=== PATIENT | female | born 1935 | race Caucasian/White ===

== ENCOUNTER 2016-11-16 12:43 | Emergency (ER) | payer OTHER ==
[~2016-11-16] VITALS: Ht 167.6 cm; Wt 72.4 kg
[~2016-11-16 12:43] MED LIST: ASPEC81 PO; ATOR-26 PO; CLOP1TAB15 PO; LOSA1TAB PO; METO100T14 PO; PANT1TAB48 PO
[2016-11-16 12:55] VITALS: TEMP 36.8; Ht 167.6 cm; Wt 72.4 kg
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
[2016-11-16 13:49] VITALS: O2SAT 99
--- NOTE | 2016-11-16 13:57 | DIAGNOSTIC IMAGING REPORT ---
CT SCAN OF THE BRAIN WITHOUT IV CONTRAST CLINICAL HISTORY: Right facial paralysis. COMPARISON STUDY: CT of the brain dated 05/13/2014. TECHNIQUE: Unenhanced axial CT scan of the brain is performed from the vertex to the skull base. CT DOSE: 638.56 mGycm FINDINGS: Brain parenchyma: There are age-related involutional changes noting mild to moderate subcortical and periventricular microangiopathic change. There is no hemorrhage, mass effect, or evidence of acute territorial ischemia by CT criteria. Mancia-white matter is preserved. No extra-axial fluid collection is seen. Ventricles, sulci, cisterns: Prominent secondary to involutional change. Intracranial vasculature: There is atherosclerotic calcification of the cavernous carotid and vertebral arteries. Calvarium: Unremarkable. Sinuses and mastoids: The visualized paranasal sinuses are clear. The mastoid air cells are well pneumatized. Orbits: The bony orbits are grossly intact. There are bilateral ocular lens implants. IMPRESSION: There is no hemorrhage, mass effect, or evidence of acute territorial ischemia by CT criteria. Electronically signed by: Prateek Stoll M.D. 11/16/2016 1:55 PM Dictated Date/Time: 11/16/2016 1:50 PM
[2016-11-16 14:03] LABS: BASO % 0.5 %; BASO ABS # 0.02 K/uL (0-0.2); COMPLETE YES; EOS % 2.1 %; HEMATOCRIT 36.9 % (37-47); IG% 0.2 %; LYMPH % 28.9 %; LYMPH ABS # 1.24 K/uL (1.2-3.4); MEAN CELL VOLUME 98.1 fL (80-100); MEAN CORPUSCULAR HEMOGLOBIN 33.2 pg (25-34); MEAN CORPUSCULAR HGB CONC 33.9 g/dl (32-36); MEAN PLATELET VOLUME 9.7 fL (7.4-10.4); MONO % 5.6 %; NEUT % 62.7 %; PLATELET COUNT 230 K/uL (130-400); RED BLOOD COUNT 3.76 M/uL (4.2-5.4); WHITE BLOOD COUNT 4.29 K/uL (4.8-10.8)
--- NOTE | 2016-11-16 14:14 | DIAGNOSTIC IMAGING REPORT ---
CHEST 2 VIEWS ROUTINE CLINICAL HISTORY: right facial paralysis mental status change COMPARISON STUDY: 08/17/2014 FINDINGS: Findings of prior median sternotomy. Lungs are clear. Diaphragms smooth. IMPRESSION: No acute process. The above report was generated using voice recognition software. It may contain grammatical, syntax or spelling errors. Electronically signed by: Matthew Ochoa M.D. 11/16/2016 2:12 PM Dictated Date/Time: 11/16/2016 2:12 PM
[2016-11-16] MEDS ORDERED: ACETAMINOPHEN 500 MG TAB PO STA (14:17)
[2016-11-16 14:22] LABS: BLOOD UREA NITROGEN 13 mg/dl (7-18); BUN/CREATININE RATIO 15.4 (10-20); CALCIUM 9.1 mg/dl (8.5-10.1); CARBON DIOXIDE 28 mmol/L (21-32); CHLORIDE 105 mmol/L (98-107); CREATININE 0.82 mg/dl (0.60-1.20); GLUCOSE 133 mg/dl (70-99); POTASSIUM 3.7 mmol/L (3.5-5.1); SODIUM 139 mmol/L (136-145)
[2016-11-16] MEDS ORDERED: ACETAMINOPHEN 325 MG TAB ONE (14:26)
[2016-11-16] MEDS ORDERED: CZR25 PO (14:51)
[2016-11-16] MEDS ORDERED: ACET-1256 PO (14:51)
[2016-11-16] MEDS ORDERED: ATOR80TA PO (14:51)
[2016-11-16] MEDS ORDERED: ASPI81TA28 PO (14:51)
[2016-11-16] MEDS ORDERED: ALBU18002 INH (14:51)
[2016-11-16] MEDS ORDERED: FLUT0.15 NAE (14:51)
[2016-11-16] MEDS ORDERED: MULTCHW PO (14:51)
[2016-11-16] MEDS ORDERED: PRT/20 PO (14:51)
[2016-11-16] MEDS ORDERED: CLOP1TAB15 PO (14:51)
[2016-11-16] MEDS ORDERED: METO1TAB69 PO (14:51)
[2016-11-16] MEDS ORDERED: PRED50TA PO (15:26)
[2016-11-16] MEDS ORDERED: DOXY1TAB6 PO (15:26)
[2016-11-16] MEDS ORDERED: ARTIOIN OP (15:29)
[2016-11-16 16:14] LABS: LYME DISEASE AB IGG POS (NEG); LYME DISEASE AB IGM POS (NEG)
[2016-11-16 17:27] VITALS: BP 141/89; PULSE 70; O2SAT 97
[2016-11-21 23:57] LABS: 18KDIGG BAND REACTIVE (NONREACTIVE); 23KDIGG BAND REACTIVE (NONREACTIVE); 23KDIGM BAND REACTIVE (NONREACTIVE); 28KDIGG BAND NONREACTIVE (NONREACTIVE); 30KDIGG BAND NONREACTIVE (NONREACTIVE); 39KDIGG BAND REACTIVE (NONREACTIVE); 39KDIGM BAND NONREACTIVE (NONREACTIVE); 41KDIGG BAND REACTIVE (NONREACTIVE); 41KDIGM BAND REACTIVE (NONREACTIVE); 45KDIGG BAND REACTIVE (NONREACTIVE); 58KDIGG BAND REACTIVE (NONREACTIVE); 66KDIGG BAND REACTIVE (NONREACTIVE); 93KDIGG BAND NONREACTIVE (NONREACTIVE)
== END 2016-11-16 17:29 | disposition home or self-care (01) ==
LOC: C.EDB 12:43 → EDBD 12:43 → C.EDB 17:29
DX: G51.0 Bell's palsy (principal); I10 Essential (primary) hypertension; Z95.1 Presence of aortocoronary bypass graft; K21.9 Gastro-esophageal reflux disease without esophagitis; M10.9 Gout, unspecified; E78.5 Hyperlipidemia, unspecified; I25.2 Old myocardial infarction; Z83.3 Family history of diabetes mellitus; Z83.79 Family history of other diseases of the digestive system; Z82.49 Family history of ischemic heart disease and other diseases of the circulatory system; Z79.82 Long term (current) use of aspirin; Z79.02 Long term (current) use of antithrombotics/antiplatelets; Z79.899 Other long term (current) drug therapy

== ENCOUNTER → 2017-01-05 | Outpatient (CLI) | payer OTHER ==
[~2017-01-05] MED LIST changes: +ACET-1256 PO; +ALBU18002 INH; +ARTIOIN OP; -ASPEC81 PO; +ASPI81TA28 PO; -ATOR-26 PO; +ATOR80TA PO; +CZR25 PO; +FLUT0.15 NAE; -LOSA1TAB PO; -METO100T14 PO; +METO1TAB69 PO; +MULTCHW PO; -PANT1TAB48 PO; +PRT/20 PO
--- NOTE | 2017-01-05 12:36 | DIAGNOSTIC IMAGING REPORT ---
MRI OF THE BRAIN WITHOUT IV CONTRAST CLINICAL HISTORY: Left arm weakness. COMPARISON STUDY: CT of the brain dated 11/16/2016. TECHNIQUE: MRI of the brain was performed utilizing various T1 and T2-weighted sequences in the axial, sagittal, and coronal planes. IV contrast was not administered for this examination. FINDINGS: Brain parenchyma: There are age-related involutional changes noting mild to moderate patchy subcortical and periventricular microangiopathic disease. Tiny chronic lacunar infarcts are noted in the right cerebellar hemisphere in the left caudate head. There is no hemorrhage or mass effect. There is no restricted diffusion to suggest acute ischemia. Mancia-white matter differentiation is preserved. No extra-axial fluid collection is seen. The cerebellar tonsils are normal in configuration. Ventricles, sulci, and cisterns: Prominent secondary to involutional change. Pituitary and sella: Unremarkable. Intracranial vasculature: Normal flow voids are maintained at the skull base. Orbits: The bony orbits are grossly intact. Orbital contents are normal in appearance noting bilateral ocular lens implants. Sinuses and mastoids: There are small mastoid effusions. The paranasal sinuses are clear. Calvarium: Unremarkable. Cervical cord: Partially visualized cervical spinal cord is normal in morphology and signal intensity. IMPRESSION: No acute intracranial abnormality. Electronically signed by: Prateek Stoll M.D. 01/05/2017 12:35 PM Dictated Date/Time: 01/05/2017 12:32 PM
== END | disposition home or self-care (01) ==
LOC: C.MRI 10:06
PROVIDERS: ATTEND Family Medicine
DX: R29.898 Other symptoms and signs involving the musculoskeletal system (principal)

== ENCOUNTER → 2017-01-10 | Outpatient (CLI) | payer OTHER ==
[2017-01-12 14:57] LABS: QUANTIF TB AG-NIL <0.00 IU/ML; QUANTIFERON NIL 0.11 IU/ML
== END | disposition home or self-care (01) ==
LOC: C.LAB1850 15:24
PROVIDERS: ATTEND Internal Medicine Infectious Disease
DX: R61 Generalized hyperhidrosis (principal)

== ENCOUNTER 2017-06-23 19:08 | Emergency (ER) | payer OTHER ==
[~2017-06-23] VITALS: Ht 160 cm; Wt 73.5 kg
[~2017-06-23 19:08] MED LIST changes: -ARTIOIN OP; +METO100T44 PO; -METO1TAB69 PO
[2017-06-23 19:11] VITALS: TEMP 36.8; Ht 160 cm; Wt 73.5 kg
[2017-06-23] MEDS ORDERED: OXYCODONE HCL IR 5 MG TAB (IMMEDIATE RELEASE) PO STA ×2 (19:21→21:26)
[2017-06-23] MEDS ORDERED: ONDANSETRON 4MG OD TAB PO ONE (19:30)
[2017-06-23] MEDS ORDERED: OXYMETAZOLINE HCL 0.05% NA SPR 15 ML BTL ONE (19:45)
--- NOTE | 2017-06-23 20:16 | DIAGNOSTIC IMAGING REPORT ---
R HUMERUS MIN 2 VIEWS ROUTINE CLINICAL HISTORY: fall trauma. Pain. COMPARISON: None. DISCUSSION: Anterior dislocation right humerus in relation to the shoulder. Potential cortical irregularity of the inferior scapula although this may be positional. There is no evidence for soft tissue swelling. IMPRESSION: Anterior dislocation The above report was generated using voice recognition software. It may contain grammatical, syntax or spelling errors. Electronically signed by: Matthew Ochoa M.D. 06/23/2017 8:14 PM Dictated Date/Time: 06/23/2017 8:13 PM
--- NOTE | 2017-06-23 20:17 | DIAGNOSTIC IMAGING REPORT ---
R FOREARM 2 VIEWS ROUTINE CLINICAL HISTORY: fall trauma. Pain. COMPARISON: None. DISCUSSION: The bones and joint spaces appear intact. There is no evidence of fracture, dislocation or bony disease. There is no evidence for soft tissue swelling. IMPRESSION: Negative study. The above report was generated using voice recognition software. It may contain grammatical, syntax or spelling errors. Electronically signed by: Matthew Ochoa M.D. 06/23/2017 8:16 PM Dictated Date/Time: 06/23/2017 8:15 PM
--- NOTE | 2017-06-23 20:20 | DIAGNOSTIC IMAGING REPORT ---
HEAD WITHOUT CONTRAST (CT) CT DOSE: HISTORY: Trauma. Mental status change. fall TECHNIQUE: Multiaxial CT images of the head were performed without the use of intravenous contrast. A dose lowering technique was utilized adhering to the principles of ALARA. Comparison: 11/16/2016 Findings: The paranasal sinuses and mastoid air cells are clear. The calvarium and skull base are intact. The ventricles and sulci are within normal limits. There is no mass, hematoma, midline shift, or acute infarct. Fracture nasal bones. Impression: Fracture nasal bones. No acute intracranial abnormality. The above report was generated using voice recognition software. It may contain grammatical, syntax or spelling errors. Electronically signed by: Matthew Ochoa M.D. 06/23/2017 8:19 PM Dictated Date/Time: 06/23/2017 8:18 PM
--- NOTE | 2017-06-23 20:23 | DIAGNOSTIC IMAGING REPORT ---
FACIAL BONES-MXILLOFAC WITHOUT CT DOSE: HISTORY: Trauma. Pain. fall TECHNIQUE: Multiaxial CT images of the maxillofacial region were performed and reformatted in the coronal plane without the use of contrast. A dose lowering technique was utilized adhering to the principles of ALARA. COMPARISON: 06/03/2009 FINDINGS: Fracture nasal bones. Major sinuses are clear. The orbital margins appear intact. Temporomandibular joints show no acute abnormality. Major sinuses are clear. IMPRESSION: Fracture nasal bones. Otherwise negative study. The above report was generated using voice recognition software. It may contain grammatical, syntax or spelling errors. Electronically signed by: Matthew Ochoa M.D. 06/23/2017 8:22 PM Dictated Date/Time: 06/23/2017 8:19 PM
--- NOTE | 2017-06-23 20:25 | DIAGNOSTIC IMAGING REPORT ---
CERVICAL SPINE W/O CT DOSE: 948.02 mGy.cm HISTORY: Trauma. Pain. fall TECHNIQUE: Multiaxial CT images of the cervical spine were performed and reformatted in the sagittal and coronal plane without the use of contrast. A dose lowering technique was utilized adhering to the principles of ALARA. COMPARISON: 05/13/2014 FINDINGS: nasal bone fractures are again noted. Vertebral body stature is unremarkable. There are findings of a fusion with a mesh cage placement at C5-C6. Posterior elements are intact. There is moderate degenerative disc change throughout. The prevertebral soft tissues are unremarkable. IMPRESSION: No fractures within the cervical spine. Degenerative and postoperative change as noted. The above report was generated using voice recognition software. It may contain grammatical, syntax or spelling errors. Electronically signed by: Matthew Ochoa M.D. 06/23/2017 8:24 PM Dictated Date/Time: 06/23/2017 8:22 PM
[2017-06-23] MEDS ORDERED: HYDROmorphone INJ 0.5 MG/0.5 ML SYR IM STA (20:52)
[2017-06-23] MEDS ORDERED: CEPHALEXIN MONOHYDRATE 250 MG CAP PO ONE (21:30)
[2017-06-23] MEDS ORDERED: CEPHALEXIN 500MG HOME PACK 1 EA BTL PO ONE (21:30)
[2017-06-23] MEDS ORDERED: OXYCODONE IR HOME PACK PO ONE (21:30)
[2017-06-23] MEDS ORDERED: OXYC1TAB3 PO (21:39)
[2017-06-23] MEDS ORDERED: CEPH500C2 PO (21:39)
[2017-06-23 21:50] VITALS: BP 154/73; PULSE 60; O2SAT 92
--- NOTE | 2017-06-23 21:53 | DIAGNOSTIC IMAGING REPORT ---
R SHOULDER MIN 2 VIEWS ROUTINE CLINICAL HISTORY: post reduction dislocation COMPARISON: None. DISCUSSION: Anatomic alignment post closed reduction. There is no evidence for soft tissue swelling. IMPRESSION: Anatomic alignment status post closed reduction. The above report was generated using voice recognition software. It may contain grammatical, syntax or spelling errors. Electronically signed by: Matthew Ochoa M.D. 06/23/2017 9:52 PM Dictated Date/Time: 06/23/2017 9:51 PM
--- NOTE | 2017-06-23 22:54 | EMERGENCY ROOM VISIT NOTE ---
History Report prepared by Maria C: Rosa Maria Reid Under the Supervision of: Dr. Donis Arevalo D.O. 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 She presents to the ED by EMS. She tripped over a sweeper and fell today. She reports right arm pain and nose pain. She had a nose bleed after the fall. She denies any LOC, leg pain, abdominal pain, back pain, neck pain, or hip pain. 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 Review of Systems See HPI for pertinent positives & negatives. A total of 10 systems reviewed and were otherwise negative. Past Medical & Surgical Medical Problems: (1) Benign hypertension (2) Coronary artery bypass grafting (3) Echocardiogram (4) Gangrene (5) Gastroesophageal reflux disease (6) Gout (7) HTN (hypertension) (8) Hyperlipidemia (9) Hysterectomy (10) Myocardial infarct Surgical Problems: (1) Hx of heart artery stent (2) S/P triple vessel bypass Family History Diabetes mellitus FH: gallbladder disease FH: heart disease Hypertension Stroke Social History Smoking Status: Never Smoker Alcohol Use: none Marital Status: Housing Status: lives alone Occupation Status: retired Current/Historical Medications Scheduled Aspirin (Aspirin Ec), 162 MG PO DAILY Atorvastatin (Lipitor), 80 MG PO QAM Cephalexin Monohydrate (Keflex), 500 MG PO QID Clopidogrel (Plavix), 75 MG PO DAILY Fluticasone Propionate (Nasal) (Flonase Allergy Relief), 2 SPRAYS IRENE DAILY Losartan Potassium (Losartan Potassium), 25 MG PO DAILY Metoprolol Succ (Toprol Xl) (Toprol-Xl ), 100 MG PO DAILY Multiple Vitamins W/ Minerals (Centrum Silver), 1 TAB PO DAILY Pantoprazole (Protonix), 20 MG PO DAILY Scheduled PRN Acetaminophen (Tylenol), 1,000 MG PO Q6 PRN for Pain Albuterol Sulfate (Proair Respiclick), 1 PUFF INH QID PRN for Wheezing Oxycodone Immediate Rel Tab (Roxicodone Ir), 1-2 TAB PO Q4H PRN for Severe Pain Allergies Coded Allergies: Perflutren (Unverified Allergy, Severe, MUSCLE TIGHTNESS, 06/23/17) Propylene Glycol (Unverified Allergy, Severe, MUSCLE TIGHTNESS, 06/23/17) Sulfamethoxazole w/Trimethoprim (Unverified Allergy, Severe, RASH, 06/23/17 ) Sulfa Drugs (Verified Allergy, Unknown, RASH, 06/23/17) Physical Exam Vital Signs Date Time Temp Pulse Resp B/P (MAP) Pulse Ox O2 Delivery O2 Flow Rate FiO2 06/23/17 21:50 60 18 154/73 92 Room Air 06/23/17 20:26 72 18 152/78 95 Room Air 06/23/17 19:11 36.8 67 18 103/76 94 Room Air Physical Exam GENERAL: Patient is awake, alert, somewhat anxious appearing. EYES: The conjunctivae are clear. The pupils are round and reactive. EARS, NOSE, MOUTH AND THROAT: Clotted blood in both nares right greater than left, swelling over bridge of nose with puncture wound on both sides of the bridge of the nose. NECK: The neck is nontender and supple. RESPIRATORY: Normal respiratory effort is noted there is no evidence of wheezing rhonchi or rales CARDIOVASCULAR: Regular rate and rhythm noted there no murmurs rubs or gallops normal S1 normal S2 GASTROINTESTINAL: The abdomen is soft. Bowel sounds are present in all quadrants. Abdomen is nontender BACK: No midline tenderness or or step-off noted range of motion in flexion extension as well as rotation no signs of muscle spasm noted MUSCULOSKELETAL/EXTREMITIES: There is tenderness over the proximal forearm as well as mid portion of the humerus on the right, no decreased ROM or tenderness on either lower extremity. SKIN: There is no obvious evidence of any rash. There are no petechiae, pallor or cyanosis noted. NEUROLOGIC: Patient is awake alert and oriented x3 Medical Decision & Procedures ER Provider Diagnostic Interpretation: X-ray results as stated below per interpretation by me and the radiologist. Radiology results as stated below per my review and radiologist interpretation: R HUMERUS MIN 2 VIEWS ROUTINE CLINICAL HISTORY: fall trauma. Pain. COMPARISON: None. DISCUSSION: Anterior dislocation right humerus in relation to the shoulder. Potential cortical irregularity of the inferior scapula although this may be positional. There is no evidence for soft tissue swelling. IMPRESSION: Anterior dislocation The above report was generated using voice recognition software. It may contain grammatical, syntax or spelling errors. Electronically signed by: Matthew Ochoa M.D. 06/23/2017 8:14 PM Dictated Date/Time: 06/23/2017 8:13 PM R FOREARM 2 VIEWS ROUTINE CLINICAL HISTORY: fall trauma. Pain. COMPARISON: None. DISCUSSION: The bones and joint spaces appear intact. There is no evidence of fracture, dislocation or bony disease. There is no evidence for soft tissue swelling. IMPRESSION: Negative study. The above report was generated using voice recognition software. It may contain grammatical, syntax or spelling errors. Electronically signed by: Matthew Ochoa M.D. 06/23/2017 8:16 PM Dictated Date/Time: 06/23/2017 8:15 PM HEAD WITHOUT CONTRAST (CT) CT DOSE: HISTORY: Trauma. Mental status change. fall TECHNIQUE: Multiaxial CT images of the head were performed without the use of intravenous contrast. A dose lowering technique was utilized adhering to the principles of ALARA. Comparison: 11/16/2016 Findings: The paranasal sinuses and mastoid air cells are clear. The calvarium and skull base are intact. The ventricles and sulci are within normal limits. There is no mass, hematoma, midline shift, or acute infarct. Fracture nasal bones. Impression: Fracture nasal bones. No acute intracranial abnormality. The above report was generated using voice recognition software. It may contain grammatical, syntax or spelling errors. Electronically signed by: Matthew Ochoa M.D. 06/23/2017 8:19 PM Dictated Date/Time: 06/23/2017 8:18 PM FACIAL BONES-MXILLOFAC WITHOUT CT DOSE: HISTORY: Trauma. Pain. fall TECHNIQUE: Multiaxial CT images of the maxillofacial region were performed and reformatted in the coronal plane without the use of contrast. A dose lowering technique was utilized adhering to the principles of ALARA. COMPARISON: 06/03/2009 FINDINGS: Fracture nasal bones. Major sinuses are clear. The orbital margins appear intact. Temporomandibular joints show no acute abnormality. Major sinuses are clear. IMPRESSION: Fracture nasal bones. Otherwise negative study. The above report was generated using voice recognition software. It may contain grammatical, syntax or spelling errors. Electronically signed by: Matthew Ochoa M.D. 06/23/2017 8:22 PM Dictated Date/Time: 06/23/2017 8:19 PM CERVICAL SPINE W/O CT DOSE: 948.02 mGy.cm HISTORY: Trauma. Pain. fall TECHNIQUE: Multiaxial CT images of the cervical spine were performed and reformatted in the sagittal and coronal plane without the use of contrast. A dose lowering technique was utilized adhering to the principles of ALARA. COMPARISON: 05/13/2014 FINDINGS: nasal bone fractures are again noted. Vertebral body stature is unremarkable. There are findings of a fusion with a mesh cage placement at C5-C6. Posterior elements are intact. There is moderate degenerative disc change throughout. The prevertebral soft tissues are unremarkable. IMPRESSION: No fractures within the cervical spine. Degenerative and postoperative change as noted. The above report was generated using voice recognition software. It may contain grammatical, syntax or spelling errors. Electronically signed by: Matthew Ochoa M.D. 06/23/2017 8:24 PM Dictated Date/Time: 06/23/2017 8:22 PM R SHOULDER MIN 2 VIEWS ROUTINE CLINICAL HISTORY: post reduction dislocation COMPARISON: None. DISCUSSION: Anatomic alignment post closed reduction. There is no evidence for soft tissue swelling. IMPRESSION: Anatomic alignment status post closed reduction. The above report was generated using voice recognition software. It may contain grammatical, syntax or spelling errors. Electronically signed by: Matthew Ochoa M.D. 06/23/2017 9:52 PM Dictated Date/Time: 06/23/2017 9:51 PM Medications Administered Medications (Trade) Dose Ordered Sig/[place] Route Start Time Stop Time Status Last Admin Dose Admin Oxycodone HCl (Roxicodone Immediate Rel Tab) 5 mg NOW STAT PO 06/23/17 19:21 06/23/17 19:23 DC 06/23/17 19:42 5 MG Ondansetron HCl (Zofran Odt) 4 mg ONE ONCE PO 06/23/17 19:30 06/23/17 19:31 DC 06/23/17 19:42 4 MG Oxymetazoline HCl (Afrin 0.05% Nasal [place]) 2 sprays NOW ONCE NA 06/23/17 19:45 06/23/17 19:46 DC 06/23/17 19:43 2 SPRAYS Hydromorphone HCl (Dilaudid Inj) 1 mg NOW STAT IM 06/23/17 20:52 06/23/17 20:53 DC 06/23/17 20:59 1 MG Oxycodone HCl (Roxicodone Immediate Rel Tab) 5 mg NOW STAT PO 06/23/17 21:26 06/23/17 21:27 DC 06/23/17 21:50 5 MG Oxycodone HCl (Roxicodone Immediate Rel 5MG Home Pack) 1 homepack UD ONCE PO 06/23/17 21:30 06/23/17 21:31 DC 06/23/17 21:59 1 HOMEPACK Cephalexin Monohydrate (Keflex 500MG Home Pack) 1 homepack NOW ONCE PO 06/23/17 21:30 06/23/17 21:31 DC 06/23/17 21:59 1 HOMEPACK Cephalexin Monohydrate (Keflex Cap) 500 mg NOW ONCE PO 06/23/17 21:30 06/23/17 21:31 DC 06/23/17 21:50 500 MG Procedure Anterior Shoulder Dislocation Reduction Indication: Right anterior shoulder dislocation Verbal consent obtained. Risks and benefits were explained with the usual customary discussion. A time out was taken. Neurovascular examination before the procedure revealed intact. The right shoulder glenohumeral dislocation was reduced by placing the patient in the supine position. Traction countertraction was used with slow and steady pressure in both directions. Slight external rotation to the right shoulder joint. Good reduction was noted. Neurovascular examination after the procedure revealed intact. The patient had significant pain relief and tolerated the procedure well. ED Course 1915: The patient was evaluated in room C9. A complete history and physical examination were performed. 1920: Oxycodone HCl 5 mg PO. 1929: Zofran Odt 4 mg PO. 1937: The patient is starting to have a nosebleed again. 1944: Oxymetazoline HCl 2 sprays NA. 2051: Dilaudid Inj 1 mg IM. 2119: Shoulder reduction was performed by me according to the procedure note above. 2125: Oxycodone HCl 5 mg PO. 2129: Keflex Cap 500 mg PO, Cephalexin Monohydrate 1 homepack PO, Oxycodone HCl 1 homepack PO. 2153: Upon reevaluation, the patient is resting comfortably. I discussed the results and treatment plan with her. She verbalized agreement of the treatment plan. She was discharged home. Medical Decision Prior records/ancillary studies reviewed. Triage Nursing notes reviewed. Differential diagnosis: Etiologies such as fracture, dislocation, intra-abdominal, pneumothorax, intrathoracic , intracranial, neurologic, as well as other traumatic pathologies were entertained. The patient is an 81-year-old female who presented to the emergency department for an evaluation after a fall. The patient had a trip and fall on a cord while she was vacuuming. She suffered a facial injury with a nasal fracture as well as a facial laceration. The laceration did not require repair at this time. The patient did have epistaxis which resolved. The patient was found to have an anterior dislocation on x-rays. This was reduced in the emergency department. She was treated with pain medication. She was also started on antibiotics for the nasal bone fracture. She was given follow-up information with orthopedics as well as ear nose and throat. I discussed this case with the emergency department case manager specialist. They will set the patient up for a ear nose and throat physician follow-up this week. The patient was encouraged to rest and avoid any strenuous activity. She was also encouraged to continue all medications as prescribed and return to the emergency department immediately if symptoms change worsen or the need arises. Head Trauma GCS Score: 15 Medication Reconcilliation Current Medication List: was personally reviewed by me Blood Pressure Screening Patient's blood pressure: Elevated blood pressure Blood pressure disposition: Elevated BP felt to be situational Impression Primary Impression: Fall Additional Impressions: Facial contusion Nasal fracture Nasal laceration Anterior dislocation of right shoulder Scribe Attestation The scribe's documentation has been prepared under my direction and personally reviewed by me in its entirety. I confirm that the note above accurately reflects all work, treatment, procedures, and medical decision making performed by me. Departure Information Dispostion Home / Self-Care Prescriptions Oxycodone Immediate Rel Tab (ROXICODONE IR) 5 Mg Tab 1-2 TAB PO Q4H Y for Severe Pain, #24 TAB Prov: Donis Arevalo, DO 06/23/17 Cephalexin Monohydrate (KEFLEX) 500 Mg Cap 500 MG PO QID, #28 CAP Prov: Donis Arevalo, DO 06/23/17 Referrals Susu Bower D.O. (PCP) Viet Grijalva MD Sebastianelli, Wayne J., M.D. Forms HOME CARE DOCUMENTATION FORM, IMPORTANT VISIT INFORMATION Patient Instructions ED Dislocation Shoulder Redu, ED Fx Nasal Conf W X Ray, My [facility] Additional Instructions Call your family doctor to schedule a follow-up appointment. Call the ear nose and throat physician as well as the orthopedic physician to schedule follow-up appointments this week. Continue using Motrin and Tylenol as directed for pain. Continue all other medications as prescribed. If you decide to use a stronger pain medication I would recommend an [id number] stool softener such as Colace. Problem Qualifiers Primary Impression: Fall Encounter type: initial encounter Qualified Codes: W19.XXXA - Unspecified fall, initial encounter Additional Impressions: Facial contusion Encounter type: initial encounter Qualified Codes: S00.83XA - Contusion of other part of head, initial encounter Nasal fracture Encounter type: initial encounter Fracture type: closed Qualified Codes: S02.2XXA - Fracture of nasal bones, initial encounter for closed fracture Nasal laceration Encounter type: initial encounter Qualified Codes: S01.21XA - Laceration without foreign body of nose, initial encounter Anterior dislocation of right shoulder Encounter type: initial encounter Qualified Codes: S43.014A - Anterior dislocation of right humerus, initial encounter
== END 2017-06-23 22:12 | disposition home or self-care (01) ==
LOC: EDBD 19:08 → C.EDC 19:10
DX: S00.83XA Contusion of other part of head, initial encounter (principal); S02.2XXA Fracture of nasal bones, initial encounter for closed fracture; S01.21XA Laceration without foreign body of nose, initial encounter; S43.014A Anterior dislocation of right humerus, initial encounter; W19.XXXA Unspecified fall, initial encounter; I10 Essential (primary) hypertension; M10.9 Gout, unspecified; E78.5 Hyperlipidemia, unspecified; I25.2 Old myocardial infarction; Z83.3 Family history of diabetes mellitus; Z82.49 Family history of ischemic heart disease and other diseases of the circulatory system; Z82.3 Family history of stroke; Z79.82 Long term (current) use of aspirin

== ENCOUNTER 2019-02-11 15:40 | Inpatient (IN) ==
[2019-02-11] MEDS ORDERED: SODIUM CHLORIDE 0.9% 500 ML IV SCH (16:30)
[2019-02-11 16:56] LABS: Basophils # (auto) 0.01 K/uL (0-0.2); Basophils % (auto) 0.2 %; Hematocrit (blood only) 33.4 % (37-47); Immature Granulocytes # (auto) 0.02 K/uL (0.00-0.02); Immature Granulocytes % (auto) 0.3 %; Lymphocytes # (auto) 1.05 K/uL (1.2-3.4); Lymphocytes % (auto) 16.8 %; Mean Corpuscular Hemoglobin 32.4 pg (25-34); Mean Corpuscular Hgb Conc 32.9 g/dL (32-36); Mean Corpuscular Volume 98.2 fL (80-100); Mean Platelet Volume 9.7 fL (7.4-10.4); Monocytes # (auto) 0.41 K/uL (0.11-0.59); Monocytes % (auto) 6.5 %; Neutrophils # (auto) 4.77 K/uL (1.4-6.5); Neutrophils % (auto) 76.2 %; Platelet Count 182 K/uL (130-400); RDW Standard Deviation 50.2 fL (36.4-46.3); White Blood Count 6.26 K/uL (4.8-10.8)
[2019-02-11 17:01] LABS: Appearance Urine Clear (Clear); Bacteria Urine Automated Negative (Negative); Bilirubin Urine Negative (Negative); Blood Urine 1+ (Negative); Cast Urine Automated 0 /lpf (0-5); Color Urine Yellow; Glucose Urine UA Negative (Negative); Ketones Urine Negative (Negative); Leukocyte Esterase Urine Negative (Negative); Nitrite Urine Negative (Negative); Protein Urine Negative (Negative); RBC Urine Automated 0-4 /hpf (0-4); Specific Gravity Urine 1.012 (1.000-1.030); Urobilinogen Urine Negative (Negative); pH Urine 5.5 (4.5-7.5)
[2019-02-11 17:14] LABS: Alanine Aminotransferase 26 U/L (12-78); Albumin Level 3.4 gm/dl (3.4-5.0); Aspartate Aminotransferase 39 U/L (15-37); BUN Creatinine Ratio 24.5 (10-20); Blood Urea Nitrogen 19 mg/dl (7-18); Calcium 8.9 mg/dl (8.5-10.1); Carbon Dioxide 27 mmol/L (21-32); Chloride 104 mmol/L (98-107); Est GFR (African American) 81.5; Est GFR (Non-African American) 70.3; Glucose 71 mg/dl (70-99); Potassium 4.1 mmol/L (3.5-5.1); Sodium 138 mmol/L (136-145)
--- NOTE | 2019-02-11 17:17 | CT Scan Report ---
CT OF THE HEAD WITHOUT CONTRAST CLINICAL HISTORY: Fall. Confusion. COMPARISON STUDY: Head CT June 23, 2017. CT DOSE: 824.44 mGy.cm TECHNIQUE: Helical axial images of the head were obtained without IV contrast. Automated exposure con trol was utilized for the study. A dose lowering technique was utilized adhering to the principles o f ALARA. FINDINGS: No acute intracranial hemorrhage, midline shift or mass effect is present. The ventricular system is unremarkable. The basilar cisterns are patent. No extra-axial collections are present. Ther e are no findings to suggest acute dural sinus thrombosis or acute territorial infarct. No significan t calvarial abnormalities are present. White matter hypodensities suggest mild small vessel disease. Bilateral mastoid air cells are partially opacified. IMPRESSION: 1. No acute intracranial findings. 2. No calvarial fracture. 3. Partially opacified bilateral mastoid air cells. Electronically signed by: Tyrell Bernard M.D. 02/11/2019 5:16 PM
--- NOTE | 2019-02-11 17:21 | CT Scan Report ---
CT cervical spine wo con CLINICAL HISTORY: 83 years-old Female presenting with fall, head and neck pain, confusion. TECHNIQUE: Multidetector CT of the cervical spine was performed without the use of intravenous contra st. IV contrast: None. One or more dose lowering techniques were used consistent with the principles of ALARA (as low as reasonably achievable), including automatic exposure control, mA or kV adjustment to individual patient size, and/or use of iterative reconstruction. COMPARISON: 06/23/2017. CT DOSE (mGy.cm): The estimated cumulative dose is 824.44. FINDINGS: Public Relations Analyst topogram: Median sternotomy wires. Cervical hardware. Mild straightening of cervical lordosis likely due to postsurgical changes. Trace anterolisthesis of C4 on C5. Postsurgical changes of anterior cervical discectomy and fusion of C5-C7 with an interbody cage present at C5-6. Osseous fusion is noted across these 3 levels. There is also osseous fusion acr oss the facet joints of C3-C6 on the right and C4-5 on the left. Vertebral bodies at the nonoperative levels otherwise maintain normal height and alignment. Intervertebral disc height loss to a mild to moderate degree. Disc bulges/disc osteophyte complexes noted at C2-3 and C3-4. No significant adjacen t level degenerative change at C4-5 or C7-T1. Osseous neural foraminal narrowing noted on the right a t C2-3 and on the right at C5-6. This is to a mild degree. No acute fracture or subluxation of the ce rvical spine. Mild to moderate degenerative changes of the atlantodental articulation. The skull base is intact. Mastoid air cell fluid bilaterally. Soft tissue Auditory canals likely cerumen. Minimal aerated secretions in the sphenoid sinuses. Lung apices clear . 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 Atherosclerosis. IMPRESSION: 1. No acute osseous injury of the cervical spine. 2. Postsurgical changes of ACDF of C5-C7 with osseous fusion. No complication. 3. Mild degenerative changes at C2-3 and C3-4. Additional degenerative change as above. Electronically signed by: Brian Lockhart M.D. 02/11/2019 5:19 PM
[2019-02-11 17:31] LABS: Albumin Globulin Ratio 0.9 (0.9-2); Alkaline Phosphatase 72 U/L (45-117); Bilirubin,Total 0.6 mg/dl (0.2-1); Globulin 3.6 gm/dl (2.5-4.0); Troponin I 0.178 ng/ml (0-0.045)
[2019-02-11] MEDS ORDERED: ASPIRIN CHEW 324 MG PO STA (17:40)
[2019-02-11] MEDS ORDERED: ALBUTEROL HFA 8 GM INHALER INH PRN (21:36)
[2019-02-11] MEDS ORDERED: CALCIUM CARBONATE 500 MG CHEWABLE TAB PO PRN (21:36)
[2019-02-11] MEDS ORDERED: NITROGLYCERIN 0.3 MG/1 TAB 100 TAB BTL SL PRN (21:36)
[2019-02-11] MEDS ORDERED: POLYETHYLENE (MIRALAX) 17 GM PACK PO PRN (21:38)
[2019-02-11] MEDS ORDERED: ONDANSETRON INJ 2 MG/ML 2 ML VIAL IV PRN (21:38)
[2019-02-11] MEDS ORDERED: NITROGLYCERIN SL 0.4 MG/TAB TAB SL PRN (21:38)
[2019-02-11] MEDS ORDERED: ZOLPIDEM TARTRATE 5 MG TAB PO PRN (21:38)
--- NOTE | 2019-02-11 22:00 | History & Physical Report ---
Date of Service February 11, 2019 Assessment & Plan (1) UTI (urinary tract infection): Present on admission Admit patient to telemetry Although patient has no fever or leukocytosis, she complained of hematuria yesterday, UA showed some white blood cells and red blood cells, giving her new onset generalized weakness we will empirically start her on ceftriaxone, obtain urine culture, We will obtain blood cultures, Obtain procalcitonin (2) Traumatic hematoma of buttock: Secondary to fall No hip fracture (3) Closed compression fracture of body of L1 vertebra: Also secondary to before Likely osteoporosis due to fracture sustained, from ground-level fall Needs osteoporosis DEXA scan screen as an outpatient (4) Fall: Obtain physical therapy/Occupational Therapy Place her on fall precaution (5) Elevated troponin: In the setting of her previous history of CAD/CABG/stents We will trend troponin Possible demand ischemia versus a true event, like arrhythmia Keep patient on telemetry Obtain 2D echo (6) HTN (hypertension): Restart home blood pressure meds History of Present Illness 83-year-old female with past medical history of coronary artery disease status post CABG/stents, essential hypertension, GERD, dyslipidemia, patient is fairly independent and lives alone, yesterday she called her son at 7 AM and told him she fell and she was not able to stand up. In the way to her her son called ambulance and made the paramedics at her house she was brought to the ED, initial work-up was negative, she had some blood in the urine and some white blood cells large hematoma in her left buttock, but no fractures, except that CT scan showed acute 20% anterior compression deformity of L1 vertebral body that was new since December 2018, patient had no back pain and was discharged home from the ED yesterday. Today her son took her to her primary care physician appointment, she was noticed to be slightly confused she does not remember her fall yesterday, does not remember calling her son she was sent from her primary care physician to the ED for further evaluation. She denies any burning sensation in the urine but her UA yesterday was very suspicious for UTI, denies any pain at this moment and her hemoglobin has been stable despite of the large hematoma in her buttock. She does not remember falling does not remember calling her son, she was found today to have some nonspecific ST-T wave changes and troponin was slightly elevated at 0.17, denies any chest pain or shortness of breath. Primary Care Provider: Susu Bower DO Allergies Allergy/AdvReac Type Severity Reaction Status Date / Time Bactrim Allergy Severe RASH Unverified 06/23/17 20:25 perflutren Allergy Severe MUSCLE Verified 02/11/19 16:31 TIGHTNESS propylene glycol Allergy Severe MUSCLE Verified 02/11/19 16:31 TIGHTNESS sulfamethoxazole Allergy Severe RASH Verified 02/11/19 16:31 trimethoprim Allergy Severe RASH Verified 02/11/19 16:31 Sulfa (Sulfonamide Allergy Unknown RASH Verified 02/11/19 16:31 Antibiotics) Home Medications Home Medications Medication Instructions Recorded Confirmed Type aspirin 162 mg PO DAILY 02/27/18 02/11/19 History atorvastatin 80 mg PO QAM 02/27/18 02/11/19 History clopidogrel 75 mg PO QAM 02/27/18 02/11/19 History losartan 25 mg PO QAM 02/27/18 02/11/19 History metoprolol succinate 100 mg PO QAM 02/27/18 02/11/19 History multivitamin 1 tab PO QAM 02/27/18 02/11/19 History pantoprazole 20 mg PO QAM 02/27/18 02/11/19 History albuterol sulfate 2 puffs INH Q6H PRN #8.5 gm 11/28/18 02/11/19 Rx nitroglycerin 0.3 mg SUBLINGUAL UD PRN 11/28/18 02/11/19 History calcium carbonate [Tums] 200 mg PO DIRECTED PRN 02/10/19 02/11/19 History Past Med/Surg History Medical History Anterior dislocation of right shoulder (Acute) Cellulitis of right leg (Acute) HTN (hypertension) (Chronic) Myocardial infarct (Chronic) Surgical History Hx of heart artery stent (Resolved) S/P triple vessel bypass (Resolved) Family History Other Family history non-contributory Social History Preferred Language: Icelandic Communication Ability: Effective 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 Beliefs That Will Affect Care: None Current Living Situation: Alone Other Information That Helps Us Care for You: No Feels Safe at Home: Yes Safety Concerns: Feels Safe At This Time Smoking Status: Never smoker Hx Alcohol Use: No Hx Substance Use: No Review of Systems Review of Systems: Review of system Constitutional: No fever / no chills / no sweats positive for generalized weakness and fatigue Eyes: no blurring of vision / no eye pain / no discharge / no redness ENT: no hearing loss / no epistaxis /no swallowing problems Respiratory: no cough / no wheezing / no SOB / no hemoptysis Cardiovascular: no Chest pain / no lower extremity edema / no palpitation Abdomen: no pain / no nausea / no vomiting / no constipation Musculoskeletal: no joint pain / no muscle pain / no joint swelling positive of lot for large hematoma on the buttock, positive for falls Genitourinary: no dysuria / no incontinence / no urinary retention positive for blood in stool Neurologic: Positive for headache no focal weakness / no numbness/tingling / no ataxia Psychiatric: no depression symptoms / no anxiety / no insomnia Endocrine: no excessive thirst / no excessive urination Hematologic: no abnormal bleeding / no bruising / no LN swelling Skin: No rash / no pallor Physical Exam Physical Exam: Physical examination General frail elderly female appears to be in mild distress HEENT: Atraumatic , normocephalic /no jaundice /no pallor /anicteric /no dry mucous membrane /normal external ear inspection Neck: Supple /no swelling /central trach Heart: S1/S2 normal/regular rate and rhythm/no gallop /no rub /no murmur Lungs: Clear to auscultation bilaterally/normal chest with expansion/no rhonchi/no rales/no wheezing/no use of accessory muscles of respiration Abdomen: Soft/nontender/no guarding/no rebound/no organomegaly/no pulsatile mass Musculoskeletal: Large bruise on left buttock area Neuro exam: Awake alert oriented 3/cranial nerves II through XII appear to be intact/sensation intact/moves all extremities/no abnormal movements Psychiatric evaluation: No depressed mood/normal affect Skin: No rash on exposed skin area/no erythema Extremity: Normal pulse/no pitting edema/no clubbing or cyanosis Endocrine/lymphatic: No obvious lymphadenopathy /no lymphedema Results & Data Vital Signs (Past 12 Hours) Vital Signs Temp Pulse Pulse Resp BP BP Pulse Ox 02/11/19 20:25 75 26 H 155/71 H 96 02/11/19 17:51 83 84 18 158/90 H 158/90 H 96 02/11/19 16:29 74 18 100 02/11/19 15:44 36.5 C 74 18 161/84 H 100 Code Status & VTE Plan Code Status Full code PG Care Time/CCT Total # of Minutes Spent Total Time Spent with Patient: 35 minutes total time spent is greater than 50% in coordination of care (as documented) at patient's floor/unit and/or counseling patient/family discussion of care with nursing staff (1) Traumatic hematoma of buttock Encounter type: initial encounter Qualified Code(s): S30.0XXA - Contusion of lower back and pelvis, initial encounter (2) Fall Encounter type: subsequent encounter Qualified Code(s): W19.XXXD - Unspecified fall, subsequent encounter
[2019-02-11] MEDS ORDERED: PATIENT'S HEIGHT AND/OR WEIGHT NEEDED SCH (23:30)
--- NOTE | 2019-02-11 23:43 | Emergency Department Note ---
Entered by Mell Adan acting as a scribe for History of Present Illness General Chief complaint: Headache Stated complaint: HEADACHE, POSSIBLE FALL Time Seen by Provider: 02/11/19 16:06 Source: patient and family History of Present Illness Onset (ago): day(s) 1 Location: head (headache) Severity: similar to prior episodes Pain Consistency: + other (persistent) Maximum Pain Intensity: 8 Quality: + other (pinching) Associated symptoms: + confusion, + headaches, + nausea/vomiting (Positive nausea. Negative vomiting. ) and + other (lower back pain, neck pain, hemat uria.); no fever/chills Patient was referred to the ER by her family doctor. The patient is an 83 year old male who presents to the Emergency Department complaining of a persistent headache stating 1 day ago. The patient reports that she has a headache. She states that this headache is more so concentrated to the right side of her head and that she feels a pinching sensation on the right side of her neck. She explains that her lower back hurts and that this pain radiates into her buttock. She states that she is nauseated. She notes that she has been experiencing hematuria yesterday and that she is still experiencing it today. She adds that she frequently gets bladder related infections. The patients son reports that the patient has been confused. He states that the patient fell 1 day ago and came to the hospital via EMS for this fall. He states that the patient doesnt remember riding in the ambulance or being in the hospital yesterday. He explains that the patients memory is still not back to baseline but that it has slightly improved. He notes that the patient doesnt regularly fall. The patient denies fever, chills and vomiting. Home Medications Home Medications Medication Instructions Recorded Confirmed Type aspirin 162 mg PO DAILY 02/27/18 02/11/19 History atorvastatin 80 mg PO QAM 02/27/18 02/11/19 History clopidogrel 75 mg PO QAM 02/27/18 02/11/19 History losartan 25 mg PO QAM 02/27/18 02/11/19 History metoprolol succinate 100 mg PO QAM 02/27/18 02/11/19 History multivitamin 1 tab PO QAM 02/27/18 02/11/19 History pantoprazole 20 mg PO QAM 02/27/18 02/11/19 History albuterol sulfate 2 puffs INH Q6H PRN #8.5 gm 11/28/18 02/11/19 Rx nitroglycerin 0.3 mg SUBLINGUAL UD PRN 11/28/18 02/11/19 History calcium carbonate [Tums] 200 mg PO DIRECTED PRN 02/10/19 02/11/19 History Allergies Allergy/AdvReac Type Severity Reaction Status Date / Time Bactrim Allergy Severe RASH Unverified 06/23/17 20:25 perflutren Allergy Severe MUSCLE Verified 02/11/19 16:31 TIGHTNESS propylene glycol Allergy Severe MUSCLE Verified 02/11/19 16:31 TIGHTNESS sulfamethoxazole Allergy Severe RASH Verified 02/11/19 16:31 trimethoprim Allergy Severe RASH Verified 02/11/19 16:31 Sulfa (Sulfonamide Allergy Unknown RASH Verified 02/11/19 16:31 Antibiotics) Past Med/Surg History Medical History Anterior dislocation of right shoulder (Acute) Cellulitis of right leg (Acute) HTN (hypertension) (Chronic) Myocardial infarct (Chronic) Surgical History Hx of heart artery stent (Resolved) S/P triple vessel bypass (Resolved) Family History Other Family history non-contributory Social History Preferred Language: Macedonian Communication Ability: Effective Past Due Accounts Clerk Required: No Beliefs That Will Affect Care: None Current Living Situation: Alone Other Information That Helps Us Care for You: No Feels Safe at Home: Yes Safety Concerns: Feels Safe At This Time Smoking Status: Never smoker Hx Alcohol Use: No Hx Substance Use: No Review of Systems See HPI for pertinent positives & negatives. and A total of 10 systems reviewed and were otherwise negative Physical Exam Vital Signs Vital Signs - 24 hr 02/11/19 15:44 02/11/19 16:29 02/11/19 17:51 Temperature 36.5 C Temperature Source Oral Pulse Rate 74 74 83 Pulse Rate [Left] 84 Pulse Rate from SpO2 Sensor 82 Pulse Rhythm Regular Respiratory Rate 18 18 18 Respiratory Effort / Characteristics Non-Labored Non-Labored Spontaneous Respiratory Depth Normal Normal Blood Pressure 161/84 H 158/90 H Blood Pressure [Right Arm] 158/90 H Blood Pressure Mean 109 117 Blood Pressure Mean [Right Arm] 112 Blood Pressure Position [Right Arm] Lying Pulse Oximetry 100 100 96 Oxygen Delivery Method Room Air Room Air Sepsis Recent Fever Within 48 Hours No Sepsis New/Unexplained Change in Mental Status No Sepsis Action Taken by Nursing No Action Required 02/11/19 20:25 02/11/19 20:30 02/11/19 21:00 Temperature Temperature Source Pulse Rate 75 76 78 Pulse Rate [Left] Pulse Rate from SpO2 Sensor 73 75 78 Pulse Rhythm Respiratory Rate 26 H 22 18 Respiratory Effort / Characteristics Respiratory Depth Blood Pressure 155/71 H 177/65 H 172/85 H Blood Pressure [Right Arm] Blood Pressure Mean 105 87 108 Blood Pressure Mean [Right Arm] Blood Pressure Position [Right Arm] Pulse Oximetry 96 97 97 Oxygen Delivery Method Room Air Room Air Room Air Sepsis Recent Fever Within 48 Hours Sepsis New/Unexplained Change in Mental Status Sepsis Action Taken by Nursing 02/11/19 21:30 Temperature Temperature Source Pulse Rate 69 Pulse Rate [Left] Pulse Rate from SpO2 Sensor 63 Pulse Rhythm Respiratory Rate 18 Respiratory Effort / Characteristics Respiratory Depth Blood Pressure 151/86 H Blood Pressure [Right Arm] Blood Pressure Mean 107 Blood Pressure Mean [Right Arm] Blood Pressure Position [Right Arm] Pulse Oximetry 92 Oxygen Delivery Method Room Air Sepsis Recent Fever Within 48 Hours Sepsis New/Unexplained Change in Mental Status Sepsis Action Taken by Nursing GENERAL: Patient is in no acute distress. HEENT: No scalp hematoma. Normocephalic. mucous membranes moist, no nasal co ngestion, no scleral icterus. NECK: Diffusely tender posterior cervical spine. No stridor, no adenopathy, no meningismus, trachea is midline. LUNGS: Clear to auscultation bilaterally, no wheeze, no rhonchi, breath sounds equal. HEART: 2/6 systolic murmur. Regular rate and rhythm. ABDOMEN: Soft, nontender, bowel sounds positive, no hernias, no peritonitis. BACK: Lower back pain with movement. BUTTOCK: large hematoma to inferior aspect of left buttock. EXTREMITIES: No cyanosis or edema, full range of motion of all the joints without pain or difficulty, no signs for acute trauma. NEUROLOGIC: Oriented x 3, no acute motor or sensory deficits, no focal weakness. No cerebellar deficit or pronator drift. SKIN: No rash, no jaundice, no diaphoresis. Course Course 1607: EMR reviewed. The patient was in the ED 1 day ago for back pain and a fall. She had a CT A/P at that time. She had a gluteal hematoma on CT. There was a 20% compression fracture of L1. Hemoglobin 1 day ago was 11.8. Her chemistry profile was essentially unremarkable. Her INR was 1.0. Urine analysis was consistent with possible infection. Urine culture was done. So far there is no growth. 1608: The patient was evaluated in room B4B, and a complete history and physical examination were performed. 174: I reevaluated and updated the patient at this time. 1745: I discussed the patients case with Dr. Monica Naqvi [facility] [place]. He will evaluate the patient for further management. Administered Medications Acetaminophen (Tylenol) 650 mg PO Q4H PRN PRN Reason: Pain or Fever Stop: 03/13/19 21:37 Last Admin: 02/12/19 00:07 Dose: 650 mg Documented by: [id number] Sodium Chloride (Nss 1000ml) 1,000 mls @ 50 mls/hr IV .Q20H SHASTA Stop: 03/13/19 23:24 Last Admin: 02/11/19 23:56 Dose: 50 mls/hr Documented by: [id number] Ceftriaxone Sodium 1,000 mg/ (Dextrose) 50 mls @ 100 mls/hr IV Q24H [facility]; Protocol Stop: 02/17/19 00:00 Last Admin: 02/12/19 00:09 Dose: 100 mls/hr Documented by: [id number] Discontinued Medications Aspirin (Aspirin) 324 mg PO NOW STA Stop: 02/11/19 17:41 Last Admin: 02/11/19 17:51 Dose: 324 mg Documented by: [id number] Sodium Chloride (Nss) 500 mls @ 999 mls/hr IV .Q31M SHASTA Stop: 02/11/19 17:00 Last Infusion: 02/11/19 17:21 Dose: 0 mls/hr Documented by: [id number] Admin: 02/11/19 16:49 Dose: 999 mls/hr Documented by: [id number] Impression & Plan Confusion, Fall, Abnormal EKG, Elevated troponin Medical Decision Making Differential Diagnosis Differentials include UTI, concussion, intracranial bleeding, cervical spine injury, skull fracture, anemia, electrolyte imbalance, dysrhythmia, dehydration amongst others. Medical Records Attestation: I reviewed the patient's medical records. Home Medications Current Medication List: was personally reviewed by me Laboratory Data Attestation: I reviewed the patient's lab results. Result diagrams: 02/11/19 16:48 02/11/19 16:48 Lab Results 02/11/19 02/11/19 02/11/19 Range/Units 16:48 16:48 16:48 WBC 6.26 (4.8-10.8) K/uL RBC 3.40 L (4.2-5.4) M/uL Hgb 11.0 L (12.0-16.0) g/dL Hct 33.4 L (37-47) % MCV 98.2 (80-100) fL MCH 32.4 (25-34) pg MCHC 32.9 (32-36) g/dL RDW Std Deviation 50.2 H (36.4-46.3) fL RDW Coeff of Fred 14.0 (11.5-14.5) % Plt Count 182 (130-400) K/uL MPV 9.7 (7.4-10.4) fL Immature Gran % (Auto) 0.3 % Neut % (Auto) 76.2 % Lymph % (Auto) 16.8 % Lamar % (Auto) 6.5 % Eos % (Auto) 0.0 % Baso % (Auto) 0.2 % Immature Gran # (Auto) 0.02 (0.00-0.02) K/uL Neut # (Auto) 4.77 (1.4-6.5) K/uL Lymph # (Auto) 1.05 L (1.2-3.4) K/uL Lamar # (Auto) 0.41 (0.11-0.59) K/uL Eos # (Auto) 0.00 (0-0.5) K/uL Baso # (Auto) 0.01 (0-0.2) K/uL ESR (0-21) mm/hr Sodium 138 (136-145) mmol/L Potassium 4.1 (3.5-5.1) mmol/L Chloride 104 (98-107) mmol/L Carbon Dioxide 27 (21-32) mmol/L Anion Gap 7.0 (3-11) BUN 19 H (7-18) mg/dl Creatinine 0.78 (0.6-1.2) mg/dl Est Cr Clr Drug Dosing Not Reportable Est GFR ( Amer) 81.5 Est GFR (Non-Af Amer) 70.3 BUN/Creatinine Ratio 24.5 H (10-20) Glucose 71 (70-99) mg/dl Calcium 8.9 (8.5-10.1) mg/dl Magnesium 2.0 (1.8-2.4) mg/dl Total Bilirubin 0.6 (0.2-1) mg/dl AST 39 H (15-37) U/L ALT 26 (12-78) U/L Alkaline Phosphatase 72 (45-117) U/L Troponin I 0.178 H* (0-0.045) ng/ml Total Protein 7.0 (6.4-8.2) gm/dl Albumin 3.4 (3.4-5.0) gm/dl Globulin 3.6 (2.5-4.0) gm/dl Albumin/Globulin Ratio 0.9 (0.9-2) TSH 1.790 (0.300-4.500) uIu/ml Urine Color Yellow Urine Appearance Clear (Clear) Urine pH 5.5 (4.5-7.5) Ur Specific [place] 1.012 (1.000-1.030) Urine Protein Negative (Negative) Urine Glucose (UA) Negative (Negative) Urine Ketones Negative (Negative) Urine Blood 1+ H (Negative) Urine Nitrite Negative (Negative) Urine Bilirubin Negative (Negative) Urine Urobilinogen Negative (Negative) Ur Leukocyte Esterase Negative (Negative) Urine WBC (Auto) 1-5 (0-5) /hpf Urine RBC (Auto) 0-4 (0-4) /hpf U Hyaline Cast (Auto) 0 (0-5) /lpf U Epithel Cells (Auto) 5-10 H (0-5) /lpf Urine Bacteria (Auto) Negative (Negative) 02/11/19 Range/Units 16:48 WBC (4.8-10.8) K/uL RBC (4.2-5.4) M/uL Hgb (12.0-16.0) g/dL Hct (37-47) % MCV (80-100) fL MCH (25-34) pg MCHC (32-36) g/dL RDW Std Deviation (36.4-46.3) fL RDW Coeff of Fred (11.5-14.5) % Plt Count (130-400) K/uL MPV (7.4-10.4) fL Immature Gran % (Auto) % Neut % (Auto) % Lymph % (Auto) % Lamar % (Auto) % Eos % (Auto) % Baso % (Auto) % Immature Gran # (Auto) (0.00-0.02) K/uL Neut # (Auto) (1.4-6.5) K/uL Lymph # (Auto) (1.2-3.4) K/uL Lamar # (Auto) (0.11-0.59) K/uL Eos # (Auto) (0-0.5) K/uL Baso # (Auto) (0-0.2) K/uL ESR 41 H (0-21) mm/hr Sodium (136-145) mmol/L Potassium (3.5-5.1) mmol/L Chloride (98-107) mmol/L Carbon Dioxide (21-32) mmol/L Anion Gap (3-11) BUN (7-18) mg/dl Creatinine (0.6-1.2) mg/dl Est Cr Clr Drug Dosing Est GFR ( Amer) Est GFR (Non-Af Amer) BUN/Creatinine Ratio (10-20) Glucose (70-99) mg/dl Calcium (8.5-10.1) mg/dl Magnesium (1.8-2.4) mg/dl Total Bilirubin (0.2-1) mg/dl AST (15-37) U/L ALT (12-78) U/L Alkaline Phosphatase (45-117) U/L Troponin I (0-0.045) ng/ml Total Protein (6.4-8.2) gm/dl Albumin (3.4-5.0) gm/dl Globulin (2.5-4.0) gm/dl Albumin/Globulin Ratio (0.9-2) TSH (0.300-4.500) uIu/ml Urine Color Urine Appearance (Clear) Urine pH (4.5-7.5) Ur Specific [place] (1.000-1.030) Urine Protein (Negative) Urine Glucose (UA) (Negative) Urine Ketones (Negative) Urine Blood (Negative) Urine Nitrite (Negative) Urine Bilirubin (Negative) Urine Urobilinogen (Negative) Ur Leukocyte Esterase (Negative) Urine WBC (Auto) (0-5) /hpf Urine RBC (Auto) (0-4) /hpf U Hyaline Cast (Auto) (0-5) /lpf U Epithel Cells (Auto) (0-5) /lpf Urine Bacteria (Auto) (Negative) Imaging Data Radiologist's Impression: Radiology results as stated below per my review and the radiologist's interpretation: CT OF THE HEAD WITHOUT CONTRAST CLINICAL HISTORY: Fall. Confusion. COMPARISON STUDY: Head CT June 23, 2017. CT DOSE: 824.44 mGy.cm TECHNIQUE: Helical axial images of the head were obtained without IV contrast. Automated exposure control was utilized for the study. A dose lowering technique was utilized adhering to the principles of ALARA. FINDINGS: No acute intracranial hemorrhage, midline shift or mass effect is present. The ventricular system is unremarkable. The basilar cisterns are patent. No extra-axial collections are present. There are no findings to suggest acute dural sinus thrombosis or acute territorial infarct. No significant calvarial abnormalities are present. White matter hypodensities suggest mild small vessel disease. Bilateral mastoid air cells are partially opacified. IMPRESSION: 1. No acute intracranial findings. 2. No calvarial fracture. 3. Partially opacified bilateral mastoid air cells. Electronically signed by: Tyrell Bernard M.D. 02/11/2019 5:[address] cervical spine wo con CLINICAL HISTORY: 83 years-old Female presenting with fall, head and neck pain, confusion. TECHNIQUE: Multidetector CT of the cervical spine was performed without the use of intravenous contrast. IV contrast: None. One or more dose lowering techniques were used consistent with the principles of ALARA (as low as reasonably achievable), including automatic exposure control, mA or kV adjustment to individual patient size, and/or use of iterative reconstruction. COMPARISON: 06/23/2017. CT DOSE (mGy.cm): The estimated cumulative dose is 824.44. 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 Cervical hardware. Mild straightening of cervical lordosis likely due to postsurgical changes. Trace anterolisthesis of C4 on C5. Postsurgical changes of anterior cervical discectomy and fusion of C5-C7 with an interbody cage present at C5-6. Osseous fusion is noted across these 3 levels. There is also osseous fusion across the facet joints of C3-C6 on the right and C4-5 on the left. Vertebral bodies at the nonoperative levels otherwise maintain normal height and alignment. Intervertebral disc height loss to a mild to moderate degree. Disc bulges/disc osteophyte complexes noted at C2-3 and C3-4. No significant adjacent level degenerative change at C4-5 or C7-T1. Osseous neural foraminal narrowing noted on the right at C2-3 and on the right at C5-6. This is to a mild degree. No acute fracture or subluxation of the cervical spine. Mild to moderate degenerative changes of the atlantodental articulation. The skull base is intact. Mastoid air cell fluid bilaterally. Soft tissue Auditory canals likely cerumen. Minimal aerated secretions in the sphenoid sinuses. Lung apices clear. 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 Atherosclerosis. IMPRESSION: 1. No acute osseous injury of the cervical spine. 2. Postsurgical changes of ACDF of C5-C7 with osseous fusion. No complication. 3. Mild degenerative changes at C2-3 and C3-4. Additional degenerative change as above. Electronically signed by: Brian Lockhart M.D. 02/11/2019 5:19 PM ECG Data Attestation: I personally reviewed and interpreted this ECG as follows: Indication: + other (Headache, confusion) Rate (beats per minute): 79 Rhythm: + normal sinus ECG ST segments: no ST elevation ECG Findings: + Other (Biphasic T waves in anterior leads. Inverted T waves in lateral leads. QTC 467.) Comparison ECG Date: from (02/10/19) Change: the following changes noted (Biphasic anterior T waves appear new. ) Blood Pressure Blood Pressure Findings: Elevated blood pressure Blood Pressure Disposition: further management by hospitalist TONYA Narrative There is no leukocytosis. There is a very mild anemia present. No significant electrolyte abnormality or kidney failure. No worrisome liver enzyme elevation. The patient appeared to be in a euthyroid state. Urinalysis did not show evidence for infection. Brain CT showed no acute bleed or mass-effect. C-spine CT showed no acute fracture. EKG showed a sinus rhythm with some subtle ST and T wave changes which were new in appearance. Cardiac troponin testing was elevated consistent with recent cardiac injury or strain. The patient presents with some confusion. She had fallen yesterday and was amnestic of what had actually happen. She is having a hard time remembering things today. She certainly may have struck her head and may have a mild concussion. The EKG changes and the troponin elevation are worrisome for some sort of cardiac event. The cardiac issue may have led to her fall yesterday. I do think a hospital stay is warranted for further work-up. The patient was given IV saline, she was given oral aspirin during her stay. Discharge Plan Visit Data *Final* Discharge Date/Time: 02/11/19 23:01 Chief Complaint: Headache Stated Complaint: HEADACHE, POSSIBLE FALL ED Provider: Prateek Stewart Discharge Problem: Confusion, Fall, Abnormal EKG, Elevated troponin Patient Disposition: Admitted As Inpatient Discharge Instructions Interventions: ED Discharge Assessment Last Done: 02/11/19 23:01 Discharge Problem: Fall Qualifiers: Encounter type: subsequent encounter Qualified Code(s): W19.XXXD - Unspecified fall, subsequent encounter The scribe's documentation has been prepared under my direction and personally reviewed by me in its entirety. I confirm that the note above accurately reflects all work, treatment, procedures, and medical decision making performed by me.
[2019-02-11] MEDS: SODIUM CHLORIDE 0.9% 1000ML 1,000 ML IV SCH (23:56)
[2019-02-12] MEDS ORDERED: cefTRIAXone SODIUM 1,000 MG in DEXTROSE 5% 50 ML IV SCH
[2019-02-12] MEDS: ACETAMINOPHEN 325 MG TAB PO PRN ×2 (00:07→16:30)
[2019-02-12 04:43] LABS: Basophils # (auto) 0.01 K/uL (0-0.2); Basophils % (auto) 0.2 %; Eosinophils # (auto) 0.06 K/uL (0-0.5); Eosinophils % (auto) 1.2 %; Hematocrit (blood only) 31.2 % (37-47); Hemoglobin 10.2 g/dL (12.0-16.0); Immature Granulocytes # (auto) 0.01 K/uL (0.00-0.02); Immature Granulocytes % (auto) 0.2 %; Lymphocytes # (auto) 1.51 K/uL (1.2-3.4); Lymphocytes % (auto) 30.4 %; Mean Corpuscular Hemoglobin 32.2 pg (25-34); Mean Corpuscular Hgb Conc 32.7 g/dL (32-36); Mean Corpuscular Volume 98.4 fL (80-100); Monocytes # (auto) 0.28 K/uL (0.11-0.59); Monocytes % (auto) 5.6 %; Neutrophils # (auto) 3.09 K/uL (1.4-6.5); Neutrophils % (auto) 62.4 %; Platelet Count 160 K/uL (130-400); RDW Coefficient of Variation 13.9 % (11.5-14.5); RDW Standard Deviation 50.3 fL (36.4-46.3); Red Blood Count 3.17 M/uL (4.2-5.4); White Blood Count 4.96 K/uL (4.8-10.8)
[2019-02-12 05:07] LABS: Albumin Level 2.9 gm/dl (3.4-5.0); BUN Creatinine Ratio 21.3 (10-20); Calcium 8.5 mg/dl (8.5-10.1); Creatinine Clr Calc Pharmacy 53.1 ml/min; Est GFR (African American) 93.3; Est GFR (Non-African American) 80.5; Potassium 3.8 mmol/L (3.5-5.1)
[2019-02-12 05:28] LABS: Albumin Globulin Ratio 0.9 (0.9-2); Bilirubin,Total 0.5 mg/dl (0.2-1); Globulin 3.3 gm/dl (2.5-4.0); Total Protein 6.2 gm/dl (6.4-8.2); Troponin I 0.214 ng/ml (0-0.045)
[2019-02-12] MEDS: CLOPIDOGREL BISULFATE 75 MG TAB PO SCH (07:55)
[2019-02-12] MEDS: MULTIVITAMIN TAB PO SCH (07:55)
[2019-02-12] MEDS: ATORVASTATIN 40 MG TAB PO SCH (07:55)
[2019-02-12] MEDS: LACTOBACILLUS ACIDOPHILUS 1 GM PACK PO SCH ×3 (07:55→16:48)
[2019-02-12] MEDS: ASPIRIN 81 MG ECTAB PO SCH (07:55)
[2019-02-12] MEDS: PANTOprazole 40 MG TAB PO SCH (07:55)
[2019-02-12] MEDS: METOPROLOL SUCC 50MG EXT REL TAB PO SCH (08:00)
[2019-02-12] MEDS: LOSARTAN POTASSIUM 25 MG TAB PO SCH (08:00)
--- NOTE | 2019-02-12 17:39 | Hospitalist Progress Note ---
Date of Service February 12, 2019 Assessment & Plan (1) UTI (urinary tract infection): 83-year-old female with past medical history of coronary artery disease status post CABG/stents, essential hypertension, GERD, dyslipidemia presents from PCP office with concerns of AMS and significant wt loss over a few months duration. AMS -initial concern on admission for UTI. Pt has had no fever or leukocytosis, urinary sxs, UA showed some white blood cells and red blood cells otherwise unremarkable. dc'd ceftriaxone 02/12 -Urine culture, blood cultures pending -procalcitonin neg. Other infectious etiology unlikely -metabolic etiology unlikely -B12, TSH pending -Peripheral smear pending -Head CT- No acute intracranial findings -MRI Brain pending Concern for weight loss -significant (~30 lbs) over few months duration -was being worked up for ca as outpt by PCP Dr. Bower -CT chest w/o contrast and CT abd w/contract ordered- looking for any malignancies/mets Traumatic hematoma of buttock -Secondary to fall -No hip fracture -looking out for sequestration, daily CBC Fall/Closed compression fracture of body of L1 vertebra -Also secondary to before -Likely osteoporosis due to fracture sustained, from ground-level fall -Needs osteoporosis DEXA scan screen as an outpatient -Obtain physical therapy/Occupational Therapy- son notes pt lives at home alone and there are cameras throughout the house that he can monitor -fall precautions Elevated troponin -In the setting of her previous history of CAD/CABG/stents -trops .178, .214 -likely demand ischemia versus a true cardiac etiology -ECHO reviewed HTN/CAD -Cont ASA, Atorvastatin, Clopidogrel, Losartan, Metoprolol FEN/GI: HH Diet DVT Prophylaxis: Lovenox SQ Full Code Dispo: Cont on tele. Downgrade Med Surg tomorrow. PT/OT Supervising Physician Co-Signing Physician Notes I personally examined the patient and verified all quintana points of history and exam, discussed case, and agree with decision making with Dr Villeda. Feeling better. Mentally more aware. No new complaints. She does note that she has been working with her PCP for a while trying to work up what is probably the better part of a 40 pound involuntary weight loss with night sweats. Discussed with her PCP, her next step was going to be to obtain a colonoscopy, we discussed that given the acuity of the situation CT scan looking for any inappropriate lumps/masses/nodes would be a faster way of getting to the bottom of things. After further review she actually had CT abdomen pelvis with contrast done in the ER, as well as CT chest done only about a month ago, and given that the weight loss has been going on preceding both of these both would certainly suffice. PCP also noted that she was having a progressive decline which seems to be dementia related and would appreciate a work-up for organic causes. Vitals noted, in general she is awake and alert pleasant no distress. HEENT normal cephalic atraumatic mucous membranes moist. Breathing unlabored no accessory muscle use good effort. Skin shows no rashes no pallor or icterus. Possible metabolic encephalopathypresent on admission, now resolved. Is not sure if this is truly a metabolic encephalopathy or waxing and waning confusion with progressive dementia as the PCP has concern of. Doing better now. Serial exams. Involuntary weight lossCT chest abdomen pelvis recently did not show any concerning lumps or masses. Peripheral smear. It is possible with her waxing and waning mentation that she is not eating as much as she is realizing. Possible progressive dementiain discussion with PCP, B12, TSH, MRI brain Dispositionstable for medical, PT/OT eval and treat. Probably will be safe to go home. Subjective 83 yo F found in bed this AM in NAD. No rerported overnight events. Pt still has no recollection of falls 2 days [employer] or ER visit. Some ongoing buttock pain. Notes doesn't feel confused at present. A&Ox3. Noted to have 30 lb wt loss over few months duration, unintentionally. Tolerating PO intake. No other acute concerns or complaints. Review of Systems Review of Systems: All systems reviewed & are unremarkable except as noted in HPI & below Physical Exam Constitutional: frail appearing Eyes: PERRL, conjunctivae normal, anicteric sclerae ENMT: external ear and nose normal, oropharynx normal Respiratory: normal respiratory effort, lungs clear to auscultation Cardiovascular: RRR, no murmur, no edema Gastrointestinal (Abdomen): normal bowel sounds, soft, nontender, no hepatosplenomegaly Skin: L buttock hematoma Psychiatric: A+Ox3, euthymic affect Results & Data Vital Signs (Past 12 Hours) Vital Signs Temp Pulse Pulse Resp BP Pulse Ox 02/12/19 16:02 36.9 C 64 18 125/77 98 02/12/19 15:15 71 11/13/19 12:04 36.8 C 84 18 162/74 H 96 02/12/19 07:59 36.4 C L 70 18 168/76 H 96 02/12/19 07:35 62 Laboratory Results Laboratory Results - last 24 hr 02/11/19 02/12/19 02/12/19 16:48 04:08 04:08 WBC 4.96 RBC 3.17 L Hgb 10.2 L Hct 31.2 L MCV 98.4 MCH 32.2 MCHC 32.7 RDW Std Deviation 50.3 H RDW Coeff of Fred 13.9 Plt Count 160 MPV 10.0 Immature Gran % (Auto) 0.2 Neut % (Auto) 62.4 Lymph % (Auto) 30.4 [place] % (Auto) 5.6 Eos % (Auto) 1.2 Baso % (Auto) 0.2 Immature Gran # (Auto) 0.01 Neut # (Auto) 3.09 Lymph # (Auto) 1.51 [place] # (Auto) 0.28 Eos # (Auto) 0.06 Baso # (Auto) 0.01 ESR 41 H Sodium 140 Potassium 3.8 Chloride 106 Carbon Dioxide 28 Anion Gap 6.0 BUN 15 Creatinine 0.69 Est Cr Clr Drug Dosing 53.1 Est GFR ( Amer) 93.3 Est GFR (Non-Af Amer) 80.5 BUN/Creatinine Ratio 21.3 H Glucose 95 Calcium 8.5 Total Bilirubin 0.5 AST 36 ALT 26 Alkaline Phosphatase 64 Troponin I 0.214 H* Total Protein 6.2 L Albumin 2.9 L Globulin 3.3 Albumin/Globulin Ratio 0.9 Triglycerides 88 Cholesterol 120 LDL Cholesterol, Calc 54 VLDL Cholesterol, Calc 18 HDL Cholesterol 48 Cholesterol/HDL Ratio 3 Procalcitonin 02/12/19 02/12/19 02/12/19 04:08 09:26 15:40 WBC RBC Hgb Hct MCV MCH MCHC RDW Std Deviation RDW Coeff of Fred Plt Count MPV Immature Gran % (Auto) Neut % (Auto) Lymph % (Auto) [place] % (Auto) Eos % (Auto) Baso % (Auto) Immature Gran # (Auto) Neut # (Auto) Lymph # (Auto) [place] # (Auto) Eos # (Auto) Baso # (Auto) ESR Sodium Potassium Chloride Carbon Dioxide Anion Gap BUN Creatinine Est Cr Clr Drug Dosing Est GFR ( Amer) Est GFR (Non-Af Amer) BUN/Creatinine Ratio Glucose Calcium Total Bilirubin AST ALT Alkaline Phosphatase Troponin I 0.148 H* 0.078 H* Total Protein Albumin Globulin Albumin/Globulin Ratio Triglycerides Cholesterol LDL Cholesterol, Calc VLDL Cholesterol, Calc HDL Cholesterol Cholesterol/HDL Ratio Procalcitonin < 0.05 Medications Administered Current Inpatient Medications Acetaminophen (Tylenol) 650 mg PO Q4H PRN PRN Reason: Pain or Fever Stop: 03/13/19 21:37 Last Admin: 02/12/19 16:30 Dose: 650 mg Documented by: Albuterol (Ventolin Hfa) 2 puffs INH Q6H PRN PRN Reason: shortness of breath or wheezing Stop: 03/13/19 21:35 Aspirin (Ecotrin Ectab) 162 mg PO DAILY [facility] Stop: 03/14/19 08:59 Last Admin: 02/12/19 07:55 Dose: 162 mg Documented by: Atorvastatin Calcium (Lipitor) [address] [facility] Stop: 03/14/19 08:59 Last Admin: 02/12/19 07:55 Dose: 80 mg Documented by: Calcium Carbonate (Tums) 500 mg PO DAILY PRN PRN Reason: Indigestion Stop: 03/13/19 21:35 Clopidogrel Bisulfate (Plavix) [address] [facility] Stop: 03/14/19 08:59 Last Admin: 02/12/19 07:55 Dose: 75 mg Documented by: Sodium Chloride (Nss 1000ml) 1,000 mls @ 50 mls/hr IV .Q20H [facility] Stop: 03/13/19 23:24 Last Admin: 02/11/19 23:56 Dose: 50 mls/hr Documented by: Lactobacillus Acidophilus (Floranex Granules/Powder Packet) 1 gm PO TIDM [facility] Stop: 03/14/19 07:59 Last Admin: 02/12/19 16:48 Dose: 1 gm Documented by: Losartan Potassium (Cozaar) [facility] Stop: 03/14/19 08:59 Last Admin: 02/12/19 08:00 Dose: 25 mg Documented by: Metoprolol Succinate (Toprol Xl) [facility] Stop: 03/14/19 08:59 Last Admin: 02/12/19 08:00 Dose: 100 mg Documented by: Multivitamins (Multivitamin Tab) 1 tab PO QAM [facility] Stop: 03/14/19 08:59 Last Admin: 02/12/19 07:55 Dose: 1 tab Documented by: Nitroglycerin (Nitrostat) 0.4 mg SL UD PRN PRN Reason: Chest Pain Stop: 03/13/19 21:37 Ondansetron HCl (Zofran) 4 mg IV Q6H PRN PRN Reason: Nausea Stop: 03/13/19 21:37 Pantoprazole Sodium (Protonix) 40 mg PO QAM [facility] Stop: 03/14/19 08:59 Last Admin: 02/12/19 07:55 Dose: 40 mg Documented by: Polyethylene Glycol (Miralax Powder Packet) 17 gm PO DAILY PRN PRN Reason: Constipation Stop: 03/13/19 21:37 Zolpidem Tartrate (Ambien) 5 mg PO HS PRN PRN Reason: Sleep Stop: 03/13/19 21:37 Resident Activity Tracking Resident Involvement: Resident Care Provided Care Provided: Adult Hospital Medicine
[2019-02-12] MEDS: SODIUM CHLORIDE 0.9% 1000ML 1,000 ML IV SCH (19:05)
--- NOTE | 2019-02-12 20:00 | Billing Data ---
Coding Level of Care Code 72338 Subseq Hosp Care Lvl 3
[2019-02-13] MEDS: ACETAMINOPHEN 325 MG TAB PO PRN ×3 (02:00→21:28)
[2019-02-13 06:48] LABS: Basophils # (auto) 0.02 K/uL (0-0.2); Basophils % (auto) 0.4 %; Eosinophils # (auto) 0.14 K/uL (0-0.5); Eosinophils % (auto) 3.1 %; Hematocrit (blood only) 30.7 % (37-47); Mean Corpuscular Hemoglobin 32.4 pg (25-34); Mean Corpuscular Hgb Conc 32.6 g/dL (32-36); Mean Corpuscular Volume 99.4 fL (80-100); Mean Platelet Volume 10.3 fL (7.4-10.4); Monocytes # (auto) 0.36 K/uL (0.11-0.59); Monocytes % (auto) 7.9 %; Neutrophils # (auto) 2.53 K/uL (1.4-6.5); Neutrophils % (auto) 55.6 %; Platelet Count 149 K/uL (130-400); RDW Standard Deviation 50.1 fL (36.4-46.3); Red Blood Count 3.09 M/uL (4.2-5.4); White Blood Count 4.55 K/uL (4.8-10.8)
--- NOTE | 2019-02-13 07:12 | Magnetic Resonance Report ---
MRI OF THE BRAIN WITHOUT CONTRAST CLINICAL HISTORY: Altered mental status. Recent fall. COMPARISON STUDY: MRI of the brain January 05, 2017. Head CT February 11, 2019. TECHNIQUE: Utilizing a 1.5 Victoria magnet and dedicated coil, multiplanar, multiecho imaging of the bra in was performed without IV contrast. FINDINGS: There are no foci of restricted diffusion to suggest acute infarct. No acute intracranial h emorrhage, midline shift or mass effect is present. Ventricular system is unremarkable. There is mode rate atrophy. White matter T2 hyperintense foci are similar to prior MRI. These suggest small vessel disease. No intracranial masses identified on this unenhanced examination. Flow-voids for the major i ntracranial vessels are present. Calvarial signal is normal. Orbits are unremarkable. Bilateral masto id effusions, right larger than left, are noted. IMPRESSION: 1. No acute intracranial findings. 2. Moderate atrophy and small vessel disease. 3. Bilateral mastoid effusions, right larger than left. Electronically signed by: Tyrell Bernard M.D. 02/13/2019 7:11 AM
[2019-02-13 07:15] LABS: BUN Creatinine Ratio 23.3 (10-20); Calcium 8.5 mg/dl (8.5-10.1); Creatinine Clr Calc Pharmacy 47.9 ml/min; Est GFR (African American) 82.8; Est GFR (Non-African American) 71.4
[2019-02-13 07:26] LABS: Thyroid Stimulating Hormone 2.78 uIu/ml (0.300-4.500)
[2019-02-13] MEDS: MULTIVITAMIN TAB PO SCH (08:04)
[2019-02-13] MEDS: ASPIRIN 81 MG ECTAB PO SCH (08:04)
[2019-02-13] MEDS: ENOXAPARIN INJ 40 MG/0.4 ML SYR SQ SCH (08:04)
[2019-02-13] MEDS: CLOPIDOGREL BISULFATE 75 MG TAB PO SCH (08:04)
[2019-02-13] MEDS: PANTOprazole 40 MG TAB PO SCH (08:04)
[2019-02-13] MEDS: METOPROLOL SUCC 50MG EXT REL TAB PO SCH (08:04)
[2019-02-13] MEDS: ATORVASTATIN 40 MG TAB PO SCH (08:04)
[2019-02-13] MEDS: LACTOBACILLUS ACIDOPHILUS 1 GM PACK PO SCH ×3 (08:04→17:58)
[2019-02-13] MEDS: LOSARTAN POTASSIUM 25 MG TAB PO SCH (08:04)
--- NOTE | 2019-02-13 16:26 | Hospitalist Progress Note ---
Date of Service February 13, 2019 Assessment & Plan (1) UTI (urinary tract infection): 83-year-old female with past medical history of coronary artery disease status post CABG/stents, essential hypertension, GERD, dyslipidemia presents from PCP office with concerns of AMS and significant wt loss over a few months duration. AMS -initial concern on admission for UTI. Pt has had no fever or leukocytosis, urinary sxs, UA showed some white blood cells and red blood cells otherwise unremarkable. dc'd ceftriaxone 02/12 -Urine culture, blood cultures NGTD -procalcitonin neg. Other infectious etiology unlikely -metabolic etiology unlikely -B12, TSH WNL -Head CT- No acute intracranial findings -MRI Brain- No acute intracranial findings. Moderate atrophy and small vessel disease -likely to be the case of waxing and waning confusion with progressive dementia as evidenced by MRI findings Concern for weight loss -significant (~40 lbs) over few months duration -was being worked up for ca as outpt by PCP Dr. Bower -CT chest w/o contrast and CT abd w/contract ordered- looking for any malignancies/mets negative -Peripheral smear unremarkable other than normocytic anemia -it is likely the case that pt is just not eating as much as stated given waxing/waning mentation and progressive dementia as outlined above Traumatic hematoma of buttock -Secondary to fall -No hip fracture -looking out for sequestration, daily CBC Fall/Closed compression fracture of body of L1 vertebra -Also secondary to before -Likely osteoporosis due to fracture sustained, from ground-level fall -Needs osteoporosis DEXA scan screen as an outpatient -Obtain physical therapy/Occupational Therapy- son notes pt lives at home alone and there are cameras throughout the house that he can monitor -fall precautions Elevated troponin -In the setting of her previous history of CAD/CABG/stents -trops .178, .214 -likely demand ischemia versus a true cardiac etiology -ECHO reviewed HTN/CAD -Cont ASA, Atorvastatin, Clopidogrel, Losartan, Metoprolol FEN/GI: HH Diet DVT Prophylaxis: Lovenox SQ Full Code Dispo: Med Surg tomorrow. PT/OT- return home using RW with family assisting and services. Anticipate d/c tomorrow Supervising Physician Co-Signing Physician Notes I personally examined the patient and verified all quintana points of history and exam, discussed case, and agree with decision making with Dr Villeda. Feeling better overall. Still knows where she is and was going on. Is not gotten more confused again. Son believes he will be able to care for again starting tomorrow. Tests and findings reviewed with patient. Vitals noted, in general she is awake and alert pleasant no distress. HEENT normal cephalic atraumatic mucous membranes moist. Breathing unlabored no accessory muscle use good effort. Skin shows no rashes no pallor or icterus. Possible metabolic encephalopathypresent on admission, now resolved. Not sure if this is truly a metabolic encephalopathy or waxing and waning confusion with progressive dementia as the PCP has concern of. Given her overall presentation, I now favor the latter. Is stable, anticipate PCP starting medications to slow dementia in the near future. Involuntary weight lossnothing concerning for malignancy on CT peripheral smear etc. Suspect with waxing and waning mental status of dementia she is eating less than she realizes, and her weight loss is probably simply from poor oral intake. Possible progressive dementiaMRI brain shows atrophy, overall clinical picture concerning for progressive dementia. See above otherwise. Dispositionstable for medical, PT/OT eval and treat. Safe to go home once her son can supervise her. Subjective 83 yo F found in bed this AM in NAD. No rerported overnight events. Some ongoing buttock pain. Notes doesn't feel confused at present. A&Ox3. Tolerating PO intake. No other acute concerns or complaints. Review of Systems Review of Systems: All systems reviewed & are unremarkable except as noted in HPI & below Physical Exam Eyes: PERRL, conjunctivae normal, anicteric sclerae ENMT: external ear and nose normal, oropharynx normal Respiratory: normal respiratory effort, lungs clear to auscultation Cardiovascular: RRR, no murmur, no edema Gastrointestinal (Abdomen): normal bowel sounds, soft, nontender, no hepatosplenomegaly Skin: L buttock hematoma Psychiatric: A+Ox3, euthymic affect Results & Data Vital Signs (Past 12 Hours) Vital Signs Temp Pulse Resp BP BP Pulse Ox 02/13/19 15:35 36.9 C 71 22 120/68 97 02/13/19 07:31 36.6 C 71 20 123/69 97 Laboratory Results Laboratory Results - last 24 hr 02/12/19 02/12/19 02/12/19 15:40 18:53 20:16 WBC RBC Hgb Hct MCV MCH MCHC RDW Std Deviation RDW Coeff of Fred Plt Count MPV Immature Gran % (Auto) Neut % (Auto) Lymph % (Auto) [place] % (Auto) Eos % (Auto) Baso % (Auto) Immature Gran # (Auto) Neut # (Auto) Lymph # (Auto) [place] # (Auto) Eos # (Auto) Baso # (Auto) Peripher Smr Path Cons Sodium Potassium Chloride Carbon Dioxide Anion Gap BUN Creatinine Est Cr Clr Drug Dosing Est GFR ( Amer) Est GFR (Non-Af Amer) BUN/Creatinine Ratio Glucose Calcium Troponin I 0.078 H* Vitamin B12 TSH Nasal Screen MRSA (PCR) Negative 02/13/19 02/13/19 02/13/19 06:18 06:18 06:18 WBC 4.55 L RBC 3.09 L Hgb 10.0 L Hct 30.7 L MCV 99.4 MCH 32.4 MCHC 32.6 RDW Std Deviation 50.1 H RDW Coeff of Fred 14.0 Plt Count 149 MPV 10.3 Immature Gran % (Auto) 0.0 Neut % (Auto) 55.6 Lymph % (Auto) 33.0 [place] % (Auto) 7.9 Eos % (Auto) 3.1 Baso % (Auto) 0.4 Immature Gran # (Auto) 0.00 Neut # (Auto) 2.53 Lymph # (Auto) 1.50 [place] # (Auto) 0.36 Eos # (Auto) 0.14 Baso # (Auto) 0.02 Peripher Smr Path Cons Sodium 140 Potassium 4.0 Chloride 108 H Carbon Dioxide 26 Anion Gap 7.0 BUN 18 Creatinine 0.77 Est Cr Clr Drug Dosing 47.9 Est GFR ( Amer) 82.8 Est GFR (Non-Af Amer) 71.4 BUN/Creatinine Ratio 23.3 H Glucose 90 Calcium 8.5 Troponin I Vitamin B12 486 TSH 2.780 Nasal Screen MRSA (PCR) Medications Administered Current Inpatient Medications Acetaminophen (Tylenol) 650 mg PO Q4H PRN PRN Reason: Pain or Fever Stop: 03/13/19 21:37 Last Admin: 02/13/19 10:33 Dose: 650 mg Documented by: Albuterol (Ventolin Hfa) 2 puffs INH Q6H PRN PRN Reason: shortness of breath or wheezing Stop: 03/13/19 21:35 Aspirin (Ecotrin Ectab) 162 mg PO DAILY [facility] Stop: 03/14/19 08:59 Last Admin: 02/13/19 08:04 Dose: 162 mg Documented by: Atorvastatin Calcium (Lipitor) 80 mg PO [facility] Stop: 03/14/19 08:59 Last Admin: 02/13/19 08:04 Dose: 80 mg Documented by: Calcium Carbonate (Tums) 500 mg PO DAILY PRN PRN Reason: Indigestion Stop: 03/13/19 21:35 Clopidogrel Bisulfate (Plavix) 75 mg PO [facility] Stop: 03/14/19 08:59 Last Admin: 02/13/19 08:04 Dose: 75 mg Documented by: Enoxaparin Sodium (Lovenox) 40 mg SQ [facility] Stop: 03/15/19 08:59 Last Admin: 02/13/19 08:04 Dose: 40 mg Documented by: Sodium Chloride (Nss 1000ml) 1,000 mls @ 50 mls/hr IV .Q20H [facility] Stop: 03/13/19 23:24 Last Infusion: 02/13/19 04:22 Dose: 50 mls/hr Documented by: Lactobacillus Acidophilus (Floranex Granules/Powder Packet) 1 gm PO [facility] Stop: 03/14/19 07:59 Last Admin: 02/13/19 12:20 Dose: 1 gm Documented by: Losartan Potassium (Cozaar) 25 mg PO [facility] Stop: 03/14/19 08:59 Last Admin: 02/13/19 08:04 Dose: 25 mg Documented by: Metoprolol Succinate (Toprol Xl) 100 mg PO [facility] Stop: 03/14/19 08:59 Last Admin: 02/13/19 08:04 Dose: 100 mg Documented by: Multivitamins (Multivitamin Tab) 1 tab PO [facility] Stop: 03/14/19 08:59 Last Admin: 02/13/19 08:04 Dose: 1 tab Documented by: Nitroglycerin (Nitrostat) 0.4 mg SL UD PRN PRN Reason: Chest Pain Stop: 03/13/19 21:37 Ondansetron HCl (Zofran) 4 mg IV Q6H PRN PRN Reason: Nausea Stop: 03/13/19 21:37 Pantoprazole Sodium (Protonix) 40 mg PO [facility] Stop: 03/14/19 08:59 Last Admin: 02/13/19 08:04 Dose: 40 mg Documented by: Polyethylene Glycol (Miralax Powder Packet) 17 gm PO DAILY PRN PRN Reason: Constipation Stop: 03/13/19 21:37 Zolpidem Tartrate (Ambien) 5 mg PO HS PRN PRN Reason: Sleep Stop: 03/13/19 21:37 Resident Activity Tracking Resident Involvement: Resident Care Provided Care Provided: Adult Hospital Medicine
--- NOTE | 2019-02-13 18:54 | Billing Data ---
Coding Level of Care Code 22246 Subseq Hosp Care Lvl 2
[2019-02-13] MEDS: SODIUM CHLORIDE 0.9% 1000ML 1,000 ML IV SCH (21:28)
[2019-02-14 05:38] LABS: Basophils # (auto) 0.01 K/uL (0-0.2); Basophils % (auto) 0.2 %; Eosinophils # (auto) 0.25 K/uL (0-0.5); Eosinophils % (auto) 5.7 %; Hematocrit (blood only) 28.9 % (37-47); Hemoglobin 9.5 g/dL (12.0-16.0); Lymphocytes # (auto) 1.47 K/uL (1.2-3.4); Lymphocytes % (auto) 33.6 %; Mean Corpuscular Hemoglobin 32.5 pg (25-34); Mean Corpuscular Hgb Conc 32.9 g/dL (32-36); Monocytes # (auto) 0.34 K/uL (0.11-0.59); Monocytes % (auto) 7.8 %; Neutrophils # (auto) 2.31 K/uL (1.4-6.5); Neutrophils % (auto) 52.7 %; Platelet Count 151 K/uL (130-400); RDW Coefficient of Variation 13.9 % (11.5-14.5); Red Blood Count 2.92 M/uL (4.2-5.4); White Blood Count 4.38 K/uL (4.8-10.8)
[2019-02-14 06:12] LABS: BUN Creatinine Ratio 23.5 (10-20); Calcium 8.7 mg/dl (8.5-10.1); Creatinine Clr Calc Pharmacy 51.3 ml/min; Est GFR (African American) 89.8; Est GFR (Non-African American) 77.4; Potassium 4.3 mmol/L (3.5-5.1)
[2019-02-14] MEDS: ATORVASTATIN 40 MG TAB PO SCH (07:51)
[2019-02-14] MEDS: ENOXAPARIN INJ 40 MG/0.4 ML SYR SQ SCH (07:51)
[2019-02-14] MEDS: PANTOprazole 40 MG TAB PO SCH (07:51)
[2019-02-14] MEDS: MULTIVITAMIN TAB PO SCH (07:51)
[2019-02-14] MEDS: LACTOBACILLUS ACIDOPHILUS 1 GM PACK PO SCH ×2 (07:51→11:32)
[2019-02-14] MEDS: CLOPIDOGREL BISULFATE 75 MG TAB PO SCH (07:51)
[2019-02-14] MEDS: METOPROLOL SUCC 50MG EXT REL TAB PO SCH (07:51)
[2019-02-14] MEDS: LOSARTAN POTASSIUM 25 MG TAB PO SCH (07:55)
[2019-02-14] MEDS: ASPIRIN 81 MG ECTAB PO SCH (07:55)
--- NOTE | 2019-02-14 11:04 | Discharge Summary ---
Date of Service February 14, 2019 Admission HPI Per Admitting Provider 83-year-old female with past medical history of coronary artery disease status post CABG/stents, essential hypertension, GERD, dyslipidemia, patient is fairly independent and lives alone, yesterday she called her son at 7 AM and told him she fell and she was not able to stand up. In the way to her her son called ambulance and made the paramedics at her house she was brought to the ED, initial work-up was negative, she had some blood in the urine and some white blood cells large hematoma in her left buttock, but no fractures, except that CT scan showed acute 20% anterior compression deformity of L1 vertebral body that was new since December 2018, patient had no back pain and was discharged home from the ED yesterday. Today her son took her to her primary care physician appointment, she was noticed to be slightly confused she does not remember her fall yesterday, does not remember calling her son she was sent from her primary care physician to the ED for further evaluation. She denies any burning sens ation in the urine but her UA yesterday was very suspicious for UTI, denies any pain at this moment and her hemoglobin has been stable despite of the large hematoma in her buttock. She does not remember falling does not remember calling her son, she was found today to have some nonspecific ST-T wave changes and troponin was slightly elevated at 0.17, denies any chest pain or shortness of breath. Principal Diagnosis ams Discharge Exam Eyes PERRL, conjunctivae normal, anicteric sclerae ENMT external ear and nose normal, oropharynx normal Respiratory normal respiratory effort, lungs clear to auscultation Cardiovascular RRR, no murmur, no edema Gastrointestinal (Abdomen) normal bowel sounds, soft, nontender, no hepatosplenomegaly Skin L buttock hematoma Psychiatric A+Ox3, euthymic affect Discharge Data Allergies Allergy/AdvReac Type Severity Reaction Status Date / Time Bactrim Allergy Severe RASH Unverified 06/23/17 20:25 perflutren Allergy Severe MUSCLE Verified 02/11/19 16:31 TIGHTNESS propylene glycol Allergy Severe MUSCLE Verified 02/11/19 16:31 TIGHTNESS sulfamethoxazole Allergy Severe RASH Verified 02/11/19 16:31 trimethoprim Allergy Severe RASH Verified 02/11/19 16:31 Sulfa (Sulfonamide Allergy Unknown RASH Verified 02/11/19 16:31 Antibiotics) Consultations 02/11/19 18:06 ED Decision to Admit Stat Ordered Studies 02/11/19 16:17 CT cervical spine wo con Stat CT head/brain wo con Stat 02/13/19 00:45 MR brain wo con Routine Hospital Course (1) UTI (urinary tract infection): 83-year-old female with past medical history of coronary artery disease status post CABG/stents, essential hypertension, GERD, dyslipidemia presents from PCP office with concerns of AMS and significant wt loss over a few months duration. The following was the medical management during stay here: AMS -initial concern on admission for UTI. Pt has had no fever or leukocytosis, urinary sxs, UA showed some white blood cells and red blood cells otherwise unremarkable. dc'd ceftriaxone 02/12 -Urine culture, blood cultures NGTD -procalcitonin neg. Other infectious etiology unlikely -metabolic etiology unlikely -B12, TSH WNL -Head CT- No acute intracranial findings -MRI Brain- No acute intracranial findings. Moderate atrophy and small vessel disease -likely to be the case of waxing and waning confusion with progressive dementia as evidenced by MRI findings -can consider starting medications to slow dementia in the near future Concern for weight loss -significant (~40 lbs) over few months duration -was being worked up for ca as outpt by PCP Dr. Bower -CT chest w/o contrast and CT abd w/contract ordered- looking for any malignancies/mets negative -Peripheral smear unremarkable other than normocytic anemia -it is likely the case that pt is just not eating as much as stated given waxing/waning mentation and progressive dementia as outlined above Traumatic hematoma of buttock -Secondary to fall -No hip fracture -looking out for sequestration, daily CBC Fall/Closed compression fracture of body of L1 vertebra -Also secondary to before -Likely osteoporosis due to fracture sustained, from ground-level fall -Needs osteoporosis DEXA scan screen as an outpatient -Obtain physical therapy/Occupational Therapy- son notes pt lives at home alone and there are cameras throughout the house that he can monitor -fall precautions Elevated troponin -In the setting of her previous history of CAD/CABG/stents -trops .178, .214 -likely demand ischemia versus a true cardiac etiology -ECHO reviewed HTN/CAD -Cont ASA, Atorvastatin, Clopidogrel, Losartan, Metoprolol DVT Prophylaxis: Lovenox SQ. At time of d/c, pt had no other acute concerns or complaints. Total Time Total Time Spent Total Time Spent (In Minutes): <30 Discharge Plan Discharge Items Patient Disposition: Home - Home Health Services Reason For Visit: UTI Discharge Diagnosis: Altered mental status Activity: Per Instructions section Non-emergency contact: Primary Care Provider Call non-emergency contact if: you have any medication questions, your symptoms worsen and your pain is not controlled Follow-up/Referrals: Susu Bower, [Primary Care Provider] - 02/17/19 2:10 pm (Please, follow up at Dr. Susu Bower's office with her associate, Dr. Grant Villeda, on SundayFebruary 17 at 2:10 pm. *If you need to change this appointment, call their office at [phone].) Diet: Regular Addtl Attending Provider Instructions: You were admitted from your PCP office with concerns of altered mental status (AMS) and significant wt loss over a few months duration. Your AMS was likely to be the case of waxing and waning confusion with progressive dementia as evidenced by MRI findings. The concern for weight loss is also likely to be the case that you may not eating as much as you think or realize given waxing/waning mentation and progressive dementia. Please follow the below instructions on discharge: -Follow up with your PCP Dr. Bower on 02/17 -to meet the needs of your daily caloric intake, consider consuming a daily nutritional supplement such as Ensure Pending Studies at Discharge: No Stand-Alone Forms: My [facility], Smoking Cessation Medications and DC Order Prescriptions: Continued multivitamin Tablet 1 tab PO QAM RF: 0 atorvastatin 80 mg tablet 80 mg PO QAM RF: 0 metoprolol succinate 100 mg tablet extended release 24 hr 100 mg PO QAM RF: 0 clopidogrel 75 mg tablet 75 mg PO QAM RF: 0 aspirin 81 mg Tablet,Delayed Release (Dr/Ec) 162 mg PO DAILY RF: 0 pantoprazole 20 mg tablet,delayed release (DR/EC) 20 mg PO QAM RF: 0 losartan 25 mg tablet 25 mg PO QAM RF: 0 nitroglycerin 0.3 mg tablet, sublingual 0.3 mg sublingual UD PRN (Reason: Chest Pain) RF: 0 albuterol sulfate 90 mcg/actuation HFA aerosol inhaler 2 puffs INH Q6H PRN (Reason: shortness of breath or wheezing) Qty: 8.5 RF: 0 calcium carbonate [Tums] 200 mg calcium (500 mg) Tablet,Chewable 200 mg PO DIRECTED PRN (Reason: Indigestion) RF: 0 Discharge Orders: Discharge Order (Routine); Ordered 02/14/19 Ordered By: Jack Villeda Admission Data Admit Date/Time: 02/11/19 21:38 Attending Provider: Yao Llanes Admit Provider: Antoinette Blanchard Primary Care Provider: Susu Bower Other Providers: [facility] ; Antoinette Blanchard Other Interventions: Discharge Summary Assessment (RN) Last Done: 02/14/19 11:14 DC Date/Time DO NOT enter until pt leaves facility: 02/14/19 13:24 Supervising Physician Co-Signing Physician Notes I personally examined the patient and verified all quintana points of history and exam, discussed case, and agree with decision making with Dr Villeda. Feeling ok ready to go home Vitals noted, in general she is awake and alert pleasant no distress. HEENT normal cephalic atraumatic mucous membranes moist. Breathing unlabored no accessory muscle use good effort. Skin shows no rashes no pallor or icterus. Possible metabolic encephalopathypresent on admission, now resolved. Not sure if this is truly a metabolic encephalopathy or waxing and waning confusion with progressive dementia as the PCP has concern of. Given her overall presentation, I now favor the latter. Is stable, anticipate PCP starting medications to slow dementia in the near future. Involuntary weight lossnothing concerning for malignancy on CT peripheral smear etc. Suspect with waxing and waning mental status of dementia she is eating less than she realizes, and her weight loss is probably simply from poor oral intake. Possible progressive dementiaMRI brain shows atrophy, overall clinical picture concerning for progressive dementia. See above otherwise. Dispositionstable for home otherwise as above Resident Activity Tracking Resident Involvement: Resident Care Provided Care Provided: Adult Hospital Medicine
[2019-02-14] MEDS: SODIUM CHLORIDE 0.9% 1000ML 1,000 ML IV SCH (11:32)
--- NOTE | 2019-02-14 17:55 | Billing Data ---
Coding Level of Care Code D/C Day Management <30 mins
== END 2019-02-14 13:24 | disposition home health service (06) | DRG 689 ==
LOC: ED 15:40 → 2S 21:38 → SUATTDRO 21:38 → 2S 23:01 → 2N 02-12 19:59

== ENCOUNTER 2019-06-11 20:58 | Inpatient (IN) ==
[2019-06-11] MEDS ORDERED: SODIUM CHLORIDE 0.9% 1000ML 500 ML IV ONE ×2 (21:23→22:22)
[2019-06-11 21:52] LABS: Basophils # (auto) 0.03 K/uL (0-0.2); Basophils % (auto) 0.4 %; Eosinophils # (auto) 0.07 K/uL (0-0.5); Hematocrit (blood only) 33.3 % (37-47); Hemoglobin 11.6 g/dL (12.0-16.0); Immature Granulocytes # (auto) 0.02 K/uL (0.00-0.02); Immature Granulocytes % (auto) 0.3 %; Lymphocytes # (auto) 1.83 K/uL (1.2-3.4); Mean Corpuscular Hemoglobin 35.4 pg (25-34); Mean Corpuscular Hgb Conc 34.8 g/dL (32-36); Mean Corpuscular Volume 101.5 fL (80-100); Mean Platelet Volume 9.9 fL (7.4-10.4); Monocytes # (auto) 0.52 K/uL (0.11-0.59); Monocytes % (auto) 7.7 %; Neutrophils # (auto) 4.31 K/uL (1.4-6.5); Neutrophils % (auto) 63.6 %; Platelet Count 226 K/uL (130-400); RDW Coefficient of Variation 13.9 % (11.5-14.5); RDW Standard Deviation 51.9 fL (36.4-46.3); Red Blood Count 3.28 M/uL (4.2-5.4); White Blood Count 6.78 K/uL (4.8-10.8)
--- NOTE | 2019-06-11 21:55 | XRay Report ---
XR chest 1V portable CLINICAL HISTORY: Pt c/o stroke mental status change COMPARISON STUDY: 02/21/2019 FINDINGS: Prior median sternotomy. Lungs are considered clear. Minimal platelike basilar atelectasis. IMPRESSION: Minimal platelike basilar atelectasis. Otherwise no acute process. ACT 112: Negative or not required by law. The above report was generated using voice recognition software. It may contain grammatical, syntax or spelling errors. Electronically signed by: Matthew Ochoa M.D. 06/11/2019 9:54 PM
[2019-06-11 22:04] LABS: Partial Thromboplastin Ratio 0.9; Partial Thromboplastin Time 24.2 Seconds (21.0-31.0); Prothrombin Time 10.1 Seconds (9.0-12.0)
[2019-06-11 22:07] LABS: Alanine Aminotransferase 19 U/L (12-78); Albumin Level 3.5 gm/dl (3.4-5.0); Aspartate Aminotransferase 20 U/L (15-37); BUN Creatinine Ratio 34.3 (10-20); Blood Urea Nitrogen 31 mg/dl (7-18); Calcium 8.9 mg/dl (8.5-10.1); Carbon Dioxide 26 mmol/L (21-32); Chloride 104 mmol/L (98-107); Est GFR (African American) 68.5; Est GFR (Non-African American) 59.1; Glucose 98 mg/dl (70-99); Potassium 4.6 mmol/L (3.5-5.1); Sodium 136 mmol/L (136-145)
[2019-06-11 22:12] LABS: Albumin Globulin Ratio 0.9 (0.9-2); Alkaline Phosphatase 97 U/L (45-117); Bilirubin,Total 0.3 mg/dl (0.2-1); Creatine Kinase MB 1.8 ng/ml (0.5-3.6); Globulin 3.8 gm/dl (2.5-4.0); Total Protein 7.3 gm/dl (6.4-8.2); Troponin I < 0.015 ng/ml (0-0.045)
[2019-06-11] MEDS ORDERED: OPTIRAY 320 125ml IV PRN (22:25)
[2019-06-11 22:33] LABS: Appearance Urine Cloudy (Clear); Bacteria Urine Automated Negative (Negative); Bilirubin Urine Negative (Negative); Blood Urine Trace (Negative); Color Urine Yellow; Glucose Urine UA Negative (Negative); Ketones Urine Negative (Negative); Leukocyte Esterase Urine Trace (Negative); Nitrite Urine Negative (Negative); Protein Urine Negative (Negative); RBC Urine Automated 0-4 /hpf (0-4); Specific Gravity Urine 1.012 (1.000-1.030); Urobilinogen Urine Negative (Negative); pH Urine 5.5 (4.5-7.5)
--- NOTE | 2019-06-11 22:41 | CT Scan Report ---
CT head/brain wo con CT DOSE: HISTORY: Mental status change Stroke evaluation TECHNIQUE: Multiaxial CT images of the head were performed without the use of intravenous contrast. A dose lowering technique was utilized adhering to the principles of ALARA. Comparison: None. Findings: The paranasal sinuses and mastoid air cells are clear. The calvarium and skull base are int act. The ventricles and sulci are within normal limits. There is no mass, hematoma, midline shift, or acute infarct. Age-related atrophy and chronic small vessel change Impression: No acute intracranial abnormality. Age-related atrophy and chronic small vessel change ACT 112: Negative or not required by law. The above report was generated using voice recognition software. It may contain grammatical, syntax or spelling errors. Electronically signed by: Matthew Ochoa M.D. 06/11/2019 10:40 PM
--- NOTE | 2019-06-11 22:44 | CT Scan Report ---
CT angio head w con HISTORY: Mental status change Pt c/o left eye symptoms TECHNIQUE: Multiaxial CT angiography of the head was performed IV contrast: 100 cc nonionic Maximu m intensity projection images were also obtained. A dose lowering technique was utilized adhering to the principles of ALARA. COMPARISON: None. FINDINGS: There is no mass, hematoma, midline shift, or acute infarct. Visualized intracranial gallery intern al carotid arteries, distal vertebral arteries, and basilar artery are widely patent. There is no sig nificant stenosis, occlusion, or aneurysm seen within the bilateral ACAs, MCAs, or loan funder. Moderate sca ttered atherosclerotic narrowing of all major systems of the anterior middle and posterior cerebral c irculation. No evidence for high-grade stenotic process. IMPRESSION: 1. Mild to moderate scattered atherosclerotic narrowing of all major systems of the anterior middle a nd posterior cerebral circulation. 2. No evidence for high-grade or significant stenotic focal process. ACT 112: Negative or not required by law. The above report was generated using voice recognition software. It may contain grammatical, syntax or spelling errors. Electronically signed by: Matthew Ochoa M.D. 06/11/2019 10:42 PM
--- NOTE | 2019-06-11 22:47 | CT Scan Report ---
CT angio neck with con HISTORY: Mental status change Pt c/o left eye numbness TECHNIQUE: Multiaxial CT angiography of the neck was performed IV contrast: 100 cc nonionic All zachary urements were calculated based on NASCET criteria. Maximum intensity projection images were also obt ained. A dose lowering technique was utilized adhering to the principles of ALARA. COMPARISON STUDY: None. FINDINGS: Extensive calcified plaque of the right and to a lesser extent left carotid bifurcation. Mi ld plaque formation at the origin of the great vessels. Estimated stenosis at the right carotid bifur cation is 80%. On the left this is considered to be 30%. The vertebral basilar system shows no significant stenotic process. Basilar artery appears unremarkab le. IMPRESSION: 1. Densely calcified plaque at the right carotid bifurcation with an estimated stenosis at the bifurc ation of 80%. 2. Mild plaque formation left carotid bifurcation with an estimated narrowing of 30%. 3. Minimal scattered plaque formation of the vertebral basilar system with no significant stenotic pr ocess. ACT 112: Negative or not required by law. The above report was generated using voice recognition software. It may contain grammatical, syntax or spelling errors. Electronically signed by: Matthew Ochoa M.D. 06/11/2019 10:46 PM
[2019-06-12] MEDS ORDERED: MAGNESIUM SULFATE / D5W 1 GM/100 ML BAG IV ONE (00:16)
[2019-06-12] MEDS ORDERED: ASPIRIN CHEW 324 MG PO STA (00:16)
--- NOTE | 2019-06-12 00:40 | History & Physical Report ---
Date of Service June 12, 2019 Assessment & Plan (1) Acute CVA (cerebrovascular accident): Ms. Navarro is a rajesh 83-year-old woman who presents today for an acute episode of visual changes who was found to have possible acute infarction of cerebellum and basal ganglia with 80% stenosis of right carotid bifurcation CTA Acute CVA Patient with MRI showing acute infarcts in cerebellum and basal ganglia Not sure if these lesions would correspond to the symptoms that she is describing patient has no dysdiadochokinesia, patient has no motor disturbance, however in this patient with noted stenosis of carotid artery could be showering multiple small infarcts. Patient already on aspirin and clopidogrel, patient already on atorvastatin 80, we will hold antihypertensive medicines for now and allow permissive hypertension Neurology consulted will see patient in a.m. Speech evaluation ordered, PT/OT ordered, Case management consult placed to help ensure safe discharge to home as she lives alone Will get A1C and lipid panel Carotid artery stenosis, significant Patient CTA showing right carotid artery stenosis at bifurcation Patient possibly symptomatic, will consult vascular surgery to discuss if there would be any benefit to endarterectomy Possible GI bleed, melena Patient with what she describes as dark tarry stools, may very well be melena Will get stool guiac to assess for bleeding Patient is anemiac with hemoglobin of 11.6 though this is actually up two points since last discharge and she says symptoms have been there for months. May need outpatient GI referral Type and screen ordered Coronary artery disease Stable, no evidence of any cardiac ischemia at present HIp pain Likely OA related, will treat with tylenol as needed for now Son says it is chronic and with no acute changes F/E/N: Given 1 L of fluid on NSS at 80 mls hour Dispo: Admit for neurology evaluation and supportive care, already on antiplatelet and statin medication DVT PPx: Lovenox 40 mg DNR/DNI (2) Visual disturbance: (3) Carotid artery stenosis: (4) Compression fracture of L1 vertebra: History of Present Illness Primary Care Provider: Susu Bower DO Ms. Paige Navarro is an 83-year-old woman with a past medical history of coronary artery disease (status post stenting and bypass surgery) skin cancer, hypertension, GERD dyslipidemia who was recently hospitalized in January and spent time at a rehab hospital until April for a fall and weakness. She was in her usual state of health this evening she started to notice a visual disturbance in her left lateral vision of her right eye. She describes them as little brown squares and green triangles. Now seeing pinkish red blobs. She has had no loss of visual acuity or visual field that she is aware of, she has notices these extra shapes that will appear in her vision especially when she looks into the light like the lights overhead her hospital bed. She has not noticed any change in her motor function she is ambulating normally has not noticed any confusion, any difficulty swallowing liquids or solids, or any facial asymmetry. Her son was with her at the time he continues to be with her and has also not noticed any changes from her usual baseline. On review of systems she tells me that she has also been noticing blackish stool. No pain in eye, no loss of visual acuity, no foreign body sensation,, no headache. Allergies Allergy/AdvReac Type Severity Reaction Status Date / Time Bactrim Allergy Severe RASH Unverified 06/23/17 20:25 sulfamethoxazole Allergy Severe RASH Verified 06/12/19 00:22 trimethoprim Allergy Severe RASH Verified 06/12/19 00:22 Sulfa (Sulfonamide Allergy Unknown RASH Verified 06/12/19 00:22 Antibiotics) perflutren AdvReac Severe MUSCLE Verified 06/12/19 02:07 TIGHTNESS propylene glycol AdvReac Severe MUSCLE Verified 06/12/19 02:07 TIGHTNESS Home Medications Home Medications Medication Instructions Recorded Confirmed Type aspirin 81 mg PO DAILY 02/27/18 06/12/19 History atorvastatin 80 mg PO QAM 02/27/18 06/12/19 History clopidogrel 75 mg PO QAM 02/27/18 06/12/19 History losartan 25 mg PO QAM 02/27/18 06/12/19 History metoprolol succinate 100 mg PO QAM 02/27/18 06/12/19 History pantoprazole 20 mg PO QAM 02/27/18 06/12/19 History albuterol sulfate 2 puffs INH Q6H PRN #8.5 gm 11/28/18 06/12/19 Rx nitroglycerin 0.3 mg SUBLINGUAL UD PRN 11/28/18 06/12/19 History [id number]-lutein 1 tab PO DAILY 06/12/19 06/12/19 History [Centrum Silver Women] Past Med/Surg History Medical History Anterior dislocation of right shoulder (Acute) Cellulitis of right leg (Acute) HTN (hypertension) (Chronic) Myocardial infarct (Chronic) Surgical History Hx of heart artery stent (Resolved) S/P triple vessel bypass (Resolved) Family History Other Family history non-contributory Social History Preferred Language: Scottish Communication Ability: Effective Flag Car Driver Required: No Beliefs That Will Affect Care: None marital status: Single Current Living Situation: Alone Other Information That Helps Us Care for You: No Feels Safe at Home: Yes Safety Concerns: Feels Safe At This Time Smoking Status: Never smoker Hx Alcohol Use: No Hx Substance Use: No Review of Systems Constitutional: No fevers chills fatigue weakness Eyes: As above Ear, Nose, Mouth, Throat: No problem reported Respiratory: No cough no dyspnea no wheezing Cardiovascular: Additional Comments: No chest pain no dyspnea no orthopnea no syncope presyncope Gastrointestinal: No abdominal pain nausea vomiting diarrhea constipation Musculoskeletal: Patient complains of pain particular to the right hip this been chronic for the last 6 months Physical Exam Physical Exam: Constitutional: Patient is a well-appearing 83-year-old woman lying in bed in no apparent distress, son is at bedside Eyes: Extraocular muscle movements intact bilaterally, no change in visual acuity, pupils equal round reactive to light and accommodation, appearance normal Respiratory: Chest expansion equal no apparent increased work of breathing, regular rate, good air entry globally, vesicular breath sounds globally Cardiovascular: Regular rate regular rhythm, S1-S2 normal, no murmurs rubs skips or gallops, no lower limb edema, peripheral pulses intact and equal bilaterally Gastrointestinal: Abdomen soft nontender, no organomegaly MSK: Patient with some pain on range of motion of right hip, no tenderness palpation in joint Neurologic: Cranial nerves II through XII examined and normal apart from possible optic nerve dysfunction patient when covering the left eye sees continues to see spots when covering right eye spots go away completely vision affected is all on the left lateral side though she can still see me and count how many fingers I have on that side peripheral sensation and strength upper and lower extremities intact and equal although patient has some musculoskeletal weakness on right side upper extremity secondary to surgery Results & Data Vital Signs (Past 12 Hours) Vital Signs Temp Pulse Resp BP Pulse Ox 06/11/19 22:36 88 20 167/95 H 96 06/11/19 22:02 76 24 169/86 H 98 06/11/19 22:00 76 23 169/86 H 98 06/11/19 21:49 72 15 177/87 H 98 06/11/19 21:03 36.5 C 67 19 181/91 H 98 Supervising Physician Co-Signing Physician Notes Patient seen and examined, chart reviewed, case discussed with Dr. Ponce and I agree with his assessment and plan as documented above. Briefly, patient is an 83-year-old female with history of CAD status post stenting and bypass, hypertension/hyperlipidemia presenting with visual disturbance. Found to have acute CVA in the cerebellum and basal ganglia as well as 80% stenosis of the right carotid bifurcation On physical exam she is afebrile, hypertensive otherwise stable Resting comfortably, no acute distress Skinintact, no rashes or lesions HEENTnormocephalic/atraumatic, pupils equal and reactive to light, moist mucous membranes, neck supple Heart+ S1, S2, regular, no murmur/rub/gallops Lungsclear to auscultation Abdomenpositive bowel sounds, soft, nontender, nondistended Extremitieswarm, well-perfused Neurononfocal Labs and images reviewed. Significant for stable macrocytic anemia with Hgb = 11.6, HCT = 33.3, MCV = 101.5. B12/folate levels have been normal in the past CTA neck significant for densely calcified plaque at the right carotid bifurcation with an estimated stenosis at the bifurcation of 80%, mild plaque formation of the left bifurcation with estimated narrowing of 30% as well as minimal scattered plaque formation of the vertebrobasilar system MRI brain Per stat readsmall infarcts in the right cerebellar hemisphere as well as left basal ganglia, involutional changes with small vessel disease. Cataract surgery. Assessment/[id number] female presenting with acute visual disturbance.? Secondary to newly discovered stroke versus retina Admission for continued stroke work-up Neurology consultation appreciated Consult vascular surgery regarding carotid stenosis Remainder of plan as above Resident Activity Tracking Resident Involvement: Resident Care Provided Care Provided: Adult [facility] Medicine (1) Carotid artery stenosis Laterality: right Qualified Code(s): I65.21 - Occlusion and stenosis of right carotid artery
--- NOTE | 2019-06-12 01:19 | Emergency Department Note ---
Entered by Radha Crabtree acting as a scribe for Jean Lewis MD History of Present Illness General Chief complaint: Visual Disturbance Stated complaint: VISION PROBLEMS WEAKNESS Time Seen by Provider: 06/11/19 21:13 Source: patient Mode of arrival: ambulatory Limitations: no limitations History of Present Illness Onset (ago): hour(s) 3 Location: eyes (bilateral eyes) Radiation: non-radiation Pain Consistency: + now resolved Relieved By: + none Exacerbated By: + none Associated symptoms: + weakness and + other (+hematochezia); no headaches Treatments prior to arrival: none The patient is an 83 year old female who presents to the ED with complaints of a visual disturbance. She states earlier this evening, around 1800, she saw "box shapes and triangles", then before that she saw "wavy lines". She is no longer seeing anything unusual. The visual disturbances lasted for about 15 to 20 minutes. She only wears eye glasses to read and has previously had cataract surgery. She denies any headache. She did go to a walk-in clinic where she was referred here to the ED. The patient does note she has recently experienced black stools and increased weakness. She notes she does take Aspirin for a history of cardiac stents. Home Medications Home Medications Medication Instructions Recorded Confirmed Type aspirin 81 mg PO DAILY 02/27/18 06/12/19 History atorvastatin 80 mg PO QAM 02/27/18 06/12/19 History clopidogrel 75 mg PO QAM 02/27/18 06/12/19 History losartan 25 mg PO QAM 02/27/18 06/12/19 History metoprolol succinate 100 mg PO QAM 02/27/18 06/12/19 History pantoprazole 20 mg PO QAM 02/27/18 06/12/19 History albuterol sulfate 2 puffs INH Q6H PRN #8.5 gm 11/28/18 06/12/19 Rx nitroglycerin 0.3 mg SUBLINGUAL UD PRN 11/28/18 06/12/19 History [id number]-[id number] 1 tab PO DAILY 06/12/19 06/12/19 History [Centrum Silver Women] Allergies Allergy/AdvReac Type Severity Reaction Status Date / Time Bactrim Allergy Severe RASH Unverified 06/23/17 20:25 perflutren Allergy Severe MUSCLE Verified 06/12/19 00:22 TIGHTNESS propylene glycol Allergy Severe MUSCLE Verified 06/12/19 00:22 TIGHTNESS sulfamethoxazole Allergy Severe RASH Verified 06/12/19 00:22 trimethoprim Allergy Severe RASH Verified 06/12/19 00:22 Sulfa (Sulfonamide Allergy Unknown RASH Verified 06/12/19 00:22 Antibiotics) Past Med/Surg History Medical History Anterior dislocation of right shoulder (Acute) Cellulitis of right leg (Acute) HTN (hypertension) (Chronic) Myocardial infarct (Chronic) Surgical History Hx of heart artery stent (Resolved) S/P triple vessel bypass (Resolved) Family History Other Family history non-contributory Social History Preferred Language: Sinhala Communication Ability: Effective Agency Sales Director Required: No Beliefs That Will Affect Care: None marital status: Single Current Living Situation: Alone Feels Safe at Home: Yes Smoking Status: Never smoker Hx Alcohol Use: No Hx Substance Use: No Review of Systems See HPI for pertinent positives & negatives. and A total of 10 systems reviewed and were otherwise negative Physical Exam Vital Signs Vital Signs - 24 hr 06/11/19 21:03 06/11/19 21:49 06/11/19 22:00 Temperature 36.5 C Temperature Source Oral Pulse Rate 67 72 76 Pulse Rate from SpO2 Sensor 72 76 Respiratory Rate 19 15 23 Blood Pressure 181/91 H 177/87 H 169/86 H Blood Pressure Mean 121 107 99 Blood Pressure Position Sitting Pulse Oximetry 98 98 98 Oxygen Delivery Method Sepsis Recent Fever Within 48 Hours No Sepsis Action Taken by Nursing No Action Required 06/11/19 22:02 06/11/19 22:36 06/12/19 00:36 Temperature Temperature Source Pulse Rate 76 88 89 Pulse Rate from SpO2 Sensor 76 89 81 Respiratory Rate 24 20 22 Blood Pressure 169/86 H 167/95 H 174/97 H Blood Pressure Mean 99 127 128 Blood Pressure Position Pulse Oximetry 98 96 98 Oxygen Delivery Method Room Air Sepsis Recent Fever Within 48 Hours Sepsis Action Taken by Nursing 06/12/19 01:00 Temperature Temperature Source Pulse Rate 73 Pulse Rate from SpO2 Sensor 74 Respiratory Rate 15 Blood Pressure 183/91 H Blood Pressure Mean 109 Blood Pressure Position Pulse Oximetry 96 Oxygen Delivery Method Room Air Sepsis Recent Fever Within 48 Hours Sepsis Action Taken by Nursing GENERAL: Awake, alert, well-appearing, in no acute distress HENT: Normocephalic, atraumatic. Oropharynx unremarkable. EYES: Normal conjunctiva. Sclera non-icteric. NECK: Supple. No nuchal rigidity. FROM. No JVD. RESPIRATORY: Clear to auscultation. CARDIAC: Regular rate, normal rhythm. Extremities warm and well perfused. Pulses equal. ABDOMEN: Soft, non-distended. No tenderness to palpation. No rebound or guar ding. No masses. RECTAL: Heme negative stool. MUSCULOSKELETAL: Chest examination reveals no tenderness. The back is symmetrical on inspection without obvious abnormality. There is no CVA tenderness to palpation. No joint edema. LOWER EXTREMITIES: Calves are equal size bilaterally and non-tender. No edema. No discoloration. NEURO: Normal sensorium. No sensory or motor deficits noted. SKIN: No rash or jaundice noted. Course Course 2115: The patient was evaluated in room B2 and a complete history and physical were performed. 0010: I reevaluated the patient. She is resting comfortably. I discussed my recommendation she remain in the hospital for further evaluation and management and she and her son are agreeable with the plan. 0015: I [facility] the patients [facility] The patient will be further evaluated. Administered Medications Ioversol (Optiray 320 125ml) 117 ml IV ONCE PRN PRN Reason: Interaction Checking Stop: 06/15/19 22:24 Last Admin: 06/11/19 22:25 Dose: 117 ml Documented by: [id number] Discontinued Medications Aspirin (Aspirin) 324 mg PO NOW STA Stop: 06/12/19 00:17 Last Admin: 06/12/19 00:33 Dose: 324 mg Documented by: [id number] Sodium Chloride (Nss 1000ml) 500 mls @ 999 mls/hr IV .Q31M ONE Stop: 06/11/19 21:53 Last Infusion: 06/11/19 22:21 Dose: 0 mls/hr Documented by: [id number] Admin: 06/11/19 21:40 Dose: 999 mls/hr Documented by: [id number] Sodium Chloride (Nss 1000ml) 500 mls @ 999 mls/hr IV .Q31M ONE Stop: 06/11/19 22:52 Last Infusion: 06/11/19 23:17 Dose: 0 mls/hr Documented by: [id number] Admin: 06/11/19 22:38 Dose: 999 mls/hr Documented by: [id number] Magnesium Sulfate/Dextrose (Magnesium Sulfate / D5w) 1 gm in 100 mls @ 100 mls/hr IV ONE ONE Stop: 06/12/19 01:15 Last Admin: 06/12/19 00:33 Dose: 100 mls/hr Documented by: [id number] Medical Decision Making Differential Diagnosis Differential Diagnosis includes but is not limited to dehydration, stroke, anemia, hypoglycemia, hyponatremia, hypernatremia, urinary tract infection, pneumonia, bronchitis, sepsis, gastroenteritis, additional abdominal pathology, metabolic abnormalities and infections. Medical Records Attestation: I reviewed the patient's medical records. Home Medications Current Medication List: was personally reviewed by me Laboratory Data Attestation: I reviewed the patient's lab results. Result diagrams: 06/11/19 21:33 06/11/19 21:33 Lab Results 06/11/19 06/11/19 06/11/19 Range/Units 21:33 21:33 21:33 WBC 6.78 (4.8-10.8) K/uL RBC 3.28 L (4.2-5.4) M/uL Hgb 11.6 L (12.0-16.0) g/dL Hct 33.3 L (37-47) % MCV 101.5 H (80-100) fL MCH 35.4 H (25-34) pg MCHC 34.8 (32-36) g/dL RDW Std Deviation 51.9 H (36.4-46.3) fL RDW Coeff of Fred 13.9 (11.5-14.5) % Plt Count 226 (130-400) K/uL MPV 9.9 (7.4-10.4) fL Immature Gran % (Auto) 0.3 % Neut % (Auto) 63.6 % Lymph % (Auto) 27.0 % Gem % (Auto) 7.7 % Eos % (Auto) 1.0 % Baso % (Auto) 0.4 % Immature Gran # (Auto) 0.02 (0.00-0.02) K/uL Neut # (Auto) 4.31 (1.4-6.5) K/uL Lymph # (Auto) 1.83 (1.2-3.4) K/uL Gem # (Auto) 0.52 (0.11-0.59) K/uL Eos # (Auto) 0.07 (0-0.5) K/uL Baso # (Auto) 0.03 (0-0.2) K/uL PT 10.1 (9.0-12.0) Seconds INR 1.0 (0.9-1.1) APTT 24.2 (21.0-31.0) Seconds PTT Ratio 0.9 Sodium 136 (136-145) mmol/L Potassium 4.6 (3.5-5.1) mmol/L Chloride 104 (98-107) mmol/L Carbon Dioxide 26 (21-32) mmol/L Anion Gap 6.0 (3-11) BUN 31 H (7-18) mg/dl Creatinine 0.90 (0.6-1.2) mg/dl Est Cr Clr Drug Dosing Not Reportable Est GFR ( Amer) 68.5 Est GFR (Non-Af Amer) 59.1 BUN/Creatinine Ratio 34.3 H (10-20) Glucose 98 (70-99) mg/dl Calcium 8.9 (8.5-10.1) mg/dl Magnesium 2.0 (1.8-2.4) mg/dl Total Bilirubin 0.3 (0.2-1) mg/dl AST 20 (15-37) U/L ALT 19 (12-78) U/L Alkaline Phosphatase 97 (45-117) U/L CK-MB (CK-2) 1.8 (0.5-3.6) ng/ml Troponin I < 0.015 (0-0.045) ng/ml Total Protein 7.3 (6.4-8.2) gm/dl Albumin 3.5 (3.4-5.0) gm/dl Globulin 3.8 (2.5-4.0) gm/dl Albumin/Globulin Ratio 0.9 (0.9-2) Urine Color Urine Appearance (Clear) Urine pH (4.5-7.5) Ur Specific [place] (1.000-1.030) Urine Protein (Negative) Urine Glucose (UA) (Negative) Urine Ketones (Negative) Urine Blood (Negative) Urine Nitrite (Negative) Urine Bilirubin (Negative) Urine Urobilinogen (Negative) Ur Leukocyte Esterase (Negative) Urine WBC (Auto) (0-5) /hpf Urine RBC (Auto) (0-4) /hpf U Hyaline Cast (Auto) (0-5) /lpf U Epithel Cells (Auto) (0-5) /lpf Urine Bacteria (Auto) (Negative) Blood Type Antibody Screen 06/11/19 06/11/19 Range/Units 21:33 22:20 WBC (4.8-10.8) K/uL RBC (4.2-5.4) M/uL Hgb (12.0-16.0) g/dL Hct (37-47) % MCV (80-100) fL MCH (25-34) pg MCHC (32-36) g/dL RDW Std Deviation (36.4-46.3) fL RDW Coeff of Fred (11.5-14.5) % Plt Count (130-400) K/uL MPV (7.4-10.4) fL Immature Gran % (Auto) % Neut % (Auto) % Lymph % (Auto) % Gem % (Auto) % Eos % (Auto) % Baso % (Auto) % Immature Gran # (Auto) (0.00-0.02) K/uL Neut # (Auto) (1.4-6.5) K/uL Lymph # (Auto) (1.2-3.4) K/uL Gem # (Auto) (0.11-0.59) K/uL Eos # (Auto) (0-0.5) K/uL Baso # (Auto) (0-0.2) K/uL PT (9.0-12.0) Seconds INR (0.9-1.1) APTT (21.0-31.0) Seconds PTT Ratio Sodium (136-145) mmol/L Potassium (3.5-5.1) mmol/L Chloride (98-107) mmol/L Carbon Dioxide (21-32) mmol/L Anion Gap (3-11) BUN (7-18) mg/dl Creatinine (0.6-1.2) mg/dl Est Cr Clr Drug Dosing Est GFR ( Amer) Est GFR (Non-Af Amer) BUN/Creatinine Ratio (10-20) Glucose (70-99) mg/dl Calcium (8.5-10.1) mg/dl Magnesium (1.8-2.4) mg/dl Total Bilirubin (0.2-1) mg/dl AST (15-37) U/L ALT (12-78) U/L Alkaline Phosphatase (45-117) U/L CK-MB (CK-2) (0.5-3.6) ng/ml Troponin I (0-0.045) ng/ml Total Protein (6.4-8.2) gm/dl Albumin (3.4-5.0) gm/dl Globulin (2.5-4.0) gm/dl Albumin/Globulin Ratio (0.9-2) Urine Color Yellow Urine Appearance Cloudy A (Clear) Urine pH 5.5 (4.5-7.5) Ur Specific [place] 1.012 (1.000-1.030) Urine Protein Negative (Negative) Urine Glucose (UA) Negative (Negative) Urine Ketones Negative (Negative) Urine Blood Trace H (Negative) Urine Nitrite Negative (Negative) Urine Bilirubin Negative (Negative) Urine Urobilinogen Negative (Negative) Ur Leukocyte Esterase Trace H (Negative) Urine WBC (Auto) 1-5 (0-5) /hpf Urine RBC (Auto) 0-4 (0-4) /hpf U Hyaline Cast (Auto) 1-5 (0-5) /lpf U Epithel Cells (Auto) 10-20 H (0-5) /lpf Urine Bacteria (Auto) Negative (Negative) Blood Type O Positive Antibody Screen POSITIVE A Imaging Data Radiologist's Impression: Radiology results as stated below per my review and the radiologist's interpretation: XR chest 1V portable CLINICAL HISTORY: Pt c/o stroke mental status change COMPARISON STUDY: 02/21/2019 FINDINGS: Prior median sternotomy. Lungs are considered clear. Minimal platelike basilar atelectasis. IMPRESSION: Minimal platelike basilar atelectasis. Otherwise no acute process. ACT 112: Negative or not required by law. The above report was generated using voice recognition software. It may contain grammatical, syntax or spelling errors. Electronically signed by: Matthew Ochoa M.D. 06/11/2019 9:[address] head/brain wo con CT DOSE: HISTORY: Mental status change Stroke evaluation TECHNIQUE: Multiaxial CT images of the head were performed without the use of intravenous contrast. A dose lowering technique was utilized adhering to the principles of ALARA. Comparison: None. Findings: The paranasal sinuses and mastoid air cells are clear. The calvarium and skull base are intact. The ventricles and sulci are within normal limits. There is no mass, hematoma, midline shift, or acute infarct. Age-related atrophy and chronic small vessel change Impression: No acute intracranial abnormality. Age-related atrophy and chronic small vessel change ACT 112: Negative or not required by law. The above report was generated using voice recognition software. It may contain grammatical, syntax or spelling errors. Electronically signed by: Matthew Ochoa M.D. 06/11/2019 10:[address] angio head w con HISTORY: Mental status change Pt c/o left eye symptoms TECHNIQUE: Multiaxial CT angiography of the head was performed IV contrast: 100 cc nonionic Maximum intensity projection images were also obtained. A dose lowering technique was utilized adhering to the principles of ALARA. COMPARISON: None. FINDINGS: There is no mass, hematoma, midline shift, or acute infarct. Vi sualized intracranial internal carotid arteries, distal vertebral arteries, and basilar artery are widely patent. There is no significant stenosis, occlusion, or aneurysm seen within the bilateral ACAs, MCAs, or flight test shop mechanic. Moderate scattered atherosclerotic narrowing of all major systems of the anterior middle and posterior cerebral circulation. No evidence for high-grade stenotic process. IMPRESSION: 1. Mild to moderate scattered atherosclerotic narrowing of all major systems of the anterior middle and posterior cerebral circulation. 2. No evidence for high-grade or significant stenotic focal process. ACT 112: Negative or not required by law. The above report was generated using voice recognition software. It may contain grammatical, syntax or spelling errors. Electronically signed by: Matthew Ochoa M.D. 06/11/2019 10:[address] angio neck with con HISTORY: Mental status change Pt c/o left eye numbness TECHNIQUE: Multiaxial CT angiography of the neck was performed IV contrast: 100 cc nonionic All measurements were calculated based on NASCET criteria. Maximum intensity projection images were also obtained. A dose lowering technique was utilized adhering to the principles of ALARA. COMPARISON STUDY: None. FINDINGS: Extensive calcified plaque of the right and to a lesser extent left carotid bifurcation. Mild plaque formation at the origin of the great vessels. Estimated stenosis at the right carotid bifurcation is 80%. On the left this is considered to be 30%. The vertebral basilar system shows no significant stenotic process. Basilar artery appears unremarkable. IMPRESSION: 1. Densely calcified plaque at the right carotid bifurcation with an estimated stenosis at the bifurcation of 80%. 2. Mild plaque formation left carotid bifurcation with an estimated narrowing of 30%. 3. Minimal scattered plaque formation of the vertebral basilar system with no significant stenotic process. ACT 112: Negative or not required by law. The above report was generated using voice recognition software. It may contain grammatical, syntax or spelling errors. Electronically signed by: Matthew Ochoa M.D. 06/11/2019 10:46 PM MRI HEAD : Small infarcts in the right cerebellar hemisphere as well as the left basal ganglia. Involutional changes with small vessel disease. Cataract surgery. Radiologist: Odell Das M.D. ECG Data Attestation: I personally reviewed and interpreted this ECG as follows: Indication: + weakness Rate (beats per minute): 76 Rhythm: + normal sinus ECG Intervals/blocks: + Normal QT-c (441) ECG ST segments: no ST depression and no ST elevation Blood Pressure Blood Pressure Findings: Elevated blood pressure Blood Pressure Disposition: further management by hospitalist TONYA Buckley Continuous Cardiac Monitoring: An order was placed for continuous cardiac monitoring. The monitor shows a rate of 76 with a normal rhythm. This is an 83-year-old female who presents emergency department complaining of visual disturbance that lasted approximately 20 minutes. Using shared medical decision making with the patient and family decision was made to send the patient for CAT scan of the head as well as CTA head and neck. CTA is concerning for 80% stenosis of the right carotid. Based on this the patient was then sent for an MRI of the brain which is concerning for multiple strokes. She was started on magnesium here in the emergency department and given aspirin. She does not have an elevation in her white blood cell count has a normal troponin. I did discuss the case with the hospitalist service who did agree to admit the patient. Patient is in agreement with the treatment plan Impression & Plan Acute CVA (cerebrovascular accident), Visual disturbance, Carotid artery stenosis Discharge Plan Visit Data Chief Complaint: Visual Disturbance Stated Complaint: VISION PROBLEMS WEAKNESS ED Provider: Jean Lewis Discharge Problem: Acute CVA (cerebrovascular accident), Visual disturbance, Carotid artery stenosis Patient Disposition: Being Evaluated by Hospitalist Forms Stand Alone Forms: My [facility] Prescriptions Prescriptions: No Action atorvastatin 80 mg tablet 80 mg PO QAM RF: 0 metoprolol succinate 100 mg tablet extended release 24 hr 100 mg PO QAM RF: 0 clopidogrel 75 mg tablet 75 mg PO QAM RF: 0 aspirin 81 mg Tablet,Delayed Release (Dr/Ec) 81 mg PO DAILY RF: 0 pantoprazole 20 mg tablet,delayed release (DR/EC) 20 mg PO QAM RF: 0 losartan 25 mg tablet 25 mg PO QAM RF: 0 nitroglycerin 0.3 mg tablet, sublingual 0.3 mg sublingual UD PRN (Reason: Chest Pain) RF: 0 albuterol sulfate 90 mcg/actuation HFA aerosol inhaler 2 puffs INH Q6H PRN (Reason: shortness of breath or wheezing) Qty: 8.5 RF: 0 Centrum Silver Women 8 mg iron-400 mcg-300 mcg Tablet 1 tab PO DAILY RF: 0 Referrals Referrals: Susu Bower DO [Primary Care Provider] - Discharge Problem: Carotid artery stenosis Qualifiers: Laterality: right Qualified Code(s): I65.21 - Occlusion and stenosis of right carotid artery The scribe's documentation has been prepared under my direction and personally reviewed by me in its entirety. I confirm that the note above accurately re flects all work, treatment, procedures, and medical decision making performed by me.
[2019-06-12] MEDS ORDERED: PHARMACIST DISCHARGE MED REC CONSULT PRN (02:03)
[2019-06-12] MEDS ORDERED: POLYETHYLENE (MIRALAX) 17 GM PACK PO PRN (02:03)
[2019-06-12] MEDS ORDERED: SODIUM CHLORIDE 0.9% 1000ML 1,000 ML IV SCH (02:03)
[2019-06-12] MEDS ORDERED: ALBUTEROL HFA 8 GM INHALER INH PRN (02:03)
[2019-06-12] MEDS ORDERED: ONDANSETRON INJ 2 MG/ML 2 ML VIAL IV PRN (02:03)
[2019-06-12] MEDS ORDERED: NITROGLYCERIN 0.3 MG/1 TAB 100 TAB BTL SL PRN (02:03)
--- NOTE | 2019-06-12 05:25 | Billing Data ---
Date of Service June 12, 2019 Coding Level of Care Code 79132 Initial Inpt Care Lvl 3
[2019-06-12 06:23] LABS: Basophils # (auto) 0.02 K/uL (0-0.2); Basophils % (auto) 0.4 %; Eosinophils # (auto) 0.13 K/uL (0-0.5); Eosinophils % (auto) 2.4 %; Hematocrit (blood only) 35.1 % (37-47); Hemoglobin 11.5 g/dL (12.0-16.0); Immature Granulocytes # (auto) 0.01 K/uL (0.00-0.02); Immature Granulocytes % (auto) 0.2 %; Lymphocytes # (auto) 1.89 K/uL (1.2-3.4); Lymphocytes % (auto) 34.7 %; Mean Corpuscular Hemoglobin 32.9 pg (25-34); Mean Corpuscular Hgb Conc 32.8 g/dL (32-36); Mean Corpuscular Volume 100.3 fL (80-100); Mean Platelet Volume 9.9 fL (7.4-10.4); Monocytes # (auto) 0.55 K/uL (0.11-0.59); Monocytes % (auto) 10.1 %; Neutrophils # (auto) 2.84 K/uL (1.4-6.5); Neutrophils % (auto) 52.2 %; Platelet Count 216 K/uL (130-400); RDW Standard Deviation 50.9 fL (36.4-46.3); White Blood Count 5.44 K/uL (4.8-10.8)
--- NOTE | 2019-06-12 06:51 | Magnetic Resonance Report ---
MR brain wo con HISTORY: 83 years-old Female Pt c/o floaters in eye patient presents with acutely altered vision COMPARISON: Head CT of same day, brain MRI 02/13/2019 TECHNIQUE: Multiplanar multisequence MRI of the brain was obtained without the use of IV contrast. FINDINGS: Motion degraded exam. Shaker Plate Operator localizer images demonstrate no gross extracranial abnormality. No pathol ogic blooming artifact identified on the T2 star series. Subcentimeter punctate focus of mildly restr icted diffusion involves the left thalamus. 4 mm focus of restricted diffusion involves the left lent iform nucleus. Both of these foci are seen on image 11 of series 7. 5 mm focus of apparent restricted diffusion involves the right temporal lobe, image 8 series 7. 5 mm focus of restricted diffusion inv olves the medial aspect of the mid right cerebellar hemisphere, image 6 of series 7. No acute or suba cute territorial infarct. Midline structures including the corpus callosum, brainstem, optic chiasm, pituitary and pineal gland s appear unremarkable on the sagittal T1 series. No cerebellar tonsillar herniation. Degenerative blanca nges of the imaged cervical spine. No acute intracranial hemorrhage, midline shift, abnormal extra-ax ial collection, hydrocephalus or intracranial mass. Age-related involutional changes. Moderate patchy T2/FLAIR hyperintensities about the white matter suggest chronic microvascular ischemic disease. Jamin or vascular flow voids are patent. Moderate to large mastoid effusions. Mild mucosal thickening of th e paranasal sinuses. Prior bilateral cataract repair. Soft tissues and calvarium appear unremarkable. IMPRESSION: 1. Small scattered subcentimeter acute lacunar infarctions of the left basal ganglia, right temporal lobe and right cerebellar hemisphere as above. These foci are seen within multiple vascular territori es. Correlation with cardiac echocardiogram is recommended to exclude a central embolic source. 2. Age-related involutional changes with moderate chronic microvascular ischemic disease. 3. Bilateral mastoid effusions incidentally noted. ACT 112: Negative or not required by law. The above report was generated using voice recognition software. It may contain grammatical, syntax o r spelling errors. Electronically signed by: Lauro Daniel M.D. 06/12/2019 6:50 AM
[2019-06-12 07:04] LABS: BUN Creatinine Ratio 28.9 (10-20); Calcium 8.8 mg/dl (8.5-10.1); Creatinine Clr Calc Pharmacy 49.7 ml/min; Est GFR (African American) 86.8; Est GFR (Non-African American) 74.9; Potassium 4.5 mmol/L (3.5-5.1)
[2019-06-12 07:36] LABS: Estimated Average Glucose 103 mg/dl; Hemoglobin A1C 5.2 % (4.5-5.6)
[2019-06-12] MEDS: CEROVITE ADV FORMULA TAB PO SCH (09:23)
[2019-06-12] MEDS: CLOPIDOGREL BISULFATE 75 MG TAB PO SCH (09:23)
[2019-06-12] MEDS: PANTOprazole 40 MG TAB PO SCH (09:23)
[2019-06-12] MEDS: ATORVASTATIN 40 MG TAB PO SCH (09:23)
[2019-06-12] MEDS: ASPIRIN 81 MG ECTAB PO SCH (09:24)
[2019-06-12] MEDS: ENOXAPARIN INJ 40 MG/0.4 ML SYR SQ SCH (09:24)
--- NOTE | 2019-06-12 13:51 | Consultation ---
Date of Consultation June 12, 2019 Assessment & Plan (1) Carotid artery stenosis: Patient with severe stenosis of her right ICA, however this did not cause her symptoms. Agree with the antiplatelet meds that she is on. Laterality: right Qualified Code(s): I65.21 - Occlusion and stenosis of right carotid artery History of Present Illness Reason for Consultation: Severe right internal carotid artery stenosis Attending Physician: Marcia Kennedy MD History of Present Illness This is an 83-year-old white female who presented to the hospital yesterday with visual disturbances in her left eye. She was seen by brown boxes green triangles and red blobs in her left eye along with waves going along the bottom.This was not associated with any weakness.She denies any slurred speech at that time or facial droop.She denies any symptoms consistent with transient blindness.This is the first time she had this occurrence.She denies any previous strokes.She does have a history of open heart surgery followed by stenting of her coronaries in the recent past.She denies any history of atrial fibrillation.She is only on aspirin and Plavix as a blood thinner.She denies any symptoms of claudication. Allergies Allergy/AdvReac Type Severity Reaction Status Date / Time Bactrim Allergy Severe RASH Unverified 06/23/17 20:25 sulfamethoxazole Allergy Severe RASH Verified 06/12/19 00:22 trimethoprim Allergy Severe RASH Verified 06/12/19 00:22 Sulfa (Sulfonamide Allergy Unknown RASH Verified 06/12/19 00:22 Antibiotics) perflutren AdvReac Severe MUSCLE Verified 06/12/19 02:07 TIGHTNESS propylene glycol AdvReac Severe MUSCLE Verified 06/12/19 02:07 TIGHTNESS Home Medications Home Medications Medication Instructions Recorded Confirmed Type aspirin 81 mg PO DAILY 02/27/18 06/12/19 History atorvastatin 80 mg PO QAM 02/27/18 06/12/19 History clopidogrel 75 mg PO QAM 02/27/18 06/12/19 History losartan 25 mg PO QAM 02/27/18 06/12/19 History metoprolol succinate 100 mg PO QAM 02/27/18 06/12/19 History pantoprazole 20 mg PO QAM 02/27/18 06/12/19 History albuterol sulfate 2 puffs INH Q6H PRN #8.5 gm 11/28/18 06/12/19 Rx nitroglycerin 0.3 mg SUBLINGUAL UD PRN 11/28/18 06/12/19 History ujcdizdu-vxk-sfoo-FA-lutein 1 tab PO DAILY 06/12/19 06/12/19 History [Centrum Silver Women] Patient History Medical History Anterior dislocation of right shoulder (Acute) Cellulitis of right leg (Acute) HTN (hypertension) (Chronic) Myocardial infarct (Chronic) Surgical History Hx of heart artery stent (Resolved) S/P triple vessel bypass (Resolved) Family History Other Family history non-contributory Social History Preferred Language: Japanese Communication Ability: Effective 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 Beliefs That Will Affect Care: None marital status: Single Current Living Situation: Alone Other Information That Helps Us Care for You: No Feels Safe at Home: Yes Safety Concerns: Feels Safe At This Time Smoking Status: Never smoker Hx Alcohol Use: No Hx Substance Use: No Review of Systems Review of Systems: All systems reviewed & are unremarkable except as noted in HPI & below Physical Exam Constitutional: well developed and well nourished; no acute distress Eyes: PERRL, conjunctivae normal, anicteric sclerae Neck: normal visual inspection and trachea midline slight right caroitd bruit Respiratory: normal respiratory effort and + respiratory distress Auscultation: lungs clear to auscultation bilaterally Cardiovascular: Rate/Rhythm: regular rate and regular rhythm Vessels: + carotid bruit (right), femoral pulses present and radial pulses present Extremities: normal capillary refill; no edema Gastrointestinal (Abdomen): normal bowel sounds, soft, nontender, no hepatosplenomegaly Musculoskeletal: Extremities: strength 5/5 throughout Neurologic: normal touch/pain/proprioception, CN's II-XI intact bilaterally, moves all extremities and awake; no focal motor deficits Speech / Cognition: normal speech Motor/Sensory: normal movement Cranial Nerves: normal facial strength and tongue midline Psychiatric: Orientation: alert and oriented x 3 Results & Data Vital Signs (Past 12 Hours) Vital Signs Temp Pulse Pulse Resp BP BP Pulse Ox 06/12/19 08:17 72 06/12/19 07:00 36.7 C 76 16 113/69 97 06/12/19 05:08 36.3 C L 75 14 136/77 97 06/12/19 01:50 36.4 C L 69 20 202/88 H 99
--- NOTE | 2019-06-12 14:02 | Consultation ---
Date of Consultation June 12, 2019 Assessment & Plan (1) Carotid artery stenosis: Patient with severe stenosis of her right ICA, however this did not cause her symptoms. Agree with the antiplatelet meds that she is on. Neurology consultation is still pending as well as the echocardiogram. MRI shows multiple brain areas affected. At this point no intervention is needed. We will treat her conservatively at this point and see her in the office in 4 to 6 weeks after discharge.She may require a carotid endarterectomy her right carotid which is slightly over 80% and is asymptomatic. Thank you very much for letting us participate in the care of this patient. Laterality: right Qualified Code(s): I65.21 - Occlusion and stenosis of right carotid artery History of Present Illness Reason for Consultation: Severe stenosis right internal carotid artery Attending Physician: Marcia Kennedy MD History of Present Illness Is an 83-year-old female who presented with visual disturbance of the left eye. This consisted of Brown boxes green triangles and red blobs which occurred in the lower visual field. She also saw wavy lines going across the bottom of her visual field.She denies any focal findings at that time. She denies any weakness of her upper or lower extremities. She denies any aphasia or difficulty with speech at that time. She denies any facial droop. She also denied any blindness in her eyes at that point.She has not had any previous occurrences like this.She does have a significant heart history with open heart bypass in 2007.She also had 2 coronary stents placed in the recent past.She denies any atrial fibrillation or irregular heartbeats. She is not have any claudication when she walks. Allergies Allergy/AdvReac Type Severity Reaction Status Date / Time Bactrim Allergy Severe RASH Unverified 06/23/17 20:25 sulfamethoxazole Allergy Severe RASH Verified 06/12/19 00:22 trimethoprim Allergy Severe RASH Verified 06/12/19 00:22 Sulfa (Sulfonamide Allergy Unknown RASH Verified 06/12/19 00:22 Antibiotics) perflutren AdvReac Severe MUSCLE Verified 06/12/19 02:07 TIGHTNESS propylene glycol AdvReac Severe MUSCLE Verified 06/12/19 02:07 TIGHTNESS Home Medications Home Medications Medication Instructions Recorded Confirmed Type aspirin 81 mg PO DAILY 02/27/18 06/12/19 History atorvastatin 80 mg PO QAM 02/27/18 06/12/19 History clopidogrel 75 mg PO QAM 02/27/18 06/12/19 History losartan 25 mg PO QAM 02/27/18 06/12/19 History metoprolol succinate 100 mg PO QAM 02/27/18 06/12/19 History pantoprazole 20 mg PO QAM 02/27/18 06/12/19 History albuterol sulfate 2 puffs INH Q6H PRN #8.5 gm 11/28/18 06/12/19 Rx nitroglycerin 0.3 mg SUBLINGUAL UD PRN 11/28/18 06/12/19 History ubqzxyyk-xak-rush-FA-lutein 1 tab PO DAILY 06/12/19 06/12/19 History [Centrum Silver Women] Patient History Medical History Anterior dislocation of right shoulder (Acute) Cellulitis of right leg (Acute) HTN (hypertension) (Chronic) Myocardial infarct (Chronic) Surgical History Hx of heart artery stent (Resolved) S/P triple vessel bypass (Resolved) Family History Other Family history non-contributory Social History Preferred Language: Sinhala Communication Ability: Effective Surgical Services Coordinator Required: No Beliefs That Will Affect Care: None marital status: Single Current Living Situation: Alone Other Information That Helps Us Care for You: No Feels Safe at Home: Yes Safety Concerns: Feels Safe At This Time Smoking Status: Never smoker Hx Alcohol Use: No Hx Substance Use: No Review of Systems Review of Systems: All systems reviewed & are unremarkable except as noted in HPI & below Physical Exam Constitutional: WD/WN, vitals as above no acute distress Eyes: PERRL, conjunctivae normal, anicteric sclerae Neck: trachea midline Respiratory: normal respiratory effort and + respiratory distress Auscultation: lungs clear to auscultation bilaterally Cardiovascular: Rate/Rhythm: regular rate and regular rhythm Vessels: + carotid bruit (right), femoral pulses present and radial pulses present Extremities: normal capillary refill; no edema Gastrointestinal (Abdomen): Inspection/Auscultation: abdomen normal to inspection; abdomen not distended Percussion/Palpation: abdomen soft; abdomen nontender Musculoskeletal: Extremities: extremities normal to inspection and strength 5 /5 throughout Neurologic: normal touch/pain/proprioception, CN's II-XI intact bilaterally, moves all extremities and awake; no focal motor deficits Speech / Cognition: no expressive aphasia Motor/Sensory: no sensory deficit Psychiatric: Orientation: alert and oriented x 3 Speech: normal rate/rhythm/volume of speech Results & Data Vital Signs (Past 12 Hours) Vital Signs Temp Pulse Pulse Resp BP Pulse Ox 06/12/19 08:17 72 06/12/19 07:00 36.7 C 76 16 113/69 97 06/12/19 05:08 36.3 C L 75 14 136/77 97
--- NOTE | 2019-06-12 16:10 | Electrocardiogram Report ---
Test Reason : Blood Pressure : / mmHG Vent. Rate : 076 BPM Atrial Rate : 076 BPM P-R Int : 154 ms QRS Dur : 078 ms QT Int : 392 ms P-R-T Axes : 057 021 066 degrees QTc Int : 441 ms Poor data quality, interpretation may be adversely affected Normal sinus rhythm Minor Nonspecific ST abnormality Lateral leads Abnormal ECG When compared with ECG of 21-FEB-2019 18:27, T-wave inversion in Anterior leads no longer present T-wave inversion in Lateral leads no longer present Confirmed by Quique Marquis ([id number]) on 06/12/2019 4:09:32 PM Referred By: REFERRED SELF Confirmed By:Quique Marquis
--- NOTE | 2019-06-12 16:16 | Hospitalist Progress Note ---
Date of Service June 12, 2019 Assessment & Plan (1) Acute CVA (cerebrovascular accident): Ms. Navarro is a rajesh 83-year-old woman who presents today for an acute episode of visual changes who was found to have possible acute infarction of cerebellum and basal ganglia with 80% stenosis of right carotid bifurcation CTA. Visual changes have since resolved. Acute CVA - multiple embolic Patient with MRI showing acute infarcts in cerebellum and basal ganglia CTA with small vessel disease and stenosis of carotid artery Not sure if these lesions would correspond to the symptoms that she is describing patient has no dysdiadochokinesia, patient has no motor disturbance, No h/o a fib/none noted on Tele so far Cont on aspirin and clopidogrel, atorvastatin 80, we will hold antihypertensive medicines for now and allow permissive hypertension ECHO pending Pending Neurology consult Speech evaluation - passed, normal diet PT/OT-anticipate return home when d/c Case management consult placed to help ensure safe discharge to home as she lives alone A1C 5.2. Lipid panel WNL Carotid artery stenosis, significant Patient CTA showing right carotid artery stenosis at bifurcation Vascular surgery- At this point no intervention is needed. Will treat her conservatively with out f/u 4-6 weeks after discharge. May require CEA her right carotid Visual disturbance Await neuro input. Coronary artery disease Stable, no evidence of any cardiac ischemia at present Hip pain Likely OA related, will treat with tylenol as needed for now Son says it is chronic and with no acute changes FEN/GI: Regular diet DVT PPx: Lovenox 40 mg DNR/DNI Dispo: Tele. Pending neurology evaluation. Admission and Anticipated Discharge Date Admission Date: June 12, 2019 Supervising Physician Co-Signing Physician Notes Resident Physician Supervision Note: I independently interviewed and examined the patient and verified the quintana history and physical, reviewed labs and image studies, discussed the case with the resident Dr. Villeda and agree with the findings and care plan. Subjective 83 yo F found in bed this AM in NAD. Overnight around 3AM pt notes that eye sxs resolved. Very well overall. Ongoing chronic R hip pain. Tolerating PO intake. No issues voiding. Pt with no other acute concerns or complaints. Review of Systems 2 Review of Systems: All systems reviewed & are unremarkable except as noted in HPI & below Physical Exam Constitutional: WD/WN, vitals as above Eyes: PERRL, conjunctivae normal, anicteric sclerae normal visual crews by confrontation and normal accommodation ENMT: external ear and nose normal, oropharynx normal Respiratory: normal respiratory effort, lungs clear to auscultation Cardiovascular: RRR, no murmur, no edema Gastrointestinal (Abdomen): normal bowel sounds, soft, nontender, no hepatosplenomegaly Musculoskeletal: chronic R hip pain Skin: no rashes, warm and dry Psychiatric: A+Ox3, euthymic affect Results & Data ([facility]) Vital Signs (Past 12 Hours) Vital Signs Temp Pulse Pulse Resp BP Pulse Ox 06/12/19 15:11 36.7 C 78 16 116/61 97 06/12/19 08:17 72 06/12/19 07:00 36.7 C 76 16 113/69 97 06/12/19 05:08 36.3 C L 75 14 136/77 97 Laboratory Results Laboratory Results - last 24 hr 06/11/19 06/11/19 06/11/19 21:33 21:33 21:33 WBC 6.78 RBC 3.28 L Hgb 11.6 L Hct 33.3 L MCV 101.5 H MCH 35.4 H MCHC 34.8 RDW Std Deviation 51.9 H RDW Coeff of Fred 13.9 Plt Count 226 MPV 9.9 Immature Gran % (Auto) 0.3 Neut % (Auto) 63.6 Lymph % (Auto) 27.0 [place] % (Auto) 7.7 Eos % (Auto) 1.0 Baso % (Auto) 0.4 Immature Gran # (Auto) 0.02 Neut # (Auto) 4.31 Lymph # (Auto) 1.83 [place] # (Auto) 0.52 Eos # (Auto) 0.07 Baso # (Auto) 0.03 PT 10.1 INR 1.0 APTT 24.2 PTT Ratio 0.9 Sodium 136 Potassium 4.6 Chloride 104 Carbon Dioxide 26 Anion Gap 6.0 BUN 31 H Creatinine 0.90 Est Cr Clr Drug Dosing Not Reportable Est GFR ( Amer) 68.5 Est GFR (Non-Af Amer) 59.1 BUN/Creatinine Ratio 34.3 H Glucose 98 Estimat Average Glucose Hemoglobin A1c Calcium 8.9 Magnesium 2.0 Total Bilirubin 0.3 AST 20 ALT 19 Alkaline Phosphatase 97 CK-MB (CK-2) 1.8 Troponin I < 0.015 Total Protein 7.3 Albumin 3.5 Globulin 3.8 Albumin/Globulin Ratio 0.9 Triglycerides Cholesterol LDL Cholesterol, Calc VLDL Cholesterol, Calc HDL Cholesterol Cholesterol/HDL Ratio Urine Color Urine Appearance Urine pH Ur Specific [place] Urine Protein Urine Glucose (UA) Urine Ketones Urine Blood Urine Nitrite Urine Bilirubin Urine Urobilinogen Ur Leukocyte Esterase Urine WBC (Auto) Urine RBC (Auto) U Hyaline Cast (Auto) U Epithel Cells (Auto) Urine Bacteria (Auto) Blood Type Antibody Screen Antibody Identification Antibody ID Comment Antigen Identification 06/11/19 06/11/19 06/12/19 21:33 22:20 05:48 WBC RBC Hgb Hct MCV MCH MCHC RDW Std Deviation RDW Coeff of Fred Plt Count MPV Immature Gran % (Auto) Neut % (Auto) Lymph % (Auto) [place] % (Auto) Eos % (Auto) Baso % (Auto) Immature Gran # (Auto) Neut # (Auto) Lymph # (Auto) [place] # (Auto) Eos # (Auto) Baso # (Auto) PT INR APTT PTT Ratio Sodium Potassium Chloride Carbon Dioxide Anion Gap BUN Creatinine Est Cr Clr Drug Dosing Est GFR ( Amer) Est GFR (Non-Af Amer) BUN/Creatinine Ratio Glucose Estimat Average Glucose 103 Hemoglobin A1c 5.2 Calcium Magnesium Total Bilirubin AST ALT Alkaline Phosphatase CK-MB (CK-2) Troponin I Total Protein Albumin Globulin Albumin/Globulin Ratio Triglycerides Cholesterol LDL Cholesterol, Calc VLDL Cholesterol, Calc HDL Cholesterol Cholesterol/HDL Ratio Urine Color Yellow Urine Appearance Cloudy A Urine pH 5.5 Ur Specific [place] 1.012 Urine Protein Negative Urine Glucose (UA) Negative Urine Ketones Negative Urine Blood Trace H Urine Nitrite Negative Urine Bilirubin Negative Urine Urobilinogen Negative Ur Leukocyte Esterase Trace H Urine WBC (Auto) 1-5 Urine RBC (Auto) 0-4 U Hyaline Cast (Auto) 1-5 U Epithel Cells (Auto) 10-20 H Urine Bacteria (Auto) Negative Blood Type O Positive Antibody Screen POSITIVE A Antibody Identification Anti-Jka Antibody ID Comment Antigen Identification Jka Antigen - NEGATIVE 06/12/19 06/12/19 05:48 05:48 WBC 5.44 RBC 3.50 L Hgb 11.5 L Hct 35.1 L MCV 100.3 H MCH 32.9 MCHC 32.8 RDW Std Deviation 50.9 H RDW Coeff of Fred 14.0 Plt Count 216 MPV 9.9 Immature Gran % (Auto) 0.2 Neut % (Auto) 52.2 Lymph % (Auto) 34.7 [place] % (Auto) 10.1 Eos % (Auto) 2.4 Baso % (Auto) 0.4 Immature Gran # (Auto) 0.01 Neut # (Auto) 2.84 Lymph # (Auto) 1.89 [place] # (Auto) 0.55 Eos # (Auto) 0.13 Baso # (Auto) 0.02 PT INR APTT PTT Ratio Sodium 138 Potassium 4.5 Chloride 107 Carbon Dioxide 29 Anion Gap 2.0 L BUN 21 H Creatinine 0.74 Est Cr Clr Drug Dosing 49.7 Est GFR ( Amer) 86.8 Est GFR (Non-Af Amer) 74.9 BUN/Creatinine Ratio 28.9 H Glucose 96 Estimat Average Glucose Hemoglobin A1c Calcium 8.8 Magnesium Total Bilirubin AST ALT Alkaline Phosphatase CK-MB (CK-2) Troponin I Total Protein Albumin Globulin Albumin/Globulin Ratio Triglycerides 84 Cholesterol 125 LDL Cholesterol, Calc 50 VLDL Cholesterol, Calc 17 HDL Cholesterol 58 Cholesterol/HDL Ratio 2 Urine Color Urine Appearance Urine pH Ur Specific [place] Urine Protein Urine Glucose (UA) Urine Ketones Urine Blood Urine Nitrite Urine Bilirubin Urine Urobilinogen Ur Leukocyte Esterase Urine WBC (Auto) Urine RBC (Auto) U Hyaline Cast (Auto) U Epithel Cells (Auto) Urine Bacteria (Auto) Blood Type Antibody Screen Antibody Identification Antibody ID Comment Antigen Identification Medications Administered Current Inpatient Medications Acetaminophen (Tylenol) 650 mg PO Q4H PRN PRN Reason: Pain or Fever Stop: 07/12/19 02:02 Albuterol (Ventolin Hfa) 2 puffs INH Q6H PRN PRN Reason: shortness of breath or wheezing Stop: 07/12/19 02:02 Aspirin (Ecotrin Ectab) 81 mg PO DAILY [facility] Stop: 07/12/19 08:59 Last Admin: 06/12/19 09:24 Dose: 81 mg Documented by: Atorvastatin Calcium (Lipitor) 80 mg PO QAM [facility] Stop: 07/12/19 08:59 Last Admin: 06/12/19 09:23 Dose: 80 mg Documented by: Clopidogrel Bisulfate (Plavix) 75 mg PO QAM [facility] Stop: 07/12/19 08:59 Last Admin: 06/12/19 09:23 Dose: 75 mg Documented by: Enoxaparin Sodium (Lovenox) 40 mg SQ QAM [facility] Stop: 07/12/19 08:59 Last Admin: 06/12/19 09:24 Dose: 40 mg Documented by: Miscellaneous Information (Pharmacist Discharge Med Rec Consult) 1 ea N/A UD PRN PRN Reason: Consult Stop: 07/12/19 02:02 Multivitamins/Minerals (Multivitamin W/ Minerals Tab) 1 tab PO DAILY SHASTA Stop: 07/12/19 08:59 Last Admin: 06/12/19 09:23 Dose: 1 tab Documented by: Nitroglycerin (Nitrostat) 0.3 mg SL UD PRN PRN Reason: Chest Pain Stop: 07/12/19 02:02 Ondansetron HCl (Zofran) 4 mg IV Q6H PRN PRN Reason: Nausea Stop: 07/12/19 02:02 Pantoprazole Sodium (Protonix) 40 mg PO QAM [facility] Stop: 07/12/19 08:59 Last Admin: 06/12/19 09:23 Dose: 40 mg Documented by: Polyethylene Glycol (Miralax Powder Packet) 17 gm PO DAILY PRN PRN Reason: Constipation Stop: 07/12/19 02:02 Resident Activity Tracking Resident Involvement: Resident Care Provided Care Provided: Adult Hospital Medicine
--- NOTE | 2019-06-12 17:54 | XCELERA ---
[id number] [id number]
--- NOTE | 2019-06-12 18:10 | Neurology Consultation ---
Date of Consultation June 12, 2019 Assessment & Plan (1) Visual disturbance: Paige Navarro is an 83 yo woman w/ PMH of CAD S/P stenting and CABG, history of basal cell carcinoma, hypertension, hyperlipidemia, GERD and history of left eye cataract surgery who presented to [facility] after acute onset of vision changes. # Positive visual phenomena: Ddx limited to eye pathology such as early retinal detachment or macular degeneration, less likely seizure and unlikely migraine aura as no prior history of migraine. - would complete workup with routine EEG - recommend urgent outpatient ophtho evaluation to r/o retinal pathology # Punctuate infarcts on MRI brain: appears asymptomatic from these. Could represent cardioembolic strokes vs +DWI changes a/w SVID (rare but possible per recent study) vs atypical cause of multifocal strokes in various distribution. - recommend obtaining SARKIS, anticardiolipin screen, ESR/CRP - complete stroke workup as already doing - Continuous cardiac monitoring, will consider Holter monitor as outpatient if telemetry here unrevealing - Vitals, Neurochecks, NIHSS per unit routine - BP parameters: SBP CAP 180, goal normotension over next 3-4 days, ok to restart home BP meds - Consult speech, PT, OT for supportive management - Will counselor supervisor concerning stroke education, smoking cessation, healthy diet, physical activity, weight loss - Follow up with PCP for assistance with outpatient goals (BP <135/85, LDL <70, A1c <7) (current A1c 5.2, LDL 50) - Follow up in neurology clinic in 6-8 weeks - continue aspirin/plavix and atorvastatin # L ICA stenosis: asymptomatic - no benefit to early re-canalization with CEA or stent per current research data - recommend follow up with Dr Pham's office as an outpatient - if patient is interested, could also be referred to Dr Lew at [facility] to participate in the CREST2 trial Thank you for this interesting consult. Plan of care was discussed with primary team. Please call with any questions. (2) Acute CVA (cerebrovascular accident): (3) Carotid artery stenosis: (4) HTN (hypertension): History of Present Illness Attending Physician: Marcia Kennedy MD History of Present Illness Paige Navarro is an 83 yo woman w/ PMH of CAD S/P stenting and CABG, history of basal cell carcinoma, hypertension, hyperlipidemia, GERD and history of left eye cataract surgery who presented to [facility] after acute onset of vision changes. She reports that she is pinkish triangles and squares that would move about in her vision that were more noticeable when looking at lights. This lasted about 10 to 15 minutes before resolving. Denies any headache starting around the time of symptoms. Reports that similar formed visual shapes appeared in her right eye today and lasted about 10 minutes before resolving. She notes that when she closes the eye with symptoms, shapes would disappear. Denies any current headache, pain around the eye or in the latter day, numbness, tingling, weakness, vision change or hearing change at this time. In the ED, patient was afebrile, blood pressure 181/91, heart rate is 67, respiratory rate 18, satting 98% on room air. Labs notable for WBC 6.78, hemoglobin 11.6, platelets 226, creatinine 0.9, glucose 98, INR 1.0, LFTs within normal, troponin negative, UA no infection. Independent review of CT head shows no hemorrhage or hypodensity, +SVID, mild generalized atrophy. CTA head and neck shows 80% stenosis of the right ICA with complex plaque, mild left ICA stenosis, intra-and extracranial atherosclerosis diffusely; no LVO or aneurysm noted. Independent review of MRI brain shows punctate acute infarct in the left thalamus and right cerebellum, subacute infarct in the left basal ganglia, chronic right frontal infarct, SVID, and small mass within the left lateral ventricle occipital horn (could represent enlarged choroid plexus). On review of prior records, she was noted to have positive anticardiolipin antibody back in 2017 does not appear to have been worked up further. Allergies Allergy/AdvReac Type Severity Reaction Status Date / Time Bactrim Allergy Severe RASH Unverified 06/23/17 20:25 sulfamethoxazole Allergy Severe RASH Verified 06/12/19 00:22 trimethoprim Allergy Severe RASH Verified 06/12/19 00:22 Sulfa (Sulfonamide Allergy Unknown RASH Verified 06/12/19 00:22 Antibiotics) perflutren AdvReac Severe MUSCLE Verified 06/12/19 02:07 TIGHTNESS propylene glycol AdvReac Severe MUSCLE Verified 06/12/19 02:07 TIGHTNESS Home Medications Home Medications Medication Instructions Recorded Confirmed Type aspirin 81 mg PO DAILY 02/27/18 06/12/19 History atorvastatin 80 mg PO QAM 02/27/18 06/12/19 History clopidogrel 75 mg PO QAM 02/27/18 06/12/19 History losartan 25 mg PO QAM 02/27/18 06/12/19 History metoprolol succinate 100 mg PO QAM 02/27/18 06/12/19 History pantoprazole 20 mg PO QAM 02/27/18 06/12/19 History albuterol sulfate 2 puffs INH Q6H PRN #8.5 gm 11/28/18 06/12/19 Rx nitroglycerin 0.3 mg SUBLINGUAL UD PRN 11/28/18 06/12/19 History iyshcgrz-ohc-zuos-FA-lutein 1 tab PO DAILY 06/12/19 06/12/19 History [Centrum Silver Women] Patient History Medical History Anterior dislocation of right shoulder (Acute) Cellulitis of right leg (Acute) HTN (hypertension) (Chronic) Myocardial infarct (Chronic) Surgical History Hx of heart artery stent (Resolved) S/P triple vessel bypass (Resolved) Family History Other Family history non-contributory Social History Preferred Language: Bulgarian Communication Ability: Effective Pricing Strategist Required: No Beliefs That Will Affect Care: None marital status: Single Current Living Situation: Alone Other Information That Helps Us Care for You: No Feels Safe at Home: Yes Safety Concerns: Feels Safe At This Time Smoking Status: Never smoker Hx Alcohol Use: No Hx Substance Use: No Review of Systems Review of Systems: 14 point review of systems completed and negative except as in HPI. Physical Exam Physical Exam: General Exam: GEN: NAD, sitting in bed. HEENT: No conjunctival injection, no rhinorrhea. CV: RRR, no peripheral edema PULM: Nonlabored respirations on room air. Neuro Exam: MS: Awake and Alert. Oriented to person, place, and date. Speech fluent and appropriate without dysarthria or paraphasic errors. Language intact including naming, comprehension, repetition. Cognition and memory grossly intact. Attention intact. No neglect. CN: Visual crews full. No extinction to double simultaneous stimuli. No optic disc edema on fundoscopic exam. PERRLA OU. EOMI without nystagmus, +saccadic intrusions. Facial sensation intact to LT. Facial muscles full and symmetric. Hearing intact to conversation. Uvula midline with symmetric palatal elevation. Shoulder shrug normal. Tongue midline. MOTOR: Normal bulk and tone. No pronator drift. BUE strength 5/5 at deltoids, biceps, triceps, wrist flexors and extensors, and hand grasp bilaterally. BLE strength 5-/5 at iliopsoas, hamstrings, quadriceps, tibialis anterior, and gastrocnemius bilaterally. REFLEXES: 1+ at biceps, triceps, brachioradialis, trace patella and absent Achilles bilaterally. Flexor plantar responses bilaterally. SENSORY: Intact to LT without extinction to double simultaneous stimuli. Vibration and temperature intact throughout. COORDINATION: No dysmetria or ataxia on ytkavb-oh-fors and duli-kb-atjh bilaterally. Normal Martina bilaterally. GAIT: Slow, cautious gait with normal arm swing. Romberg deferred given fall risk. Results & Data Vital Signs (Past 12 Hours) Vital Signs Temp Pulse Pulse Resp BP Pulse Ox 06/12/19 16:41 77 06/12/19 15:11 36.7 C 78 16 116/61 97 06/12/19 08:17 72 06/12/19 07:00 36.7 C 76 16 113/69 97 PG Care Time/CCT Total # of Minutes Spent Total Time Spent with Patient: Total time spent is greater than 50% in coordination of care (as documented) at patient's floor/unit and/or counseling patient: Coding Level of Care Code 58021 Initial Inpt Care Lvl 3 Diagnoses Visual disturbance H53.9 Acute CVA (cerebrovascular accident) I63.9 Carotid artery stenosis I65.21 Laterality: right HTN (hypertension) I10 (1) Carotid artery stenosis Laterality: right Qualified Code(s): I65.21 - Occlusion and stenosis of right carotid artery
[2019-06-12] MEDS: ACETAMINOPHEN 325 MG TAB PO PRN (23:39)
[2019-06-13 07:43] LABS: Basophils # (auto) 0.03 K/uL (0-0.2); Basophils % (auto) 0.6 %; Eosinophils # (auto) 0.24 K/uL (0-0.5); Eosinophils % (auto) 4.7 %; Hematocrit (blood only) 36.3 % (37-47); Hemoglobin 11.5 g/dL (12.0-16.0); Immature Granulocytes # (auto) 0.01 K/uL (0.00-0.02); Immature Granulocytes % (auto) 0.2 %; Lymphocytes # (auto) 1.59 K/uL (1.2-3.4); Lymphocytes % (auto) 31.3 %; Mean Corpuscular Hemoglobin 32.5 pg (25-34); Mean Corpuscular Hgb Conc 31.7 g/dL (32-36); Mean Corpuscular Volume 102.5 fL (80-100); Mean Platelet Volume 9.9 fL (7.4-10.4); Monocytes # (auto) 0.45 K/uL (0.11-0.59); Monocytes % (auto) 8.9 %; Neutrophils # (auto) 2.76 K/uL (1.4-6.5); Neutrophils % (auto) 54.3 %; Platelet Count 206 K/uL (130-400); RDW Coefficient of Variation 14.1 % (11.5-14.5); RDW Standard Deviation 53.2 fL (36.4-46.3); Red Blood Count 3.54 M/uL (4.2-5.4); White Blood Count 5.08 K/uL (4.8-10.8)
[2019-06-13] MEDS: ASPIRIN 81 MG ECTAB PO SCH (08:02)
[2019-06-13] MEDS: CEROVITE ADV FORMULA TAB PO SCH (08:02)
[2019-06-13] MEDS: ATORVASTATIN 40 MG TAB PO SCH (08:02)
[2019-06-13] MEDS: PANTOprazole 40 MG TAB PO SCH (08:03)
[2019-06-13] MEDS: ENOXAPARIN INJ 40 MG/0.4 ML SYR SQ SCH (08:03)
[2019-06-13] MEDS: CLOPIDOGREL BISULFATE 75 MG TAB PO SCH (08:03)
[2019-06-13 08:11] LABS: BUN Creatinine Ratio 23.2 (10-20); Calcium 8.8 mg/dl (8.5-10.1); Creatinine Clr Calc Pharmacy 41.8 ml/min; Est GFR (African American) 70.4; Est GFR (Non-African American) 60.8; Potassium 4.3 mmol/L (3.5-5.1)
--- NOTE | 2019-06-13 13:19 | Internal Medicine Consult Note ---
Date of Consultation June 13, 2019 Assessment & Plan (1) Encounter for rehabilitation evaluation: Once the neurological evaluation is complete, I believe she would benefit from a more intensive rehab stay...particularly given the fact that she lives lone. History of Present Illness Reason for Consultation: Rehab Hospital Medical Evaluation Attending Physician: Marcia Kennedy MD History of Present Illness She suffered a fall and visual changes. A concern for NET APPLICATION SUPPORT SPECIALIST event entertained and evaluation in progress. Underlying ASCAD and gait dysfunction noted. She lives lone. She has been at the rehab hospital before. We talked about ability to perform ADL especially when you live alone. Allergies Allergy/AdvReac Type Severity Reaction Status Date / Time Bactrim Allergy Severe RASH Unverified 06/23/17 20:25 sulfamethoxazole Allergy Severe RASH Verified 06/12/19 00:22 trimethoprim Allergy Severe RASH Verified 06/12/19 00:22 Sulfa (Sulfonamide Allergy Unknown RASH Verified 06/12/19 00:22 Antibiotics) perflutren AdvReac Severe MUSCLE Verified 06/12/19 02:07 TIGHTNESS propylene glycol AdvReac Severe MUSCLE Verified 06/12/19 02:07 TIGHTNESS Home Medications Home Medications Medication Instructions Recorded Confirmed Type aspirin 81 mg PO DAILY 02/27/18 06/12/19 History atorvastatin 80 mg PO QAM 02/27/18 06/12/19 History clopidogrel 75 mg PO QAM 02/27/18 06/12/19 History losartan 25 mg PO QAM 02/27/18 06/12/19 History metoprolol succinate 100 mg PO QAM 02/27/18 06/12/19 History pantoprazole 20 mg PO QAM 02/27/18 06/12/19 History albuterol sulfate 2 puffs INH Q6H PRN #8.5 gm 11/28/18 06/12/19 Rx nitroglycerin 0.3 mg SUBLINGUAL UD PRN 11/28/18 06/12/19 History mmhjvvbo-xoo-fkcd-FA-lutein 1 tab PO DAILY 06/12/19 06/12/19 History [Centrum Silver Women] Patient History Medical History Anterior dislocation of right shoulder (Acute) Cellulitis of right leg (Acute) HTN (hypertension) (Chronic) Myocardial infarct (Chronic) Surgical History Hx of heart artery stent (Resolved) S/P triple vessel bypass (Resolved) Family History Other Family history non-contributory Social History Preferred Language: [place] Timorese Communication Ability: Effective Research And Development Specialist Required: No Beliefs That Will Affect Care: None marital status: Single Current Living Situation: Alone Other Information That Helps Us Care for You: No Feels Safe at Home: Yes Safety Concerns: Feels Safe At This Time Smoking Status: Never smoker Hx Alcohol Use: No Hx Substance Use: No Review of Systems Review of Systems: No acute target noted Physical Exam Physical Exam: vitals stable HEENT--reported visual issues No cranial nerve new changes Respiratory--comfortable Cardio--rate and volume ok GI--functional Neuro--no motor changes Results & Data Vital Signs (Past 12 Hours) Vital Signs Temp Pulse Pulse Resp BP BP Pulse Ox 06/13/19 11:51 36.8 C 72 22 128/74 99 06/13/19 08:00 68 06/13/19 07:00 36.4 C L 72 18 128/79 96 06/13/19 04:42 36.4 C L 74 18 127/64 99 Pulse Ox 06/13/19 11:51 06/13/19 08:00 96 06/13/19 07:00 06/13/19 04:42
--- NOTE | 2019-06-13 14:53 | Hospitalist Progress Note ---
Date of Service June 13, 2019 Assessment & Plan (1) Acute CVA (cerebrovascular accident): Ms. Navarro is a rajesh 83-year-old woman who was admitted to [facility] for an acute episode of visual changes. She was found to have acute infarction of cerebellum and basal ganglia with 80% stenosis of right carotid bifurcation on CTA. Acute CVA - multiple embolic -Patient with MRI showing multiple acute lacunar infarcts left basal ganglia, right temporal lobe and right cerebellar hemisphere. -CTA with small vessel disease and 80% stenosis of R carotid artery -No h/o a fib and no arrhythmias noted on telemetry so far -continue home aspirin, clopidogrel, and atorvastatin -BP currently WNL w/holding home metoprolol and losartan -> continue to monitor. May require dose reduction prior to d/c depending on how she does over the next 24h -ECHO resulted - findings similar to study performed in 01/2019 -> no concern for interatrial shunt -neurology consulted, thank you for recommendations -> patient asymptomatic from her multiple CVA -> obtain SARKIS, anticardiolipin screen, ESR and CRP to further work up -speech evaluation - passed, normal diet -PT/OT evals recommended inpatient rehab -> seen by Dr. Chris from [facility] -> anticipate discharge tomorrow -A1C 5.2. Lipid panel WNL Carotid artery stenosis, significant -Patient CTA showing right carotid artery stenosis at bifurcation -Vascular surgery consulted, thank you for recommendations -> no intervention needed at this time -> f/u 4-6 weeks after discharge. May require CEA her right carotid Visual disturbance -patient reports seeing intermittent pink blobs in both eyes - no visual deficit, tunnel vision or double vision, however -differential includes: ocular migraine, retinal pathology, seizure -EEG performed today - awaiting read -patient follows w/ophthalmology in outpatient setting for prior L sided cataract surgery -will arrange outpatient ophtho follow up Coronary artery disease -Stable, no evidence of any cardiac ischemia at present Hip pain -secondary to OA, pain well controlled with Tylenol -Son says it is chronic and with no acute changes FEN/GI: Regular diet DVT PPx: Lovenox 40 mg Code status: DNR/DNI Disposition: Anticipate discharge to [facility] tomorrow (2) Visual disturbance: (3) Carotid artery stenosis: (4) Compression fracture of L1 vertebra: (5) HTN (hypertension): (6) S/P triple vessel bypass: Admission and Anticipated Discharge Date Admission Date: June 12, 2019 Supervising Physician Co-Signing Physician Notes Resident Physician Supervision Note: I independently interviewed and examined the patient and verified the quintana history and physical, reviewed labs and image studies, discussed the case with the resident Dr. Lake and agree with the findings and care plan. Subjective Ms. Navarro reports intermittent b/l visual symptoms. She states she sees pink blobs in both of her eyes. She denies double vision, tunnel vision, pain w/moving her eyes, or blurry vision. She reports that she has not had these symptoms before. She has, however, had a left eye cataract surgery done several years ago. She has no other complaints. Review of Systems Constitutional: no fever and no chills Ear, Nose, Mouth, Throat: no tinnitus and no dizziness Respiratory: no cough Cardiovascular: no chest pain Gastrointestinal: no abdominal pain Neurologic: no headache(s) Physical Exam Constitutional: WD/WN, vitals as above no acute distress Eyes: PERRL, conjunctivae normal, anicteric sclerae normal accommodation Respiratory: normal respiratory effort, lungs clear to auscultation Cardiovascular: RRR, no murmur, no edema Gastrointestinal (Abdomen): Percussion/Palpation: abdomen soft; abdomen nontender Musculoskeletal: Extremities: extremities normal to inspection and strength 5/5 throughout Skin: no rashes, warm and dry Neurologic: moves all extremities and awake; no focal motor deficits Psychiatric: A+Ox3, euthymic affect Results & Data ([facility]) Vital Signs (Past 12 Hours) Vital Signs Temp Pulse Pulse Resp BP BP Pulse Ox 06/13/19 11:51 36.8 C 72 22 128/74 99 06/13/19 08:00 68 06/13/19 07:00 36.4 C L 72 18 128/79 96 06/13/19 04:42 36.4 C L 74 18 127/64 99 Pulse Ox 06/13/19 11:51 06/13/19 08:00 96 06/13/19 07:00 06/13/19 04:42 Resident Activity Tracking Resident Involvement: Resident Care Provided Care Provided: Adult Hospital Medicine (1) Carotid artery stenosis Laterality: right Qualified Code(s): I65.21 - Occlusion and stenosis of right carotid artery
--- NOTE | 2019-06-13 16:11 | Electroencephalogram ---
EEG Procedure Note Date of Service June 13, 2019 Start / End Times Start Time: 9:51am End Time: 10:11am Referring Physician Kevin Cheema History positive visual phenomena Home Medication List Home Medications Medication Instructions Recorded Confirmed Type aspirin 81 mg PO DAILY 02/27/18 06/12/19 History atorvastatin 80 mg PO QAM 02/27/18 06/12/19 History clopidogrel 75 mg PO QAM 02/27/18 06/12/19 History losartan 25 mg PO QAM 02/27/18 06/12/19 History metoprolol succinate 100 mg PO QAM 02/27/18 06/12/19 History pantoprazole 20 mg PO QAM 02/27/18 06/12/19 History albuterol sulfate 2 puffs INH Q6H PRN #8.5 gm 11/28/18 06/12/19 Rx nitroglycerin 0.3 mg SUBLINGUAL UD PRN 11/28/18 06/12/19 History Centrum Silver Women 1 tab PO DAILY 06/12/19 06/12/19 History Inpatient Medication List Acetaminophen (Tylenol) 650 mg PO Q4H PRN PRN Reason: Pain or Fever Stop: 07/12/19 02:02 Last Admin: 06/12/19 23:39 Dose: 650 mg Documented by: [id number] Aspirin (Ecotrin Ectab) 81 mg PO DAILY [facility] Stop: 07/12/19 08:59 Last Admin: 06/13/19 08:02 Dose: 81 mg Documented by: [id number] Admin: 06/12/19 09:24 Dose: 81 mg Documented by: [id number] Atorvastatin Calcium (Lipitor) 80 mg PO [facility] Stop: 07/12/19 08:59 Last Admin: 06/13/19 08:02 Dose: 80 mg Documented by: [id number] Admin: 06/12/19 09:23 Dose: 80 mg Documented by: [id number] Clopidogrel Bisulfate (Plavix) 75 mg PO [facility] Stop: 07/12/19 08:59 Last Admin: 06/13/19 08:03 Dose: 75 mg Documented by: [id number] Admin: 06/12/19 09:23 Dose: 75 mg Documented by: [id number] Enoxaparin Sodium (Lovenox) 40 mg SQ [facility] Stop: 07/12/19 08:59 Last Admin: 06/13/19 08:03 Dose: 40 mg Documented by: [id number] Admin: 06/12/19 09:24 Dose: 40 mg Documented by: [id number] Multivitamins/Minerals (Multivitamin W/ Minerals Tab) 1 tab PO DAILY [facility] Stop: 07/12/19 08:59 Last Admin: 06/13/19 08:02 Dose: 1 tab Documented by: [id number] Admin: 06/12/19 09:23 Dose: 1 tab Documented by: [id number] Pantoprazole Sodium (Protonix) 40 mg PO QAM [facility] Stop: 07/12/19 08:59 Last Admin: 06/13/19 08:03 Dose: 40 mg Documented by: [id number] Admin: 06/12/19 09:23 Dose: 40 mg Documented by: [id number] Discontinued Medications Aspirin (Aspirin) 324 mg PO NOW STA Stop: 06/12/19 00:17 Last Admin: 06/12/19 00:33 Dose: 324 mg Documented by: [id number] Sodium Chloride (Nss 1000ml) 500 mls @ 999 mls/hr IV .Q31M ONE Stop: 06/11/19 21:53 Last Infusion: 06/11/19 22:21 Dose: 0 mls/hr Documented by: [id number] Admin: 06/11/19 21:40 Dose: 999 mls/hr Documented by: [id number] Sodium Chloride (Nss 1000ml) 500 mls @ 999 mls/hr IV .Q31M ONE Stop: 06/11/19 22:52 Last Infusion: 06/11/19 23:17 Dose: 0 mls/hr Documented by: [id number] Admin: 06/11/19 22:38 Dose: 999 mls/hr Documented by: [id number] Magnesium Sulfate/Dextrose (Magnesium Sulfate / D5w) 1 gm in 100 mls @ 100 mls/hr IV ONE ONE Stop: 06/12/19 01:15 Last Infusion: 06/12/19 01:35 Dose: 0 mls/hr Documented by: [id number] Admin: 06/12/19 00:33 Dose: 100 mls/hr Documented by: [id number] Sodium Chloride (Nss 1000ml) 1,000 mls @ 80 mls/hr IV .[id number] SHASTA Stop: 07/12/19 02:02 Last Admin: 06/12/19 02:25 Dose: Not Given Documented by: [id number] Ioversol (Optiray 320 125ml) 117 ml IV ONCE PRN PRN Reason: Interaction Checking Stop: 06/15/19 22:24 Last Admin: 06/11/19 22:25 Dose: 117 ml Documented by: [id number] Description This is a 21 electrode EEG with a single channel dedicated to limited EKG. The electrodes were placed in accordance with the International 10-20 system. History: positive visual phenomena in bilateral eyes Rx: n/a Start/Stop: 9:51am/10:11am Attending reading: Dorota Garcia EEG Description: EEG background: Background was symmetric alpha that reacted to eye opening/closing. A well formed 10-11 Hz posterior dominant rhythm was observed. The EEG is continuous. There is variability and reactivity present. Activation and reactivity: Photic stimulation performed without any abnormalities noted. No photic driving observed. Hyperventilation was not performed. Sleep: Patient was drowsy and entered higher sleep. Stages I and II of sleep were briefly recorded with normal vertex waves and sleep spindles noted. Epileptiform discharges: No epileptiform discharges were observed. Rhythmic and periodic patterns: None Seizures: None Impression: This was a normal awake and asleep EEG. No seizures or epileptiform discharges were seen. Clinical correlation required. [facility] EEG Procedure Codes Indication for Procedure (1) Visual disturbance: Neurology Neurology: [id number] EEG include record awake & sleepy
[2019-06-14 06:02] LABS: Basophils # (auto) 0.02 K/uL (0-0.2); Basophils % (auto) 0.3 %; Eosinophils # (auto) 0.29 K/uL (0-0.5); Eosinophils % (auto) 4.8 %; Hematocrit (blood only) 36.1 % (37-47); Hemoglobin 11.7 g/dL (12.0-16.0); Immature Granulocytes # (auto) 0.01 K/uL (0.00-0.02); Immature Granulocytes % (auto) 0.2 %; Lymphocytes # (auto) 1.69 K/uL (1.2-3.4); Lymphocytes % (auto) 27.8 %; Mean Corpuscular Hemoglobin 33.3 pg (25-34); Mean Corpuscular Hgb Conc 32.4 g/dL (32-36); Mean Corpuscular Volume 102.8 fL (80-100); Mean Platelet Volume 10.3 fL (7.4-10.4); Monocytes # (auto) 0.54 K/uL (0.11-0.59); Monocytes % (auto) 8.9 %; Neutrophils # (auto) 3.53 K/uL (1.4-6.5); Platelet Count 217 K/uL (130-400); RDW Coefficient of Variation 14.1 % (11.5-14.5); RDW Standard Deviation 52.9 fL (36.4-46.3); Red Blood Count 3.51 M/uL (4.2-5.4); White Blood Count 6.08 K/uL (4.8-10.8)
[2019-06-14 06:26] LABS: BUN Creatinine Ratio 31.1 (10-20); Calcium 8.7 mg/dl (8.5-10.1); Creatinine Clr Calc Pharmacy 43.8 ml/min; Est GFR (African American) 74.5; Est GFR (Non-African American) 64.3; Potassium 4.7 mmol/L (3.5-5.1)
[2019-06-14] MEDS: ATORVASTATIN 40 MG TAB PO SCH (07:48)
[2019-06-14] MEDS: CLOPIDOGREL BISULFATE 75 MG TAB PO SCH (07:49)
[2019-06-14] MEDS: CEROVITE ADV FORMULA TAB PO SCH (07:49)
[2019-06-14] MEDS: ASPIRIN 81 MG ECTAB PO SCH (07:50)
[2019-06-14] MEDS: PANTOprazole 40 MG TAB PO SCH (07:50)
[2019-06-14] MEDS: ENOXAPARIN INJ 40 MG/0.4 ML SYR SQ SCH (07:51)
--- NOTE | 2019-06-14 08:31 | Neurology Progress Note ---
Date of Service June 14, 2019 Assessment & Plan (1) Visual disturbance: Paige Navarro is an 83 yo woman w/ PMH of CAD S/P stenting and CABG, history of basal cell carcinoma, hypertension, hyperlipidemia, GERD and history of left eye cataract surgery who presented to [facility] after acute onset of vision changes. # Positive visual phenomena: Ddx limited to eye pathology such as early retinal detachment or macular degeneration, less likely seizure and unlikely migraine aura as no prior history of migraine. EEG normal awake and asleep. - recommend urgent outpatient ophtho evaluation to r/o retinal pathology - if there is any concern that this could be migraine aura without headache, can start magnesium 400mg daily # Punctuate infarcts on MRI brain: appears asymptomatic from these. Could represent cardioembolic strokes vs +DWI changes a/w SVID (rare but possible per recent study) vs atypical cause of multifocal strokes in various distribution. ESR elevated at 33, CRP <0.29, SARKIS screen/anticardiolipin antibody pending. TTE showed EF 50-55%, borderline global hypokinesis, mild LVH, grade I diastolic dysfunction, moderate aortic valve sclerosis without - recommend 30 day event monitor on d/c - Vitals, Neurochecks, NIHSS per unit routine - BP parameters: SBP CAP 180, goal normotension over next 3-4 days, ok to restart home BP meds - Will domestic violence counselor concerning stroke education, smoking cessation, healthy diet, physical activity, weight loss - Follow up with PCP for assistance with outpatient goals (BP <135/85, LDL <70, A1c <7) (current A1c 5.2, LDL 50) - Follow up in neurology clinic in 6-8 weeks - continue aspirin/plavix and atorvastatin -> if anticardiolipin antibody positive again, would recommend rheumatology follow up outpatient and consideration of starting warfarin # L ICA stenosis: asymptomatic - no benefit to early re-canalization with CEA or stent per current research data - recommend follow up with Dr Pham's office as an outpatient - if patient is interested, could also be referred to Dr Lew at [place] to participate in the CREST2 trial Thank you for this interesting consult. Plan of care was discussed with primary team. Please call with any questions. Subjective NAEs overnight. Reports ongoing blurry vision and floaters, mainly in her left eye. No clear provoking factors. No other complaints at this time. Review of Systems Review of Systems: 14 point review of systems completed and negative except as in HPI. Physical Exam Physical Exam: General Exam: GEN: NAD, sitting in bed. HEENT: No conjunctival injection, no rhinorrhea. CV: RRR, no peripheral edema PULM: Nonlabored respirations on room air. Neuro Exam: MS: Awake and Alert. Oriented to person, place, and date. Speech fluent and appropriate without dysarthria or paraphasic errors. Language intact including naming, comprehension, repetition. Cognition and memory grossly intact. Attention intact. No neglect. CN: Visual crews full. No extinction to double simultaneous stimuli. No optic disc edema on fundoscopic exam. PERRLA OU. EOMI without nystagmus, +saccadic intrusions. Facial sensation intact to LT. Facial muscles full and symmetric. Hearing intact to conversation. Uvula midline with symmetric palatal elevation. Shoulder shrug normal. Tongue midline. MOTOR: Normal bulk and tone. No pronator drift. BUE strength 5/5 at deltoids, biceps, triceps, wrist flexors and extensors, and hand grasp bilaterally. BLE strength 5-/5 at iliopsoas, hamstrings, quadriceps, tibialis anterior, and gastrocnemius bilaterally. REFLEXES: 1+ at biceps, triceps, brachioradialis, trace patella and absent Achilles bilaterally. Flexor plantar responses bilaterally. SENSORY: Intact to LT without extinction to double simultaneous stimuli. Vibration and temperature intact throughout. COORDINATION: No dysmetria or ataxia on [id number] and [id number] bilaterally. Normal Martina bilaterally. GAIT: Slow, cautious gait with normal arm swing. Romberg deferred given fall risk. Results & Data Vital Signs (Past 12 Hours) Vital Signs Temp Pulse Pulse Resp BP BP Pulse Ox 06/14/19 07:00 36.4 C L 83 16 101/57 L 97 06/14/19 03:27 36.7 C 72 20 123/74 96 06/14/19 00:10 85 06/13/19 23:50 36.5 C 91 H 17 127/75 97 PG Care Time/CCT Total # of Minutes Spent Total Time Spent with Patient: Total time spent is greater than 50% in [facility] (as documented) at patient's floor/unit and/or counseling patient: Coding Level of Care Code 31996 Subseq Hosp Care Lvl 2 Diagnoses Visual disturbance H53.9
[2019-06-14] MEDS: ACETAMINOPHEN 325 MG TAB PO PRN ×2 (11:49→21:49)
--- NOTE | 2019-06-14 17:37 | Hospitalist Progress Note ---
Date of Service June 14, 2019 Assessment & Plan (1) Acute CVA (cerebrovascular accident): Ms. Navarro is an 83-year-old woman who was admitted to [facility] for an acute episode of visual changes. She was found to have acute infarction of cerebellum and basal ganglia with 80% stenosis of right carotid bifurcation on CTA. Acute CVA - multiple embolic -Patient with MRI showing multiple acute lacunar infarcts left basal ganglia, right temporal lobe and right cerebellar hemisphere. -CTA with small vessel disease and 80% stenosis of R carotid artery -continue home aspirin, clopidogrel, and atorvastatin -BP currently WNL w/holding home metoprolol and losartan -> continue to monitor. May require dose reduction prior to d/c. -ECHO resulted - findings similar to study performed in 01/2019 -> no concern for interatrial shunt -neurology consulted, thank you for recommendations -> patient asymptomatic from her multiple CVA -> obtain SARKIS, anticardiolipin screen, ESR and CRP to further work up -speech evaluation - passed, normal diet -PT/OT evals recommended inpatient rehab -> seen by Dr. Chris from [facility] -A1C 5.2. Lipid panel WNL -Noted to be in Aflutter this am. likely source of embolic source. consult cardiology A flutter with RVR -cardio consult. -will need anticoagulation, rate control. Carotid artery stenosis, significant -Patient CTA showing right carotid artery stenosis at bifurcation -Vascular surgery consulted, thank you for recommendations -> no intervention needed at this time -> f/u 4-6 weeks after discharge. May require CEA her right carotid Visual disturbance -patient reports seeing intermittent pink patches in both eyes - no visual deficit, tunnel vision or double vision, however -differential includes: ocular migraine, retinal pathology, seizure -EEG unremarkable -patient follows w/ophthalmology in outpatient setting for prior L sided cataract surgery -will arrange outpatient ophtho follow up Coronary artery disease -Stable, no evidence of any cardiac ischemia at present Hip pain -secondary to OA, pain well controlled with Tylenol -Son says it is chronic and with no acute changes FEN/GI: Regular diet DVT PPx: Lovenox 40 mg Code status: DNR/DNI Disposition: Anticipate discharge to [facility] once cardiology gives recs for new onset atrial flutter. (2) Visual disturbance: (3) Carotid artery stenosis: (4) Compression fracture of L1 vertebra: (5) HTN (hypertension): (6) S/P triple vessel bypass: Admission and Anticipated Discharge Date Admission Date: June 12, 2019 Supervising Physician Co-Signing Physician Notes Resident Physician Supervision Note: I independently interviewed and examined the patient and verified the quintana hi story and physical, reviewed labs and image studies, discussed the case with the resident Dr. Mcelroy and agree with the findings and care plan. Subjective Ms. Navarro was seen this AM and stated she was doing well. Still complaining of vision changes but denied any headache, chest pain or palpitations when seen this AM. However, later she told nursing that she had some chest pain and was found to be in atrial flutter. Review of Systems Review of Systems: All systems reviewed & are unremarkable except as noted in HPI & below Physical Exam Physical Exam: General: Alert, oriented. No acute distress, sitting in chair chatting with roommate Skin: No noted rashes or bruises Psych: Appropriate mood and affect HEENT: NC/AT, PERRLA, EOMI, oropharynx moist. Chest: Nontender to palpation. CV: RRR, Normal s1, s2. No murmurs appreciated Resp: Breath sounds clear bilaterally, no increased effort of breathing. No crackles/rhonchi/rales. Abdomen: Soft, nontender, nondistended. No guarding. No organomegaly appreciated. Extremities: No edema in lower extremities bilaterally. Results & Data ([facility]) Vital Signs (Past 12 Hours) Vital Signs Temp Pulse Pulse Pulse Resp BP BP 06/14/19 15:30 36.6 C 81 18 108/69 06/14/19 11:08 36.5 C 95 H 18 132/71 06/14/19 10:18 85 84 H 101/60 06/14/19 08:00 82 06/14/19 07:00 36.4 C L 83 16 101/57 L Pulse Ox 06/14/19 15:30 99 06/14/19 11:08 97 06/14/19 10:18 95 06/14/19 08:00 06/14/19 07:00 97 Resident Activity Tracking Resident Involvement: Resident Care Provided Care Provided: Adult Hospital Medicine (1) Carotid artery stenosis Laterality: right Qualified Code(s): I65.21 - Occlusion and stenosis of right carotid artery
--- NOTE | 2019-06-14 19:34 | Cardiology Consultation ---
Date of Consultation June 14, 2019 Assessment & Plan (1) Atrial flutter: (2) Acute CVA (cerebrovascular accident): (3) Carotid artery stenosis: (4) HTN (hypertension): (5) CAD (coronary artery disease): (6) S/P triple vessel bypass: Patient with known coronary disease (status post remote CABG), carotid disease (80% stenosis right carotid at bifurcation), and hypertension who was noted to have multiple infarcts on brain MRI after presenting with visual symptoms. Given onset of atrial flutter while in hospital, suspect that she has had intermittent atrial dysrhythmias as a cardioembolic source for her multiple infarcts. Recommend initiation of apixaban 2.5 mg twice daily (reduced dose given age, reasonable body weight, and concurrent aspirin use) for full anticoagulation as thromboembolic prophylaxis. She should remain on low-dose aspirin given the presence of bypass grafts, however could get discontinue clopidogrel and enoxaparin. As noted, there is some question of melena, she does have a mild anemia (11.7) but it is not microcytic. Would heme test stool and monitor for any GI bleeding, however she has noted normal bowel movements as of today and the risk of GI bleeding from unproven pathology is exceeded by the risk of recurrent cerebrovascular events from the demonstrated cardiac risk of ongoing atrial flutter. Would also recommend rate control, could start with metoprolol 25 mg twice daily. Case discussed with Dr. Kennedy. Will follow along with you and offer further recommendations based upon her rate response to the metoprolol and whether she has any bleeding issues on apixaban. History of Present Illness Reason for Consultation: New onset atrial flutter Requesting Physician: Yeni Mcelroy MD Attending Physician: Marcia Kennedy MD History of Present Illness 83-year-old woman with history of CAD (CABG 2009, stenting prior to this), no prior history of dysrhythmias, who was admitted 06/12/2019 with visual symptoms and found on MRI to have multiple infarcts (of the left basal ganglia, right temporal lobe, right cerebellar hemisphere). This morning, at 6:30 AM she had a PAC and her sinus rhythm transitioned to atrial flutter with rapid ventricular response (ventricular rate mostly 100-110 bpm). She noted a "weird feeling" in her chest, but has not had any chest pain or definite palpitations. No dyspnea, lightheadedness, or further neurologic symptoms. Reviewing her outpatient notes, there was some mention of possible melena in recent weeks. However, she noted that she had a normal bowel movement today that was not discolored in any way. She does not know of any other potential contraindications to anticoagulation. Allergies Allergy/AdvReac Type Severity Reaction Status Date / Time Bactrim Allergy Severe RASH Unverified 06/23/17 20:25 sulfamethoxazole Allergy Severe RASH Verified 06/12/19 00:22 trimethoprim Allergy Severe RASH Verified 06/12/19 00:22 Sulfa (Sulfonamide Allergy Unknown RASH Verified 06/12/19 00:22 Antibiotics) perflutren AdvReac Severe MUSCLE Verified 06/12/19 02:07 TIGHTNESS propylene glycol AdvReac Severe MUSCLE Verified 06/12/19 02:07 TIGHTNESS Home Medications Home Medications Medication Instructions Recorded Confirmed Type aspirin 81 mg PO DAILY 02/27/18 06/12/19 History atorvastatin 80 mg PO QAM 02/27/18 06/12/19 History clopidogrel 75 mg PO QAM 02/27/18 06/12/19 History losartan 25 mg PO QAM 02/27/18 06/12/19 History metoprolol succinate 100 mg PO QAM 02/27/18 06/12/19 History pantoprazole 20 mg PO QAM 02/27/18 06/12/19 History albuterol sulfate 2 puffs INH Q6H PRN #8.5 gm 11/28/18 06/12/19 Rx nitroglycerin 0.3 mg SUBLINGUAL UD PRN 11/28/18 06/12/19 History Centrum Silver Women 1 tab PO DAILY 06/12/19 06/12/19 History Patient History Medical History Anterior dislocation of right shoulder (Acute) Cellulitis of right leg (Acute) HTN (hypertension) (Chronic) Myocardial infarct (Chronic) Surgical History Hx of heart artery stent (Resolved ~2007) S/P triple vessel bypass (Resolved 2009) Family History Family history non-contributory Social History Preferred Language: Croatian Communication Ability: Effective Spiral Gear Generator Required: No Beliefs That Will Affect Care: None marital status: Single Current Living Situation: Alone Other Information That Helps Us Care for You: No Feels Safe at Home: Yes Safety Concerns: Feels Safe At This Time Smoking Status: Never smoker Hx Alcohol Use: No Hx Substance Use: No Review of Systems Constitutional: + fatigue; no fever, no chills, no weight loss and no weight gain Eyes: + seeing flashes Ear, Nose, Mouth, Throat: no problem reported Respiratory: no cough and no dyspnea Cardiovascular: as per Subjective / HPI Gastrointestinal: + melena (Dark stools, not definite melena.); no abdominal pain and no change in stools Genitourinary: no problem reported Musculoskeletal: no myalgia Integumentary: no rash and no new lesions Neurologic: as per Subjective / HPI; no falls and no syncope Psychiatric: no problem reported Hematologic / Lymphatic: no easy bleeding and no easy bruising Physical Exam Physical Exam: Normal habitus elderly female sitting comfortably. Afebrile. BP initially hypertensive, currently normotensive. Pulse rate is normal, but monitor shows mild tachycardia. Normal respiratory rate. Skin: no ecchymoses or generalized lesions. HEENT: unremarkable. Neck: no JVD or obvious carotid bruits (although she does have a 80% right carotid stenosis on imaging study). Lungs: Clear. Cardiac: Irregular rhythm, no obvious murmur on limited exam (due to mild tachycardia) Abdomen: Soft and nontender. Extremities: no edema, pulses brisk. Neurologic: normal affect, grossly nonfocal on limited exam. Results & Data ([facility]) Diagnostic Findings ECG on admission showed sinus rhythm with nonspecific ST depression lateral leads. Compared with January 2019 study, previous T wave inversions were no longer present on the current study. Chest x-ray showed minimal atelectasis, otherwise unremarkable. Echocardiogram showed normal LV size with low normal systolic function (EF 50 to 55%). No definite focal wall motion abnormalities. Mild LVH with diastolic dysfunction. No major valvular disease. No evidence of interatrial shunt on IV bubble contrast. PG Care Time/CCT Total # of Minutes Spent Total Time Spent with Patient: Total time spent is greater than 50% in coordination of care (as documented) at patient's floor/unit and/or counseling patient: Coding Level of Care Code 20564 Initial Inpt Care Lvl 3 Diagnoses Atrial flutter I48.92 Acute CVA (cerebrovascular accident) I63.9 Carotid artery stenosis I65.21 Laterality: right HTN (hypertension) I10 CAD (coronary artery disease) I25.10 S/P triple vessel bypass Z95.1 (1) Carotid artery stenosis Laterality: right Qualified Code(s): I65.21 - Occlusion and stenosis of right carotid artery
[2019-06-14] MEDS: METOPROLOL TARTRATE 25 MG TAB PO SCH (21:18)
[2019-06-14] MEDS: APIXABAN 2.5 MG TAB PO SCH (21:18)
[2019-06-15 05:57] LABS: Basophils # (auto) 0.01 K/uL (0-0.2); Basophils % (auto) 0.2 %; Eosinophils # (auto) 0.23 K/uL (0-0.5); Eosinophils % (auto) 4.5 %; Hematocrit (blood only) 35.2 % (37-47); Hemoglobin 11.4 g/dL (12.0-16.0); Immature Granulocytes # (auto) 0.01 K/uL (0.00-0.02); Immature Granulocytes % (auto) 0.2 %; Lymphocytes # (auto) 1.82 K/uL (1.2-3.4); Lymphocytes % (auto) 35.6 %; Mean Corpuscular Hgb Conc 32.4 g/dL (32-36); Mean Platelet Volume 10.2 fL (7.4-10.4); Monocytes # (auto) 0.41 K/uL (0.11-0.59); Neutrophils # (auto) 2.63 K/uL (1.4-6.5); Neutrophils % (auto) 51.5 %; Platelet Count 210 K/uL (130-400); RDW Coefficient of Variation 14.2 % (11.5-14.5); RDW Standard Deviation 52.7 fL (36.4-46.3); Red Blood Count 3.45 M/uL (4.2-5.4); White Blood Count 5.11 K/uL (4.8-10.8)
[2019-06-15 06:32] LABS: BUN Creatinine Ratio 26.8 (10-20); Calcium 8.7 mg/dl (8.5-10.1); Creatinine Clr Calc Pharmacy 42.3 ml/min; Est GFR (African American) 71.4; Est GFR (Non-African American) 61.6; Potassium 4.6 mmol/L (3.5-5.1)
[2019-06-15] MEDS: METOPROLOL TARTRATE 25 MG TAB PO SCH (07:55)
[2019-06-15] MEDS: APIXABAN 2.5 MG TAB PO SCH (07:56)
[2019-06-15] MEDS: ASPIRIN 81 MG ECTAB PO SCH (07:56)
[2019-06-15] MEDS: CEROVITE ADV FORMULA TAB PO SCH (07:56)
[2019-06-15] MEDS: ATORVASTATIN 40 MG TAB PO SCH (07:57)
[2019-06-15] MEDS: CLOPIDOGREL BISULFATE 75 MG TAB PO SCH (07:57)
[2019-06-15] MEDS: PANTOprazole 40 MG TAB PO SCH (07:58)
[2019-06-15] MEDS ORDERED: STROKE PATIENT DISCHARGE STA (11:45)
--- NOTE | 2019-06-15 14:16 | Discharge Summary ---
Date of Service June 15, 2019 Admission HPI Per Admitting Provider Ms. Paige Navarro is an 83-year-old woman with a past medical history of coronary artery disease (status post stenting and bypass surgery) skin cancer, hypertension, GERD dyslipidemia who was recently hospitalized in January and spent time at a rehab hospital until April for a fall and weakness. She was in her usual state of health this evening she started to notice a visual disturbance in her left lateral vision of her right eye. She describes them as little brown squares and green triangles. Now seeing pinkish red blobs. She has had no loss of visual acuity or visual field that she is aware of, she has notices these extra shapes that will appear in her vision especially when she looks into the light like the lights overhead her hospital bed. She has not noticed any change in her motor function she is ambulating normally has not noticed any confusion, any difficulty swallowing liquids or solids, or any facial asymmetry. Her son was with her at the time he continues to be with her and has also not noticed any changes from her usual baseline. On review of systems she tells me that she has also been noticing blackish stool. No pain in eye, no loss of visual acuity, no foreign body sensation,, no headache. Admission Exam Per Admitting Provider Physical Exam: Constitutional: Patient is a well-appearing 83-year-old woman lying in bed in no apparent distress, son is at bedside Eyes: Extraocular muscle movements intact bilaterally, no change in visual acuity, pupils equal round reactive to light and accommodation, appearance normal Respiratory: Chest expansion equal no apparent increased work of breathing, regular rate, good air entry globally, vesicular breath sounds globally Cardiovascular: Regular rate regular rhythm, S1-S2 normal, no murmurs rubs skips or gallops, no lower limb edema, peripheral pulses intact and equal bilaterally Gastrointestinal: Abdomen soft nontender, no organomegaly MSK: Patient with some pain on range of motion of right hip, no tenderness palpation in joint Neurologic: Cranial nerves II through XII examined and normal apart from possible optic nerve dysfunction patient when covering the left eye sees continues to see spots when covering right eye spots go away completely vision affected is all on the left lateral side though she can still see me and count how many fingers I have on that side peripheral sensation and strength upper and lower extremities intact and equal although patient has some musculoskeletal weakness on right side upper extremity secondary to surgery Principal Diagnosis Acute CVA, visual disturbance Discharge Exam General: Alert, oriented. No acute distress, sitting in chair at bedside Skin: No noted rashes or bruises Psych: Appropriate mood and affect HEENT: NC/AT Chest: Nontender to palpation. CV: RRR, Normal s1, s2. No murmurs appreciated Resp: Breath sounds clear bilaterally, no increased effort of breathing. Abdomen: Soft, tender to deep palpation over right ribs, nondistended. No guarding. No organomegaly appreciated. Extremities: No edema in lower extremities bilaterally. Discharge Data Allergies Allergy/AdvReac Type Severity Reaction Status Date / Time Bactrim Allergy Severe RASH Unverified 06/23/17 20:25 sulfamethoxazole Allergy Severe RASH Verified 06/12/19 00:22 trimethoprim Allergy Severe RASH Verified 06/12/19 00:22 Sulfa (Sulfonamide Allergy Unknown RASH Verified 06/12/19 00:22 Antibiotics) perflutren AdvReac Severe MUSCLE Verified 06/12/19 02:07 TIGHTNESS propylene glycol AdvReac Severe MUSCLE Verified 06/12/19 02:07 TIGHTNESS Consultations 06/12/19 00:16 ED Decision to Admit Stat 06/12/19 02:03 Consult Case Management - Discharge Planning Routine Consult Neurology Routine Consult Vascular Surgery Routine 06/13/19 14:53 Consult [facility] pin chaser Routine 06/14/19 10:17 Consult Cardiology Routine Ordered Studies 06/11/19 21:26 CT angio head w con Stat CT angio neck with con Stat CT head/brain wo con Stat 06/11/19 22:29 MR brain wo con Urgent Hospital Course (1) Acute CVA (cerebrovascular accident): Ms. Navarro is an 83-year-old woman who was admitted to [facility] for an acu te episode of visual changes. She was found to have acute infarction of cerebellum and basal ganglia with 80% stenosis of right carotid bifurcation on CTA. Had an episode of atrial flutter while hospitalized. Acute CVA - multiple embolic -Patient with MRI showing multiple acute lacunar infarcts left basal ganglia, right temporal lobe and right cerebellar hemisphere. -CTA with small vessel disease and 80% stenosis of R carotid artery -continue home aspirin and atorvastatin -BP currently WNL w/holding home losartan. Continue home metoprolol succinate 100mg-> continue to monitor. -ECHO showed findings similar to study performed in 01/2019 -> no concern for interatrial shunt -neurology consulted, thank you for recommendations -> patient asymptomatic from her multiple CVA -> obtain SARKIS, anticardiolipin screen to further work up- pending on discharge -speech evaluation - passed, normal diet -PT/OT evals recommended inpatient rehab -> seen by Dr. Chris from [facility]; will discharge. -A1C 5.2. Lipid panel WNL -Noted to be in Aflutter while hospitalized. Likely source of embolic source. Per cardiology recommendations, continue with metoprolol and apixaban 2.5mg BID. Rate and rhythm controlled on discharge. New onset A flutter with RVR -cardio consulted -Continue home dose of metoprolol 100mgs daily. Back to NSR on discharge. - eliquis added at lower dose due to history of melena and being on aspirin. titrate up the dose if tolerates. Carotid artery stenosis, significant -Patient CTA showing right carotid artery stenosis at bifurcation -Vascular surgery consulted, thank you for recommendations -> no intervention needed at this time -> f/u 4-6 weeks after discharge with vascular surgery. May require CEA of her right carotid Visual disturbance -patient reports seeing intermittent pink patches in both eyes - no visual deficit, tunnel vision or double vision, however -differential includes: ocular migraine, retinal pathology, seizure -EEG unremarkable -patient follows w/ophthalmology in outpatient setting for prior L sided cataract surgery -will arrange outpatient ophtho follow up Coronary artery disease -Stable, no evidence of any cardiac ischemia at present Hip pain -secondary to OA, pain well controlled with Tylenol -Son says it is chronic and with no acute changes Total Time Total Time Spent Total Time Spent (In Minutes): See attending attestation Discharge Plan Discharge Items Patient Disposition: Transfer Inpatient Rehab Fac Reason For Visit: STROKE Discharge Diagnosis: CVA Activity: Resume your previous activity Non-emergency contact: Primary Care Provider Call non-emergency contact if: you have any medication questions and your rectal temperature is above 100.4 Follow-up/Referrals: Susu Bower DO [Primary Care Provider] - Edu Le MD [Physician] - (Call [phone] to schedule a follow up appointment for 4 weeks after discharge.) Diet: Heart Healthy Addtl Attending Provider Instructions: FACILITY DISCHARGE INSTRUCTIONS Ms. Navarro is an 83-year-old woman who was admitted to [facility] for an acute episode of visual changes. She was found to have acute infarction of cerebellum and basal ganglia with 80% stenosis of right carotid bifurcation on CTA. Had an episode of atrial flutter while hospitalized. Acute CVA - multiple embolic -Patient with MRI showing multiple acute lacunar infarcts left basal ganglia, right temporal lobe and right cerebellar hemisphere. -CTA with small vessel disease and 80% stenosis of R carotid artery -continue home aspirin and atorvastatin -BP currently WNL w/holding home losartan. Continue home metoprolol succinate 100mg-> continue to monitor. -ECHO showed findings similar to study performed in 01/2019 -> no concern for interatrial shunt -neurology consulted, thank you for recommendations -> patient asymptomatic from her multiple CVA -> obtain SARKIS, anticardiolipin screen to further work up- pending on discharge -speech evaluation - passed, normal diet -PT/OT evals recommended inpatient rehab -> seen by Dr. Chris from [facility]; will discharge. -A1C 5.2. Lipid panel WNL -Noted to be in Aflutter while hospitalized. Likely source of embolic source. Per cardiology recommendations, continue with metoprolol and apixaban 2.5mg BID. In NSR at discharge. A flutter with RVR -cardio consult as above. -Continue home dose of metoprolol 100mgs daily. Back to NSR on discharge. - eliquis added at lower dose due to history of melena and being on aspirin. titrate up the dose if tolerates well. Carotid artery stenosis, significant -Patient CTA showing right carotid artery stenosis at bifurcation -Vascular surgery consulted, thank you for recommendations -> no intervention needed at this time -> f/u 4-6 weeks after discharge with vascular surgery. May require CEA of her right carotid Visual disturbance -patient reports seeing intermittent pink patches in both eyes - no visual deficit, tunnel vision or double vision, however -differential includes: ocular migraine, retinal pathology, seizure -EEG unremarkable -patient follows w/ophthalmology in outpatient setting for prior L sided cataract surgery -will arrange outpatient ophtho follow up Coronary artery disease -Stable, no evidence of any cardiac ischemia at present Hip pain -secondary to OA, pain well controlled with Tylenol -Son says it is chronic and with no acute changes Pending Studies at Discharge: Yes Studies:: SARKIS screen, anti cardiolipin antibodies Stand-Alone Forms: My [facility] Skilled Items Patient informed of condition?: Yes DNR: Yes Discharge Level of Care: Acute rehab Communicable Disease: No Discharge Prognosis: Stable Lines: None Urinary Catheter: No Medications and DC Order Prescriptions: New Eliquis 2.5 mg Tablet 2.5 mg PO BID Qty: 60 RF: 0 Continued atorvastatin 80 mg tablet 80 mg PO QAM RF: 0 aspirin 81 mg Tablet,Delayed Release (Dr/Ec) 81 mg PO DAILY RF: 0 pantoprazole 20 mg tablet,delayed release (DR/EC) 20 mg PO QAM RF: 0 losartan 25 mg tablet 25 mg PO QAM RF: 0 nitroglycerin 0.3 mg tablet, sublingual 0.3 mg sublingual UD PRN (Reason: Chest Pain) RF: 0 albuterol sulfate 90 mcg/actuation HFA aerosol inhaler 2 puffs INH Q6H PRN (Reason: shortness of breath or wheezing) Qty: 8.5 RF: 0 Centrum Silver Women 8 mg iron-400 mcg-300 mcg Tablet 1 tab PO DAILY RF: 0 metoprolol succinate 100 mg tablet extended release 24 hr 100 mg PO DAILY RF: 0 Discontinued metoprolol succinate 100 mg tablet extended release 24 hr 100 mg PO QAM RF: 0 clopidogrel 75 mg tablet 75 mg PO QAM RF: 0 Discharge Orders: Discharge Order (Routine); Ordered 06/15/19 Ordered By: Yeni Mcelroy Admission Data Admit Date/Time: 06/12/19 01:25 Attending Provider: Marcia Kennedy Admit Provider: Ankush Ponce Primary Care Provider: Susu Bower Other Providers: Dorota Garcia ; Edu Le ; Angelina Lopes ; [facility] ; Quique Marquis Other Interventions: Discharge Summary Assessment (RN) Last Done: 06/15/19 12:04 DC Date/Time DO NOT enter until pt leaves facility: 06/15/19 14:34 Supervising Physician Co-Signing Physician Notes Resident Physician Supervision Note: I independently interviewed and examined the patient and verified the quintana history and physical, reviewed labs and image studies, discussed the case with the resident Dr. Mcelroy and agree with the findings and care plan. Resident Activity Tracking Resident Involvement: Resident Care Provided Care Provided: Adult Hospital Medicine
--- NOTE | 2019-06-16 22:02 | Electrocardiogram Report ---
Test Reason : Blood Pressure : / mmHG Vent. Rate : 098 BPM Atrial Rate : 344 BPM P-R Int : 000 ms QRS Dur : 072 ms QT Int : 356 ms P-R-T Axes : 000 034 030 degrees QTc Int : 454 ms Atrial fibrillation Cannot rule out Inferior infarct , age undetermined Abnormal ECG When compared with ECG of 11-JUN-2019 21:45, Atrial fibrillation has replaced Sinus rhythm Nonspecific T wave abnormality now evident in Inferior leads Confirmed by Marco Antonio Duarte ([id number]) on 06/16/2019 10:01:58 PM Referred By: REFERRED SELF Confirmed By:Marco Antonio Duarte
[2019-06-17 11:45] LABS: Anti Cardiolipin Ab IgG 16 GPL; Anti Cardiolipin Ab IgM 26 MPL; Anti Nuclear Antibody Screen POSITIVE (NEGATIVE)
[2019-06-18 11:38] LABS: ANA Pattern Cytoplasmic; ANA Titer 1:40 titer
== END 2019-06-15 14:34 | DRG 65 ==
LOC: ED 20:58 → SUATTDRO 06-12 01:25 → 2S 06-12 01:25

== ENCOUNTER 2019-09-25 07:05 | Inpatient (IN) ==
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
[~2019-09-25 07:05] MED LIST changes: -ACET-1256 PO; -ALBU18002 INH; -ASPI81TA28 PO; -ATOR80TA PO; +CEFAZOLIN 2000MG 2,000 MG/15 ML SYR IV SCH; -CLOP1TAB15 PO; -CZR25 PO; -FLUT0.15 NAE; +LACTATED RINGER'S 1,000 ML IV SCH; -METO100T44 PO; -MULTCHW PO; -PRT/20 PO
[2019-09-25] MEDS ORDERED: fentaNYL citrate 100 MCG/2 ML VIAL ONE (07:35)
[2019-09-25] MEDS ORDERED: GLYCOPYRROLATE 0.2 MG/ML VIAL ONE ×2 (07:35→09:13)
[2019-09-25] MEDS ORDERED: LIDOCAINE HCL 2% 2 ML VIAL/AMP(20MG/ML) INFIL ONE (07:35)
[2019-09-25] MEDS ORDERED: NEOSTIGMINE METHYLSULFATE 5 MG/5 ML SYR ONE ×2 (07:35→09:13)
[2019-09-25] MEDS ORDERED: PROPOFOL IV EMULSION 10 MG/ML 20 ML VIAL IV ONE (07:35)
[2019-09-25] MEDS ORDERED: DEXAMETHASONE SOD INJ 4 MG/ML VIAL ONE (07:35)
[2019-09-25] MEDS ORDERED: MIDAZOLAM HCL 1 MG/ML 2ML VIAL ONE (07:35)
[2019-09-25] MEDS ORDERED: ONDANSETRON INJ 2 MG/ML 2 ML VIAL ONE (07:35)
--- NOTE | 2019-09-25 07:52 | History & Physical Report ---
Date of Service September 25, 2019 Assessment & Plan (1) Ventral hernia: We discussed her options. Hopefully the hernia is the cause of her abdominal pain although again we discussed this not a guarantee. Because of it being difficult to delineate the borders of the hernias I am going to perform this laparoscopically with mesh underlay. Depending on the amount of work and how she feels afterward we will decide on admission versus outpatient. All of her questions were answered. We did rediscussed the risks which include bleeding, infection, infection of mesh, chronic pain, DVT, PE, NV, CVA, injury to other organs such as bowel etc. Patient is agreeable to proceed. History of Present Illness Primary Care Provider: DO Paige Dos Santos is here today for repair of her known ventral hernias. Primary discomfort is on the right side with radiation around to her right flank. All of her preoperative work-up and clearances have been obtained. She has no changes clinically Allergies Allergy/AdvReac Type Severity Reaction Status Date / Time Bactrim Allergy Severe RASH Unverified 08/15/19 13:15 perflutren Allergy Severe MUSCLE Verified 09/25/19 07:23 TIGHTNESS propylene glycol Allergy Severe MUSCLE Verified 09/25/19 07:23 TIGHTNESS Sulfa (Sulfonamide Allergy Mild depleted Verified 09/25/19 07:23 Antibiotics) platelet count sulfamethoxazole Allergy Mild RASH Verified 09/25/19 07:23 trimethoprim Allergy Mild RASH Verified 09/25/19 07:23 Home Medications Home Medications Medication Instructions Recorded Confirmed Type aspirin 81 mg PO QAM 02/27/18 09/05/19 History atorvastatin 80 mg PO QAM 02/27/18 09/05/19 History albuterol sulfate 2 puffs INH Q6H PRN #8.5 gm 11/28/18 09/05/19 Rx Centrum Silver Women 1 tab PO QAM 06/12/19 09/05/19 History metoprolol succinate 100 mg PO QAM 06/15/19 09/05/19 History Eliquis 2.5 mg PO Q12 07/19/19 09/05/19 History nitroglycerin 0.4 mg SUBLINGUAL UD PRN 07/19/19 09/05/19 History meclizine 12.5 mg PO QID PRN #30 tab 07/31/19 09/05/19 Rx clopidogrel 75 mg PO QAM 08/21/19 09/05/19 History losartan 25 mg PO QAM 08/21/19 09/05/19 History pantoprazole 40 mg tablet,delayed 40 mg PO DAILY 09/05/19 09/05/19 History release Past Med/Surg History Social History (System 08/15/19 @ 13:15 by Christy Mathews) Preferred Language: Com[place] Communication Ability: Effective Applied Anthropologist Required: No Beliefs That Will Affect Care: None marital status: Current Living Situation: Alone current occupational status: retired Feels Safe at Home: Yes Safety Concerns: Feels Safe At This Time Smoking Status: Never smoker Do You Dip or Chew Tobacco: No ; Second Hand Exposure: No ; Tobacco Cessation Education Requested by Patient: No Hx Alcohol Use: No Hx Substance Use: No Review of Systems All systems reviewed & are unremarkable except as noted in HPI & below Physical Exam Constitutional: WD/WN, vitals as above no acute distress and not ill appearing Eyes: PERRL, conjunctivae normal, anicteric sclerae EOM intact bilaterally ENMT: external ear and nose normal, oropharynx normal Ears: no hearing impairment Neck: trachea midline, no thyromegaly Respiratory: normal respiratory effort; no respiratory distress and does not use accessory muscles Cardiovascular: irregular. normal rate Gastrointestinal (Abdomen): soft. mild right mid abdominal tenderness. hernia(s) difficult to palpate. Skin: no rashes, warm and dry Psychiatric: Orientation: alert, oriented x 3 and cooperative Results & Data Vital Signs (Past 12 Hours) Vital Signs Temp Pulse Resp BP Pulse Ox 09/25/19 07:32 36.6 C 62 18 145/57 H 98
[2019-09-25] MEDS ORDERED: BUPIVACAINE/EPINEPHRINE 0.25% 1:200,000 30 ML VIAL ONE (08:04)
[2019-09-25] MEDS ORDERED: ONDANSETRON INJ 2 MG/ML 2 ML VIAL IV PRN ×2 (08:21→09:42)
[2019-09-25] MEDS ORDERED: ATROPINE SULFATE 0.1 MG/ML 10ML SYR IV PRN (08:21)
[2019-09-25] MEDS ORDERED: CEFAZOLIN 250 MG/ML 1 GM VIAL ONE (09:39)
--- NOTE | 2019-09-25 09:39 | Operative Report ---
PG Post Operative Report Pre & Post Diagnosis Operation Date: 09/25/19 09:00 Pre-Op Diagnosis: Ventral Hernia Post-Op Diagnosis: Ventral Hernia I identified the patient and participated in the time-out.: Yes Procedure Operation Date: 09/25/19 09:00 Actual Procedures p Laparoscopic Ventral Hernia Repair with Mesh and enterolysis (Not Applicable) - Jermaine Yeboah DO Surgeon Jermaine Yeboah DO [employer] shania Lee Estimated Blood Loss 5 Findings Consistent with Post-Op Diagnosis Specimens none Description of Procedure After informed consent was obtained the patient was taken to the operating room and placed in supine position. After successful intubation the abdomen was sterilely prepped and draped in usual fashion. I began with an upper midline incision with an 11 blade scalpel. This was carried down through the soft tissues using cautery. Anterior rectus fascia was opened using cautery and two #0 Vicryl stay sutures were placed. Peritoneum was elevated with hemostats and incised under direct vision using Metzenbaum scissor. A finger sweep was performed. A 12 mm Gonzalez trocar was placed and the abdomen was insufflated to 18 mmHg. Laparoscope was inserted and the abdomen examined in 360 degrees. There was a right upper quadrant hernia with omental and colonic incarceration. There were also adhesions in the lower half of the abdomen however no other visible hernias were present. I placed a left upper quadrant 5 mm trocar and a left mid abdominal 5 mm trocar under direct vision. I began by using traction /countertraction to reduce the colon. Subsequent to that I took down the omental attachments to the undersurface of the hernia defect using harmonic scalpel. Once I had the hernia sac and all of its contents reduced and excised this left about a 7cm ovoid hernia defect. I made a small incision in the central portion of the defect. A circular 12.5 cm surgery mesh with an anti- adhesive coating was rolled up and placed into the abdominal cavity and then unrolled. A fascial closure device was used to grab the Prolene stitch which was in the center of the mesh and pull it up to the undersurface of the defect. It overlapped the defect for several centimeters in all directions nicely. It was secured to the undersurface of the fascia around the periphery using a pro-t ack device. At the end of the procedure it laid nice and flat and tension-free and there was adequate hemostasis. I cut the Prolene stitch and tied this down as an additional securing point to the midportion of the mesh. Again other than the lower abdominal adhesions no other abnormalities were seen. The trochars were all removed and the abdomen desufflated. The fascia of the camera port was closed using 0 Vicryl in [id number] fashion. All the wounds were irrigated and closed using 4-0 Monocryl. Marcaine was injected around them for postoperative analgesia and skin glue used as a dressing. The patient was awakened extubated and transferred tjo recovery in stable condition. My physician assistant to the dean was present to the entire case. She helped prep the patient. She helped run the camera and retract for my dissection as well as with wound closure and dressing placement. I attest to the content of the Intraoperative Record and any orders documented therein. Any exceptions are noted below.
[2019-09-25] MEDS ORDERED: MoRPHine SULFATE 2 MG/ML CARP IV PRN (09:42)
[2019-09-25] MEDS ORDERED: MoRPHine SULFATE 4 MG/ML 1 ML CARP\\VIAL IV PRN (09:42)
[2019-09-25] MEDS: fentaNYL citrate 100 MCG/2 ML VIAL IV PRN ×4 (09:44→09:59)
[2019-09-25] MEDS ORDERED: SODIUM CHLORIDE 0.9% 1000ML 1,000 ML IV SCH (09:45)
--- NOTE | 2019-09-25 11:20 | Anesthesiology Progress Note ---
Date of Service September 25, 2019 Anesthesia Post Procedure Vital Signs Vital Signs: Temp Pulse Pulse Resp BP BP Pulse Ox 09/25/19 10:26 36.3 C L 53 L 18 140/60 92 09/25/19 10:15 36.6 C 59 L 14 138/60 94 09/25/19 10:05 57 L 14 139/61 94 09/25/19 09:55 58 L 14 130/63 96 09/25/19 09:45 78 16 141/69 H 100 09/25/19 09:35 36.4 C L 80 16 139/68 95 09/25/19 07:32 36.6 C 62 18 145/57 H 98 Pain Intensity Right Abdomen: Pain Intensity: 6 Transfer of Care Handoff Completed per policy Notes Mental Status: alert / awake / arousable Patient Amnestic to Procedure: Yes Nausea / Vomiting: adequately controlled Pain: adequately controlled Airway Patency, RR, SpO2: stable & adequate BP & HR: stable & adequate Hydration State: stable & adequate Anesthetic Complications: no major complications apparent
[2019-09-25] MEDS ORDERED: MECLIZINE 12.5 MG TAB PO PRN (13:11)
[2019-09-25] MEDS ORDERED: ALBUTEROL HFA 8 GM INHALER INH PRN (13:11)
[2019-09-25] MEDS ORDERED: LACTATED RINGER'S 1,000 ML IV SCH (13:25)
[2019-09-25] MEDS: HYDROCODONE/ACETAMOPHEN 5/325MG TAB PO PRN ×3 (15:44→23:36)
--- NOTE | 2019-09-26 08:11 | Surgery Progress Note ---
Date of Service September 26, 2019 Assessment & Plan (1) Ventral hernia: POD#1 laparoscopic ventral hernia repair patient doing well regular diet ordered for this AM incisions c/d/i with dermabond overtop. gauze dressing changed on right sided incision this AM-clean and intact will order PT to evaluate pt prior to dispo okay to resume home blood thinners will anticipate discharge tomorrow pending patient's progress today as above. pt doing ok but not quite ready for d/c yet. lives alone. agree with PT eval. hopeful d/c tomorrow. Dr. Vernon covering for weekend. Subjective Patient says "I don't feel too bad". Has some abdominal pain, managed with prn pain medication. Tolerated some clear liquids yesterday. Denies nausea this AM. Physical Exam Physical Exam: awake/alert Respiratory: normal respiratory effort Gastrointestinal (Abdomen): Inspection/Auscultation: + abdominal surgical incision (c/d/i with dermabond overtop. gauze dressing over R sided incision- clean); abdomen not distended Percussion/Palpation: + abdomen tender (some ttp flor-incisionally) and abdomen soft Results & Data Vital Signs (Past 12 Hours) Vital Signs Temp Pulse Resp BP Pulse Ox 09/26/19 07:43 36.9 C 64 16 101/55 L 92 09/26/19 03:42 37.1 C 81 16 111/63 92 09/25/19 23:27 36.7 C 75 16 105/60 91 PG Care Time/CCT Total # of Minutes Spent Total Time Spent with Patient: Total time spent is greater than 50% in coordination of care (as documented) at patient's floor/unit and/or counseling patient: Coding Level of Care Code None Diagnoses Ventral hernia K43.9
[2019-09-26] MEDS: CLOPIDOGREL BISULFATE 75 MG TAB PO SCH (09:16)
[2019-09-26] MEDS: ASPIRIN 81 MG ECTAB PO SCH (09:16)
[2019-09-26] MEDS: ATORVASTATIN 40 MG TAB PO SCH (09:16)
[2019-09-26] MEDS: PANTOprazole 40 MG TAB PO SCH (09:17)
[2019-09-26] MEDS: METOPROLOL SUCC 50MG EXT REL TAB PO SCH (09:17)
[2019-09-26] MEDS: HYDROCODONE/ACETAMOPHEN 5/325MG TAB PO PRN ×2 (09:23→23:28)
[2019-09-26] MEDS: APIXABAN 2.5 MG TAB PO SCH ×2 (09:29→20:51)
[2019-09-27] MEDS: HYDROCODONE/ACETAMOPHEN 5/325MG TAB PO PRN ×3 (06:10→21:38)
--- NOTE | 2019-09-27 08:22 | Surgery Progress Note ---
Date of Service September 27, 2019 Assessment & Plan (1) Ventral hernia: POD#2 laparoscopic ventral hernia repair slow progress waiting return of bowel function PT eval keep here today, increase diet, activity seen with Dr. Vernon Subjective some nausea, didn't eat much yesterday, no flatus Physical Exam Gastrointestinal (Abdomen): Inspection/Auscultation: + abdomen distended (mild) and + abdominal surgical incision (clean, dry) Percussion/Palpation: abdomen soft Results & Data Vital Signs (Past 12 Hours) Vital Signs Temp Pulse Pulse Resp BP Pulse Ox 09/27/19 06:27 36.4 C L 65 14 168/78 H 92 09/26/19 23:33 36.9 C 73 14 153/83 H 92 PG Care Time/CCT Total # of Minutes Spent Total Time Spent with Patient: Total time spent is greater than 50% in coordination of care (as documented) at patient's floor/unit and/or counseling patient: Coding Level of Care Code None Diagnoses Ventral hernia K43.9
[2019-09-27] MEDS: ASPIRIN 81 MG ECTAB PO SCH (10:09)
[2019-09-27] MEDS: APIXABAN 2.5 MG TAB PO SCH ×2 (10:09→21:39)
[2019-09-27] MEDS: CLOPIDOGREL BISULFATE 75 MG TAB PO SCH (10:10)
[2019-09-27] MEDS: ATORVASTATIN 40 MG TAB PO SCH (10:10)
[2019-09-27] MEDS: METOPROLOL SUCC 50MG EXT REL TAB PO SCH (10:11)
[2019-09-27] MEDS: PANTOprazole 40 MG TAB PO SCH (10:11)
[2019-09-28] MEDS: HYDROCODONE/ACETAMOPHEN 5/325MG TAB PO PRN ×2 (02:10→07:50)
[2019-09-28] MEDS: CLOPIDOGREL BISULFATE 75 MG TAB PO SCH (07:51)
[2019-09-28] MEDS: METOPROLOL SUCC 50MG EXT REL TAB PO SCH (07:52)
[2019-09-28] MEDS: APIXABAN 2.5 MG TAB PO SCH ×2 (07:52→19:28)
[2019-09-28] MEDS: ASPIRIN 81 MG ECTAB PO SCH (07:52)
[2019-09-28] MEDS: PANTOprazole 40 MG TAB PO SCH (07:52)
[2019-09-28] MEDS: ATORVASTATIN 40 MG TAB PO SCH (07:52)
--- NOTE | 2019-09-28 09:26 | Surgery Progress Note ---
Date of Service September 28, 2019 Assessment & Plan (1) Ventral hernia: POD#3 laparoscopic ventral hernia repair tolerating diet having some right sided abdominal pain, will obtain KUB this AM for further evaluation awaiting PT eval continue activity as tolerates pt seen and examined with Dr. Vernon Subjective Patient feeling okay. Complaints of abdominal pain. Tolerating soft diet. Denies vomiting. Says no BM yet. Physical Exam Physical Exam: awake/alert Gastrointestinal (Abdomen): Inspection/Auscultation: abdomen not distended Percussion/Palpation: + abdomen tender (right sided abdomen) and abdomen soft Results & Data Vital Signs (Past 12 Hours) Vital Signs Temp Pulse Resp BP Pulse Ox 09/28/19 07:04 36.9 C 67 14 123/68 93 09/27/19 23:52 37.0 C 70 14 119/64 93 PG Care Time/CCT Total # of Minutes Spent Total Time Spent with Patient: Total time spent is greater than 50% in coordination of care (as documented) at patient's floor/unit and/or counseling patient: Coding Level of Care Code None Diagnoses Ventral hernia K43.9
--- NOTE | 2019-09-28 11:58 | XRay Report ---
KUB HISTORY: pain post op hernia repair COMPARISON: None. FINDINGS: The bowel gas pattern is unremarkable. There are no dilated loops of small bowel to suggest an obstruction. No renal calculi. No ureteral calculi. No pneumoperitoneum or pneumatosis. Multiple suture coils for hernia repair within the right side the abdomen. Prior cholecystectomy. Moderate we ll-formed stool seen throughout the colon. Calcification within the right deep pelvis is consistent w ith a phlebolith. Poststernotomy changes. IMPRESSION: 1. No evidence for bowel obstruction. 2. Moderate stool within the colon. ACT 112: Negative or not required by law. Electronically signed by: Momo Montiel M.D. 09/28/2019 11:57 AM
[2019-09-28] MEDS: TRAMADOL HCL 50 MG TABLET PO PRN (19:27)
[2019-09-29] MEDS: TRAMADOL HCL 50 MG TABLET PO PRN ×2 (03:09→08:02)
[2019-09-29] MEDS: METOPROLOL SUCC 50MG EXT REL TAB PO SCH (08:02)
[2019-09-29] MEDS: APIXABAN 2.5 MG TAB PO SCH ×2 (08:02→20:03)
[2019-09-29] MEDS: CLOPIDOGREL BISULFATE 75 MG TAB PO SCH (08:02)
[2019-09-29] MEDS: ASPIRIN 81 MG ECTAB PO SCH (08:02)
[2019-09-29] MEDS: ATORVASTATIN 40 MG TAB PO SCH (08:02)
[2019-09-29] MEDS: PANTOprazole 40 MG TAB PO SCH (08:02)
--- NOTE | 2019-09-29 08:19 | Surgery Progress Note ---
Date of Service September 29, 2019 Assessment & Plan (1) Ventral hernia: doing ok pod 4 will add lidocaine patch, IV acetaminophen, and celebrex bid hopeful d/c tomorrow. Subjective pt seen but still having considerable pain over area of hernia repair. narcotics discontinued secondary to confusion. stacey diet. Physical Exam Physical Exam: alert but somewhat uncomfortable. \ abd: soft. wounds all look good. no sign of infection. Results & Data Vital Signs (Past 12 Hours) Vital Signs Temp Pulse Resp BP Pulse Ox 09/29/19 07:32 36.9 C 71 16 117/64 90 09/28/19 23:57 37.2 C 81 18 153/78 H 95 PG Care Time/CCT Total # of Minutes Spent Total Time Spent with Patient: Total time spent is greater than 50% in coordination of care (as documented) at patient's floor/unit and/or counseling patient: Coding Level of Care Code None Diagnoses Ventral hernia K43.9
[2019-09-29] MEDS: CELECOXIB 100 MG CAP PO SCH ×2 (09:48→20:03)
[2019-09-29] MEDS: ACETAMINOPHEN 1,000 MG/100 ML VIAL IV SCH ×2 (13:54→21:04)
[2019-09-29] MEDS ORDERED: ACETAMINOPHEN 1000 MG/100 ML IV IV SCH (14:00)
[2019-09-30] MEDS: ACETAMINOPHEN 1,000 MG/100 ML VIAL IV SCH (07:18)
--- NOTE | 2019-09-30 08:23 | Surgery Progress Note ---
Date of Service September 30, 2019 Assessment & Plan (1) Ventral hernia: POD#5 laparoscopic hernia repair had some confusion overnight, but this morning is oriented to person/place/& time still having some pain over right sided abdomen, likely post surgical in nature. abdomen is soft and non-distended and incisions c/d/i son is at bedside and planning to take her home today and stay with her for some time patient is to continue using rolling walker at home for ambulation per PT will plan for discharge on 10 days tramadol and celebrex will ask pt to follow up in clinic within 1-2 weeks for follow up with Dr. Yeboah Subjective Per son patient had an eventful night of confusion. This morning she feels as though she is "coming out of it". She still has some pain around right abdomen where hernia repair was performed. Tolerating diet. Physical Exam Physical Exam: awake Respiratory: normal respiratory effort Gastrointestinal (Abdomen): Inspection/Auscultation: + abdominal surgical incision (c/d/i with dermabond overtop); abdomen not distended Percussion/Palpation: + abdomen tender (minimal ttp over right abdomen) and abdomen soft Results & Data Vital Signs (Past 12 Hours) Vital Signs Temp Pulse Resp BP Pulse Ox 09/30/19 07:30 36.8 C 86 16 153/74 H 90 09/29/19 23:12 36.7 C 62 16 123/75 96 PG Care Time/CCT Total # of Minutes Spent Total Time Spent with Patient: Total time spent is greater than 50% in coordination of care (as documented) at patient's floor/unit and/or counseling patient: Coding Level of Care Code None Diagnoses Ventral hernia K43.9
[2019-09-30] MEDS: CELECOXIB 100 MG CAP PO SCH (08:41)
[2019-09-30] MEDS: ASPIRIN 81 MG ECTAB PO SCH (08:41)
[2019-09-30] MEDS: PANTOprazole 40 MG TAB PO SCH (08:42)
[2019-09-30] MEDS: METOPROLOL SUCC 50MG EXT REL TAB PO SCH (08:42)
[2019-09-30] MEDS: CLOPIDOGREL BISULFATE 75 MG TAB PO SCH (08:42)
[2019-09-30] MEDS: ATORVASTATIN 40 MG TAB PO SCH (08:42)
[2019-09-30] MEDS: APIXABAN 2.5 MG TAB PO SCH (08:42)
--- NOTE | 2019-10-02 16:10 | Discharge Summary ---
Date of Service October 02, 2019 Admission HPI Per Admitting Provider Paige is here today for repair of her known ventral hernias. Primary discomfort is on the right side with radiation around to her right flank. All of her preoperative work-up and clearances have been obtained. She has no changes clinically Principal Diagnosis Ventral Hernia Discharge Exam Respiratory normal respiratory effort Gastrointestinal (Abdomen) Inspection/Auscultation: + abdominal surgical incision (c/d/i with dermabond overtop); abdomen not distended Percussion/Palpation: + abdomen tender (minimal ttp over right abdomen) and abdomen soft Discharge Data Allergies Allergy/AdvReac Type Severity Reaction Status Date / Time Bactrim Allergy Severe RASH Unverified 08/15/19 13:15 perflutren Allergy Severe MUSCLE Verified 09/25/19 07:23 TIGHTNESS propylene glycol Allergy Severe MUSCLE Verified 09/25/19 07:23 TIGHTNESS Sulfa (Sulfonamide Allergy Mild depleted Verified 09/25/19 07:23 Antibiotics) platelet count sulfamethoxazole Allergy Mild RASH Verified 09/25/19 07:23 trimethoprim Allergy Mild RASH Verified 09/25/19 07:23 Procedures Performed Operation Date: 09/25/19 09:00 Actual Procedures p Laparoscopic Ventral Hernia Repair with Mesh and lysis of adhesions(Not Applicable) - Jermaine Yeboah, DO Hospital Course (1) Ventral hernia: This is an 83yF who was admitted to the [facility] on 09/25/19 after laparoscopic repair of her ventral hernia with mesh. The patient tolerated the procedure well, see operative report for full details. The patient was admitted to the nursing unit in stable condition for ongoing monitoring. POD#1 her home blood th inners were restarted and the patient's diet was advanced as tolerated. She experienced some right sided abdominal pain during her admission that was managed with pain medication as needed. A KUB was obtained POD#3 that showed an unremarkable bowel gas pattern & stool within the colon. Due to some confusion during her hospitalization her pain medications were adjusted. Physical therapy worked with the patient and she was cleared for home with recommendations to use a rolling walker. Her son was updated during her hospitalization and was planning to stay with the patient for a couple of days after her discharge. On 09/30/19 the patient was deemed stable for discharge to home with her son. Incisions clean/dry/intact, she was tolerating a regular diet, and pain was controlled. She was instructed to follow up in clinic within 1-[address] Yeboah. Total Time Total Time Spent Total Time Spent (In Minutes): 10 Discharge Plan Discharge Items Patient Disposition: Home - Self-Care Reason For Visit: Ventral Hernia Discharge Diagnosis: laparoscopic ventral hernia repair with mesh Activity: Per Instructions section Lifting: No more than 10 pounds Bathing Comment: may shower; no soaking in tubs/pools Exercise/Sports: Wait until after follow-up appointment Driving/Machine Use: do not resume driving while taking narcotics for pain Non-emergency contact: Surgeon Call non-emergency contact if: you have any medication questions, your symptoms worsen, your pain is not controlled, your pain is concerning for you, you have a fever, your temperature is above 101.5, your wound has increased redness, your wound has increased drainage and your wound pain has increased Follow-up/Referrals: Jermaine Yeboah DO [Surgeon] - 10/20/19 1:30 pm (Please call to schedule a follow up appointment in clinic within 1-2 weeks) Susu Bower DO [Primary Care Provider] - Diet: Regular Addtl Attending Provider Instructions: You may also take Tylenol for pain - Tylenol 650mg orally every 6 hours, as needed for pain. Do NOT exceed more than 3grams of Tylenol within a 24 hour time period. Pending Studies at Discharge: No Stand-Alone Forms: Anesthesia/Sedation, Adult, [facility], Opioid Pain Management Medications and DC Order Prescriptions: New tramadol 50 mg tablet 50 mg PO .q4-6h PRN (Reason: pain, for initial therapy, max 6 tabs per day) Qty: 15 RF: 0 celecoxib [Celebrex] 100 mg capsule 100 mg PO BID Qty: 20 RF: 0 Continued pantoprazole 40 mg tablet,delayed release (DR/EC) 40 mg PO DAILY RF: 0 nitroglycerin 0.4 mg tablet, sublingual 0.4 mg sublingual UD PRN (Reason: Chest Pain) RF: 0 Eliquis 2.5 mg tablet 2.5 mg PO Q12 RF: 0 atorvastatin 80 mg tablet 80 mg PO QAM RF: 0 aspirin 81 mg Tablet,Delayed Release (Dr/Ec) 81 mg PO QAM RF: 0 albuterol sulfate 90 mcg/actuation HFA aerosol inhaler 2 puffs INH Q6H PRN (Reason: shortness of breath or wheezing) Qty: 8.5 RF: 0 Centrum Silver Women 8 mg iron-400 mcg-300 mcg Tablet 1 tab PO QAM RF: 0 metoprolol succinate 100 mg tablet extended release 24 hr 100 mg PO QAM RF: 0 meclizine 12.5 mg tablet 12.5 mg PO QID PRN (Reason: dizziness) Qty: 30 RF: 0 clopidogrel 75 mg Tablet 75 mg PO QAM RF: 0 losartan 25 mg Tablet 25 mg PO QAM RF: 0 Discharge Orders: Discharge Order (Routine); Ordered 09/30/19 Ordered By: Alberta Ferris/Other Patient Handouts: DVT Post Op Prevention, Preventing Deep Vein Thrombosis Admission Data Admit Date/Time: 09/28/19 09:50 Attending Provider: Jermaine Yeboah Admit Provider: Jermaine Yeboah Primary Care Provider: Susu Bower Other Interventions: Discharge Summary Assessment (RN) Last Done: 09/30/19 10:34 DC Date/Time DO NOT enter until pt leaves facility: 09/30/19 12:00 Coding Level of Care Code D/C Day Management <30 mins Diagnoses Ventral hernia K43.9
== END 2019-09-30 12:00 | disposition home or self-care (01) | DRG 354 ==
LOC: ASU 07:05 → 3W 07:05

== ENCOUNTER 2019-10-06 11:58 | Inpatient (IN) ==
[2019-10-06] MEDS ORDERED: ACETAMINOPHEN 325 MG TAB PO PRN (12:43)
[2019-10-06] MEDS ORDERED: ONDANSETRON INJ 2 MG/ML 2 ML VIAL IV PRN (12:43)
[2019-10-06] MEDS ORDERED: MoRPHine SULFATE 4 MG/ML 1 ML CARP\\VIAL IV PRN (12:43)
[2019-10-06] MEDS ORDERED: MoRPHine SULFATE 2 MG/ML CARP IV PRN (12:43)
[2019-10-06] MEDS ORDERED: NITROGLYCERIN SL 0.4 MG/TAB TAB SL PRN (12:49)
[2019-10-06] MEDS ORDERED: MECLIZINE 12.5 MG TAB PO PRN (12:49)
[2019-10-06] MEDS ORDERED: TRAMADOL HCL 50 MG TABLET PO PRN (12:49)
[2019-10-06] MEDS ORDERED: ALBUTEROL HFA 8 GM INHALER INH PRN (13:00)
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
[2019-10-06] MEDS: CEFAZOLIN 1000MG 1,000 MG/7.5 ML SYR IV SCH ×2 (15:10→21:43)
[2019-10-07] MEDS: CEFAZOLIN 1000MG 1,000 MG/7.5 ML SYR IV SCH ×2 (06:18→08:17)
--- NOTE | 2019-10-07 08:09 | Surgery Progress Note ---
Date of Service October 07, 2019 Assessment & Plan (1) Postoperative hematoma: last Eliquis was Sunday morning will stop Ancef-she thought this made her confused last admission as above. pt seen. ct reviewed. wbc normal. afebrile. RUQ without erythema, warmth, or sign of infection. pain tolerable and she believes she can handle at home. may take several months for hematoma to resolve, but I believe this is better option than surgical intervention. I do not see an indication at this time for antibiotics. f/u with me within a week. son at bedside and he agrees with plan Subjective feels about the same, had Tylenol last night and this morning Physical Exam Gastrointestinal (Abdomen): Percussion/Palpation: + abdomen tender (unchanged) and abdomen soft Results & Data Vital Signs (Past 12 Hours) Vital Signs Temp Pulse Resp BP BP Pulse Ox 10/07/19 07:14 36.8 C 82 17 173/92 H 196/81 H 94 10/06/19 23:00 36.6 C 66 20 124/67 95 PG Care Time/CCT Total # of Minutes Spent Total Time Spent with Patient: Total time spent is greater than 50% in coordination of care (as documented) at patient's floor/unit and/or counseling patient: Coding Level of Care Code None Diagnoses Postoperative hematoma L76.32 Procedure type: non-dermatologic Surgical complication system/body Area: subcutaneous tissue (1) Postoperative hematoma Procedure type: non-dermatologic Surgical complication system/body Area: subcutaneous tissue Qualified Code(s): L76.32 - Postprocedural hematoma of skin and subcutaneous tissue following other procedure
[2019-10-07] MEDS ORDERED: METOPROLOL SUCC 50MG EXT REL TAB PO SCH (09:00)
[2019-10-07] MEDS ORDERED: LOSARTAN POTASSIUM 25 MG TAB PO SCH (09:00)
[2019-10-07] MEDS ORDERED: PANTOprazole 40 MG TAB PO SCH (09:00)
[2019-10-07 09:12] LABS: Basophils # (auto) 0.03 K/uL (0-0.2); Basophils % (auto) 0.6 %; Eosinophils # (auto) 0.17 K/uL (0-0.5); Eosinophils % (auto) 3.1 %; Hemoglobin 8.8 g/dL (12.0-16.0); Immature Granulocytes # (auto) 0.01 K/uL (0.00-0.02); Immature Granulocytes % (auto) 0.2 %; Lymphocytes # (auto) 0.68 K/uL (1.2-3.4); Lymphocytes % (auto) 12.6 %; Mean Corpuscular Hgb Conc 32.6 g/dL (32-36); Mean Corpuscular Volume 101.1 fL (80-100); Mean Platelet Volume 9.7 fL (7.4-10.4); Monocytes # (auto) 0.34 K/uL (0.11-0.59); Monocytes % (auto) 6.3 %; Neutrophils # (auto) 4.17 K/uL (1.4-6.5); Neutrophils % (auto) 77.2 %; Platelet Count 293 K/uL (130-400); RDW Coefficient of Variation 14.2 % (11.5-14.5); Red Blood Count 2.67 M/uL (4.2-5.4)
--- NOTE | 2019-10-07 09:58 | Discharge Summary ---
Date of Service October 07, 2019 Admission HPI Per Admitting Provider 83 y/o female 11 days s/p laparoscopic ventral hernia now with pain. Is on Eliquis, was in ED yesterday with CT showing 10 cm abdominal wall hematoma. Continues to have pain, was seen in PCP office today. Principal Diagnosis postoperative hematoma Discharge Exam awake Respiratory normal respiratory effort Gastrointestinal (Abdomen) Inspection/Auscultation: + abdominal surgical incision (c/d/i with dermabond overtop, some ecchymosis flor-incisions); abdomen not distended Percussion/Palpation: + abdomen tender (some ttp around right sided abdomen) and abdomen soft Discharge Data Allergies Allergy/AdvReac Type Severity Reaction Status Date / Time Bactrim Allergy Severe RASH Unverified 08/15/19 13:15 perflutren Allergy Severe MUSCLE Verified 10/05/19 13:27 TIGHTNESS propylene glycol Allergy Severe MUSCLE Verified 10/05/19 13:27 TIGHTNESS Sulfa (Sulfonamide Allergy Mild depleted Verified 10/05/19 13:27 Antibiotics) platelet count sulfamethoxazole Allergy Mild RASH Verified 10/05/19 13:27 trimethoprim Allergy Mild RASH Verified 10/05/19 13:27 Hospital Course (1) Postoperative hematoma: This is an 83y F who underwent a laparoscopic ventral hernia repair on 09/25/[address] Yeboah who was directly admitted to [facility] on 10/06/19 with complaints of abdominal pain. Of significance the patient was evaluated in the ED on 10/05/19 with complaints of abdominal pain and shortness of breath. She underwent a CT a/p that revealed a 10.5 x 3.7 x 9.0 cm hematoma, no active extravasation seen. Her Hbg and WBC were stable and she was sent home on keflex. She saw her PCP yesterday who was concerned about the patient's symptoms and they called the general surgery office and decision was made to admit the patient for pain control & further monitoring. Patient's blood thinners were held (eliquis, plavix, and aspirin). She was started on tramadol and tylenol. IV ancef was started and she was made NPO at midnight in the event she would require surgery to evacuate the hematoma. On the AM of 10/06 the patient was re- evaluated and she appeared comfortable and in no acute distress. Her pain was managed with tramadol and tylenol, she reports it is no better nor worse than during admission. On examination her abdomen was soft and tender along the right side, with no evidence of concerning skin changes or infection. Her morning CBC showed a WBC of 5.4 and Hbg 8.8 (from 9.1 two days prior). After conversation with patient and son decision was made to continue conservative management and no plans for surgical intervention at this time. She resumed a regular diet. Patient and son felt comfortable that they could manage well at home. On 10/07/19 she was deemed stable for discharge back home. She was instructed to resume her home blood thinners on 10/08/19. She was not discharged on abx as her WBC was within normal limits, patient afebrile, and there was low concern that the hematoma was infected. She was given return precautions and otherwise was instructed to follow up in surgery clinic within 1-2 weeks. Patient agreeable with plan. Total Time Total Time Spent Total Time Spent (In Minutes): 10 Discharge Plan Discharge Items Patient Disposition: Home - Self-Care Reason For Visit: POST OPERATIVE PAIN Discharge Diagnosis: post operative hematoma Activity: Per Instructions section Lifting Comment: no more than 20 pounds Bathing Comment: may shower, no soaking in tubs/pools Exercise/Sports: Wait until after follow-up appointment Driving/Machine Use: do not resume driving while taking narcotics for pain Non-emergency contact: Surgeon Call non-emergency contact if: you have any medication questions, your symptoms worsen, your pain is not controlled, your pain is worsening, you have a fever, your temperature is above 101.5, your wound has increased redness, your wound has increased drainage and your wound pain has increased Follow-up/Referrals: Jermaine Yeboah DO [Surgeon] - (Please call to schedule follow up in surgery clinic within 1-2 weeks if you do not already have an appointment) Susu Bower DO [Primary Care Provider] - Diet: Regular Addtl Attending Provider Instructions: You may resume your Eliquis, Plavix, and Aspirin starting TOMORROW- Tuesday October 08, 2019. You do not need to continue taking the antibiotic (keflex) that was recently prescribed to you. In addition to the Tramadol you may purchase Tylenol over the counter if needed for pain. -Tylenol 650mg orally every 6 hours, as needed for pain. Pending Studies at Discharge: No Stand-Alone Forms: My [facility] [employer], Smoking Cessation Medications and DC Order Prescriptions: New tramadol 50 mg tablet 50 mg PO Q4H PRN (Reason: pain, for ongoing therapy, max 6 tabs per day) Qty: 15 RF: 0 Continued pantoprazole 40 mg tablet,delayed release (DR/EC) 40 mg PO DAILY RF: 0 nitroglycerin 0.4 mg tablet, sublingual 0.4 mg sublingual UD PRN (Reason: Chest Pain) RF: 0 Eliquis 2.5 mg tablet 2.5 mg PO Q12 RF: 0 atorvastatin 80 mg tablet 80 mg PO QAM RF: 0 aspirin 81 mg Tablet,Delayed Release (Dr/Ec) 81 mg PO QAM RF: 0 albuterol sulfate 90 mcg/actuation HFA aerosol inhaler 2 puffs INH Q6H PRN (Reason: shortness of breath or wheezing) Qty: 8.5 RF: 0 Centrum Silver Women 8 mg iron-400 mcg-300 mcg Tablet 1 tab PO QAM RF: 0 metoprolol succinate 100 mg tablet extended release 24 hr 100 mg PO QAM RF: 0 meclizine 12.5 mg tablet 12.5 mg PO QID PRN (Reason: dizziness) Qty: 30 RF: 0 clopidogrel 75 mg Tablet 75 mg PO QAM RF: 0 losartan 25 mg Tablet 25 mg PO QAM RF: 0 Discontinued tramadol 50 mg tablet 50 mg PO Q4H PRN (Reason: pain, for initial therapy, max 6 tabs per day) RF: 0 cephalexin [Keflex] 500 mg capsule 500 mg PO BID 7 Days Qty: 14 RF: 0 celecoxib [Celebrex] 100 mg capsule 100 mg PO BID Qty: 20 RF: 0 Discharge Orders: Discharge Order (Routine); Ordered 10/07/19 Ordered By: Alberta Lee Admission Data Admit Date/Time: 10/06/19 13:08 Attending Provider: Jermaine Yeboah Admit Provider: Jermaine Yeboah Primary Care Provider: Susu Bower Coding Level of Care Code D/C Day Management <30 mins Diagnoses Postoperative hematoma L76.32 Procedure type: non-dermatologic Surgical complication system/body Area: subcutaneous tissue
== END 2019-10-07 11:16 | disposition home or self-care (01) | DRG 920 ==
LOC: 3W 13:08

== ENCOUNTER 2020-02-17 03:00 | Inpatient (IN) ==
[2020-02-17 04:21] LABS: Basophils # (auto) 0.02 K/uL (0-0.2); Basophils % (auto) 0.5 %; Eosinophils # (auto) 0.12 K/uL (0-0.5); Eosinophils % (auto) 2.9 %; Hematocrit (blood only) 34.4 % (37-47); Hemoglobin 11.3 g/dL (12.0-16.0); Immature Granulocytes # (auto) 0.01 K/uL (0.00-0.02); Immature Granulocytes % (auto) 0.2 %; Lymphocytes # (auto) 1.28 K/uL (1.2-3.4); Lymphocytes % (auto) 30.6 %; Mean Corpuscular Hemoglobin 32.3 pg (25-34); Mean Corpuscular Hgb Conc 32.8 g/dL (32-36); Mean Corpuscular Volume 98.3 fL (80-100); Mean Platelet Volume 9.5 fL (7.4-10.4); Monocytes # (auto) 0.23 K/uL (0.11-0.59); Monocytes % (auto) 5.5 %; Neutrophils # (auto) 2.52 K/uL (1.4-6.5); Neutrophils % (auto) 60.3 %; Platelet Count 194 K/uL (130-400); RDW Coefficient of Variation 14.3 % (11.5-14.5); RDW Standard Deviation 51.1 fL (36.4-46.3); White Blood Count 4.18 K/uL (4.8-10.8)
[2020-02-17 04:37] LABS: Appearance Urine Cloudy (Clear); Color Urine Red; Protein Urine Positive (Negative); Specific Gravity Urine 1.011 (1.000-1.060); Sulfosalicylic Acid Urine Positive (Negative)
[2020-02-17 04:41] LABS: Albumin Level 3.5 gm/dl (3.4-5.0); BUN Creatinine Ratio 24.1 (10-20); Calcium 9.2 mg/dl (8.5-10.1); Creatinine Clr Calc Pharmacy 38.1 ml/min; Est GFR (African American) 67.1; Est GFR (Non-African American) 57.9; Potassium 4.1 mmol/L (3.5-5.1)
[2020-02-17 04:45] LABS: RBC Urine >30 /hpf (0-4)
[2020-02-17 04:47] LABS: Bacteria Urine 1+ (Negative)
[2020-02-17 04:48] LABS: Bilirubin,Total 0.6 mg/dl (0.2-1); Globulin 3.7 gm/dl (2.5-4.0); Total Protein 7.2 gm/dl (6.4-8.2)
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
[2020-02-17] MEDS ORDERED: IOVERSOL 100ml IV ONE (05:04)
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
--- NOTE | 2020-02-17 07:56 | CT Scan Report ---
ABDOMEN AND PELVIS CT WITH IV CONTRAST CT DOSE: 311.77 mGy.cm HISTORY: hematuria after fall TECHNIQUE: Multiaxial CT images of the abdomen and pelvis were performed following the use of intrave nous contrast. A dose lowering technique was utilized adhering to the principles of ALARA. COMPARISON STUDY: Abdomen and pelvis CT 10/05/2019. FINDINGS: The lung bases are clear. No pneumoperitoneum. No pneumatosis. There are poststernotomy blanca nges. No acute fractures within the visualized osseous structures. Moderate L1 compression deformity, unchanged. 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 Cholecystectomy. The liver, spleen, pancreas, adrenal glands, and kidneys are within no rmal limits. No hydronephrosis. No retroperitoneal lymphadenopathy. Stable abdominal aortic ectasia m easuring up to 2.7 cm in diameter. Multiple areas of gas within the bladder lumen. There is a lobular hyperdense focus posteriorly within the bladder lumen measuring 3.6 cm. This favors clot given the p atient's history of hematuria. There is mild pelvic floor collapse. The uterus is surgically absent. No significant extraluminal fluid adjacent to the bladder to suggest a bladder leak. Minimal inflamma tory change adjacent to the hepatic flexure of the colon on image 176. This has improved in the inter marycruz and may represent resolving postoperative change rather than an inflammatory process. A diverticu litis is considered less likely but not entirely excluded. There is near complete resolution of the h ematoma involving the right rectus abdominis muscle. Tiny right inguinal hernia containing fat and a knuckle of small bowel. IMPRESSION: 1. A 3.2 cm hyperdense focus within the bladder lumen posteriorly. This favors blood clot given the p atient's history of hematuria. There is also a punctate focus of gas within the bladder lumen which c ould be due to recent catheterization. Bladder wall injury is not excluded. However, there is no urin e extravasation to suggest a bladder leak. 2. Mild inflammatory change adjacent to the hepatic flexure of the colon. This has improved and favor s resolving postoperative/posttraumatic changes. Acute diverticulitis is considered less likely but n ot entirely excluded. 3. Near-complete resolution of the right rectus abdominis hematoma. 4. Small right inguinal hernia containing fat and a knuckle small bowel. No evidence for bowel obstru ction. 5. Additional findings as described above. ACT 112: Negative or not required by law. Electronically signed by: Momo Montiel M.D. 02/17/2020 7:54 AM
--- NOTE | 2020-02-17 08:26 | CT Scan Report ---
CT pelvis wo con HISTORY: Hematuria. Injury. eval for bladder rupture TECHNIQUE: Multiaxial CT images of the pelvis are performed following the placement of contrast into the indwelling Mohr catheter. The bladder. COMPARISON STUDY: Abdomen and pelvis CT 02/17/2020. FINDINGS: There is a Mohr catheter contrast seen within the bladder. Punctate focus of gas within th e bladder lumen is also noted. Lobular filling defects within the bladder favor blood clots. No extra vasation of contrast to suggest a bladder leak. Small amount of contrast adjacent the proximal Mohr catheter is likely external to the patient. This appears to extend to the vaginal introitus. Equivoca l 7 mm plaque-like filling defect at the bladder dome best seen on image 53 of 165. Colonic diverticu losis. Small fat-containing right inguinal hernia. Small nondisplaced fracture through the distal sac rum adjacent to the sacrococcygeal junction. IMPRESSION: 1. No evidence for bladder leak. 2. Lobular filling defects within the bladder favor blood clots. 3. An equivocal 7 mm plaque-like filling defect at the bladder dome. Follow-up cystoscopy recommended to exclude a developing urothelial lesion. 4. Small nondisplaced fractures through the distal sacrum adjacent to the sacrococcygeal junction. ACT 112: Negative or not required by law. Electronically signed by: Momo Montiel M.D. 02/17/2020 8:25 AM
[2020-02-17] MEDS ORDERED: ALBUTEROL HFA 8 GM INHALER INH PRN (09:50)
[2020-02-17] MEDS ORDERED: ONDANSETRON INJ 2 MG/ML 2 ML VIAL IV PRN (09:50)
[2020-02-17] MEDS ORDERED: NITROGLYCERIN SL 0.4 MG/TAB TAB SL PRN (09:50)
[2020-02-17] MEDS: LOSARTAN POTASSIUM 25 MG TAB PO SCH (11:32)
[2020-02-17] MEDS: METOPROLOL SUCC 50MG EXT REL TAB PO SCH (11:32)
[2020-02-17] MEDS: PANTOprazole 40 MG TAB PO SCH (11:32)
[2020-02-17] MEDS: FAMOTIDINE 20 MG TAB PO SCH ×2 (11:32→20:31)
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
[2020-02-17] MEDS: cefTRIAXone SODIUM 2,000 MG in DEXTROSE 5% 50 ML IV SCH (14:42)
[2020-02-18] MEDS: ACETAMINOPHEN 325 MG TAB PO PRN (06:15)
[2020-02-18] MEDS: PANTOprazole 40 MG TAB PO SCH (08:34)
[2020-02-18] MEDS: LOSARTAN POTASSIUM 25 MG TAB PO SCH (08:34)
[2020-02-18] MEDS: METOPROLOL SUCC 50MG EXT REL TAB PO SCH (08:34)
[2020-02-18] MEDS: FAMOTIDINE 20 MG TAB PO SCH ×2 (08:35→20:50)
--- NOTE | 2020-02-18 09:20 | Urology Progress Note ---
Date of Service February 18, 2020 Assessment & Plan (1) Gross hematuria: 84yo F admitted s/p mechanical fall at home who then developed gross hematuria -She remains afebrile -Labs reviewed, -Continue Rahman catheter, OK to hand irrigate as needed -Recommend continue broad spectrum antibiotics pending final urine culture results Admission and Anticipated Discharge Date Admission Date: February 17, 2020 Supervising Physician Co-Signing Physician Notes Leave rahman in until urine clear. Arrange cystocopy as outpatient. Subjective 84yo F admitted s/p mechanical fall at home who then developed gross hematuria Patient examined at bedside this AM Awake, resting in bed on arrival She denies any back, flank, or suprapubic pain Denies fevers or chills Tolerating diet, no nausea or vomiting Rahman catheter intact/patent, draining pink tinged urine Ambulating with walker/assistance Offers no additional complaints today Chart review: Afebrile Wbc 4.18 (02/16) Hgb 11.3 (02/16) Cr 0.91 (02/16) Urine culture - preliminary gram negative bacilli On IV Ceftriaxone Review of Systems Constitutional: as per Subjective / HPI Gastrointestinal: as per Subjective / HPI Genitourinary: as per Subjective / HPI Musculoskeletal: as per Subjective / HPI Physical Exam Constitutional: no acute distress and not ill appearing Respiratory: normal respiratory effort and able to speak in complete sentences Cardiovascular: Extremities: no calf tenderness Gastrointestinal (Abdomen): Percussion/Palpation: abdomen soft; abdomen nontender and no guarding Skin: Warm and dry Neurologic: moves all extremities and awake; not confused Psychiatric: Orientation: alert, oriented x 3 and cooperative Genitourinary: Rahman catheter intact, draining pink-tinged urine in tubing Results & Data ([facility]) Vital Signs (Past 12 Hours) Vital Signs Temp Pulse Resp BP Pulse Ox 02/18/20 07:22 36.6 C 63 16 127/62 98 02/17/20 23:04 36.8 C 69 16 126/67 94 PG Care Time/CCT Total # of Minutes Spent Total Time Spent with Patient: Total time spent is greater than 50% in coordination of care (as documented) at patient's floor/unit and/or counseling patient: Coding Level of Care Code 21699 Inpt Consult Level 2 Diagnoses Gross hematuria R31.0
[2020-02-18 13:24] LABS: Hematocrit (blood only) 35.2 % (37-47); Hemoglobin 11.4 g/dL (12.0-16.0); Mean Corpuscular Hemoglobin 32.3 pg (25-34); Mean Corpuscular Hgb Conc 32.4 g/dL (32-36); Mean Corpuscular Volume 99.7 fL (80-100); Mean Platelet Volume 9.7 fL (7.4-10.4); Platelet Count 214 K/uL (130-400); RDW Coefficient of Variation 14.5 % (11.5-14.5); RDW Standard Deviation 51.8 fL (36.4-46.3); Red Blood Count 3.53 M/uL (4.2-5.4)
[2020-02-18 13:35] LABS: BUN Creatinine Ratio 21.9 (10-20); Calcium 8.9 mg/dl (8.5-10.1); Creatinine Clr Calc Pharmacy 36.1 ml/min; Est GFR (African American) 62.9; Est GFR (Non-African American) 54.3; Potassium 4.4 mmol/L (3.5-5.1)
[2020-02-18] MEDS: cefTRIAXone SODIUM 2,000 MG in DEXTROSE 5% 50 ML IV SCH (14:22)
--- NOTE | 2020-02-18 17:14 | Hospitalist Progress Note ---
Date of Service February 18, 2020 Assessment & Plan (1) Gross hematuria: Patient status post mechanical fall she takes aspirin and Eliquis for atrial flutter. Also history of revascularization of her heart. There is concern by the emergency physician of possible bladder rupture. Urology was consulted and does not feel an acute intervention is required, will treat gram negative uti and continue rahman cath with possible outpt evalution with cystoscope CT of pelvis 02/17/2020 IMPRESSION: 1. No evidence for bladder leak. 2. Lobular filling defects within the bladder favor blood clots. 3. An equivocal 7 mm plaque-like filling defect at the bladder dome. Follow- up cystoscopy recommended to exclude a developing urothelial lesion. 4. Small nondisplaced fractures through the distal sacrum adjacent to the sacrococcygeal junction. (2) Sacral fracture: Incidentally noted on CT pelvis. Patient remains without pain. We will have a PT evaluation prior to going home (3) S/P CABG x 1: Patient typically on aspirin beta-lilibeth losartan and a statin. The aspirincontinues to be held due to her hematuria. Patient continues on metoprolol and losartan (4) Hyperlipidemia: Typically on atorvastatin 80 (5) Gastroesophageal reflux disease: Patient is famotidine, recently transitioned from pantoprazole (6) Atrial flutter: Patient has atrial flutter by history she is on metoprolol aspirin and Eliquis. Metoprolol and maintain he otherwise will be held due to her bleeding (7) DVT prophylaxis: DVT prevention are SCDs given her gross hematuria Admission and Anticipated Discharge Date Admission Date: February 17, 2020 Subjective Patient feels no distress she still has hematuria lessening she does complain of prehospital frequent urination currently awaiting identification of gram- negative bacilli seen in her urine. Urology without plans for inpatient intervention will likely have an outpatient cystoscopy in the future Review of Systems Review of Systems: Mild distress and fatigue no headache, blurry or double vision no speech or swallowing issues no chest pain, pressure or palpitations no shortness of breath, cough or wheezes no abdominal pain, nausea or vomiting, diarrhea or constipation Fall patient noticed gross hematuria he has baseline urinary frequency no focal joint pain or swelling no back pain, CVA tenderness or radicular pain no bruising, bleeding or rashes no focal signs of weakness or numbness or altered sensation no complaints of anxiety or depression. Physical Exam Physical Exam: The patient appeared well nourished and normally developed. Vital signs as documented. Head exam is normocephalic atraumatic no scleral icterus Neck is without JVD, thyromegaly, or carotid bruits. Lungs are clear to auscultation, no focal loss of breath sounds Cardiac exam, Rhythm is regular.. No murmurs, rubs or gallops. Abdominal exam reveals normal bowel sounds, soft non tender, no masses Patient has gross hematuria in her Rahman bag Extremities are nonedematous and both pedal pulses are present Neurologic exam is alert and oriented, no focal loss of strength or sensation Skin is without bruises or rashes Psychologically is without concerns for anxiety or depression. Results & Data Results & Data ([facility]) Vital Signs (Past 12 Hours) Vital Signs Temp Pulse Resp BP Pulse Ox 02/18/20 14:57 97.5 F L 66 16 106/59 L 98 02/18/20 07:22 97.9 F 63 16 127/62 98 PG Care Time/CCT Total # of Minutes Spent Total Time Spent with Patient: Total time spent is greater than 50% in coordination of care (as documented) at patient's floor/unit and/or counseling patient: Coding Level of Care Code 85716 Subseq Hosp Care Lvl 3 Diagnoses Gross hematuria R31.0 Sacral fracture S32.10XA S/P CABG x 1 Z95.1 Hyperlipidemia E78.5 Gastroesophageal reflux disease K21.9 Atrial flutter I48.92 DVT prophylaxis Z29.9
[2020-02-19] MEDS: ACETAMINOPHEN 325 MG TAB PO PRN ×2 (02:55→22:36)
[2020-02-19] MEDS: METOPROLOL SUCC 50MG EXT REL TAB PO SCH (08:11)
[2020-02-19] MEDS: LOSARTAN POTASSIUM 25 MG TAB PO SCH (08:11)
[2020-02-19] MEDS: FAMOTIDINE 20 MG TAB PO SCH ×2 (08:11→20:04)
[2020-02-19 08:37] LABS: Hematocrit (blood only) 32.6 % (37-47); Hemoglobin 10.9 g/dL (12.0-16.0); Mean Corpuscular Hemoglobin 33.1 pg (25-34); Mean Corpuscular Hgb Conc 33.4 g/dL (32-36); Mean Corpuscular Volume 99.1 fL (80-100); Platelet Count 199 K/uL (130-400); RDW Coefficient of Variation 14.5 % (11.5-14.5); RDW Standard Deviation 52.1 fL (36.4-46.3); Red Blood Count 3.29 M/uL (4.2-5.4); White Blood Count 4.72 K/uL (4.8-10.8)
--- NOTE | 2020-02-19 09:16 | Urology Progress Note ---
Date of Service February 19, 2020 Assessment & Plan (1) Hematuria: 84yo F admitted s/p mechanical fall at home who then developed gross hematuria. - She remains afebrile - Labs reviewed - Hgb decreased slightly to 10.9, continue to monitor H/H - Tolerating Mohr catheter, required one manual irrigation last evening, now draining clear yellow - Plan to d/c Mohr catheter after 24 hours draining clear, likely tomorrow morning - OK to hand irrigate as needed - Prelim UC&S showing 10K cfu pansensitive E.coli, can transition to course of PO antibiotics - Will arrange outpatient cystoscopy with our service to complete hematuria work-up Admission and Anticipated Discharge Date Admission Date: February 17, 2020 Subjective Pt seen and examined at bedside this AM. Pt awake and alert, sitting up in bed eating breakfast. Offers no complaints at present other than she did not sleep very well last night. No suprapubic or flank pain. Mohr catheter intact, patent, and draining clear yellow urine. Tolerating Mohr catheter. Per chart review, required manual irrigation on 02/17 @2150. Reports "stomach feels a bit unsettled", but denies abdominal pain or discomfort . No nausea or vomiting. BM yesterday. No fever or chills. Chart review: Afebrile, Hgb 10.9 (11.4 previously), WBC 4.72, Creatinine 0.96, prelim UC&S showing 10k cfu of E.coli - pansensitive, on IV Ceftriaxone Review of Systems Constitutional: as per Subjective / HPI Gastrointestinal: as per Subjective / HPI Genitourinary: as per Subjective / HPI Physical Exam Constitutional: well developed and well nourished; no acute distress and not ill appearing Respiratory: normal respiratory effort and able to speak in complete sentence s; no respiratory distress and no labored breathing Cardiovascular: Extremities: no calf tenderness and no pedal edema Gastrointestinal (Abdomen): Inspection/Auscultation: abdomen normal to inspection; abdomen not distended Percussion/Palpation: abdomen soft; abdomen nontender and no guarding Musculoskeletal: Head/Neck/Chest: normocephalic and head atraumatic Extremities: extremities normal to inspection Skin: no rashes, warm and dry + dry skin Neurologic: moves all extremities and awake Psychiatric: Orientation: alert, oriented x 3 and cooperative Genitourinary: no CVA tenderness Mohr catheter intact, patent, draining clear yellow urine Results & Data ([facility]) Vital Signs (Past 12 Hours) Vital Signs Temp Pulse Resp BP Pulse Ox 02/19/20 08:10 36.6 C 63 16 133/63 93 02/18/20 23:16 36.7 C 73 22 138/73 99 PG Care Time/CCT Total # of Minutes Spent Total Time Spent with Patient: Total time spent is greater than 50% in coordination of care (as documented) at patient's floor/unit and/or counseling patient: Coding Level of Care Code 08127 Subseq Hosp Care Lvl 2 Diagnoses Hematuria R31.0 Hematuria type: gross (1) Hematuria Hematuria type: gross Qualified Code(s): R31.0 - Gross hematuria
--- NOTE | 2020-02-19 13:59 | Hospitalist Progress Note ---
Date of Service February 19, 2020 Assessment & Plan (1) Gross hematuria: Patient status post mechanical fall she takes aspirin and Eliquis for atrial flutter. Also history of revascularization of her heart. There is concern by the emergency physician of possible bladder rupture. Urology was consulted and does not feel an acute intervention is required, Pt with lovell sensitive ecoli, urine has cleared, will remove rahman and have outpt urology follow up CT of pelvis 02/17/2020 IMPRESSION: 1. No evidence for bladder leak. 2. Lobular filling defects within the bladder favor blood clots. 3. An equivocal 7 mm plaque-like filling defect at the bladder dome. Follow- up cystoscopy recommended to exclude a developing urothelial lesion. 4. Small nondisplaced fractures through the distal sacrum adjacent to the sacrococcygeal junction. (2) Sacral fracture: Incidentally noted on CT pelvis. Patient remains without pain that could be associated with these fractures her pain seems anterior and abdominal. she has done well with inpatient PT (3) S/P CABG x 1: Patient typically on aspirin beta-lilibeth losartan and a statin. The aspirin continues to be held due to her hematuria. Patient continues on metoprolol and losartan (4) Hyperlipidemia: Typically on atorvastatin 80 (5) Gastroesophageal reflux disease: Patient is famotidine, recently transitioned from pantoprazole (6) Atrial flutter: Patient has atrial flutter by history she is on metoprolol aspirin and Eliquis. Metoprolol and maintained Eliquis will be [id number] pm (7) DVT prophylaxis: DVT prevention are SCDs given her gross hematuria Admission and Anticipated Discharge Date Admission Date: February 17, 2020 Subjective pt now states she feels shakey, she has abdominal pain at her surgical site, she otherwise has done well with PT and is looking to go home just does not feel well enough today Review of Systems Review of Systems: Mild distress and fatigue no headache, blurry or double vision no speech or swallowing issues no chest pain, pressure or palpitations no shortness of breath, cough or wheezes rlq abdominal pain, reproducible no nausea or vomiting, diarrhea or constipation urine has cleared no focal joint pain or swelling no back pain, CVA tenderness or radicular pain no bruising, bleeding or rashes no focal signs of weakness or numbness or altered sensation no complaints of anxiety or depression. Physical Exam Physical Exam: The patient appeared well nourished and normally developed. Vital signs as documented. Head exam is normocephalic atraumatic no scleral icterus Neck is without JVD, thyromegaly, or carotid bruits. Lungs are clear to auscultation, no focal loss of breath sounds Cardiac exam, Rhythm is regular.. No murmurs, rubs or gallops. Abdominal exam reveals normal bowel sounds, soft reproducible abdominal pain at right mid abdomen no guarding or rebound Patient has gross hematuria in her Rahman bag Extremities are nonedematous and both pedal pulses are present Neurologic exam is alert and oriented, no focal loss of strength or sensation Skin is without bruises or rashes Psychologically is without concerns for anxiety or depression. Results & Data Results & Data ([facility]) Vital Signs (Past 12 Hours) Vital Signs Temp Pulse Resp BP Pulse Ox 02/19/20 08:10 97.9 F 63 16 133/63 93 PG Care Time/CCT Total # of Minutes Spent Total Time Spent with Patient: Total time spent is greater than 50% in coordination of care (as documented) at patient's floor/unit and/or counseling patient: Coding Level of Care Code 03309 Subseq Hosp Care Lvl 3 Diagnoses Gross hematuria R31.0 Sacral fracture S32.10XA S/P CABG x 1 Z95.1 Hyperlipidemia E78.5 Gastroesophageal reflux disease K21.9 Atrial flutter I48.92 DVT prophylaxis Z29.9
[2020-02-19] MEDS: cefTRIAXone SODIUM 2,000 MG in DEXTROSE 5% 50 ML IV SCH (14:44)
--- NOTE | 2020-02-19 17:10 | CT Scan Report ---
ABDOMEN AND PELVIS CT WITH ORAL CONTRAST CT DOSE: 337.82 mGy.cm HISTORY: eval pain at surgical site TECHNIQUE: Multiaxial CT images of the abdomen and pelvis were performed following the use of oral co ntrast. A dose lowering technique was utilized adhering to the principles of ALARA. COMPARISON STUDY: Abdomen and pelvis CT 02/17/2020. FINDINGS: The lung bases are clear. Nondisplaced distal sacral fracture is again noted. There are pos tsternotomy changes. The unenhanced liver, spleen, adrenal glands, pancreas, and kidneys are within n ormal limits. No hydronephrosis. 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 Cholecystectomy. Stable abdominal aortic ectasia measuring up to 2.7 cm in diameter. Mild intrahepatic bile duct dilatation, unchanged. This is likely due to th e patient's postcholecystectomy state. Small fat-containing right inguinal hernia. There is a Mohr c atheter within the bladder. This likely accounts for the gas within the bladder lumen. There is mild pelvic floor collapse. Colonic diverticulosis. No evidence for acute diverticulitis. No bowel wall th ickening or obstruction. Mild thickening within the right upper quadrant abdominal wall mesh/rectus a bdominous hematoma has improved an essentially resolved. Minimal fat stranding deep to the right uppe r quadrant mesh site and anterior to the hepatic flexure of the colon has also improved. Therefore, t his favors resolving postoperative change rather than an acute diverticulitis. IMPRESSION: 1. Minimal fat stranding deep to the right upper quadrant mesh in anterior to the hepatic flexure the colon has improved. Therefore, this favors resolving postoperative change rather than acute divertic ulitis. 2. No definite bowel wall thickening or obstruction. 3. Nondisplaced distal sacral fracture is again noted. This remains unchanged. 4. Additional findings as described above. ACT 112: Negative or not required by law. Electronically signed by: Momo Montiel M.D. 02/19/2020 5:08 PM
[2020-02-19] MEDS: APIXABAN 2.5 MG TAB PO SCH (20:03)
[2020-02-20 07:31] LABS: Hematocrit (blood only) 32.4 % (37-47); Hemoglobin 10.5 g/dL (12.0-16.0); Mean Corpuscular Hemoglobin 32.1 pg (25-34); Mean Corpuscular Hgb Conc 32.4 g/dL (32-36); Mean Corpuscular Volume 99.1 fL (80-100); Mean Platelet Volume 9.9 fL (7.4-10.4); Platelet Count 185 K/uL (130-400); RDW Coefficient of Variation 14.5 % (11.5-14.5); RDW Standard Deviation 52.4 fL (36.4-46.3); Red Blood Count 3.27 M/uL (4.2-5.4)
[2020-02-20 08:04] LABS: BUN Creatinine Ratio 23.3 (10-20); Calcium 8.9 mg/dl (8.5-10.1); Creatinine Clr Calc Pharmacy 41.2 ml/min; Est GFR (Non-African American) 63.8; Potassium 4.3 mmol/L (3.5-5.1)
[2020-02-20] MEDS: LOSARTAN POTASSIUM 25 MG TAB PO SCH (08:15)
[2020-02-20] MEDS: FAMOTIDINE 20 MG TAB PO SCH (08:15)
[2020-02-20] MEDS: METOPROLOL SUCC 50MG EXT REL TAB PO SCH (08:15)
[2020-02-20] MEDS: APIXABAN 2.5 MG TAB PO SCH (08:15)
--- NOTE | 2020-02-20 10:54 | Urology Progress Note ---
Date of Service February 20, 2020 Assessment & Plan (1) Gross hematuria: 84yo F admitted s/p mechanical fall at home who then developed gross hematuria. - She remains afebrile - Labs reviewed, Creatinine is stable and Hgb decreased slightly to 10.5 - Hematuria resolved - Voiding spontaneously w/o difficulty s/p Mohr catheter removal yesterday - Urine culture with lovell sensitive E. coli, continue antibiotics per culture sensitivities - Will arrange outpatient cystoscopy with our service to complete hematuria work-up - Thank you for allowing us to participate in the acute care of Mrs. Navarro. Please reconsult us with additional questions, concerns or changes in patient status. Admission and Anticipated Discharge Date Admission Date: February 17, 2020 Subjective 84yo F admitted s/p mechanical fall at home who then developed gross hematuria. Pt seen and examined at bedside this AM. Pt awake and alert, sitting up in bed on arrival. No suprapubic or flank pain. No nausea or vomiting Denies fevers or chills Mohr removed yesterday Voiding w/o difficulty, no need to push/strain Denies hematuria and dysuria Feels like she is emptying her bladder well. Offers no complaints at present. Chart review: Afebrile Wbc 4.30 Hgb 10.5 Cr 0.84 Urine culture- lovell sensitive E. coli, On IV Ceftriaxone Review of Systems Constitutional: as per Subjective / HPI Gastrointestinal: as per Subjective / HPI Genitourinary: as per Subjective / HPI Physical Exam Constitutional: no acute distress and not ill appearing Respiratory: normal respiratory effort and able to speak in complete sentences Cardiovascular: Extremities: no calf tenderness Gastrointestinal (Abdomen): Inspection/Auscultation: abdomen normal to inspection; abdomen not distended Skin: Warm and dry Neurologic: moves all extremities and awake; not confused Gait: + gait assisted (with walker) Psychiatric: Orientation: alert, oriented x 3 and cooperative Results & Data ([facility]) Vital Signs (Past 12 Hours) Vital Signs Temp Pulse Resp BP Pulse Ox 02/20/20 07:56 36.3 C L 69 16 114/70 97 02/19/20 23:11 36.4 C L 76 18 128/75 98 PG Care Time/CCT Total # of Minutes Spent Total Time Spent with Patient: Total time spent is greater than 50% in coordination of care (as documented) at patient's floor/unit and/or counseling patient: Coding Level of Care Code 23644 Subseq Hosp Care Lvl 2 Diagnoses Gross hematuria R31.0
--- NOTE | 2020-02-20 16:37 | Discharge Summary ---
Date of Service February 20, 2020 Admission HPI Per Admitting Provider 84 F who is on chronic anticoagulation who fell at home and developed painless gross hematuria. ER attending spoke to urology and they recommend CT cystogram and urology consult as inpatient. Concern for cystogram prior to bladder irrigation to rule out ruptured bladder. This patient states she is prone to urinary tract infections most recently having a pansensitive E. coli UTI in December. Patient denies any new urinary symptoms but does have urinary frequency on a normal basis at home. She has had no fevers or chills change in the color or quantity or consistency of her urine prior to the fall has had no decreased appetite and normal bowel habits Principal Diagnosis Pansensitive E. coli UTI present on admission Hematuria from UTI Sacral fracture from fall Discharge Exam The patient appeared well Vital signs as documented. Lungs are clear to auscultation and appear unlabored Cardiac exam, Rhythm is regular.. No murmurs, rubs or gallops. Abdominal exam reveals mild right-sided pain from previous surgery no guarding no rebound Extremities are nonedematous and both pedal pulses are normal. Neurologic exam is alert and oriented, no focal loss of strength or sensation Skin is without bruises or rashes Psychologically is without concerns for anxiety or depression. Discharge Data Allergies Allergy/AdvReac Type Severity Reaction Status Date / Time perflutren Allergy Severe MUSCLE Verified 12/02/19 02:20 TIGHTNESS propylene glycol Allergy Severe MUSCLE Verified 12/02/19 02:20 TIGHTNESS Sulfa (Sulfonamide Allergy Mild depleted Verified 12/02/19 02:20 Antibiotics) platelet count sulfamethoxazole Allergy Mild RASH Verified 12/02/19 02:20 trimethoprim Allergy Mild RASH Verified 12/02/19 02:20 tramadol AdvReac Hallucinati Unverified 01/08/20 03:07 ng Consultations 02/17/20 07:23 ED Decision to Admit Stat 02/17/20 09:50 Consult Urology Routine Ordered Studies 02/17/20 03:50 CT abd pelvis IV con only Stat 02/17/20 07:41 CT pelvis wo con Stat 02/19/20 13:54 CT abd pelvis oral con only Routine Hospital Course (1) Gross hematuria: Patient status post mechanical fall she takes aspirin and Eliquis for atrial flutter. Also history of revascularization of her heart. There is concern by the emergency physician of possible bladder rupture. Urology was consulted and does not feel an acute intervention is required, Pt with lovell sensitive ecoli, urine has cleared, did remove Mohr patient was able to void will be home on antibiotics will follow up with urology for likely cystoscopy for line #[address] of pelvis 02/17/2020 IMPRESSION: 1. No evidence for bladder leak. 2. Lobular filling defects within the bladder favor blood clots. 3. An equivocal 7 mm plaque-like filling defect at the bladder dome. Follow- up cystoscopy recommended to exclude a developing urothelial lesion. 4. Small nondisplaced fractures through the distal sacrum adjacent to the sacrococcygeal junction. Due to persistent pain and concern for recent hernia versus repair surgery repeat CT scan of the abdomen pelvis was done 02/19/2020 IMPRESSION: 1. Minimal fat stranding deep to the right upper quadrant mesh in anterior to the hepatic flexure the colon has improved. Therefore, this favors resolving postoperative change rather than acute diverticulitis. 2. No definite bowel wall thickening or obstruction. 3. Nondisplaced distal sacral fracture is again noted. This remains unchanged. (2) Sacral fracture: Incidentally noted on CT pelvis. Patient remains without pain that could be associated with these fractures her pain seems anterior and abdominal. she has done well with inpatient PT patient did not request pain medication for discharge (3) S/P CABG x 1: Patient typically on aspirin beta-lilibeth losartan and a statin. The aspirin be resumed as an outpatient patient continues on metoprolol and losartan (4) Hyperlipidemia: Typically on atorvastatin 80 (5) Gastroesophageal reflux disease: Patient is on famotidine, (6) Atrial flutter: Patient has atrial flutter by history she is on metoprolol aspirin and Eliquis. Metoprolol and maintained Eliquis was [id number]/19 pm without difficulty Total Time Total Time Spent Total Time Spent (In Minutes): It required greater than 30 minutes to prepare this patient for discharge Discharge Plan Discharge Items Patient Disposition: Home - Self-Care Reason For Visit: GROSS HEMATURIA Discharge Diagnosis: urinary tract infection bleeding from bladder fracture of pelvic bones Activity: Per Instructions section Non-emergency contact: Primary Care Provider and Urologist Call non-emergency contact if: you have any medication questions and your symptoms worsen Follow-up/Referrals: Susu Bower DO [Primary Care Provider] - 02/25/20 9:30 am (APPT WITH [facility]ON[facility] CISSE) Diet: Regular Addtl Attending Provider Instructions: please drink plenty of liquids, finish your antibiotics please continue gentle home exercises follow up with the urology office Pending Studies at Discharge: No Stand-Alone Forms: My [facility], Smoking Cessation Medications and DC Order Prescriptions: New amoxicillin 500 mg capsule 500 mg PO BID 5 Days Qty: 10 RF: 0 Continued nitroglycerin 0.4 mg tablet, sublingual 0.4 mg sublingual UD PRN (Reason: Chest Pain) RF: 0 Eliquis 2.5 mg tablet 2.5 mg PO Q12 RF: 0 atorvastatin 80 mg tablet 80 mg PO QAM RF: 0 aspirin 81 mg Tablet,Delayed Release (Dr/Ec) 81 mg PO QAM RF: 0 albuterol sulfate 90 mcg/actuation HFA aerosol inhaler 2 puffs INH Q6H PRN (Reason: shortness of breath or wheezing) Qty: 8.5 RF: 0 Centrum Silver Women 8 mg iron-400 mcg-300 mcg Tablet 1 tab PO QAM RF: 0 metoprolol succinate 100 mg tablet extended release 24 hr 100 mg PO QAM RF: 0 meclizine 12.5 mg tablet 12.5 mg PO QID PRN (Reason: dizziness) Qty: 30 RF: 0 losartan 25 mg Tablet 25 mg PO QAM RF: 0 famotidine 20 mg tablet 20 mg PO BID RF: 0 Discharge Orders: Discharge Order (Routine); Ordered 02/20/20 Ordered By: Christian Ferris/Other Patient Handouts: Hematuria: Possible Causes Admission Data Admit Date/Time: 02/17/20 07:41 Attending Provider: Christian Brown Admit Provider: Christian Brown Primary Care Provider: Susu Bower Other Providers: Christian Brown ; Mele Faria Other Interventions: Discharge Summary Assessment (RN) Last Done: 02/19/20 12:00 Coding Level of Care Code D/C Day Management >30 mins Diagnoses Gross hematuria R31.0 Sacral fracture S32.10XA S/P CABG x 1 Z95.1 Hyperlipidemia E78.5 Gastroesophageal reflux disease K21.9 Atrial flutter I48.92
== END 2020-02-20 13:42 | disposition home or self-care (01) | DRG 690 ==
LOC: ED 03:00 → 3W 07:41

== ENCOUNTER 2020-03-07 12:06 | Inpatient (IN) ==
[2020-03-07] MEDS ORDERED: SODIUM CHLORIDE 0.9% 1000ML 1,000 ML IV ONE (12:41)
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
[2020-03-07 13:10] LABS: Basophils # (auto) 0.01 K/uL (0-0.2); Basophils % (auto) 0.2 %; Hematocrit (blood only) 36.1 % (37-47); Hemoglobin 11.7 g/dL (12.0-16.0); Immature Granulocytes # (auto) 0.01 K/uL (0.00-0.02); Immature Granulocytes % (auto) 0.2 %; Lymphocytes # (auto) 0.68 K/uL (1.2-3.4); Lymphocytes % (auto) 13.5 %; Mean Corpuscular Hemoglobin 32.1 pg (25-34); Mean Corpuscular Hgb Conc 32.4 g/dL (32-36); Mean Corpuscular Volume 99.2 fL (80-100); Mean Platelet Volume 10.1 fL (7.4-10.4); Monocytes # (auto) 0.14 K/uL (0.11-0.59); Monocytes % (auto) 2.8 %; Neutrophils # (auto) 4.19 K/uL (1.4-6.5); Neutrophils % (auto) 83.3 %; Platelet Count 245 K/uL (130-400); RDW Coefficient of Variation 14.6 % (11.5-14.5); RDW Standard Deviation 53.3 fL (36.4-46.3); Red Blood Count 3.64 M/uL (4.2-5.4); White Blood Count 5.03 K/uL (4.8-10.8)
[2020-03-07 13:21] LABS: Partial Thromboplastin Ratio 0.9; Partial Thromboplastin Time 26.5 Seconds (21.0-31.0); Prothrombin Time 10.4 Seconds (9.0-12.0)
[2020-03-07 13:27] LABS: Appearance Urine Clear (Clear); Bacteria Urine Automated 2+ (Negative); Bilirubin Urine Negative (Negative); Blood Urine 3+ (Negative); Color Urine Yellow; Glucose Urine UA Negative (Negative); Ketones Urine Negative (Negative); Leukocyte Esterase Urine 1+ (Negative); Nitrite Urine Negative (Negative); Protein Urine Trace (Negative); RBC Urine Automated >30 /hpf (0-4); Specific Gravity Urine 1.017 (1.000-1.030); Urobilinogen Urine Negative (Negative); pH Urine 5.5 (4.5-7.5)
[2020-03-07 13:28] LABS: Albumin Level 3.8 gm/dl (3.4-5.0); BUN Creatinine Ratio 22.8 (10-20); Calcium 8.9 mg/dl (8.5-10.1); Creatinine Clr Calc Pharmacy 43.6 ml/min; Est GFR (African American) 75.1; Est GFR (Non-African American) 64.8; Magnesium 2.2 mg/dl (1.8-2.4); Potassium 3.9 mmol/L (3.5-5.1)
--- NOTE | 2020-03-07 13:37 | XRay Report ---
XR chest 1V portable CLINICAL HISTORY: Altered mental status. COMPARISON STUDY: Chest CT October 05, 2019. Chest radiograph December 02, 2019. FINDINGS: Median sternotomy wires are noted. There are mediastinal surgical clips. There are postoper ative findings within the cervical spine. No pneumothorax or pleural effusion is noted. There is mode rate cardiomegaly. Interstitial thickening is noted. There are are mild bibasilar opacities. IMPRESSION: Interstitial thickening and mild bibasilar opacities. The findings may reflect pulmonary edema or an infectious process. Radiographic follow-up is recommended. ACT 112: Negative or not required by law. Electronically signed by: Tyrell Bernard M.D. 03/07/2020 1:36 PM
[2020-03-07 13:43] LABS: Bilirubin,Total 0.5 mg/dl (0.2-1); Total Protein 7.8 gm/dl (6.4-8.2); Troponin I 0.211 ng/ml (0-0.045)
[2020-03-07] MEDS ORDERED: cefTRIAXone SODIUM 1,000 MG/50 ML BAG IV STA (14:22)
[2020-03-07] MEDS ORDERED: OPTIRAY 320 125ml IV ONE (14:37)
--- NOTE | 2020-03-07 14:44 | CT Scan Report ---
CT OF THE HEAD WITHOUT CONTRAST CLINICAL HISTORY: Stroke evaluation COMPARISON STUDY: Head CT December 02, 2019. TECHNIQUE: Helical axial images of the head were obtained without IV contrast. Automated exposure con trol was utilized for the study. A dose lowering technique was utilized adhering to the principles o f ALARA. FINDINGS: No acute intracranial hemorrhage, midline shift or mass effect is present. The ventricular system is unremarkable. White matter hypodensities are unchanged and suggest small vessel disease. Th e basal cisterns are patent. No extra-axial collections are present. There are no findings to suggest acute dural sinus thrombosis or acute territorial infarct. No significant calvarial abnormalities ar e present. Visualized portions of the sinuses and mastoid air cells are clear. IMPRESSION: No acute intracranial findings. ACT 112: Negative or not required by law. Electronically signed by: Tyrell Bernard M.D. 03/07/2020 2:42 PM
--- NOTE | 2020-03-07 14:48 | CT Scan Report ---
CTA ANGIOGRAPHY OF THE HEAD CLINICAL HISTORY: Stroke evaluation COMPARISON STUDY: CTA of the head June 11, 2019. TECHNIQUE: Helical axial images of the head were obtained following uneventful intravenous administr ation of 120 cc of Optiray 320. Sagittal and coronal reconstructions were viewed as well as maximal i ntensity projections on an independent 3-D workstation. Automated exposure control was utilized for the study. A dose lowering technique was utilized adhering to the principles of ALARA. CT DOSE: 2176.25 mGy.cm FINDINGS: No acute intracranial hemorrhage, midline shift or mass effect is present. Ventricular syst em is unremarkable. Basal cisterns are patent. There are no extra axial collections. White matter hyp odensity suggests small vessel disease. Vascular opacification is suboptimal. There is extensive calc ified plaque within the bilateral cavernous carotids with mild stenosis. Note is made of a 2 mm aneur ysm arising from the proximal left MCA. No additional intracranial aneurysms are identified. There is no central vessel occlusion. Posterior circulation is intact. Mild to moderate stenosis of the left T1 and T2 segments is noted. IMPRESSION: 1. No central vessel occlusion. 2. 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 3. Mild to moderate stenoses within the left P1 and P2 segments. ACT 112: Negative or not required by law. Electronically signed by: Tyrell Bernard M.D. 03/07/2020 2:46 PM
--- NOTE | 2020-03-07 14:55 | CT Scan Report ---
CT ANGIOGRAPHY OF THE NECK WITH CONTRAST CLINICAL HISTORY: Stroke evaluation COMPARISON STUDY: CTA of the neck June 11, 2019. Technique: CT angiography of the carotid and vertebral arteries was obtained using [employer] 320 IV and 3D reconstruction on an independent workstation. NASCET criteria was utilized. Automated exposure c ontrol was utilized for the study. A dose lowering technique was utilized adhering to the principles of ALARA. Findings: Visualized portions of the lung apices demonstrate interlobular septal thickening with mild groundglass opacities. This favors pulmonary edema. There is no cervical lymphadenopathy. There is n o acute cervical spine fracture. Postoperative findings within the cervical spine are noted. Evaluati on of the neck vessels is suboptimal given suboptimal vascular opacification. The bilateral vertebral arteries are patent. There is no dissection within the major vessels of the neck. There is extensive calcified plaque within the proximal right internal carotid artery which makes evaluation of this ve ssel difficult. There is severe stenosis of the proximal right internal carotid artery with at least 90% narrowing. There is extensive plaque within the proximal left internal carotid artery without sig nificant stenosis. IMPRESSION: 1. Extensive plaque within the proximal right internal carotid artery which makes evaluation difficul t. Severe stenosis of the proximal right internal carotid artery of approximately 90%. 2. Extensive plaque within the proximal left internal carotid artery without significant stenosis. ACT 112: Negative or not required by law. Electronically signed by: Tyrell Bernard M.D. 03/07/2020 2:54 PM
--- NOTE | 2020-03-07 15:06 | CT Scan Report ---
CT OF THE ABDOMEN AND PELVIS WITH CONTRAST CLINICAL HISTORY: n/v w/ confusion COMPARISON STUDY: CT of the abdomen and pelvis February 19, 2020. TECHNIQUE: Following IV administration of 120 mL of Optiray-320, axial images of the abdomen and pelv is were obtained from the lung bases to the proximal femurs. Images were reviewed in the axial, sagit todd, and coronal planes. IV contrast was administered without complication. Automated exposure contr ol was utilized for the study. A dose lowering technique was utilized adhering to the principles of ALARA. FINDINGS: Lung bases are unremarkable. Moderate cardiomegaly is noted. Dilatation of the distal desce nding thoracic aorta measuring 4.3 cm is unchanged. No pneumatosis, free air or portal venous gas is present. Mild dilatation of the common bile duct is unchanged and likely related to cholecystectomy. The spleen, adrenal glands, kidneys and pancreas are unremarkable. There is no hydronephrosis. There is extensive colonic diverticulosis without evidence for acute diverticulitis. Right upper quadrant h ernia repair with mesh is noted. Minimal adjacent infiltration is noted. This exam is mildly compromi sed by motion artifact. No lymphadenopathy is present. No suspicious osseous lesions are present. IMPRESSION: 1. Extensive colonic diverticulosis without evidence for acute diverticulitis. 2. No bowel obstruction. 3. Redemonstration of a right upper quadrant hernia repair with mesh. Minimal adjacent infiltration w hich may represent motion artifact. No fluid collection to suggest abscess. ACT 112: Negative or not required by law. Electronically signed by: Tyrell Bernard M.D. 03/07/2020 3:05 PM
[2020-03-07] MEDS ORDERED: ASPIRIN CHEW 324 MG PO STA (15:07)
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
[2020-03-07] MEDS ORDERED: MECLIZINE 12.5 MG TAB PO PRN (19:57)
[2020-03-07] MEDS ORDERED: ALBUTEROL HFA 8 GM INHALER INH PRN (19:57)
[2020-03-07] MEDS: ONDANSETRON INJ 2 MG/ML 2 ML VIAL IV PRN (20:43)
[2020-03-07] MEDS: APIXABAN 2.5 MG TAB PO SCH (21:16)
[2020-03-07] MEDS: FAMOTIDINE 20 MG TAB PO SCH (21:16)
[2020-03-07] MEDS: ACETAMINOPHEN 325 MG TAB PO PRN (21:18)
[2020-03-08 06:32] LABS: Hematocrit (blood only) 31.5 % (37-47); Hemoglobin 10.3 g/dL (12.0-16.0); Mean Corpuscular Hemoglobin 32.9 pg (25-34); Mean Corpuscular Hgb Conc 32.7 g/dL (32-36); Mean Corpuscular Volume 100.6 fL (80-100); Platelet Count 208 K/uL (130-400); RDW Coefficient of Variation 14.7 % (11.5-14.5); RDW Standard Deviation 54.1 fL (36.4-46.3); Red Blood Count 3.13 M/uL (4.2-5.4); White Blood Count 4.84 K/uL (4.8-10.8)
[2020-03-08 06:57] LABS: Estimated Average Glucose 105 mg/dl; Hemoglobin A1C 5.3 % (4.5-5.6)
[2020-03-08 06:58] LABS: BUN Creatinine Ratio 17.4 (10-20); Calcium 8.3 mg/dl (8.5-10.1); Creatinine Clr Calc Pharmacy 45.8 ml/min; Est GFR (African American) 79.7; Est GFR (Non-African American) 68.7; Magnesium 2.1 mg/dl (1.8-2.4); Potassium 3.6 mmol/L (3.5-5.1)
--- NOTE | 2020-03-08 07:23 | Magnetic Resonance Report ---
MR brain wo con HISTORY: 84 years-old Female CVA acute strokelike symptoms COMPARISON: Head CT 03/08/2020, brain MRI 06/11/2019 TECHNIQUE: Multiplanar multisequence MR of the brain was obtained without the use of IV contrast. FINDINGS: There is no restricted diffusion to suggest acute or subacute infarction. The midline structures incl uding the corpus callosum, brainstem, optic chiasm, pituitary and pineal glands appear unremarkable i n sagittal T1 series. Study is motion degraded. Degenerative changes of the cervical spine. No acute intracranial hemorrhage, midline shift, abnormal extra axial collection, hydrocephalus or in tracranial mass. No pathologic blooming artifact on the T2 star series. Age-related involutional patel ges. Moderate T2/FLAIR patchy hyperintensities throughout the white matter are suggestive of chronic microvascular ischemic disease. Cerebral venous sinuses and major arterial flow voids at the level th e skull base appear patent. Small to moderate mastoid effusions. Mild mucosal thickening of the ethmo id air cells. Prior bilateral lens replacement. The skull and soft tissues are unremarkable. IMPRESSION: No acute intracranial abnormality, specifically there is no evidence of acute or subacute infarct. ACT 112: Negative or not required by law. The above report was generated using voice recognition software. It may contain grammatical, syntax o r spelling errors. Electronically signed by: Lauro Daniel M.D. 03/08/2020 7:22 AM
[2020-03-08] MEDS: APIXABAN 2.5 MG TAB PO SCH ×2 (08:30→20:52)
[2020-03-08] MEDS: ASPIRIN 81 MG ECTAB PO SCH (08:30)
[2020-03-08] MEDS: LOSARTAN POTASSIUM 25 MG TAB PO SCH (08:30)
[2020-03-08] MEDS: ATORVASTATIN 40 MG TAB PO SCH (08:31)
[2020-03-08] MEDS: METOPROLOL SUCC 50MG EXT REL TAB PO SCH (08:31)
[2020-03-08] MEDS: FAMOTIDINE 20 MG TAB PO SCH ×2 (08:31→20:53)
[2020-03-08] MEDS: ACETAMINOPHEN 325 MG TAB PO PRN (08:35)
[2020-03-08] MEDS ORDERED: CLOPIDOGREL BISULFATE 75 MG TAB PO SCH (09:00)
--- NOTE | 2020-03-08 09:05 | Electrocardiogram Report ---
Test Reason : Blood Pressure : / mmHG Vent. Rate : 081 BPM Atrial Rate : 081 BPM P-R Int : 182 ms QRS Dur : 080 ms QT Int : 388 ms P-R-T Axes : 046 041 102 degrees QTc Int : 450 ms Poor data quality, interpretation may be adversely affected Normal sinus rhythm Nonspecific ST and T wave abnormality Abnormal ECG When compared with ECG of 08-JAN-2020 01:14, T wave inversion now evident in Lateral leads Confirmed by Donis Stein ([id number]) on 03/08/2020 9:04:35 AM Referred By: REFERRED SELF Confirmed By:Donis Stein
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
[2020-03-08] MEDS: AMOXICILLIN 500 MG CAP PO SCH ×2 (12:04→17:06)
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
[2020-03-08] MEDS: ONDANSETRON INJ 2 MG/ML 2 ML VIAL IV PRN (13:56)
--- NOTE | 2020-03-08 15:53 | Hospitalist Progress Note ---
Date of Service March 08, 2020 Assessment & Plan (1) CVA (cerebral vascular accident): Concern for CVA given the aphasia & ataxia. - MRI brain on 03/07 without acute or subacute infarct; however, discussed with neurology who feel small himanshu lesion may be missed with our MRI technique. - No echo since she had one this year with no PFO - Continue ASA - Will stop Plavix per neurology recommendations. - Continue high-dose statin - Vascular surgery consult for 90% right ICA stenosis in setting of CVA -> Initial consult conducted, will follow up tomorrow. - Neurology consulted - Appreciate recs. - A1c & lipids ordered - 5.3% & LDL 47 respectively. - BP control -> 100/55 today. (2) UTI (urinary tract infection): UA in ED indicated infection. Given her symptoms, will treat as UTI. - Urine culture growing Strep spc.; concern for Enterococcus - Switched to amoxicillin with discussion with pharmacy (3) Atrial flutter: Onset in 06/2019. - Per patient and son, she has NOT missed doses of Eliquis, so presumably cardioembolic is less likely. - Continue metoprolol XL (4) Benign essential hypertension: BP was 150/85 in the ED; now 100/55. - Continue losartan and metoprolol (5) CAD (coronary artery disease): Hx of [place]. - Stop triple-therapy - Continue ASA & apixaban only - Continue statin, beta-lilibeth, ARB (6) Carotid artery stenosis: As above, CTA neck on 03/07 showed 90% right-sided stenosis of ICA. - Vascular consult as above (7) DVT prophylaxis: Apixaban for aflutter Admission and Anticipated Discharge Date Admission Date: March 07, 2020 Subjective Much better speech today. Still with ataxia. Reports no fevers/chills, chest pain, shortness of breath, abdominal pain, nausea, or vomiting. Physical Exam Constitutional: WD/WN, vitals as above Eyes: EOM intact bilaterally; no conjunctival abnormality ENMT: external ear and nose normal, oropharynx normal Neck: trachea midline, no thyromegaly normal visual inspection Respiratory: normal respiratory effort, lungs clear to auscultation no respiratory distress Cardiovascular: RRR, no murmur, no edema Gastrointestinal (Abdomen): Inspection/Auscultation: abdomen normal to inspection; abdomen not distended Musculoskeletal: no cyanosis or clubbing, extremities motor strength 5/5 Skin: no rashes, warm and dry Neurologic: moves all extremities and awake Speech / Cognition: + expressive aphasia Psychiatric: Orientation: alert, oriented to person and cooperative Results & Data Results & Data ([facility]) Vital Signs (Past 12 Hours) Vital Signs Temp Pulse Pulse Resp BP Pulse Ox 03/08/20 11:59 36.8 C 66 18 101/56 L 93 03/08/20 10:48 52 L 03/08/20 07:30 36.6 C 67 18 131/65 97 03/08/20 04:01 36.8 C 75 18 119/66 96 PG Care Time/CCT Total # of Minutes Spent Total Time Spent with Patient: Total time spent is greater than 50% in coordination of care (as documented) at patient's floor/unit and/or counseling patient: Coding Level of Care Code 34611 Subseq Hosp Care Lvl 3 Diagnoses CVA (cerebral vascular accident) I63.9 UTI (urinary tract infection) N39.0 Atrial flutter I48.92 Benign essential hypertension I10 CAD (coronary artery disease) I25.10 Carotid artery stenosis I65.21 Laterality: right DVT prophylaxis Z29.9 (1) Carotid artery stenosis Laterality: right Qualified Code(s): I65.21 - Occlusion and stenosis of right carotid artery
[2020-03-08] MEDS ORDERED: ONDANSETRON INJ 2 MG/ML 2 ML VIAL IV ONE (16:34)
[2020-03-09 06:03] LABS: Hematocrit (blood only) 32.9 % (37-47); Hemoglobin 10.4 g/dL (12.0-16.0); Mean Corpuscular Hemoglobin 32.2 pg (25-34); Mean Corpuscular Hgb Conc 31.6 g/dL (32-36); Mean Corpuscular Volume 101.9 fL (80-100); Platelet Count 195 K/uL (130-400); RDW Coefficient of Variation 14.7 % (11.5-14.5); RDW Standard Deviation 55.1 fL (36.4-46.3); Red Blood Count 3.23 M/uL (4.2-5.4); White Blood Count 4.33 K/uL (4.8-10.8)
[2020-03-09 06:56] LABS: BUN Creatinine Ratio 23.6 (10-20); Calcium 8.3 mg/dl (8.5-10.1); Creatinine Clr Calc Pharmacy 45.8 ml/min; Est GFR (African American) 79.7; Est GFR (Non-African American) 68.7; Magnesium 2.2 mg/dl (1.8-2.4); Potassium 4.3 mmol/L (3.5-5.1)
[2020-03-09] MEDS: ASPIRIN 81 MG ECTAB PO SCH (08:09)
[2020-03-09] MEDS: FAMOTIDINE 20 MG TAB PO SCH (08:10)
[2020-03-09] MEDS: LOSARTAN POTASSIUM 25 MG TAB PO SCH (08:10)
[2020-03-09] MEDS: APIXABAN 2.5 MG TAB PO SCH (08:10)
[2020-03-09] MEDS: METOPROLOL SUCC 50MG EXT REL TAB PO SCH (08:10)
[2020-03-09] MEDS: AMOXICILLIN 500 MG CAP PO SCH ×3 (08:10→17:18)
[2020-03-09] MEDS: ATORVASTATIN 40 MG TAB PO SCH (08:11)
--- NOTE | 2020-03-09 16:23 | Discharge Summary ---
Date of Service March 09, 2020 Admission HPI Per Admitting Provider 84yo F w/ hx of recent UTI and fall; afib who presents with probable CVA. Her son reports that she was in her normal state of health when she went to bed last night. Her son called her this morning and felt her speech was dysarthric. He came over and felt that her gait was also off. He also felt that she was having trouble with word finding. He brought her to the hospital. In the ED, she had some waxing and waning symptoms where she had acute onset trouble speaking, but within 15-20 minutes was at least able to answer normal questions again. On interview, she notes some subjective fevers/chills over the last few days. She notes some dysuria as well. Principal Diagnosis CVA Discharge Exam Constitutional: WD/WN, vitals as above Eyes: EOM intact bilaterally; no conjunctival abnormality ENMT: external ear and nose normal, oropharynx normal Neck: trachea midline, no thyromegaly normal visual inspection Respiratory: normal respiratory effort, lungs clear to auscultation no respiratory distress Cardiovascular: RRR, no murmur, no edema Gastrointestinal (Abdomen): Inspection/Auscultation: abdomen normal to inspection; abdomen not distended Musculoskeletal: no cyanosis or clubbing, extremities motor strength 5/5 Skin: no rashes, warm and dry Neurologic: moves all extremities and awake Speech / Cognition: + expressive aphasia Psychiatric: Orientation: alert, oriented to person and cooperative Discharge Data Allergies Allergy/AdvReac Type Severity Reaction Status Date / Time perflutren Allergy Severe MUSCLE Verified 03/07/20 13:58 TIGHTNESS propylene glycol Allergy Severe MUSCLE Verified 03/07/20 13:58 TIGHTNESS Sulfa (Sulfonamide Allergy Mild depleted Verified 03/07/20 13:58 Antibiotics) platelet count sulfamethoxazole Allergy Mild RASH Verified 03/07/20 13:58 trimethoprim Allergy Mild RASH Verified 03/07/20 13:58 tramadol AdvReac Hallucinati Unverified 03/07/20 13:58 ng Consultations 03/07/20 15:07 ED Decision to Admit Stat 03/07/20 19:57 Consult Case Management - Discharge Planning Routine Consult Neurology Routine Consult Vascular Surgery Routine Ordered Studies 03/07/20 12:21 CT angio head w con Stat CT angio neck with con Stat CT head/brain wo con Stat 03/07/20 12:41 CT abd pelvis IV con only Stat 03/07/20 19:57 MR brain wo con Routine Hospital Course (1) CVA (cerebral vascular accident): Concern for CVA given the aphasia & ataxia. - MRI brain on 03/07 without acute or subacute infarct; however, discussed with neurology who feel small himanshu lesion may be missed with our MRI technique. - No echo since she had one this year with no PFO - Continue ASA - Will stop Plavix per neurology recommendations. - Continue high-dose statin - Vascular surgery consult for 90% right ICA stenosis in setting of CVA -> Initial consult conducted, will follow up tomorrow. - Neurology consulted - Appreciate recs. - A1c & lipids ordered - 5.3% & LDL 47 respectively. - BP control -> 100/55 today. (2) UTI (urinary tract infection): UA in ED indicated infection. Given her symptoms, will treat as UTI. - Urine culture growing Strep spc.; concern for Enterococcus - Switched to amoxicillin with discussion with pharmacy will continue 5 more days. Patient also having hematuria. May be due to UTI, discussed with Urology. As patient is able to void, can followup with Urology as an outpatient. (3) Atrial flutter: Onset in 06/2019. - Per patient and son, she has NOT missed doses of Eliquis, so presumably cardioembolic is less likely. - Continue metoprolol XL (4) Benign essential hypertension: BP was 150/85 in the ED; now 100/55. - Continue losartan and metoprolol (5) CAD (coronary artery disease): Hx of [place]. - Stop triple-therapy - Continue ASA & apixaban only - Continue statin, beta-lilibeth, ARB (6) Carotid artery stenosis: As above, CTA neck on 03/07 showed 90% right-sided stenosis of ICA. - Vascular consult as above (7) DVT prophylaxis: Apixaban for aflutter Total Time Total Time Spent Total Time Spent (In Minutes): 32 Total Time Includes: Examination of the Patient, Discharge Planning and Medication Reconciliation Discharge Plan Discharge Items Patient Disposition: Home - Home Health Services Reason For Visit: CVA Discharge Diagnosis: Acute CVA Activity: Resume your previous activity Non-emergency contact: Primary Care Provider Call non-emergency contact if: you have any medication questions Follow-up/Referrals: Susu Bower DO [Primary Care Provider] - (Your appointment is with Susu Bower at 10:30 on March 24, 2020 If you need to reschedule your appointment please call Please arrive for your appointment 15 minutes early) Diet: Heart Healthy Addtl Attending Provider Instructions: Recommend followup with Urology in 1-2 weeks. Recommend followup with PCP in 1-2 weeks and repeat UA. Risk Factors for Stroke: You can reduce your chances of stroke by working with your medical provider to adopt a healthy lifestyle. Some specific ways to lower your chance of stroke are: * If you are a smoker, now is the time to stop smoking cigarettes * If you are diabetic, improve the control of your blood sugars * Avoid excessive amounts of alcohol * Control high blood pressure * Lose weight if you are overweight * Be sure to lead an active lifestyle * Eat a healthy diet low in salt, cholesterol and fat You should know about other risk factors for stroke that you are unable to control. These include: * Age 55 years or older * Male gender * Certain racial groups: , or / * Family History of Stroke, Mini stroke or Heart Attack * Sickle Cell Disease Follow Up: It is important for you to keep your follow up appointments with your medical provider. Who to Call and When: Medical Emergencies: Call 911 immediately if you experience any of the following warning signs and symptoms of Stroke: * Sudden numbness or weakness of the face, arm or leg, especially on one side of the body * Sudden confusion, trouble speaking or understanding * Sudden trouble seeing in one or both eyes * Sudden trouble walking, dizziness, loss of balance or coordination * Sudden severe headache with no cause Do not delay calling 911 if you experience any warning signs or symptoms of a stroke. Delay in seeking medical attention may affect what treatments can be given to you. . Pending Studies at Discharge: No Stand-Alone Forms: My [facility] [employer], Smoking Cessation Medications and DC Order Prescriptions: New amoxicillin 500 mg Capsule 500 mg PO TIDM Qty: 14 RF: 0 acetaminophen 325 mg Tablet 650 mg PO Q4H PRNQty: 10 RF: 0 Continued nitroglycerin 0.4 mg tablet, sublingual 0.4 mg sublingual UD PRN (Reason: Chest Pain) RF: 0 Eliquis 2.5 mg tablet 2.5 mg PO Q12 RF: 0 atorvastatin 80 mg tablet 80 mg PO QAM RF: 0 aspirin 81 mg Tablet,Delayed Release (Dr/Ec) 81 mg PO QAM RF: 0 albuterol sulfate 90 mcg/actuation HFA aerosol inhaler 2 puffs INH Q6H PRN (Reason: shortness of breath or wheezing) Qty: 8.5 RF: 0 Centrum Silver Women 8 mg iron-400 mcg-300 mcg Tablet 1 tab PO QAM RF: 0 metoprolol succinate 100 mg tablet extended release 24 hr 100 mg PO QAM RF: 0 meclizine 12.5 mg tablet 12.5 mg PO QID PRN (Reason: dizziness) Qty: 30 RF: 0 losartan 25 mg Tablet 25 mg PO QAM RF: 0 famotidine 20 mg tablet 20 mg PO BID RF: 0 Discontinued clopidogrel 75 mg tablet 75 mg PO DAILY RF: 0 Discharge Orders: Discharge Order (Routine); Ordered 03/09/20 Ordered By: Jame Angela Admission Data Admit Date/Time: 03/07/20 16:19 Attending Provider: Jame Angela Admit Provider: Ean Mathews Primary Care Provider: Susu Bower Other Providers: Jame Angela ; Dorota Garcia ; Edu Le ; [facility] Coding Level of Care Code D/C Day Management >30 mins Diagnoses CVA (cerebral vascular accident) I63.9 UTI (urinary tract infection) N39.0 Atrial flutter I48.92 Benign essential hypertension I10 CAD (coronary artery disease) I25.10 Carotid artery stenosis I65.21 Laterality: right DVT prophylaxis Z29.9 Time Spent (min) 32
== END 2020-03-09 19:27 | disposition home health service (06) | DRG 65 ==
LOC: ED 12:06 → 2N 16:19 → SUATTDRO 16:19 → 2N 18:49

== ENCOUNTER 2020-05-20 14:09 | Observation (INO) ==
[2020-05-20] MEDS ORDERED: SODIUM CHLORIDE 0.9% 1000ML 1,000 ML IV ONE (14:38)
[2020-05-20] MEDS ORDERED: diphenhydrAMINE 50 MG/ML VIAL IV STA (14:38)
[2020-05-20] MEDS ORDERED: FAMOTIDINE 20MG IV PUSH 20 MG/5 ML SYR IV STA (14:38)
[2020-05-20] MEDS ORDERED: PROCHLORPERAZINE 1 ML IV ONE (14:38)
[2020-05-20 14:55] LABS: Basophils # (auto) 0.03 K/uL (0-0.2); Basophils % (auto) 0.5 %; Hematocrit (blood only) 37.5 % (37-47); Hemoglobin 12.4 g/dL (12.0-16.0); Immature Granulocytes # (auto) 0.01 K/uL (0.00-0.02); Immature Granulocytes % (auto) 0.2 %; Lymphocytes # (auto) 0.78 K/uL (1.2-3.4); Lymphocytes % (auto) 13.1 %; Mean Corpuscular Hemoglobin 33.1 pg (25-34); Mean Corpuscular Hgb Conc 33.1 g/dL (32-36); Mean Platelet Volume 10.4 fL (7.4-10.4); Monocytes # (auto) 0.12 K/uL (0.11-0.59); Neutrophils # (auto) 5.03 K/uL (1.4-6.5); Neutrophils % (auto) 84.2 %; Platelet Count 243 K/uL (130-400); RDW Coefficient of Variation 13.4 % (11.5-14.5); RDW Standard Deviation 49.2 fL (36.4-46.3); Red Blood Count 3.75 M/uL (4.2-5.4); White Blood Count 5.97 K/uL (4.8-10.8)
[2020-05-20 15:03] LABS: Albumin Level 3.6 gm/dl (3.4-5.0); BUN Creatinine Ratio 20.4 (10-20); Bilirubin Direct 0.2 mg/dl (0-0.2); Est GFR (African American) 62.9; Est GFR (Non-African American) 54.3; Magnesium 2.2 mg/dl (1.8-2.4); Potassium 4.3 mmol/L (3.5-5.1)
[2020-05-20 15:08] LABS: Prothrombin Time 9.8 Seconds (9.0-12.0)
--- NOTE | 2020-05-20 15:09 | XRay Report ---
XR chest 1V portable CLINICAL HISTORY: Atypical chest pain. COMPARISON STUDY: Chest CT October 05, 2019. Chest radiograph April 16, 2020 FINDINGS: Postoperative findings within the cervical spine are noted. There are median sternotomy wir es and mediastinal surgical clips. No pneumothorax or pleural effusion is noted. Patient is rotated. Cardiomegaly is unchanged. There is no evidence for pulmonary edema or pneumonia. Minimal left basila r opacity favors atelectasis. IMPRESSION: No acute cardiopulmonary findings. No significant change in appearance of the chest. ACT 112: Negative or not required by law. Electronically signed by: Tyrell Bernard M.D. 05/20/2020 3:07 PM
[2020-05-20 15:10] LABS: Albumin Globulin Ratio 0.9 (0.9-2); Bilirubin,Total 0.6 mg/dl (0.2-1); Globulin 4.2 gm/dl (2.5-4.0); Phosphorus 3.2 mg/dl (2.5-4.9); Total Protein 7.8 gm/dl (6.4-8.2); Troponin I 0.047 ng/ml (0-0.045)
[2020-05-20] MEDS ORDERED: OPTIRAY 320 100ml IV ONE (16:08)
--- NOTE | 2020-05-20 16:24 | CT Scan Report ---
CT OF THE ABDOMEN AND PELVIS WITH CONTRAST CLINICAL HISTORY: Abdominal pain, nausea and vomiting. Fever. COMPARISON STUDY: CT of the abdomen and pelvis March 07, 2020. TECHNIQUE: Following IV administration of 93 mL of Optiray-320, axial images of the abdomen and pelvi s were obtained from the lung bases to the proximal femurs. Images were reviewed in the axial, sagitt al, and coronal planes. IV contrast was administered without complication. Automated exposure contro l was utilized for the study. A dose lowering technique was utilized adhering to the principles of A JUANITO. 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 Infrarena l abdominal aorta is ectatic, measuring 2.9 cm. There is no evidence for rupture. Moderate cardiomega ly is noted. There are median sternotomy wires. Exam is compromised by motion artifact. The liver, sp andree, adrenal glands, kidneys and pancreas are unremarkable Global. A splenule adjacent to the pancre atic tail is noted. Biliary ductal dilatation is unchanged and likely related to cholecystectomy. Par tially calcified upper abdominal lymph nodes are noted. There is no hydronephrosis. Extensive colonic diverticulosis is noted without evidence for acute diverticulitis. There is no evidence for a bowel obstruction. Previous right abdominal hernia repair with mesh is noted. There is no lymphadenopathy. There is no ascites. No abscess is noted. Old L1 compression fracture is noted. There is no acute fra cture or suspicious lesion within visualized skeletal structures. IMPRESSION: 1. No acute process within the abdomen or pelvis. 2. Extensive colonic diverticulosis without evidence for acute diverticulitis. 3. Exam mildly compromised by motion artifact. 4. No bowel obstruction. No bowel wall thickening. ACT 112: Negative or not required by law. Electronically signed by: Tyrell Bernard M.D. 05/20/2020 4:23 PM
--- NOTE | 2020-05-20 17:14 | Emergency Department Note ---
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 Done: 05/20/20 20:21 Discharge Problem: Headache Qualifiers: Headache type: unspecified Headache chronicity pattern: unspecified pattern Intractability: not intractable Qualified Code(s): R51.9 - Headache, unspecified Nausea and vomiting Qualifiers: Vomiting type: unspecified Vomiting Intractability: unspecified Qualified Code(s): R11.2 - Nausea with vomiting, unspecified Abdominal pain Qualifiers: Abdominal location: generalized Qualified Code(s): R10.84 - Generalized abdominal pain
[2020-05-20 17:44] LABS: Appearance Urine Clear (Clear); Bacteria Urine Automated Negative (Negative); Bilirubin Urine Negative (Negative); Blood Urine 1+ (Negative); Color Urine Yellow; Glucose Urine UA Negative (Negative); Ketones Urine Negative (Negative); Leukocyte Esterase Urine Negative (Negative); Nitrite Urine Negative (Negative); Protein Urine Negative (Negative); Specific Gravity Urine 1.023 (1.000-1.030); Urobilinogen Urine Negative (Negative)
[2020-05-20] MEDS ORDERED: dexAMETHasone 10 MG in SYRINGE 0 ML IV STA (17:50)
[2020-05-20] MEDS ORDERED: ACETAMINOPHEN 1,000 MG/100 ML VIAL IV STA (17:50)
[2020-05-20] MEDS ORDERED: SODIUM CHLORIDE 0.9% 500 ML IV ONE (17:50)
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
--- NOTE | 2020-05-20 18:49 | CT Scan Report ---
CT OF THE HEAD WITHOUT CONTRAST CLINICAL HISTORY: MULLER, confusion h/o TIA, MCA aneurysm COMPARISON STUDY: Head CT April 04, 2020. CT DOSE: 1004.96 mGy.cm TECHNIQUE: Helical axial images of the head were obtained without IV contrast. Automated exposure con trol was utilized for the study. A dose lowering technique was utilized adhering to the principles o f ALARA. FINDINGS: No acute intracranial hemorrhage, midline shift or mass effect is present. Ventricular syst em is normal. Basilar cisterns are patent. There are no extra-axial collections. White matter hypoden sities are similar to prior exam and suggest small vessel disease. Note is made of intravascular cont rast from recent contrast-enhanced abdominal CT. There are no findings to suggest acute dural sinus t hrombosis or acute territorial infarct. There are no significant calvarial abnormalities. IMPRESSION: No acute intracranial findings. ACT 112: Negative or not required by law. Electronically signed by: Tyrell Bernard M.D. 05/20/2020 6:48 PM
--- NOTE | 2020-05-20 18:56 | CT Scan Report ---
CT ANGIOGRAPHY OF THE NECK WITH CONTRAST CLINICAL HISTORY: MULLER, confusion h/o TIA, MCA aneurysm. COMPARISON STUDY: CTA of the neck March 17, 2020 Technique: CT angiography of the carotid and vertebral arteries was obtained using [employer] 320 IV and 3D reconstruction on an independent workstation. NASCET criteria was utilized. Automated exposure c ontrol was utilized for the study. A dose lowering technique was utilized adhering to the principles of ALARA. Findings: Mild interlobular septal thickening is noted within the lung apices. Postoperative 5 within the cervical spine are noted. There is no acute cervical spine fracture. There is no cervical lympha denopathy. There is extensive plaque within the proximal right internal carotid artery which makes ev aluation for stenosis difficult. Severe stenosis of the proximal right internal carotid artery is sim ilar to CTA of March 07, 2021. Distally, the vessel measures 4.2 mm in caliber. At the site of sten osis, the vessel measures less than 1 mm. There is moderate plaque within the proximal left internal carotid artery without stenosis. The bilateral vertebral arteries are patent. CTA of the head will be reported separately. There is no dissection within the major vessels of the neck. There is no intral uminal thrombus. IMPRESSION: 1. No significant change in severe stenosis (greater than 90%) of the proximal right internal carotid artery since CT of March 07, 2020. 2. Moderate plaque within the proximal left internal carotid artery without significant stenosis. ACT 112: Negative or not required by law. Electronically signed by: Tyrell Bernard M.D. 05/20/2020 6:55 PM
[2020-05-20] MEDS ORDERED: DEXAMETHASONE SOD INJ 10 MG/ML VIAL ONE (19:05)
--- NOTE | 2020-05-20 19:07 | CT Scan Report ---
CTA ANGIOGRAPHY OF THE HEAD CLINICAL HISTORY: MULLER, confusion h/o TIA, MCA aneurysm. COMPARISON STUDY: CTA of the head March 07, 2020. TECHNIQUE: Helical axial images of the head were obtained following uneventful intravenous administr ation of [employer] 320. Sagittal and coronal reconstructions were viewed as well as maximal intensity p rojections on an independent 3-D workstation. Automated exposure control was utilized for the study. A dose lowering technique was utilized adhering to the principles of ALARA. FINDINGS: No central vessel occlusion is noted. There is moderate plaque within the bilateral caverno us carotids with mild stenosis. 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 No additional intracranial aneurysms are identified. Th ere is moderate stenosis of the left P2 segment. This is unchanged. There is no dissection within the intracranial vessels. IMPRESSION: 1. No central vessel occlusion. No significant change since CTA of March 07, 2020. 2. 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 ACT 112: Negative or not required by law. Electronically signed by: Tyrell Bernard M.D. 05/20/2020 7:05 PM
[2020-05-20] MEDS ORDERED: ACETAMINOPHEN 325 MG TAB PO PRN (20:29)
[2020-05-20] MEDS ORDERED: ALBUTEROL HFA 8 GM INHALER INH PRN (20:29)
[2020-05-20] MEDS ORDERED: ENOXAPARIN INJ 40 MG/0.4 ML SYR SQ SCH (21:00)
[2020-05-20] MEDS: FAMOTIDINE 20 MG TAB PO SCH (21:34)
--- NOTE | 2020-05-21 06:33 | Electrocardiogram Report ---
Test Reason : Blood Pressure : / mmHG Vent. Rate : 078 BPM Atrial Rate : 078 BPM P-R Int : 206 ms QRS Dur : 078 ms QT Int : 378 ms P-R-T Axes : 051 014 087 degrees QTc Int : 430 ms Poor data quality, interpretation may be adversely affected Normal sinus rhythm Possible Inferior infarct , age undetermined Abnormal ECG When compared with ECG of 16-APR-2020 19:15, T wave inversion no longer evident in Lateral leads Confirmed by Marco Antonio Duarte ([id number]) on 05/21/2020 6:32:59 AM Referred By: REFERRED SELF Confirmed By:Marco Antonio Duarte
[2020-05-21] MEDS: LOSARTAN POTASSIUM 25 MG TAB PO SCH (08:00)
[2020-05-21] MEDS: MULTIVITAMIN TAB PO SCH (08:00)
[2020-05-21] MEDS: ATORVASTATIN 40 MG TAB PO SCH (08:00)
[2020-05-21] MEDS: PANTOprazole 40 MG TAB PO SCH (08:00)
[2020-05-21] MEDS: ASPIRIN 81 MG ECTAB PO SCH (08:00)
[2020-05-21] MEDS: FAMOTIDINE 20 MG TAB PO SCH ×2 (08:00→20:04)
[2020-05-21] MEDS: CLOPIDOGREL BISULFATE 75 MG TAB PO SCH (08:00)
[2020-05-21] MEDS: METOPROLOL SUCC 50MG EXT REL TAB PO SCH (08:00)
--- NOTE | 2020-05-21 22:19 | Hospitalist Progress Note ---
Date of Service May 21, 2020 Assessment & Plan (1) Delirium: 84-year-old female with a history of coronary artery disease status post PCI and CABG in 2007, CVA, multiple UTI, hypertension, hyperlipidemia, GERD, gout, history A-flutter was sent to the emergency department by her son via a mbulance for concern of acute delirium possibly secondary to UTI and acute nausea and vomiting. Delirium Appears to be waxing and waning. Was conversant with ER provider and nursing but unable to describe symptoms or hold conversation with myself during exam. Possibly secondary to Compazine and Benadryl received in emergency department for nausea Possibly secondary to worsening UTI. Afebrile, hypertensive, normal pulse rate saturating well on room air. Does not appear to be septic Some asymmetric facial features on exam questionably chronic versus new onset CT noncontrast head negative, CTA head and neck no signs of significant stenosis or ischemia -On 05/21, patient appears to be improving as she is more oriented. will continue to monitor. Present on Admission?: Yes (2) Elevated troponin: Elevated 0.047, patient has previously had higher troponin levels Not currently complaining of chest pain however certainly high risk given history of coronary artery disease and interventions EKG showing normal sinus rhythm Present on Admission?: Yes (3) CAD (coronary artery disease): History of, status post PCI to RCA and CABG in 2007 Continue aspirin and Plavix as secondary prevention from history of CVA Continue losartan and metoprolol for blood pressure management Continue atorvastatin for CAD management Present on Admission?: Yes (4) Nausea: Exam shows mildly distended tender abdomen however CT abdomen pelvis was negative for acute processes, diverticulitis, bowel obstruction Possibly secondary to dehydration leading to nausea and overall weakness and lethargy. Improved with Compazine and Benadryl in ER Will continue to monitor -UA showing gross blood with increased RBC, no nitrites or leukocyte esterase. 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, macrobid resistant DVT ppx: lovenox daily FEN/GI: PO fluid and heart healthy diet if alert and oriented Code Status: Full code Dispo: Med/surg with tele Present on Admission?: Yes (2) Elevated troponin: (3) CAD (coronary artery disease): (4) Nausea: Admission and Anticipated Discharge Date Admission Date: May 20, 2020 Subjective 84 yo female reports feeling better. She knows she is in the hospital and is oriented to person, place and time. She has no complaints at this time. Review of Systems Review of Systems: All systems reviewed & are unremarkable except as noted in HPI & below Physical Exam Physical Exam: Constitutional:thin, sitting in chair, elderly woman Eyes: pupils small, equal and reactive bilaterally, left eyelid drooping more than right, no sceral icterus Cardiac: RRR, no murmurs, gallops or rubs. Normal S1, S2 Pulm: poor inspiratory effort, muffled breath sounds at base of lungs, otherwise clear and no wheezes or rhonchi appreciated Abd: soft, somewhat distended, TTP at right and left lower quadrant Extremities: poor peripheral pulses, chronic venous stasis changes over bilateral shins Neuro: responds to commands, A&Ox3/ Results & Data Results & Data ([facility]) Vital Signs (Past 12 Hours) Vital Signs Temp Pulse Pulse Resp BP BP Pulse Ox 05/21/20 19:05 36.5 C 61 16 147/69 H 97 05/21/20 16:21 65 05/21/20 15:30 36.3 C L 68 18 118/68 100 05/21/20 11:01 36.8 C 68 16 107/65 95 PG Care Time/CCT Total # of Minutes Spent Total Time Spent with Patient: Total time spent is greater than 50% in coordination of care (as documented) at patient's floor/unit and/or counseling patient: Coding Level of Care Code 55580 Subseq Obs Care Lvl 3 Diagnoses Delirium R41.0 Elevated troponin R77.8 CAD (coronary artery disease) I25.10 Nausea R11.0 Time Spent (min) 35
[2020-05-22] MEDS: CLOPIDOGREL BISULFATE 75 MG TAB PO SCH (08:05)
[2020-05-22] MEDS: PANTOprazole 40 MG TAB PO SCH (08:06)
[2020-05-22] MEDS: ATORVASTATIN 40 MG TAB PO SCH (08:06)
[2020-05-22] MEDS: ASPIRIN 81 MG ECTAB PO SCH (08:07)
[2020-05-22] MEDS: METOPROLOL SUCC 50MG EXT REL TAB PO SCH (08:07)
[2020-05-22] MEDS: LOSARTAN POTASSIUM 25 MG TAB PO SCH (08:08)
[2020-05-22] MEDS: FAMOTIDINE 20 MG TAB PO SCH (08:08)
[2020-05-22] MEDS: MULTIVITAMIN TAB PO SCH (08:09)
--- NOTE | 2020-05-28 11:13 | Discharge Summary ---
Date of Service May 22, 2020 Admission HPI Per Admitting Provider 84 yo F with hx CVA,CAD, HTN, [place] with PCI to RCA, brought to ER by ambulance for nausea/vomiting at home. Pt evaluated in ER after receiving phenergan and benadryl. Was unable to converse with me to describe symptoms. was somewhat able to follow commands but generally weak. Per discussion with son patient has been delirious and confused since this morning. He states that her last well-known for him is midnight on 19 May when he was tucking her into the bed. States that by morning she was aware of who she was and where she was but not entirely coherent and answering directions, generally lethargic and very weak. He states that normally if she is weak he is able to pick her up and help take her back to the bed or couch but this time she was completely unable to lift herself. He states that she did not have any facial droop or slouching to one side as he was looking for that. Later she had some episodes of vomiting and describes some feeling of nauseousness. At this time he opted to have her go to the ER for evaluation. He states that she frequently gets UTIs and they often present with the symptoms of delirium, weakness and blood in the urine. Principal Diagnosis delirium Discharge Exam Constitutional:thin, sitting in chair, elderly woman Eyes: pupils small, equal and reactive bilaterally, left eyelid drooping more than right, no sceral icterus Cardiac: RRR, no murmurs, gallops or rubs. Normal S1, S2 Pulm: poor inspiratory effort, muffled breath sounds at base of lungs, otherwise clear and no wheezes or rhonchi appreciated Abd: soft, somewhat distended, nontender to palpation. Extremities: poor peripheral pulses, chronic venous stasis changes over bilateral shins Neuro: responds to commands, A&Ox3/ Discharge Data Allergies Allergy/AdvReac Type Severity Reaction Status Date / Time perflutren Allergy Severe MUSCLE Verified 04/16/20 20:29 TIGHTNESS propylene glycol Allergy Severe MUSCLE Verified 04/16/20 20:29 TIGHTNESS Sulfa (Sulfonamide Allergy Mild depleted Verified 04/16/20 20:29 Antibiotics) platelet count sulfamethoxazole Allergy Mild RASH Verified 04/16/20 20:29 trimethoprim Allergy Mild RASH Verified 04/16/20 20:29 apixaban [From Eliquis] AdvReac Unknown Dizziness, Verified 04/16/20 20:29 nausea tramadol AdvReac Unknown Hallucinati Verified 04/16/20 20:29 ng Consultations 05/20/20 17:40 ED Decision to Admit Stat Ordered Studies 05/20/20 14:41 CT abd pelvis IV con only Stat 05/20/20 17:48 CT angio head w con Stat CT angio neck with con Stat CT head/brain wo con Stat Hospital Course (1) Delirium: 84-year-old female with a history of coronary artery disease status post PCI and CABG in 2007, CVA, multiple UTI, hypertension, hyperlipidemia, GERD, gout, history A-flutter was sent to the emergency department by her son via ambulance for concern of acute delirium possibly secondary to UTI and acute nausea and vomiting. Delirium Appears to be waxing and waning. Was conversant with ER provider and nursing but unable to describe symptoms or hold conversation with myself during exam. Possibly secondary to Compazine and Benadryl received in emergency department for nausea Possibly secondary to worsening UTI. Afebrile, hypertensive, normal pulse rate saturating well on room air. Does not appear to be septic Some asymmetric facial features on exam questionably chronic versus new onset CT noncontrast head negative, CTA head and neck no signs of significant stenosis or ischemia -On 05/21, patient appears to be improving as she is more oriented. will continue to monitor. -On 05/22, patient appears close to her baseline. She had conversation with son, and he is agreeable to pick her up. Present on Admission?: Yes (2) Elevated troponin: POA. Elevated 0.047, patient has previously had higher troponin levels Not currently complaining of chest pain however certainly high risk given history of coronary artery disease and interventions EKG showing normal sinus rhythm (3) CAD (coronary artery disease): History of, status post PCI to RCA and CABG in 2007 Continue aspirin and Plavix as secondary prevention from history of CVA Continue losartan and metoprolol for blood pressure management Continue atorvastatin for CAD management Present on Admission?: Yes (4) Nausea: Exam shows mildly distended tender abdomen however CT abdomen pelvis was negative for acute processes, diverticulitis, bowel obstruction Possibly secondary to dehydration leading to nausea and overall weakness and lethargy. Improved with Compazine and Benadryl in ER Will continue to monitor -UA showing gross blood with increased RBC, no nitrites or leukocyte esterase. 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, macrobid resistant (2) Elevated troponin: (3) CAD (coronary artery disease): (4) Nausea: Total Time Total Time Spent Total Time Spent (In Minutes): 32 Total Time Includes: Examination of the Patient, Discharge Planning and Medication Reconciliation Discharge Plan Discharge Items Patient Disposition: Transfer Longterm Fac Reason For Visit: ILLNESS Discharge Diagnosis: CONFUSION Activity: Resume your previous activity Non-emergency contact: Primary Care Provider Call non-emergency contact if: you have any medication questions Follow-up/Referrals: Susu Bower DO [Primary Care Provider] - Diet: Heart Healthy Addtl Attending Provider Instructions: Will recommend followup with PCP in 1-2 weeks for dementia workup. As patient was waxing and waning during hospital stay and no signs of infection were found. will stop famotidine as this can lead to confusion. Pending Studies at Discharge: No Stand-Alone Forms: My [facility] [employer] Skilled Items Patient informed of condition?: No DNR: No Discharge Level of Care: Skilled Communicable Disease: No Discharge Prognosis: Stable Lines: None Urinary Catheter: No Medications and DC Order Prescriptions: Continued nitroglycerin 0.4 mg tablet, sublingual 0.4 mg sublingual DIRECTED PRN (Reason: Chest Pain) RF: 0 atorvastatin 80 mg tablet 80 mg PO QAM RF: 0 aspirin 81 mg Tablet,Delayed Release (Dr/Ec) 81 mg PO QAM RF: 0 Centrum Silver Women 8 mg iron-400 mcg-300 mcg Tablet 1 tab PO QAM RF: 0 metoprolol succinate 100 mg tablet extended release 24 hr 100 mg PO QAM RF: 0 losartan 25 mg Tablet 25 mg PO QAM RF: 0 clopidogrel 75 mg tablet 75 mg PO QAM RF: 0 pantoprazole 20 mg tablet,delayed release (DR/EC) 20 mg PO DAILY RF: 0 acetaminophen 325 mg tablet 650 mg PO Q4H PRN (Reason: Pain) RF: 0 meclizine 12.5 mg tablet 12.5 mg PO QID PRN (Reason: Dizziness) RF: 0 albuterol sulfate 90 mcg/actuation HFA aerosol inhaler 2 puffs INH Q6H PRN (Reason: Shortness Of Breath Or Wheezing) RF: 0 Discontinued famotidine 20 mg tablet 20 mg PO BID RF: 0 Discharge Orders: Discharge Order (Routine); Ordered 05/22/20 Ordered By: Jame Angela Admission Data Admit Date/Time: 05/20/20 18:52 Attending Provider: Jame Angela Admit Provider: Rin Simon Primary Care Provider: Susu Bower Other Providers: Cuco Flores ; [facility] Other Interventions: Discharge Summary Assessment (RN) Last Done: 05/22/20 13:54 Coding Level of Care Code 12753 OBS Care - Discharge Diagnoses Delirium R41.0 Elevated troponin R77.8 CAD (coronary artery disease) I25.10 Nausea R11.0
--- NOTE | 2020-05-28 13:01 | Billing Data ---
Date of Service May 20, 2020 Coding Level of Care Code 47266 OBS Care - Level 2
== END 2020-05-22 15:12 ==
LOC: 2N 14:09 → ED 14:09 → SUATTDRO 18:52 → 2N 20:21

== ENCOUNTER 2020-07-13 19:43 | Inpatient (IN) ==
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
[2020-07-13 20:23] LABS: Basophils # (auto) 0.02 K/uL (0-0.2); Basophils % (auto) 0.3 %; Hematocrit (blood only) 35.6 % (37-47); Hemoglobin 12.3 g/dL (12.0-16.0); Immature Granulocytes # (auto) 0.01 K/uL (0.00-0.02); Immature Granulocytes % (auto) 0.1 %; Mean Corpuscular Hemoglobin 33.6 pg (25-34); Mean Corpuscular Hgb Conc 34.6 g/dL (32-36); Mean Corpuscular Volume 97.3 fL (80-100); Monocytes # (auto) 0.42 K/uL (0.11-0.59); Monocytes % (auto) 6.3 %; Neutrophils # (auto) 5.02 K/uL (1.4-6.5); Neutrophils % (auto) 75.3 %; Platelet Count 246 K/uL (130-400); Red Blood Count 3.66 M/uL (4.2-5.4); White Blood Count 6.67 K/uL (4.8-10.8)
[2020-07-13 20:28] LABS: Prothrombin Time 9.8 Seconds (9.0-12.0)
--- NOTE | 2020-07-13 20:28 | XRay Report ---
XR chest 1V portable HISTORY: confusion COMPARISON: Chest 05/20/2020. FINDINGS: Cardiac silhouette remains borderline enlarged. There is a tortuous thoracic aorta, unchang ed. There are poststernotomy changes. Cervical spinal fusion hardware is again noted. Prior cholecyst ectomy. No focal lung consolidations to suggest pneumonia. No evidence for pulmonary edema. No pleura l effusions. No pneumothorax. Eventration of the right hemidiaphragm, unchanged. IMPRESSION: No significant change compared to the prior study. No acute process. ACT 112: Negative or not required by law. Electronically signed by: Momo Montiel M.D. 07/13/2020 8:27 PM
[2020-07-13 20:30] LABS: Appearance Urine Clear (Clear); Bacteria Urine Automated 4+ (Negative); Bilirubin Urine Negative (Negative); Blood Urine 2+ (Negative); Color Urine Yellow; Epithelial Cell Urine Auto 0-5 /lpf (0-5); Glucose Urine UA Negative (Negative); Ketones Urine Trace (Negative); Leukocyte Esterase Urine 2+ (Negative); Nitrite Urine Positive (Negative); Protein Urine Negative (Negative); RBC Urine Automated 0-4 /hpf (0-4); Specific Gravity Urine 1.019 (1.000-1.030); Urobilinogen Urine Negative (Negative); WBC Urine Automated >30 /hpf (0-5)
[2020-07-13 20:30] LABS: Albumin Level 3.6 gm/dl (3.4-5.0); Calcium 9.1 mg/dl (8.5-10.1); Creatinine Clr Calc Pharmacy 42.5 ml/min; Est GFR (African American) 72.9; Est GFR (Non-African American) 62.9; Magnesium 2.2 mg/dl (1.8-2.4); Potassium 3.8 mmol/L (3.5-5.1)
[2020-07-13 20:41] LABS: Bilirubin,Total 0.7 mg/dl (0.2-1); Globulin 3.5 gm/dl (2.5-4.0); Thyroid Stimulating Hormone 0.735 uIu/ml (0.300-4.500); Total Protein 7.1 gm/dl (6.4-8.2); Troponin I 0.042 ng/ml (0-0.045)
[2020-07-13 20:41] LABS: Cast Urine Automated 0 /lpf (0-5)
--- NOTE | 2020-07-13 20:57 | CT Scan Report ---
HEAD CT NONCONTRAST CT DOSE: 537.48 mGy.cm HISTORY: headache TECHNIQUE: Multiaxial CT images of the head were performed without the use of intravenous contrast. A utomated exposure control was utilized for this study. A dose lowering technique was utilized adheri ng to the principles of ALARA. Comparison: Head CT 05/20/2020. Findings: The paranasal sinuses and mastoid air cells are clear. The calvarium and skull base are int act. There is no mass, hematoma, midline shift, acute infarct. White matter hypodensity is nonspecifi c but suggestive of microvascular ischemic change. The ventricles and sulci demonstrate mild age-rela varsha involutional changes. Impression: No significant change compared to the prior study. No acute intracranial abnormality. ACT 112: Negative or not required by law. Electronically signed by: Momo Montiel M.D. 07/13/2020 8:56 PM
[2020-07-13] MEDS: SODIUM CHLORIDE 0.9% 1000ML 1,000 ML IV SCH (21:06)
[2020-07-13] MEDS ORDERED: CEFEPIME 2,000 MG/20 ML VIAL IV STA (21:14)
[2020-07-13] MEDS ORDERED: METOPROLOL SUCC 50MG EXT REL TAB PO STA (22:06)
[2020-07-13] MEDS ORDERED: ONDANSETRON INJ 2 MG/ML 2 ML VIAL IV STA (22:27)
[2020-07-13 23:38] LABS: Influenza A virus by PCR Negative (Neg); Influenza B virus by PCR Negative (Neg); RSV by PCR Negative (Neg); SARS CoV2 RNA(COVID-19) InHosp NEGATIVE (Negative)
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
[2020-07-14] MEDS ORDERED: NITROGLYCERIN SL 0.4 MG/TAB TAB SL PRN (01:13)
[2020-07-14] MEDS ORDERED: ACETAMINOPHEN 325 MG TAB PO PRN ×2 (01:13)
[2020-07-14] MEDS ORDERED: MECLIZINE 12.5 MG TAB PO PRN (01:13)
[2020-07-14] MEDS ORDERED: ONDANSETRON INJ 2 MG/ML 2 ML VIAL IV PRN (01:13)
[2020-07-14] MEDS: NSS + 20MEQ KCL 20 MEQ/1,000 ML BAG IV SCH ×2 (01:48→11:26)
[2020-07-14] MEDS ORDERED: levoFLOXacin/D5W 500 MG/100 ML BAG IV SCH (02:00)
[2020-07-14] MEDS: SODIUM CHLORIDE 0.9% 1000ML 1,000 ML IV SCH (06:25)
[2020-07-14 07:35] LABS: Basophils # (auto) 0.01 K/uL (0-0.2); Basophils % (auto) 0.2 %; Eosinophils # (auto) 0.03 K/uL (0-0.5); Eosinophils % (auto) 0.6 %; Hematocrit (blood only) 32.8 % (37-47); Hemoglobin 11.1 g/dL (12.0-16.0); Lymphocytes # (auto) 1.43 K/uL (1.2-3.4); Lymphocytes % (auto) 27.2 %; Mean Corpuscular Hemoglobin 33.1 pg (25-34); Mean Corpuscular Hgb Conc 33.8 g/dL (32-36); Mean Corpuscular Volume 97.9 fL (80-100); Mean Platelet Volume 9.9 fL (7.4-10.4); Monocytes # (auto) 0.43 K/uL (0.11-0.59); Monocytes % (auto) 8.2 %; Neutrophils # (auto) 3.35 K/uL (1.4-6.5); Neutrophils % (auto) 63.8 %; Platelet Count 214 K/uL (130-400); RDW Coefficient of Variation 14.1 % (11.5-14.5); RDW Standard Deviation 50.6 fL (36.4-46.3); Red Blood Count 3.35 M/uL (4.2-5.4); White Blood Count 5.25 K/uL (4.8-10.8)
[2020-07-14 07:58] LABS: BUN Creatinine Ratio 20.6 (10-20); Calcium 8.2 mg/dl (8.5-10.1); Creatinine Clr Calc Pharmacy 51.7 ml/min; Est GFR (African American) 92.2; Est GFR (Non-African American) 79.6; Potassium 4.2 mmol/L (3.5-5.1)
[2020-07-14 08:00] LABS: Albumin Globulin Ratio 0.9 (0.9-2); Bilirubin,Total 0.7 mg/dl (0.2-1); Globulin 3.4 gm/dl (2.5-4.0); Total Protein 6.4 gm/dl (6.4-8.2)
[2020-07-14] MEDS: ENOXAPARIN INJ 30 MG/0.3 ML SYR SQ SCH (08:02)
[2020-07-14] MEDS: METOPROLOL SUCC 50MG EXT REL TAB PO SCH (08:03)
[2020-07-14] MEDS: LOSARTAN POTASSIUM 25 MG TAB PO SCH (08:03)
[2020-07-14] MEDS: CLOPIDOGREL BISULFATE 75 MG TAB PO SCH (08:03)
[2020-07-14] MEDS: ASPIRIN 81 MG ECTAB PO SCH (08:03)
[2020-07-14] MEDS: ATORVASTATIN 40 MG TAB PO SCH (08:04)
[2020-07-14] MEDS: PANTOprazole 40 MG TAB PO SCH (08:04)
[2020-07-14] MEDS: CEROVITE ADV FORMULA TAB PO SCH (08:04)
--- NOTE | 2020-07-14 23:43 | Hospitalist Progress Note ---
Date of Service July 14, 2020 Assessment & Plan (1) Acute UTI (urinary tract infection): Urinalysis positive for trace ketones and positive for nitrate. There is also 2+ blood noted Urine culture now growing gram-negative bacteria Day #2 of levofloxacin Slightly prolonged QTC at 471 ms Will convert from levofloxacin to ceftriaxone Patient was afebrile with no leukocytosis Chest x-ray with no acute cardiopulmonary findings CT head negative (2) Confusion: Was not able to talk to family Unsure if this is baseline or an acute change Per chart review, son reports that patient often times has headache and confusion with UTI and that she has previous UTI CT head is without acute changes Continue to treat acute urinary tract infection and follow for improvement No other neurological symptoms identified on physical examination (3) Elevated troponin: No chest pain or tightness Most likely ischemic demand Continue to follow on medical telemetry (4) Benign essential hypertension: Home medications include losartan and Toprol-XL Blood pressure stable Continue with home medications (5) Atrial flutter: Continue metoprolol succinate Not anticoagulated at home Continue on medical telemetry (6) CAD (coronary artery disease): History of [place] in the past with CABG History of PCI with stenting No chest pain or tightness No hypoxia Continue to monitor on medical telemetry Continue usual home meds including Toprol-XL, losartan, atorvastatin, aspirin (7) Carotid artery stenosis: 80% stenosis noted Managed outpatient (8) DVT prophylaxis: Enoxaparin 30 mg daily Admission and Anticipated Discharge Date Admission Date: July 13, 2020 Subjective Attending: Dr. Gonzales Patient seemed disoriented and confused at times. It seemed as though she gave me correct review of system responses but then would began talking to her roommate although the roommate was not asking questions. The patient was pleasant and cooperative the entire visit. She denied any chest pain, shortness of breath, abdominal pain, nausea, vomiting. She offers no acute complaints. Review of Systems Review of Systems: All systems reviewed & are unremarkable except as noted in Subjective Physical Exam Physical Exam: GENERAL : No acute distress. Talkative. EYES: No icterus, gaze conjugate NOSE: No evidence of epistaxis MOUTH: No lesions or candidiasis NECK: Supple LUNGS: Some faint wheezes in the upper posterior crews. Otherwise, no adventitious breath sounds HEART: Regular, rate controlled ABDOMEN: Soft, NT, ND, BS Present EXTREMITIES: No LE edema, pedal pulses intact NEURO: A&OX3 Results & Data Results & Data ([facility]) Vital Signs (Past 12 Hours) Vital Signs Temp Pulse Resp BP Pulse Ox 07/14/20 23:34 36.3 C L 96 H 20 96 07/14/20 15:55 37.0 C 62 20 144/80 H 97 Laboratory Results 07/14/20 07:12 07/14/20 07:12 Diagnostic Findings XR chest 1V portable HISTORY: confusion COMPARISON: Chest 05/20/2020. FINDINGS: Cardiac silhouette remains borderline enlarged. There is a tortuous thoracic aorta, unchanged. There are poststernotomy changes. Cervical spinal fusion hardware is again noted. Prior cholecystectomy. No focal lung consolidations to suggest pneumonia. No evidence for pulmonary edema. No pleural effusions. No pneumothorax. Eventration of the right hemidiaphragm, unchanged. IMPRESSION: No significant change compared to the prior study. No acute process. ACT 112: Negative or not required by law. Electronically signed by: Momo Montiel M.D. 07/13/2020 8:[address] CT DOSE: 537.48 mGy.cm HISTORY: headache TECHNIQUE: Multiaxial CT images of the head were performed without the use of intravenous contrast. Automated exposure control was utilized for this study. A dose lowering technique was utilized adhering to the principles of ALARA. Comparison: Head CT 05/20/2020. Findings: The paranasal sinuses and mastoid air cells are clear. The calvarium and skull base are intact. There is no mass, hematoma, midline shift, acute infarct. White matter hypodensity is nonspecific but suggestive of microvascular ischemic change. The ventricles and sulci demonstrate mild age-related involutional changes. Impression: No significant change compared to the prior study. No acute intracranial abnormality. ACT 112: Negative or not required by law. Electronically signed by: Momo Montiel M.D. 07/13/2020 8:56 PM PG Care Time/CCT Total # of Minutes Spent Total Time Spent with Patient: Total time spent is greater than 50% in coordination of care (as documented) at patient's floor/unit and/or counseling patient: Coding Level of Care Code 38496 Subseq Hosp Care Lvl 2 Diagnoses Acute UTI (urinary tract infection) N39.0 Confusion R41.0 Elevated troponin R77.8 Benign essential hypertension I10 Atrial flutter I48.92 CAD (coronary artery disease) I25.10 Carotid artery stenosis I65.21 Laterality: right DVT prophylaxis Z29.9 (1) Carotid artery stenosis Laterality: right Qualified Code(s): I65.21 - Occlusion and stenosis of right carotid artery
[2020-07-15] MEDS ORDERED: levoFLOXacin/D5W 250 MG/50 ML BAG IV SCH (02:00)
--- NOTE | 2020-07-15 05:41 | Electrocardiogram Report ---
Test Reason : Blood Pressure : / mmHG Vent. Rate : 086 BPM Atrial Rate : 086 BPM P-R Int : 162 ms QRS Dur : 080 ms QT Int : 394 ms P-R-T Axes : 048 009 096 degrees QTc Int : 471 ms Normal sinus rhythm Possible Inferior infarct (cited on or before 20-MAY-2020) Nonspecific ST and T wave abnormality Abnormal ECG When compared with ECG of 20-MAY-2020 15:15, No significant change was found Confirmed by Marco Antonio Duarte ([id number]) on 07/15/2020 5:40:44 AM Referred By: REFERRED SELF Confirmed By:Marco Antonio Duarte
[2020-07-15 07:54] LABS: Albumin Level 3.9 gm/dl (3.4-5.0); BUN Creatinine Ratio 17.5 (10-20); Calcium 9.3 mg/dl (8.5-10.1); Creatinine Clr Calc Pharmacy 38.5 ml/min; Est GFR (African American) 64.6; Est GFR (Non-African American) 55.7; Potassium 3.7 mmol/L (3.5-5.1)
[2020-07-15 07:57] LABS: Bilirubin,Total 0.6 mg/dl (0.2-1); Total Protein 7.9 gm/dl (6.4-8.2)
[2020-07-15] MEDS: ATORVASTATIN 40 MG TAB PO SCH (08:24)
[2020-07-15] MEDS: ENOXAPARIN INJ 30 MG/0.3 ML SYR SQ SCH ×2 (08:24→09:22)
[2020-07-15] MEDS: ASPIRIN 81 MG ECTAB PO SCH (08:24)
[2020-07-15] MEDS: CLOPIDOGREL BISULFATE 75 MG TAB PO SCH (08:24)
[2020-07-15] MEDS: CEROVITE ADV FORMULA TAB PO SCH (08:24)
[2020-07-15] MEDS: PANTOprazole 40 MG TAB PO SCH (08:24)
[2020-07-15] MEDS: LOSARTAN POTASSIUM 25 MG TAB PO SCH (08:24)
[2020-07-15] MEDS: cefTRIAXone SODIUM 1,000 MG in DEXTROSE 5% 50 ML IV SCH (08:25)
[2020-07-15 09:05] LABS: Hematocrit (blood only) 42.2 % (37-47); Hemoglobin 14.1 g/dL (12.0-16.0); Mean Corpuscular Hemoglobin 32.9 pg (25-34); Mean Corpuscular Hgb Conc 33.4 g/dL (32-36); Mean Corpuscular Volume 98.6 fL (80-100); Mean Platelet Volume 10.1 fL (7.4-10.4); Platelet Count 276 K/uL (130-400); RDW Coefficient of Variation 13.9 % (11.5-14.5); RDW Standard Deviation 49.6 fL (36.4-46.3); Red Blood Count 4.28 M/uL (4.2-5.4); White Blood Count 8.85 K/uL (4.8-10.8)
[2020-07-15 09:06] LABS: Basophils # (auto) 0.02 K/uL (0-0.2); Basophils % (auto) 0.2 %; Eosinophils # (auto) 0.02 K/uL (0-0.5); Eosinophils % (auto) 0.2 %; Immature Granulocytes # (auto) 0.02 K/uL (0.00-0.02); Immature Granulocytes % (auto) 0.2 %; Lymphocytes # (auto) 1.39 K/uL (1.2-3.4); Lymphocytes % (auto) 15.7 %; Monocytes # (auto) 0.57 K/uL (0.11-0.59); Monocytes % (auto) 6.4 %; Neutrophils # (auto) 6.83 K/uL (1.4-6.5); Neutrophils % (auto) 77.3 %
[2020-07-15] MEDS: METOPROLOL SUCC 50MG EXT REL TAB PO SCH (09:14)
--- NOTE | 2020-07-15 11:24 | Hospitalist Progress Note ---
Date of Service July 15, 2020 Assessment & Plan (1) Acute UTI (urinary tract infection): Urinalysis positive for trace ketones and positive for nitrate. There is also 2+ blood noted Urine culture now growing gram-negative bacteria Day #3 of antibiotics Slightly prolonged QTC at 471 ms Converted from levofloxacin to ceftriaxone Patient was afebrile with no leukocytosis Chest x-ray with no acute cardiopulmonary findings CT head negative (2) Confusion: Was not able to talk to family Unsure if this is baseline or an acute change Per chart review, son reports that patient often times has headache and confusion with UTI and that she has previous UTI CT head is without acute changes Continue to treat acute urinary tract infection and follow for improvement No other neurological symptoms identified on physical examination (3) Elevated troponin: No chest pain or tightness Most likely ischemic demand Continue to follow on medical telemetry (4) Benign essential hypertension: Home medications include losartan and Toprol-XL Blood pressure stable Continue with home medications (5) Atrial flutter: Continue metoprolol succinate Not anticoagulated at home Continue on medical telemetry (6) CAD (coronary artery disease): History of [place] in the past with CABG History of PCI with stenting No chest pain or tightness No hypoxia Continue to monitor on medical telemetry Continue usual home meds including Toprol-XL, losartan, atorvastatin, aspirin (7) Carotid artery stenosis: 80% stenosis noted Managed outpatient (8) DVT prophylaxis: Enoxaparin 30 mg daily Admission and Anticipated Discharge Date Admission Date: July 13, 2020 Subjective Attending: Dr. Gonzales Patient seen and examined. She continues to exercise confusion. She is not sure where she has. She states that her son has been contacted she has been discharged today. She denies any fever or chills. She has no shortness of breath. She denies any epigastric pain. No back pain. She has no acute complaints Review of Systems Review of Systems: All systems reviewed & are unremarkable except as noted in Subjective Physical Exam Physical Exam: GENERAL : No acute distress. Confused EYES: No icterus, gaze conjugate. Pupils equal round and reactive to light NOSE: No evidence of epistaxis MOUTH: No lesions or candidiasis NECK: Supple LUNGS: CTA B/L, no wheezes, rales or rhonchi HEART: Regular, rate controlled ABDOMEN: Soft, NT, ND, BS Present EXTREMITIES: No LE edema, pedal pulses intact NEURO: Awake and alert with some confusion. No behavioral disturbances. Results & Data Results & Data ([facility]) Vital Signs (Past 12 Hours) Vital Signs Temp Pulse Pulse Pulse Resp BP BP 07/15/20 09:13 99 H 155/87 H 07/15/20 08:22 128 H 151/86 H 07/15/20 07:47 36.9 C 128 H 18 158/92 H 07/15/20 05:11 108 H 119/83 07/14/20 23:34 36.3 C L 96 H 20 Pulse Ox 07/15/20 09:13 07/15/20 08:22 07/15/20 07:47 99 07/15/20 05:11 91 07/14/20 23:34 96 Laboratory Results 07/15/20 07:02 07/15/20 07:02 PG Care Time/CCT Total # of Minutes Spent Total Time Spent with Patient: Total time spent is greater than 50% in coordination of care (as documented) at patient's floor/unit and/or counseling patient: Coding Level of Care Code 01777 Subseq Hosp Care Lvl 2 Diagnoses Acute UTI (urinary tract infection) N39.0 Confusion R41.0 Elevated troponin R77.8 Benign essential hypertension I10 Atrial flutter I48.92 CAD (coronary artery disease) I25.10 Carotid artery stenosis I65.21 Laterality: right DVT prophylaxis Z29.9 (1) Carotid artery stenosis Laterality: right Qualified Code(s): I65.21 - Occlusion and stenosis of right carotid artery
--- NOTE | 2020-07-16 06:20 | Electrocardiogram Report ---
Test Reason : Blood Pressure : / mmHG Vent. Rate : 111 BPM Atrial Rate : 090 BPM P-R Int : 000 ms QRS Dur : 078 ms QT Int : 358 ms P-R-T Axes : 000 034 085 degrees QTc Int : 486 ms Poor data quality, interpretation may be adversely affected Atrial fibrillation with rapid ventricular response Nonspecific ST and T wave abnormality Abnormal ECG When compared with ECG of 13-JUL-2020 19:50, Atrial fibrillation has replaced Sinus rhythm Borderline criteria for Inferior infarct are no longer Present Confirmed by Marco Antonio Duarte ([id number]) on 07/16/2020 6:20:43 AM Referred By: REFERRED SELF Confirmed By:Marco Antonio Duarte
[2020-07-16 06:51] LABS: Basophils # (auto) 0.01 K/uL (0-0.2); Basophils % (auto) 0.1 %; Eosinophils # (auto) 0.02 K/uL (0-0.5); Eosinophils % (auto) 0.3 %; Hematocrit (blood only) 38.9 % (37-47); Hemoglobin 13.1 g/dL (12.0-16.0); Immature Granulocytes # (auto) 0.01 K/uL (0.00-0.02); Immature Granulocytes % (auto) 0.1 %; Lymphocytes # (auto) 1.49 K/uL (1.2-3.4); Lymphocytes % (auto) 20.5 %; Mean Corpuscular Hemoglobin 32.9 pg (25-34); Mean Corpuscular Hgb Conc 33.7 g/dL (32-36); Mean Corpuscular Volume 97.7 fL (80-100); Mean Platelet Volume 10.4 fL (7.4-10.4); Monocytes # (auto) 0.56 K/uL (0.11-0.59); Monocytes % (auto) 7.7 %; Neutrophils # (auto) 5.17 K/uL (1.4-6.5); Neutrophils % (auto) 71.3 %; Platelet Count 245 K/uL (130-400); RDW Coefficient of Variation 14.1 % (11.5-14.5); RDW Standard Deviation 50.6 fL (36.4-46.3); Red Blood Count 3.98 M/uL (4.2-5.4); White Blood Count 7.26 K/uL (4.8-10.8)
[2020-07-16 07:37] LABS: Albumin Level 3.6 gm/dl (3.4-5.0); BUN Creatinine Ratio 24.8 (10-20); Calcium 9.2 mg/dl (8.5-10.1); Creatinine Clr Calc Pharmacy 28.3 ml/min; Est GFR (African American) 44.5; Est GFR (Non-African American) 38.4
[2020-07-16 07:40] LABS: Bilirubin,Total 0.5 mg/dl (0.2-1); Globulin 3.5 gm/dl (2.5-4.0); Total Protein 7.1 gm/dl (6.4-8.2)
[2020-07-16] MEDS: CLOPIDOGREL BISULFATE 75 MG TAB PO SCH (09:26)
[2020-07-16] MEDS: PANTOprazole 40 MG TAB PO SCH (09:26)
[2020-07-16] MEDS: ASPIRIN 81 MG ECTAB PO SCH (09:26)
[2020-07-16] MEDS: cefTRIAXone SODIUM 1,000 MG in DEXTROSE 5% 50 ML IV SCH (09:27)
[2020-07-16] MEDS: LOSARTAN POTASSIUM 25 MG TAB PO SCH (09:27)
[2020-07-16] MEDS: METOPROLOL SUCC 50MG EXT REL TAB PO SCH (09:27)
[2020-07-16] MEDS: CEROVITE ADV FORMULA TAB PO SCH (09:27)
[2020-07-16] MEDS: ATORVASTATIN 40 MG TAB PO SCH (09:27)
[2020-07-16] MEDS ORDERED: SODIUM CHLORIDE 0.9% 1000ML 500 ML IV ONE (09:28)
[2020-07-16] MEDS: ENOXAPARIN INJ 30 MG/0.3 ML SYR SQ SCH (09:29)
[2020-07-16] MEDS ORDERED: SODIUM CHLORIDE 0.9% 1000ML 1,000 ML IV SCH (09:30)
--- NOTE | 2020-07-16 19:03 | Hospitalist Progress Note ---
Date of Service July 16, 2020 Assessment & Plan (1) Acute UTI (urinary tract infection): Urinalysis positive for trace ketones and positive for nitrate. There is also 2+ blood noted Urine culture now growing gram-negative bacteria Day #4 of antibiotics Slightly prolonged QTC at 471 ms Converted from levofloxacin to ceftriaxone Patient was afebrile with no leukocytosis Chest x-ray with no acute cardiopulmonary findings CT head negative (2) Confusion: Long discussion with son this morning this usually occurs for 3 to 4 days after onset of UTI On discharge, son will stay with mom for a couple of days at her house until she is completely back to baseline CT head is without acute changes Continue to treat acute urinary tract infection and follow for improvement No other neurological symptoms identified on physical examination (3) Elevated troponin: No chest pain or tightness Most likely ischemic demand Continue to follow on medical telemetry (4) Benign essential hypertension: Home medications include losartan and Toprol-XL Blood pressure stable Continue with home medications (5) Atrial flutter: Continue metoprolol succinate Not anticoagulated at home Continue on medical telemetry (6) CAD (coronary artery disease): History of TN in the past with CABG History of PCI with stenting No chest pain or tightness No hypoxia Continue to monitor on medical telemetry Continue usual home meds including Toprol-XL, losartan, atorvastatin, aspirin (7) Carotid artery stenosis: 80% stenosis noted Managed outpatient (8) DVT prophylaxis: Enoxaparin 30 mg daily (9) Acute kidney injury: Admission and Anticipated Discharge Date Admission Date: July 13, 2020 Subjective Attending: Dr. Gonzales Patient much more oriented today. Denies pain. Still having some hallucinations. Long discussion with son this morning on the phone. He states that for the first 3 to 4 days of treating urinary tract infection, his mother can be behaviorally challenging and confused and hallucinate. This usually clears in the first few days. On discharge, he will plan on staying at her house to watch her until she is completely cleared. He sees her a couple times a day and has a camera in the house that he can monitor her from his house. She denies any nausea or vomiting. She is unaware of any fever or chills. She has no shakes. Overall she says that she feels better than yesterday. Review of Systems Review of Systems: All systems reviewed & are unremarkable except as noted in Subjective Physical Exam Physical Exam: GENERAL : No acute distress. Somewhat confused but easily reoriented today EYES: No icterus, gaze conjugate NOSE: No evidence of epistaxis MOUTH: No lesions or candidiasis NECK: Supple LUNGS: CTA B/L, no wheezes, rales or rhonchi HEART: Regular, rate controlled ABDOMEN: Soft, NT, ND, BS Present EXTREMITIES: No LE edema, pedal pulses intact NEURO: A&OX3 Results & Data Results & Data ([facility]) Vital Signs (Past 12 Hours) Vital Signs Temp Pulse Resp BP BP Pulse Ox 07/16/20 14:45 37.2 C 91 H 20 99/61 L 93 07/16/20 10:23 86 111/61 07/16/20 09:22 71 95/67 L 80/52 L 07/16/20 07:07 36.6 C 97 H 16 112/75 91 Laboratory Results 07/16/20 06:04 07/16/20 06:04 PG Care Time/CCT Total # of Minutes Spent Total Time Spent with Patient: Total time spent is greater than 50% in coordination of care (as documented) at patient's floor/unit and/or counseling patient: Coding Level of Care Code 93659 Subseq Hosp Care Lvl 2 Diagnoses Acute UTI (urinary tract infection) N39.0 Confusion R41.0 Elevated troponin R77.8 Benign essential hypertension I10 Atrial flutter I48.92 CAD (coronary artery disease) I25.10 Carotid artery stenosis I65.21 Laterality: right DVT prophylaxis Z29.9 Acute kidney injury N17.9 (1) Carotid artery stenosis Laterality: right Qualified Code(s): I65.21 - Occlusion and stenosis of right carotid artery
[2020-07-17] MEDS: LOSARTAN POTASSIUM 25 MG TAB PO SCH (08:00)
[2020-07-17] MEDS: METOPROLOL SUCC 50MG EXT REL TAB PO SCH (08:00)
[2020-07-17] MEDS: CEROVITE ADV FORMULA TAB PO SCH (08:01)
[2020-07-17] MEDS: CLOPIDOGREL BISULFATE 75 MG TAB PO SCH (08:01)
[2020-07-17] MEDS: ATORVASTATIN 40 MG TAB PO SCH (08:01)
[2020-07-17] MEDS: ASPIRIN 81 MG ECTAB PO SCH (08:01)
[2020-07-17] MEDS: PANTOprazole 40 MG TAB PO SCH (08:01)
[2020-07-17] MEDS: ENOXAPARIN INJ 30 MG/0.3 ML SYR SQ SCH (08:02)
[2020-07-17] MEDS: cefTRIAXone SODIUM 1,000 MG in DEXTROSE 5% 50 ML IV SCH (08:39)
[2020-07-17 10:05] LABS: BUN Creatinine Ratio 36.6 (10-20); Calcium 7.9 mg/dl (8.5-10.1); Creatinine Clr Calc Pharmacy 37.7 ml/min; Est GFR (African American) 62.9; Est GFR (Non-African American) 54.3; Potassium 4.4 mmol/L (3.5-5.1)
--- NOTE | 2020-07-23 08:28 | Discharge Summary ---
Date of Service July 17, 2020 Admission HPI Per Admitting Provider The patient is an 84-year-old female with a past medical history including CVA, sacral fracture, TIA, hyperlipidemia, GERD, status post CABG x1, ventral hernia, hypertension, CAD, Lyme disease, status post RCA stent, gout, atrial flutter, carotid artery stenosis, myocardial infarction and anemia. Her son who takes care of her, reports that patient other commonly will present with symptoms of a headache and generalized confusion when she has urinary tract infection. Principal Diagnosis confusion Discharge Exam GENERAL : No acute distress. less confused. EYES: No icterus, gaze conjugate NOSE: No evidence of epistaxis MOUTH: No lesions or candidiasis NECK: Supple LUNGS: CTA B/L, no wheezes, rales or rhonchi HEART: Regular, rate controlled ABDOMEN: Soft, NT, ND, BS Present EXTREMITIES: No LE edema, pedal pulses intact NEURO: A&OX3 Discharge Data Allergies Allergy/AdvReac Type Severity Reaction Status Date / Time perflutren Allergy Severe MUSCLE Verified 07/13/20 20:59 TIGHTNESS propylene glycol Allergy Severe MUSCLE Verified 07/13/20 20:59 TIGHTNESS Sulfa (Sulfonamide Allergy Mild depleted Verified 07/13/20 20:59 Antibiotics) platelet count sulfamethoxazole Allergy Mild RASH Verified 07/13/20 20:59 trimethoprim Allergy Mild RASH Verified 07/13/20 20:59 apixaban [From Eliquis] AdvReac Unknown Dizziness, Verified 07/13/20 20:59 nausea tramadol AdvReac Unknown Hallucinati Verified 07/13/20 20:59 ng Ordered Studies 07/13/20 20:13 CT head/brain wo con Stat Hospital Course (1) Confusion: Confusion/dehydration- Likely secondary to urinary tract infection. Confusion improved. (2) Acute UTI: Recent infections include Enterococcus faecalis and E. coli. In the ED given cefepime 2 g IV. Admit on levofloxacin 500 mg IV daily. Follow urine culture and sensitivities will discharge on cefadroxil 500 mg PO BID (3) CAD (coronary artery disease): CAD/hypertension/RCA stent- Continue aspirin, clopidogrel, losartan and metoprolol succinate. (4) S/P right coronary artery (RCA) stent placement: See above (5) Gastroesophageal reflux disease: Continue pantoprazole (6) Hyperlipidemia: Continue atorvastatin (7) Headache: CT head negative. Symptoms have improved with IV hydration in ED Total Time Total Time Spent Total Time Spent (In Minutes): 32 Total Time Includes: Examination of the Patient, Discharge Planning and Medication Reconciliation Discharge Plan Discharge Items Patient Disposition: Home - Self-Care Reason For Visit: UTI Discharge Diagnosis: UTI Activity: Resume your previous activity Non-emergency contact: Primary Care Provider Call non-emergency contact if: you have any medication questions Follow-up/Referrals: Susu Bower DO [Primary Care Provider] - (A community outreach coordinator will be arranging a follow up appt for you with your PCP. You will be recieving a phone call with the date and time. If you are unable to keep the appointment made, you may phone the office to reschedule.) Diet: Heart Healthy Addtl Attending Provider Instructions: You were found to be confused with a Urinary tract infection. You were treated with antibiotics. Will continue to treat for 4 more days. Start antibiotics on Sunday Morning. Pending Studies at Discharge: No Stand-Alone Forms: My [facility] [employer], Smoking Cessation Medications and DC Order Prescriptions: New cefadroxil 500 mg capsule 500 mg PO BID Qty: 8 RF: 0 Continued nitroglycerin 0.4 mg tablet, sublingual 0.4 mg sublingual DIRECTED PRN (Reason: Chest Pain) RF: 0 atorvastatin 80 mg tablet 80 mg PO QAM RF: 0 aspirin 81 mg Tablet,Delayed Release (Dr/Ec) 81 mg PO QAM RF: 0 Centrum Silver Women 8 mg iron-400 mcg-300 mcg Tablet 1 tab PO QAM RF: 0 metoprolol succinate 100 mg tablet extended release 24 hr 100 mg PO QAM RF: 0 losartan 25 mg Tablet 25 mg PO QAM RF: 0 clopidogrel 75 mg tablet 75 mg PO QAM RF: 0 pantoprazole 20 mg tablet,delayed release (DR/EC) 20 mg PO DAILY RF: 0 acetaminophen 325 mg tablet 650 mg PO Q4H PRN (Reason: Pain) RF: 0 meclizine 12.5 mg tablet 12.5 mg PO QID PRN (Reason: Dizziness) RF: 0 albuterol sulfate 90 mcg/actuation HFA aerosol inhaler 2 puffs INH Q6H PRN (Reason: Shortness Of Breath Or Wheezing) RF: 0 Discharge Orders: Discharge Order (Routine); Ordered 07/17/20 Ordered By: Jame Ferris/Other Patient Handouts: Urinary Tract Infections in Women, Understanding Urinary Tract ..., Preventing Falls Moving Safely ... Admission Data Admit Date/Time: 07/13/20 22:06 Attending Provider: Jame Angela Admit Provider: Santi Rajput Primary Care Provider: Susu Bower Other Interventions: Discharge Summary Assessment (RN) Last Done: 07/17/20 14:39 Coding Level of Care Code D/C Day Management >30 mins Diagnoses Confusion R41.0 Acute UTI N39.0 CAD (coronary artery disease) I25.10 S/P right coronary artery (RCA) stent placement Z95.5 Gastroesophageal reflux disease K21.9 Hyperlipidemia E78.5 Headache R51
== END 2020-07-17 15:21 | disposition home or self-care (01) | DRG 690 ==
LOC: ED 19:43 → SUATTDRO 22:06 → 2W 22:06

== ENCOUNTER 2020-10-12 06:17 | Inpatient (IN) ==
[2020-10-12] MEDS ORDERED: SODIUM CHLORIDE 0.9% 1000ML 1,000 ML IV SCH (06:45)
[2020-10-12 06:47] LABS: Basophils # (auto) 0.04 K/uL (0-0.2); Basophils % (auto) 0.7 %; Eosinophils # (auto) 0.15 K/uL (0-0.5); Eosinophils % (auto) 2.5 %; Hematocrit (blood only) 32.8 % (37-47); Hemoglobin 10.9 g/dL (12.0-16.0); Immature Granulocytes # (auto) 0.01 K/uL (0.00-0.02); Immature Granulocytes % (auto) 0.2 %; Lymphocytes # (auto) 0.77 K/uL (1.2-3.4); Lymphocytes % (auto) 12.6 %; Mean Corpuscular Hemoglobin 33.2 pg (25-34); Mean Corpuscular Hgb Conc 33.2 g/dL (32-36); Monocytes # (auto) 0.26 K/uL (0.11-0.59); Monocytes % (auto) 4.3 %; Neutrophils # (auto) 4.88 K/uL (1.4-6.5); Neutrophils % (auto) 79.7 %; Platelet Count 220 K/uL (130-400); RDW Coefficient of Variation 13.7 % (11.5-14.5); RDW Standard Deviation 50.4 fL (36.4-46.3); Red Blood Count 3.28 M/uL (4.2-5.4); White Blood Count 6.11 K/uL (4.8-10.8)
--- NOTE | 2020-10-12 06:56 | XRay Report ---
XR chest 1V portable HISTORY: 84 years-old Female weakness acutely altered mental status COMPARISON: Chest radiograph 08/24/2020 TECHNIQUE: Portable AP view of the chest FINDINGS: Cardiac silhouette is enlarged. Prior median sternotomy with surgical clips suggestive of CABG. Uncha nged moderate hemidiaphragmatic elevation. Pulmonary vascular congestion with mild interstitial coars ening. No pneumothorax or large pleural effusion. Mild left greater than right bibasilar opacities. D egenerative changes of the shoulders and spine. Cholecystectomy. IMPRESSION: 1. Cardiomegaly with pulmonary vascular congestion. 2. Mild left greater than right bibasilar opacities favor atelectasis. ACT 112: Negative or not required by law. The above report was generated using voice recognition software. It may contain grammatical, syntax o r spelling errors. Electronically signed by: Jamar Daniel M.D. 10/12/2020 6:55 AM
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
[2020-10-12 07:07] LABS: Albumin Level 3.2 gm/dl (3.4-5.0); BUN Creatinine Ratio 22.5 (10-20); Calcium 8.7 mg/dl (8.5-10.1); Creatinine Clr Calc Pharmacy 38.1 ml/min; Est GFR (African American) 57.1 ml/min; Est GFR (Non-African American) 49.3 ml/min; Magnesium 2.2 mg/dl (1.8-2.4); Potassium 4.3 mmol/L (3.5-5.1)
[2020-10-12 07:24] LABS: Albumin Globulin Ratio 0.9 (0.9-2); Bilirubin,Total 0.4 mg/dl (0.2-1); Globulin 3.6 gm/dl (2.5-4.0); Thyroid Stimulating Hormone 2.72 uIu/ml (0.300-4.500); Total Protein 6.8 gm/dl (6.4-8.2); Troponin I 0.052 ng/ml (0-0.045)
[2020-10-12 07:31] LABS: Appearance Urine Clear (Clear); Bacteria Urine Automated Negative (Negative); Bilirubin Urine Negative (Negative); Blood Urine Trace (Negative); Color Urine Yellow; Epithelial Cell Urine Auto 0-5 /lpf (0-5); Glucose Urine UA Negative (Negative); Ketones Urine Negative (Negative); Leukocyte Esterase Urine Negative (Negative); Nitrite Urine Negative (Negative); Protein Urine Negative (Negative); RBC Urine Automated 0-4 /hpf (0-4); Specific Gravity Urine 1.018 (1.000-1.030); Urobilinogen Urine Negative (Negative); pH Urine 5.5 (4.5-7.5)
--- NOTE | 2020-10-12 07:51 | CT Scan Report ---
HEAD CT NONCONTRAST CT DOSE: 537.48 mGy.cm HISTORY: confusion TECHNIQUE: Multiaxial CT images of the head were performed without the use of intravenous contrast. A utomated exposure control was utilized for this study. A dose lowering technique was utilized adheri ng to the principles of ALARA. Comparison: Head CT 07/25/2020. Findings: There is partial opacification of the ethmoid air cells and a trace fluid level within the right maxillary sinus. The mastoid air cells are clear. The calvarium and skull base are intact. Ther e is no mass, hematoma, midline shift, acute infarct. White matter hypodensity is nonspecific but sug gestive of microvascular ischemic change. The ventricles and sulci demonstrate mild age-related invol utional changes. Impression: 1. No acute intracranial abnormality. 2. Paranasal sinus disease as described above. ACT 112: Negative or not required by law. Electronically signed by: Momo Montiel M.D. 10/12/2020 7:50 AM
[2020-10-12] MEDS ORDERED: cefTRIAXone SODIUM 1,000 MG/50 ML BAG IV STA (07:56)
[2020-10-12] MEDS ORDERED: ASPIRIN CHEW 324 MG PO STA (08:07)
[2020-10-12] MEDS ORDERED: NITROGLYCERIN 2% OINTMENT 30GM TUBE EXT STA (08:07)
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
[2020-10-12] MEDS ORDERED: ALBUTEROL HFA 8 GM INHALER INH PRN (10:56)
[2020-10-12] MEDS ORDERED: ONDANSETRON INJ 2 MG/ML 2 ML VIAL IV PRN (10:56)
[2020-10-12] MEDS ORDERED: NITROGLYCERIN SL 0.4 MG/TAB TAB SL PRN (10:56)
[2020-10-12] MEDS ORDERED: ALUMINUM/MAGNESIUM SUSP 30 ML UDC PO PRN (10:56)
[2020-10-12] MEDS ORDERED: ACETAMINOPHEN 325 MG TAB PO PRN (10:56)
[2020-10-12] MEDS ORDERED: ACETAMINOPHEN 500 MG TAB PO PRN (11:10)
[2020-10-12] MEDS ORDERED: FUROSEMIDE 40 MG/4 ML VIAL IV STA (11:12)
--- NOTE | 2020-10-12 13:27 | Magnetic Resonance Report ---
MRI OF THE BRAIN WITHOUT CONTRAST CLINICAL HISTORY: eval for stroke CHANGE IN MENTAL STATUS WITH NEW ONSET CONFUSION. Inability to lucia d. Inability to get out of bed. COMPARISON STUDY: CT scan dated 10/12/2020, MRI the brain dated 03/07/2020 FINDINGS: Sagittal T1, axial diffusion, T2 weighted axial, coronal FLAIR, and axial T1-weighted images were acq uired. No intra or extra-axial mass lesions are visualized Axial diffusion-weighted images reveal no evidence of acute or subacute infarction. There is no evidence of ventricular dilatation. Proton density T2-weighted and FLAIR images reveal scattered foci of increased T2 signal within the w re matter, likely on a small vessel basis. There are no abnormal flow voids. Inflammatory changes are present within the mastoid and ethmoid sinuses. IMPRESSION: 1. No acute intracranial findings 2. No evidence of intracranial mass 3. No evidence of acute or subacute infarction 4. Ethmoid and mastoid sinus inflammatory changes. ACT 112: Negative or not required by law. Electronically signed by: Colten Bishop M.D. 10/12/2020 1:26 PM
--- NOTE | 2020-10-12 18:28 | Electrocardiogram Report ---
Test Reason : Blood Pressure : / mmHG Vent. Rate : 071 BPM Atrial Rate : 256 BPM P-R Int : 000 ms QRS Dur : 078 ms QT Int : 384 ms P-R-T Axes : 084 003 109 degrees QTc Int : 417 ms Atrial flutter with variable A-V block Left ventricular hypertrophy with repolarization abnormality Inferior infarct , age undetermined Abnormal ECG When compared with ECG of 25-JUL-2020 05:20, Atrial flutter has replaced Sinus rhythm Confirmed by Aiden Bello ([id number]) on 10/12/2020 6:27:38 PM Referred By: REFERRED SELF Confirmed By:Chris Bello
[2020-10-12] MEDS: ENOXAPARIN INJ 40 MG/0.4 ML SYR SQ SCH (22:34)
[2020-10-12] MEDS: FAMOTIDINE 20 MG TAB PO SCH (22:35)
[2020-10-13] MEDS: PANTOprazole 40 MG TAB PO SCH (06:01)
[2020-10-13 08:08] LABS: BUN Creatinine Ratio 27.2 (10-20); Calcium 8.4 mg/dl (8.5-10.1); Creatinine Clr Calc Pharmacy 48.9 ml/min; Est GFR (African American) 86.2 ml/min; Est GFR (Non-African American) 74.4 ml/min; Potassium 3.7 mmol/L (3.5-5.1)
--- NOTE | 2020-10-13 08:08 | Hospitalist Progress Note ---
Date of Service October 13, 2020 Assessment & Plan (1) AMS (altered mental status): Encephalopathy possibly metabolic encephalopathy from urinary tract infection present on admission, sinusitis also noted on imaging. However initial urinalysis is fairly unrevealing. She is a long history of having frequent UTIs and is currently on suppressive Macrodantin. Pending urine culture. She was given ceftriaxone in the emergency room this will be continued Concern for hypoxia with possible heart failure. In the past she has had heart failure preserved ejection fraction based on an echocardiogram from June 2019. On clinical examination she does not examine such as heart failure however she was given Nitropaste in the ER. She remains on supplemental oxygen and she will be given 1 dose of Lasix. With her history of atrial arrhythmia (a flutter) although negative CT of head she is not on any formal anticoagulation, MRI of her brain negative for embolic stroke. Converted to nsr (2) Elevated troponin: Patient has history of intermittently elevated troponin. These will be trended she will be kept on monitor. He is maintained on Plavix and metoprolol she was given aspirin in the ER elevation maybe demand ischemia from physiologic stressor (3) S/P CABG x 1: (4) Atrial flutter: She has a longstanding history of atrial flutter. She previously was on apixaban however she had side effects regarding this she is no longer anticoagulated. There could be concerned that this is a CVA. Initial stroke work-up including CT of her head and MRI areunremarkable, converted to NSR (5) HTN (hypertension): Remains on Cozaar in addition to metoprolol Admission and Anticipated Discharge Date Admission Date: October 12, 2020 Results & Data Results & Data ([facility]) Vital Signs (Past 12 Hours) Vital Signs Temp Pulse Pulse Resp BP Pulse Ox 10/13/20 07:26 86 10/13/20 04:00 97.7 F 76 18 140/84 96 10/12/20 23:00 97.9 F 83 20 131/87 94 PG Care Time/CCT Total # of Minutes Spent Total Time Spent with Patient: Total time spent is greater than 50% in coordination of care (as documented) at patient's floor/unit and/or counseling patient: Coding Diagnoses AMS (altered mental status) R41.82 Altered mental status type: unspecified Elevated troponin R77.8 S/P CABG x 1 Z95.1 Atrial flutter I48.92 HTN (hypertension) I10 Hypertension type: essential hypertension (1) AMS (altered mental status) Altered mental status type: unspecified Qualified Code(s): R41.82 - Altered mental status, unspecified (2) HTN (hypertension) Hypertension type: essential hypertension Qualified Code(s): I10 - Essential (primary) hypertension
[2020-10-13] MEDS ORDERED: LOSARTAN POTASSIUM 25 MG TAB PO SCH (09:00)
[2020-10-13] MEDS: FAMOTIDINE 20 MG TAB PO SCH ×2 (09:04→21:16)
[2020-10-13] MEDS: ASPIRIN 81 MG ECTAB PO SCH (09:04)
[2020-10-13] MEDS: METOPROLOL SUCC 50MG EXT REL TAB PO SCH (09:04)
[2020-10-13] MEDS: CLOPIDOGREL BISULFATE 75 MG TAB PO SCH (09:04)
[2020-10-13] MEDS: ATORVASTATIN 40 MG TAB PO SCH (09:04)
[2020-10-13] MEDS: cefTRIAXone SODIUM 2,000 MG in DEXTROSE 5% 50 ML IV SCH (09:05)
--- NOTE | 2020-10-13 17:09 | Electrocardiogram Report ---
Test Reason : Blood Pressure : / mmHG Vent. Rate : 083 BPM Atrial Rate : 083 BPM P-R Int : 164 ms QRS Dur : 078 ms QT Int : 412 ms P-R-T Axes : 059 036 097 degrees QTc Int : 484 ms Sinus rhythm with Premature supraventricular complexes Nonspecific ST and T wave abnormality Abnormal ECG When compared with ECG of 12-OCT-2020 06:26, Sinus rhythm has replaced Atrial flutter Criteria for Inferior infarct are no longer Present QT has lengthened Confirmed by Aiden Bello ([id number]) on 10/13/2020 5:09:00 PM Referred By: REFERRED SELF Confirmed By:Chris Bello
--- NOTE | 2020-10-13 18:01 | Hospitalist Progress Note ---
Date of Service October 13, 2020 Assessment & Plan (1) AMS (altered mental status): Plan: Metabolic encephalopathy present on admission likely from sinusitis improving will treat with antibiotics. PT OT evaluation prior to discharge Concern for hypoxia with possible heart failure. In the past she has had heart failure preserved ejection fraction based on an echocardiogram from June 2019. On clinical examination she did not examine such as heart failure no further need for supplemental oxygen (2) Elevated troponin: Plan: [place] secondary to demand ischemia did peaked 0.1 now down to 0.075. Ech ocardiogram be done for regional wall motion abnormalities (3) S/P CABG x 1: (4) Atrial flutter: Plan: Patient's atrial for flutter converted to sinus rhythm (5) HTN (hypertension): Plan: cozaar plus metoprolol Admission and Anticipated Discharge Date Admission Date: October 12, 2020 Subjective Patient is much more awake and alert today. She is oriented to place and time. Initial concern for urine infection has been ruled out however she is found of a sinusitis on CT scan and MRI of her brain. Subsequently her agitation could still be from metabolic encephalopathy from infectious source Review of Systems Review of Systems: Mild distress and fatigue no headache, no visual changes does complain of sinus pressure and drainage no speech or swallowing issues no chest pain, pressure or palpitations no shortness of breath, cough or wheezes no abdominal pain, nausea or vomiting, diarrhea or constipation no dysuria, hematuria or frequency no focal joint pain or swelling no back pain, CVA tenderness or radicular pain no bruising, bleeding or rashes no focal signs of weakness or numbness or altered sensation no complaints of anxiety or depression.. Physical Exam Physical Exam: The patient appeared well nourished and normally developed. Vital signs as documented. Head exam is normocephalic atraumatic No significant facial pressure on percussion Neck is without JVD, thyromegaly, or carotid bruits. Lungs are clear to auscultation, no focal loss of breath sounds Cardiac exam, Rhythm is regular.. No murmurs, rubs or gallops. Abdominal exam reveals normal bowel sounds, soft non tender, no masses Extremities are nonedematous and both pedal pulses are present Neurologic exam is alert and oriented, no focal loss of strength or sensation Skin is without bruises or rashes Psychologically is without concerns for anxiety or depression Results & Data Results & Data ([facility]) Vital Signs (Past 12 Hours) Vital Signs Temp Pulse Pulse Resp BP Pulse Ox 10/13/20 16:01 75 10/13/20 15:19 98.1 F 72 18 158/85 H 96 10/13/20 11:46 98.1 F 77 25 H 144/87 H 94 10/13/20 08:39 98.2 F 82 25 H 121/78 95 10/13/20 07:26 86 PG Care Time/CCT Total # of Minutes Spent Total Time Spent with Patient: Total time spent is greater than 50% in coordination of care (as documented) at patient's floor/unit and/or counseling patient: Coding Level of Care Code 86341 Subseq Hosp Care Lvl 2 Diagnoses AMS (altered mental status) R41.82 Altered mental status type: unspecified Elevated troponin R77.8 S/P CABG x 1 Z95.1 Atrial flutter I48.92 HTN (hypertension) I10 Hypertension type: essential hypertension (1) AMS (altered mental status) Altered mental status type: unspecified Qualified Code(s): R41.82 - Altered mental status, unspecified (2) HTN (hypertension) Hypertension type: essential hypertension Qualified Code(s): I10 - Essential (primary) hypertension
[2020-10-13] MEDS: ENOXAPARIN INJ 40 MG/0.4 ML SYR SQ SCH (21:16)
[2020-10-14] MEDS ORDERED: METOPROLOL TARTRATE 1 MG/ML VIAL IV PRN ×2 (01:42→03:55)
[2020-10-14] MEDS ORDERED: METOPROLOL TARTRATE 1 MG/ML VIAL IV ONE ×2 (01:48→04:03)
[2020-10-14] MEDS ORDERED: METOPROLOL TARTRATE 1 MG/ML VIAL IV STA (03:53)
[2020-10-14] MEDS: PANTOprazole 40 MG TAB PO SCH (05:24)
[2020-10-14 07:26] LABS: Hematocrit (blood only) 37.9 % (37-47); Hemoglobin 12.7 g/dL (12.0-16.0); Mean Corpuscular Hemoglobin 32.9 pg (25-34); Mean Corpuscular Hgb Conc 33.5 g/dL (32-36); Mean Corpuscular Volume 98.2 fL (80-100); Platelet Count 227 K/uL (130-400); RDW Coefficient of Variation 13.3 % (11.5-14.5); RDW Standard Deviation 47.8 fL (36.4-46.3); Red Blood Count 3.86 M/uL (4.2-5.4); White Blood Count 6.36 K/uL (4.8-10.8)
[2020-10-14 07:51] LABS: BUN Creatinine Ratio 22.4 (10-20); Calcium 9.1 mg/dl (8.5-10.1); Creatinine Clr Calc Pharmacy 41.1 ml/min; Est GFR (African American) 69.9 ml/min; Est GFR (Non-African American) 60.3 ml/min; Potassium 4.2 mmol/L (3.5-5.1)
[2020-10-14] MEDS: ATORVASTATIN 40 MG TAB PO SCH (08:16)
[2020-10-14] MEDS: CLOPIDOGREL BISULFATE 75 MG TAB PO SCH (08:17)
[2020-10-14] MEDS: ASPIRIN 81 MG ECTAB PO SCH (08:17)
[2020-10-14] MEDS: FAMOTIDINE 20 MG TAB PO SCH ×2 (08:17→20:27)
[2020-10-14] MEDS: METOPROLOL SUCC 50MG EXT REL TAB PO SCH (08:17)
[2020-10-14] MEDS: cefTRIAXone SODIUM 2,000 MG in DEXTROSE 5% 50 ML IV SCH (08:23)
[2020-10-14] MEDS: LOSARTAN POTASSIUM 50 MG TAB PO SCH (09:24)
--- NOTE | 2020-10-14 16:48 | Electrocardiogram Report ---
Test Reason : Blood Pressure : / mmHG Vent. Rate : 086 BPM Atrial Rate : 086 BPM P-R Int : 150 ms QRS Dur : 076 ms QT Int : 396 ms P-R-T Axes : 057 029 075 degrees QTc Int : 473 ms Normal sinus rhythm Cannot rule out Inferior infarct , age undetermined Abnormal ECG When compared with ECG of 13-OCT-2020 06:10, Premature supraventricular complexes are no longer Present Confirmed by Aiden Bello ([id number]) on 10/14/2020 4:48:40 PM Referred By: REFERRED SELF Confirmed By:Chris Bello
--- NOTE | 2020-10-14 17:34 | Hospitalist Progress Note ---
Date of Service October 14, 2020 Assessment & Plan (1) AMS (altered mental status): Plan: Metabolic encephalopathy present on admission likely from sinusitis improving will treat with antibiotics. PT OT evaluation reveal ability to go home Concern for hypoxia with possible heart failure. In the past she has had heart failure preserved ejection fraction based on an echocardiogram from June 2019. On clinical examination she did not examine such as heart failure no further need for supplemental oxygen, acute heart failure is ruled out (2) Elevated troponin: Plan: [place] secondary to demand ischemia did peaked 0.1 now down to 0.075. Echocardiogram be done for regional wall motion abnormalities (3) S/P CABG x 1: (4) Atrial flutter: Plan: Patient's atrial for flutter converted to sinus rhythm (5) HTN (hypertension): Plan: cozaar plus metoprolol Admission and Anticipated Discharge Date Admission Date: October 12, 2020 Subjective Patient is much more awake and alert today. She is oriented to place and time. She does have intermittent issues with confusion. Initial concern for urine infection has been ruled out however she is found of a sinusitis on CT scan and MRI of her brain. Subsequently her agitation could still be from metabolic encephalopathy from infectious source Review of Systems Review of Systems: Mild distress and fatigue no headache, no visual changes does complain of sinus pressure and drainage no speech or swallowing issues no chest pain, pressure or palpitations no shortness of breath, cough or wheezes no abdominal pain, nausea or vomiting, diarrhea or constipation no dysuria, hematuria or frequency no focal joint pain or swelling no back pain, CVA tenderness or radicular pain no bruising, bleeding or rashes no focal signs of weakness or numbness or altered sensation no complaints of anxiety or depression.. Physical Exam Physical Exam: The patient appeared well nourished and normally developed. Vital signs as documented. Head exam is normocephalic atraumatic No significant facial pressure on percussion Neck is without JVD, thyromegaly, or carotid bruits. Lungs are clear to auscultation, no focal loss of breath sounds Cardiac exam, Rhythm is regular.. No murmurs, rubs or gallops. Abdominal exam reveals normal bowel sounds, soft non tender, no masses Extremities are nonedematous and both pedal pulses are present Neurologic exam is alert and oriented, no focal loss of strength or sensation Skin is without bruises or rashes Psychologically is without concerns for anxiety or depression Results & Data Results & Data ([facility]) Vital Signs (Past 12 Hours) Vital Signs Temp Pulse Pulse Resp BP Pulse Ox 10/14/20 15:44 97.9 F 75 24 161/96 H 97 10/14/20 08:10 98.6 F 88 18 152/78 H 96 10/14/20 08:00 77 PG Care Time/CCT Total # of Minutes Spent Total Time Spent with Patient: Total time spent is greater than 50% in coordination of care (as documented) at patient's floor/unit and/or counseling patient: Coding Level of Care Code 33858 Subseq Hosp Care Lvl 2 Diagnoses AMS (altered mental status) R41.82 Altered mental status type: unspecified Elevated troponin R77.8 S/P CABG x 1 Z95.1 Atrial flutter I48.92 HTN (hypertension) I10 Hypertension type: essential hypertension (1) AMS (altered mental status) Altered mental status type: unspecified Qualified Code(s): R41.82 - Altered mental status, unspecified (2) HTN (hypertension) Hypertension type: essential hypertension Qualified Code(s): I10 - Essential (primary) hypertension
[2020-10-14] MEDS: ENOXAPARIN INJ 40 MG/0.4 ML SYR SQ SCH (20:27)
[2020-10-15] MEDS ORDERED: PANTOprazole 40 MG TAB PO SCH (06:30)
[2020-10-15 08:38] LABS: BUN Creatinine Ratio 23.3 (10-20); Calcium 8.5 mg/dl (8.5-10.1); Creatinine Clr Calc Pharmacy 43.4 ml/min; Est GFR (African American) 68.1 ml/min; Est GFR (Non-African American) 58.7 ml/min; Potassium 3.7 mmol/L (3.5-5.1)
[2020-10-15] MEDS: LOSARTAN POTASSIUM 50 MG TAB PO SCH (09:01)
[2020-10-15] MEDS: FAMOTIDINE 20 MG TAB PO SCH (09:01)
[2020-10-15] MEDS: ATORVASTATIN 40 MG TAB PO SCH (09:01)
[2020-10-15] MEDS: CLOPIDOGREL BISULFATE 75 MG TAB PO SCH (09:01)
[2020-10-15] MEDS: ASPIRIN 81 MG ECTAB PO SCH (09:02)
[2020-10-15] MEDS: METOPROLOL SUCC 50MG EXT REL TAB PO SCH (09:02)
[2020-10-15] MEDS: cefTRIAXone SODIUM 2,000 MG in DEXTROSE 5% 50 ML IV SCH ×2 (09:09→10:24)
--- NOTE | 2020-10-15 11:51 | Discharge Summary ---
Date of Service October 15, 2020 Principal Diagnosis metabolic encephalopathy secondary to sinus infection present on admission deconditioning in need of home PT Discharge Exam The patient appeared to be mildly demented Vital signs as documented. Lungs are clear to auscultation and appear unlabored Cardiac exam, Rhythm is regular.. No murmurs, rubs or gallops. Abdominal exam reveals normal bowel sounds, soft non tender, no masses Extremities are nonedematous and both pedal pulses are normal. Neurologic exam is alert and oriented, x2 no focal loss of strength or sensation Skin is without bruises or rashes Psychologically is without concerns for anxiety or depression. Discharge Data Allergies Allergy/AdvReac Type Severity Reaction Status Date / Time perflutren Allergy Severe MUSCLE Verified 10/12/20 08:20 TIGHTNESS propylene glycol Allergy Severe MUSCLE Verified 10/12/20 08:20 TIGHTNESS Sulfa (Sulfonamide Allergy Mild depleted Verified 10/12/20 08:20 Antibiotics) platelet count sulfamethoxazole Allergy Mild RASH Verified 10/12/20 08:20 trimethoprim Allergy Mild RASH Verified 10/12/20 08:20 apixaban [From Eliquis] AdvReac Unknown Dizziness, Verified 10/12/20 08:20 nausea tramadol AdvReac Unknown Hallucinati Verified 10/12/20 08:20 ng Consultations 10/12/20 08:17 ED Decision to Admit Stat Ordered Studies 10/12/20 06:38 CT head/brain wo con Stat 10/12/20 10:56 MR brain wo con Stat Hospital Course (1) AMS (altered mental status): PT OTMetabolic encephalopathy present on admission likely from sinusitis improving will treat with antibiotics. PT OT evaluation feels she is able to go home but will recommend outpatient e Concern for hypoxia with possible heart failure. In the past she has had heart failure preserved ejection fraction based on an echocardiogram from June 2019. On clinical examination she did not examine such as heart failure no further need for supplemental oxygen, acute heart failure is ruled out (2) Elevated troponin: Calvin secondary to demand ischemia did peaked 0.1 now down to 0.075. Echocardiogram shows normal left ventricular function aortic valve sclerosis mild mitral annular calcification and right ventricular pressures normal no regional wall motion abnormalities are described therefore we believe the demand ischemia is the diagnosis with elevation of the troponin (3) S/P CABG x 1: (4) Atrial flutter: Patient's atrial for flutter converted to sinus rhythm occasional short r uns of atrial flutter which has been rate controlled remains on metoprolol currently not on anticoagulation for atrial flutter (5) HTN (hypertension): cozaar plus metoprolol Total Time Total Time Spent Total Time Spent (In Minutes): it took greater than 30 minutes to prepare this discharge summary Discharge Plan Discharge Items Patient Disposition: Home - Home Health Services Reason For Visit: ENCEPHALOPATHY, ELEVATED TROPONIN, HFPER Discharge Diagnosis: metabolic encephalopathy secondary to sinus infetion elevated troponin Activity: Per Instructions section Activity Comment: home PT/OT will give you activity instructions Non-emergency contact: Primary Care Provider Call non-emergency contact if: you have any medication questions and your symptoms worsen Follow-up/Referrals: Susu Bower DO [Primary Care Provider] - Diet: Regular Addtl Attending Provider Instructions: please finish all of your antibiotics please have good hydration and rest please follow up with your family doctor Pending Studies at Discharge: No Stand-Alone Forms: My 4meee, Smoking Cessation Medications and DC Order Prescriptions: New cefdinir 300 mg Capsule 300 mg PO BID Qty: 14 RF: 0 Continued nitroglycerin 0.4 mg tablet, sublingual 0.4 mg sublingual DIRECTED PRN (Reason: Chest Pain) RF: 0 atorvastatin 80 mg tablet 80 mg PO QAM RF: 0 Centrum Silver Women 8 mg iron-400 mcg-300 mcg Tablet 1 tab PO QAM RF: 0 metoprolol succinate 100 mg tablet extended release 24 hr 100 mg PO QAM RF: 0 losartan [Cozaar] 25 mg Tablet 25 mg PO QAM RF: 0 clopidogrel 75 mg tablet 75 mg PO QAM RF: 0 pantoprazole 20 mg tablet,delayed release (DR/EC) 20 mg PO DAILYBB RF: 0 albuterol sulfate 90 mcg/actuation HFA aerosol inhaler 2 puffs INH Q6H PRN (Reason: Shortness Of Breath Or Wheezing) RF: 0 cyanocobalamin (vitamin B-12) [Vitamin B-12] 1,000 mcg Tablet 1,000 mcg PO DAILY RF: 0 acetaminophen [Tylenol Extra Strength] 500 mg Tablet 500 mg PO Q6H PRN (Reason: Pain) RF: 0 famotidine [Pepcid] 20 mg tablet 20 mg PO BID RF: 0 cholecalciferol (vitamin D3) [Vitamin D3] 10 mcg (400 unit) Capsule 10 mcg PO DAILY RF: 0 nitrofurantoin macrocrystal [Macrodantin] 50 mg capsule 50 mg PO HS RF: 0 Discharge Orders: Discharge Order (Routine); Ordered 10/15/20 Ordered By: Christian Brown Admission Data Admit Date/Time: 10/12/20 09:17 Attending Provider: Christian Brown Admit Provider: Christian Brown Primary Care Provider: Susu Bower Other Providers: Cuco Soliman ; [facility] Other Interventions: Discharge Summary Assessment (RN) Last Done: 10/15/20 12:12 Coding Level of Care Code D/C DAY MANAGEMENT >30 MINS Diagnoses AMS (altered mental status) R41.82 Altered mental status type: unspecified Elevated troponin R77.8 S/P CABG x 1 Z95.1 Atrial flutter I48.92 HTN (hypertension) I10 Hypertension type: essential hypertension Home Health Attestation I certify that this patient is under my care and that I, or a physicians patient clerical assistant working with me, had a face to-face encounter that meets the home health [id number] encounter requirements with this patient. The encounter with the patient was in whole, or in part, for the following medical condition, which is the primary reason for home health care (list medical condition): I certify that, based on my findings, the following services are medically necessary home health services: home PT/OT My clinical findings support the need for the above services because:evaluation by PT/OT recommend continued treatment in home after discharge Further, I certify that my clinical findings support that this patient is homebound (i.e. absences from home require considerable and taxing effort and are for medical reasons or [facility] services or infrequently or of short duration when for other reasons) because: Certification for Home Health Services: Based on the above findings, I certify that this patient is confined to the home and needs intermittent assisted care, physical therapy and/or speech therapy or continues to need occupational therapy. The patient is under my care, and I have initiated the establishment of the plan of care. This patient will be followed by a physician who will periodically review the plan of care.
--- NOTE | 2020-10-15 13:03 | XCELERA ---
[id number]
[2020-10-15] MEDS ORDERED: CEFDINIR 300 MG CAP PO SCH (21:00)
[2020-10-15] MEDS ORDERED: QUEtiapine FUMARATE 25 MG TABLET PO SCH (21:00)
== END 2020-10-15 13:29 | disposition home health service (06) | DRG 152 ==
LOC: ED 06:17 → 2S 09:17 → SUATTDRO 09:17 → 2S 10:35

== ENCOUNTER 2020-12-16 03:15 | Inpatient (IN) ==
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
[2020-12-16 04:20] LABS: Basophils # (auto) 0.02 K/uL (0-0.2); Basophils % (auto) 0.5 %; Eosinophils # (auto) 0.26 K/uL (0-0.5); Eosinophils % (auto) 6.8 %; Hematocrit (blood only) 34.1 % (37-47); Lymphocytes # (auto) 1.29 K/uL (1.2-3.4); Lymphocytes % (auto) 33.5 %; Mean Corpuscular Hemoglobin 32.6 pg (25-34); Mean Corpuscular Hgb Conc 32.3 g/dL (32-36); Mean Corpuscular Volume 101.2 fL (80-100); Monocytes # (auto) 0.24 K/uL (0.11-0.59); Monocytes % (auto) 6.2 %; Neutrophils # (auto) 2.04 K/uL (1.4-6.5); Platelet Count 203 K/uL (130-400); RDW Coefficient of Variation 14.3 % (11.5-14.5); RDW Standard Deviation 53.4 fL (36.4-46.3); Red Blood Count 3.37 M/uL (4.2-5.4); White Blood Count 3.85 K/uL (4.8-10.8)
[2020-12-16 04:38] LABS: Alanine Aminotransferase 18 U/L (12-78); Albumin Level 3.2 gm/dl (3.4-5.0); Aspartate Aminotransferase 23 U/L (15-37); BUN Creatinine Ratio 15.6 (10-20); Blood Urea Nitrogen 16 mg/dl (7-18); Calcium 9.2 mg/dl (8.5-10.1); Carbon Dioxide 27 mmol/L (21-32); Chloride 108 mmol/L (98-107); Creatinine Clr Calc Pharmacy 39.7 ml/min; Est GFR (African American) 58.8 ml/min; Est GFR (Non-African American) 50.7 ml/min; Glucose 103 mg/dl (70-99); Potassium 3.9 mmol/L (3.5-5.1); Sodium 139 mmol/L (136-145)
[2020-12-16 04:42] LABS: Albumin Globulin Ratio 0.9 (0.9-2); Alkaline Phosphatase 100 U/L (45-117); Bilirubin,Total 0.4 mg/dl (0.2-1); Globulin 3.6 gm/dl (2.5-4.0); Total Protein 6.8 gm/dl (6.4-8.2); Troponin I < 0.015 ng/ml (0-0.045)
[2020-12-16 05:10] LABS: Appearance Urine Clear (Clear); Bacteria Urine Automated Negative (Negative); Bilirubin Urine Negative (Negative); Blood Urine 3+ (Negative); Cast Urine Automated 0 /lpf (0-5); Color Urine Yellow; Glucose Urine UA Negative (Negative); Ketones Urine Negative (Negative); Leukocyte Esterase Urine Trace (Negative); Nitrite Urine Negative (Negative); Protein Urine Negative (Negative); RBC Urine Automated >30 /hpf (0-4); Specific Gravity Urine 1.011 (1.000-1.030); Urobilinogen Urine Negative (Negative)
[2020-12-16] MEDS ORDERED: MECLIZINE HCL 25 MG TAB PO STA (05:57)
[2020-12-16] MEDS ORDERED: fentaNYL citrate 100 MCG/2 ML VIAL IV STA (05:57)
--- NOTE | 2020-12-16 06:42 | CT Scan Report ---
CT head/brain wo con CLINICAL HISTORY: 85 years-old Female with dizziness. Acute dizziness with headache TECHNIQUE: Multiple axial CT images of the head were obtained without contrast. A dose lowering tech nique was utilized adhering to the principles of ALARA. CT DOSE: 537.48 mGy.cm COMPARISON: Head CT and brain MRI 10/12/2020 FINDINGS: No acute intracranial hemorrhage, midline shift, intracranial mass, hydrocephalus, territorial ischem ia or abnormal extra-axial collection. Age-related involutional changes. White matter hypodensities s uggestive of chronic microvascular ischemic disease. Cerebral vascular calcifications. The calvarium is intact. Trace mastoid effusions. Minimal mucosal thickening of the ethmoid air cell s. Prior bilateral lens repair. IMPRESSION: No acute intracranial abnormality. ACT 112: Negative or not required by law. The above report was generated using voice recognition software. It may contain grammatical, syntax o r spelling errors. Electronically signed by: Jamar Daniel M.D. 12/16/2020 6:40 AM
[2020-12-16] MEDS ORDERED: hydrALAZINE HCL 20 MG/ML VIAL IV ONE (06:52)
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
[2020-12-16] MEDS ORDERED: SODIUM CHLORIDE 0.9% 1000ML 1,000 ML IV SCH (12:12)
[2020-12-16] MEDS ORDERED: MAGNESIUM HYDROXIDE SUSP 30 ML UDC PO PRN (12:12)
[2020-12-16] MEDS ORDERED: LOSARTAN POTASSIUM 25 MG TAB PO SCH (12:12)
[2020-12-16] MEDS ORDERED: POLYETHYLENE (MIRALAX) 17 GM PACK PO PRN (12:12)
[2020-12-16] MEDS ORDERED: ONDANSETRON INJ 2 MG/ML 2 ML VIAL IV PRN (12:12)
[2020-12-16] MEDS ORDERED: METOPROLOL SUCC 50MG EXT REL TAB PO SCH (12:12)
[2020-12-16] MEDS ORDERED: ALUMINUM/MAGNESIUM SUSP 30 ML UDC PO PRN (12:12)
--- NOTE | 2020-12-16 13:29 | XRay Report ---
XR chest 2V PA/lateral HISTORY: 85 years-old Female cough acute cough COMPARISON: Chest radiograph 10/12/2020, CT abdomen and pelvis 05/20/2020. TECHNIQUE: PA and lateral views of the chest FINDINGS: Cardiac mediastinal and hilar silhouettes are within normal limits. Prior median sternotomy with surg ical clips projecting over the left hilum. Mild chronic interstitial coarsening. No pneumothorax, ple ural effusion, overt pulmonary edema or lobar airspace consolidation. Eventration of the right hemidi aphragm. Degenerative changes of the shoulders and spine. Chronic L1 compression deformity. Surgical clips of the upper abdomen. IMPRESSION: No acute process. ACT 112: Negative or not required by law. The above report was generated using voice recognition software. It may contain grammatical, syntax o r spelling errors. Electronically signed by: Jamar Daniel M.D. 12/16/2020 1:27 PM
[2020-12-16] MEDS ORDERED: GADOBUTROL 65ML VIAL IV ONE (14:43)
[2020-12-16] MEDS: ATORVASTATIN 40 MG TAB PO SCH (14:53)
[2020-12-16] MEDS: CLOPIDOGREL BISULFATE 75 MG TAB PO SCH (14:53)
[2020-12-16] MEDS: FAMOTIDINE 20 MG TAB PO SCH ×2 (14:54→20:37)
--- NOTE | 2020-12-16 15:04 | Magnetic Resonance Report ---
MR brain wo/w con HISTORY: 85 years-old Female r/o stroke acute weakness with dizziness COMPARISON: Brain MRI 10/12/2020 TECHNIQUE: Multiplanar multisequence MRI of the brain was obtained both with and without the use of 7 .0 mL Gadavist FINDINGS: General Merchandise Manager localizer images demonstrate no gross extracranial abnormality. There is no restricted diffusio n to suggest acute or subacute infarct. No acute intracranial hemorrhage, midline shift, abnormal ext ra-axial collection, hydrocephalus or intracranial mass. Age-related involutional changes. Mild to mo derate T2/FLAIR hyperintensities are noted throughout the white matter suggestive of chronic microvas cular ischemic disease. Possible development of venous anomaly of the himanshu on image 6 of series 15. O therwise, there is no abnormal intra-axial or extra-axial enhancement. Cerebral venous sinuses and major arterial flow voids appear patent. Bilateral mastoid effusions. Mil d mucosal thickening of the ethmoid sinuses. Prior bilateral lens repair. The skull and soft tissues are unremarkable. IMPRESSION: 1. No acute intracranial abnormality. No acute or subacute infarct. 2. Age-related involutional changes with chronic microvascular ischemic disease. ACT 112: Negative or not required by law. The above report was generated using voice recognition software. It may contain grammatical, syntax o r spelling errors. Electronically signed by: Jamar Daniel M.D. 12/16/2020 3:03 PM
--- NOTE | 2020-12-16 15:12 | Magnetic Resonance Report ---
MR angio neck wo/w con CLINICAL HISTORY: Weakness. Dizziness. History of stroke. Known carotid disease. COMPARISON STUDY: CTA of the neck May 20, 2020. TECHNIQUE: Utilizing a 1.5 Victoria magnet and dedicated coil, unenhanced and contrast-enhanced MRA of t he neck was performed. Intravenous injection of 7 cc of Gadavist was uneventful. FINDINGS: Severe stenosis of the proximal right internal carotid artery is due to atherosclerotic de que. The proximal right internal carotid artery measures .7 mm in caliber at the level of narrowing a nd 5 mm distally. This is similar to CTA of May 20, 2020 when allowing for differences in techni que. There is moderate stenosis of the proximal right external carotid artery. There is mild irregula rity due to plaque within the proximal left internal carotid artery without stenosis. The bilateral v ertebral arteries are patent. There is no dissection within the major vessels of the neck. Hypointens e signal within the right subclavian artery is likely due to calcified plaque which was shown on prio r CTA. IMPRESSION: 1. Severe stenosis (greater than 90%) of the proximal right internal carotid artery, similar to CTA o f May 20, 2020. 2. Plaque within the proximal left internal carotid artery without stenosis. 3. Patent bilateral vertebral arteries. ACT 112: Negative or not required by law. Electronically signed by: Tyrell Bernard M.D. 12/16/2020 3:10 PM
[2020-12-16] MEDS ORDERED: OPTIRAY 320 125ml IV ONE (17:10)
--- NOTE | 2020-12-16 17:13 | Communication Note ---
Date of Service: December 16, 2020 Stroke Alert Pt seen at bedside after stroke alert called overhead. Per nursing report pt with change in mental status and became unresponsive on afternoon assessment. Last known normal was 1630hrs. On bedside assessment pt does not follow commands, answer questions, or track with gaze. BSG 107 at point of care. Eyes open, responsive to light but pt does not track/follow objects. Per nursing report concern for initial R facial droop. Telestroke services initiated and pt sent to radiology for CT-H. CMP/CBC/troponin/coags/Mg/Ph ordered. At arrival to ICU 110 patient becoming more alert, following 2 step commands, oriented to name and place. Smile with R lip droop, PERLAA, visual tracking grossly intact. Plt normal. Case presented to [facility] Telestroke Dr. Sinha. Telestroke assessment performed. Recommendations: Discussed with [facility] telestroke provider. TIA vs transient syncopal +Full dose aspirin x1 then 81mg daily. Continue to consider as anticoagulation candidate in the future, defer for now. Vascular referral for carotid endarterectomy evaluation. Discussed findings/plan with CANDE Hardy who assumed care of patient. Arrived at bedside 1648, patient signed off to CANDE at 1750. Total time providing direct care, reviewing labs/images, and discussing with primary provider 62 minutes of critical care time given risk to life and well being with cerebrovascular event .
[2020-12-16 17:16] LABS: Basophils # (auto) 0.03 K/uL (0-0.2); Basophils % (auto) 0.5 %; Eosinophils # (auto) 0.16 K/uL (0-0.5); Eosinophils % (auto) 2.4 %; Hematocrit (blood only) 36.3 % (37-47); Hemoglobin 11.8 g/dL (12.0-16.0); Immature Granulocytes # (auto) 0.01 K/uL (0.00-0.02); Immature Granulocytes % (auto) 0.2 %; Lymphocytes # (auto) 2.14 K/uL (1.2-3.4); Lymphocytes % (auto) 32.7 %; Mean Corpuscular Hemoglobin 33.1 pg (25-34); Mean Platelet Volume 10.3 fL (7.4-10.4); Monocytes # (auto) 0.49 K/uL (0.11-0.59); Monocytes % (auto) 7.5 %; Neutrophils # (auto) 3.72 K/uL (1.4-6.5); Neutrophils % (auto) 56.7 %; Platelet Count 225 K/uL (130-400); RDW Coefficient of Variation 14.3 % (11.5-14.5); RDW Standard Deviation 53.5 fL (36.4-46.3); Red Blood Count 3.56 M/uL (4.2-5.4); White Blood Count 6.55 K/uL (4.8-10.8)
--- NOTE | 2020-12-16 17:25 | CT Scan Report ---
CT SCAN OF THE BRAIN WITHOUT IV CONTRAST CLINICAL HISTORY: Strokelike symptoms. COMPARISON STUDY: CT of the brain dated 12/16/2020. TECHNIQUE: Unenhanced axial CT scan of the brain is performed from the vertex to the skull base. A do se lowering technique was utilized adhering to the principles of ALARA. The examination is significan tly compromised by motion artifact. The patient was scanned twice in an effort to improve image quali ty. FINDINGS: Brain parenchyma: There are age-related involutional changes noting moderate subcortical and periven tricular microangiopathic change. There is no hemorrhage, mass effect, or evidence of acute territori al ischemia by CT criteria. Mancia-white matter differentiation is preserved. No extra-axial fluid johny ection is seen. Ventricles, sulci, cisterns: Prominent secondary to involutional change. Intracranial vasculature: There is atherosclerotic calcification of the cavernous carotid and vertebr al arteries. Calvarium: Unremarkable. Sinuses and mastoids: The visualized paranasal sinuses are clear. There are trace mastoid effusions. Orbits: The bony orbits are grossly intact. There are bilateral ocular lens implants. IMPRESSION: There is no evidence of hemorrhage, mass effect, or acute territorial ischemia by CT guillermot ellen noting a significantly motion compromised examination. ACT 112: Negative or not required by law. Electronically signed by: Prateek Stoll M.D. 12/16/2020 5:24 PM
[2020-12-16 17:34] LABS: Alanine Aminotransferase 18 U/L (12-78); Albumin Level 3.4 gm/dl (3.4-5.0); Aspartate Aminotransferase 25 U/L (15-37); BUN Creatinine Ratio 11.8 (10-20); Blood Urea Nitrogen 12 mg/dl (7-18); Calcium 9.3 mg/dl (8.5-10.1); Carbon Dioxide 18 mmol/L (21-32); Chloride 106 mmol/L (98-107); Creatinine Clr Calc Pharmacy 38.2 ml/min; Est GFR (African American) 56.1 ml/min; Est GFR (Non-African American) 48.4 ml/min; Glucose 122 mg/dl (70-99); Mean Corpuscular Hgb Conc 32.5 g/dL (32-36); Potassium 3.8 mmol/L (3.5-5.1); Sodium 138 mmol/L (136-145)
[2020-12-16 17:40] LABS: Albumin Globulin Ratio 0.9 (0.9-2); Alkaline Phosphatase 93 U/L (45-117); Bilirubin,Total 0.6 mg/dl (0.2-1); Partial Thromboplastin Time 25.4 Seconds (21.0-31.0); Phosphorus 3.8 mg/dl (2.5-4.9); Prothrombin Time 9.7 Seconds (9.0-12.0); Total Protein 7.4 gm/dl (6.4-8.2); Troponin I < 0.015 ng/ml (0-0.045)
--- NOTE | 2020-12-16 17:41 | CT Scan Report ---
CT ANGIOGRAM OF THE BRAIN; CT ANGIOGRAM OF THE NECK CLINICAL HISTORY: Strokelike symptoms. COMPARISON STUDY: Unenhanced CT of the brain performed concurrently on 12/16/2020. CT angiogram of th e head and neck dated 05/20/2020. TECHNIQUE: Following the IV administration of 120 of Optiray 320, CT angiogram of the head and neck w as performed from the aortic arch to the vertex. Images are reviewed in the axial, sagittal, and ellen nal planes. 3-D MIPS images are created and assessed. IV contrast was administered without complicati on. All measurements were calculated based on NASCET criteria. A dose lowering technique was utilize d adhering to the principles of ALARA. The examinations are significantly compromised by motion artif act. CT DOSE: 1518.51 mGy.cm FINDINGS: Brain parenchyma: There is age-related involutional change noting moderate subcortical and periventri cular microangiopathic disease. There is no evidence of hemorrhage, mass effect, or acute territorial ischemia noting angiographic phase technique. There is no evidence of enhancing mass lesion on the a ngiogram phase images. The ventricles, sulci, and cisterns are prominent secondary to involutional ch aranza. Mancia-white matter differentiation is preserved. No extra-axial fluid collection is seen. Thoracic aorta: There is atherosclerotic calcification of the thoracic aorta. Visualized portions of the thoracic aorta are normal in caliber. The aortic arch demonstrates standard 3-vessel anatomy. Right carotid arterial system: The right common carotid artery is widely patent. Advanced atheroscler otic calcification of the right carotid bulb contributes to 90% stenosis at the origin the right inte rnal carotid artery. This is unchanged from previous. The remainder of the right internal carotid art gurvinder is widely patent, as is the right external carotid artery. Left carotid arterial system: The left common carotid artery is widely patent, as are the left customer operations intern al and external carotid arteries. Calcified plaque is noted in the carotid bulb. Vertebral arteries: The vertebral arteries are widely patent bilaterally and codominant. Subclavian arteries: Widely patent bilaterally. Intracranial vasculature: There is atherosclerotic calcification of the cavernous carotid and vertebr al arteries. The internal carotid arteries are patent at the skull base, as are the anterior and midd le cerebral arteries bilaterally. The vertebrobasilar system and posterior cerebral arteries are wide ly patent. Atherosclerotic irregularity is noted in the posterior cerebral arteries. The vertebral ar teries are codominant. 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 This is best seen on image #95. No additional aneurysm is identified. There is no focal high-grade stenosis or ves henry occlusion seen throughout the intracranial circulation. Jugular veins: Patent bilaterally. Dural sinuses: Patent. Upper chest: The patient is status post midline sternotomy. Partially visualized upper lobe lung pare nchyma appears clear. Soft tissues: The visualized pharyngeal soft tissues are normal in appearance noting angiographic pha se technique. The oropharyngeal airway appears widely patent. A 2.8 cm nodule is again seen arising f rom the inferior left lobe of the thyroid gland. The salivary glands are normal in appearance. No cer vical lymphadenopathy is seen. Skeletal structures: The skeletal structures are osteopenic. The calvarium appears intact. The cervic al spine is maintained noting multilevel spondylosis and postoperative change. No lytic or blastic le rupal is seen. Orbits: The bony orbits are intact. Orbital contents are normal as visualized noting bilateral ocular lens implants. Sinuses and mastoids: The paranasal sinuses are clear. There are bilateral mastoid effusions. IMPRESSION: 1. There is no evidence of hemorrhage, mass effect, or acute territorial ischemia noting angiographic phase technique and a significantly motion compromised examination. 2. No change in CT angiogram of the head and neck as compared to 05/20/2020. 3. A 2 mm aneurysm is again seen arising from the left middle cerebral artery. 4. Otherwise unremarkable CT angiogram of the brain. 5. Approximately 90% focal stenosis at the origin of the right internal carotid artery is unchanged. 6. The left carotid arterial system and the vertebral arteries are widely patent in the neck. ACT 112: Negative or not required by law. Electronically signed by: Prateek Stoll M.D. 12/16/2020 5:39 PM
[2020-12-16] MEDS ORDERED: ASPIRIN 81 MG ECTAB PO SCH (18:15)
[2020-12-16] MEDS ORDERED: ASPIRIN 325 MG ECTAB PO ONE (18:30)
[2020-12-16] MEDS: ENOXAPARIN INJ 40 MG/0.4 ML SYR SQ SCH (20:36)
[2020-12-17 02:48] LABS: Basophils # (auto) 0.02 K/uL (0-0.2); Basophils % (auto) 0.2 %; Eosinophils # (auto) 0.02 K/uL (0-0.5); Eosinophils % (auto) 0.2 %; Hematocrit (blood only) 35.5 % (37-47); Hemoglobin 11.6 g/dL (12.0-16.0); Immature Granulocytes # (auto) 0.03 K/uL (0.00-0.02); Immature Granulocytes % (auto) 0.3 %; Lymphocytes # (auto) 2.22 K/uL (1.2-3.4); Lymphocytes % (auto) 24.9 %; Mean Corpuscular Hemoglobin 33.1 pg (25-34); Mean Corpuscular Hgb Conc 32.7 g/dL (32-36); Mean Corpuscular Volume 101.4 fL (80-100); Monocytes # (auto) 0.32 K/uL (0.11-0.59); Monocytes % (auto) 3.6 %; Neutrophils # (auto) 6.32 K/uL (1.4-6.5); Neutrophils % (auto) 70.8 %; Platelet Count 244 K/uL (130-400); RDW Coefficient of Variation 14.4 % (11.5-14.5); RDW Standard Deviation 53.5 fL (36.4-46.3); White Blood Count 8.93 K/uL (4.8-10.8)
[2020-12-17] MEDS ORDERED: METOPROLOL SUCC 50MG EXT REL TAB PO STA (02:59)
--- NOTE | 2020-12-17 03:01 | Communication Note ---
Date of Service: December 17, 2020 Subjective: Brigette lopez was called as the patient became unresponsive. She was not answering questions. The nurse noted that she was not responsive when she went in the room to check on her. Objective: BP: 131/68 HR 85 Neuro: - initially - nonverbal nonresponsive initially with sluggish pupils, - then - progressively improving and was responsive to pain and then moving all extremities and talking with staff - then - able to follow commands, lift eyes and answer questions A/P: 85 yo F w/ severe carotid stenosis, anti cardiolipin +, 2mm MCA aneurysm with unresponsive episode that improved, potentially due to hypoperfusion given ICA stenosis vs. seizure - stopped Losartan for now - adjusted Metoprolol to 50mg BID from 100mg daily - ordered 100ml/hr NSS - CT head ordered - INR, CBC, CMP, troponin ordered - EKG ordered - would further look into side effects she had on apixaban to consider if she should be on anticoagulation going forward - order placed for neuro checks and NIH stroke scale - continue to monitor symptoms
[2020-12-17 03:13] LABS: Alanine Aminotransferase 19 U/L (12-78); Albumin Level 3.3 gm/dl (3.4-5.0); Aspartate Aminotransferase 26 U/L (15-37); BUN Creatinine Ratio 11.1 (10-20); Blood Urea Nitrogen 13 mg/dl (7-18); Calcium 8.5 mg/dl (8.5-10.1); Carbon Dioxide 18 mmol/L (21-32); Chloride 107 mmol/L (98-107); Creatinine Clr Calc Pharmacy 34.6 ml/min; Est GFR (African American) 49.7 ml/min; Est GFR (Non-African American) 42.9 ml/min; Glucose 136 mg/dl (70-99); Potassium 4.1 mmol/L (3.5-5.1); Sodium 138 mmol/L (136-145)
[2020-12-17 03:18] LABS: Albumin Globulin Ratio 0.9 (0.9-2); Alkaline Phosphatase 83 U/L (45-117); Bilirubin,Total 0.5 mg/dl (0.2-1); Globulin 3.6 gm/dl (2.5-4.0); Total Protein 6.9 gm/dl (6.4-8.2); Troponin I < 0.015 ng/ml (0-0.045)
[2020-12-17] MEDS ORDERED: SODIUM CHLORIDE 0.9% 1000ML 1,000 ML IV SCH (03:30)
--- NOTE | 2020-12-17 06:15 | Electrocardiogram Report ---
Test Reason : Blood Pressure : / mmHG Vent. Rate : 065 BPM Atrial Rate : 065 BPM P-R Int : 180 ms QRS Dur : 084 ms QT Int : 422 ms P-R-T Axes : 021 028 019 degrees QTc Int : 438 ms Normal sinus rhythm Normal ECG When compared with ECG of 14-OCT-2020 08:49, No significant change was found Confirmed by Marco Antonio Duarte ([id number]) on 12/17/2020 6:15:31 AM Referred By: REFERRED SELF Confirmed By:Marco Antonio Duarte
--- NOTE | 2020-12-17 07:29 | CT Scan Report ---
CT head/brain wo con CLINICAL HISTORY: 85 years-old Female with ams. Acutely altered mental status TECHNIQUE: Multiple axial CT images of the head were obtained without contrast. A dose lowering tech nique was utilized adhering to the principles of ALARA. CT DOSE: 537.48 mGy.cm COMPARISON: Head CT 12/16/2020 FINDINGS: No acute intracranial hemorrhage, midline shift, intracranial mass, hydrocephalus, territorial ischem ia or abnormal extra-axial collection. Motion degraded exam. Age-related involutional changes. White matter hypodensities suggestive of chronic microvascular ischemic disease. Cerebral vascular calcific ations. The calvarium is intact. Prior bilateral lens repair. The paranasal sinuses, mastoid air cells, and m iddle ear cavities are clear. IMPRESSION: Motion degraded exam. No acute intracranial abnormality. ACT 112: Negative or not required by law. The above report was generated using voice recognition software. It may contain grammatical, syntax o r spelling errors. Electronically signed by: Jamar Daniel M.D. 12/17/2020 7:28 AM
[2020-12-17] MEDS: PANTOprazole 40 MG TAB PO SCH (07:43)
[2020-12-17 09:37] LABS: BUN Creatinine Ratio 14.7 (10-20); Calcium 8.8 mg/dl (8.5-10.1); Creatinine Clr Calc Pharmacy 39.9 ml/min; Est GFR (African American) 68.5 ml/min; Est GFR (Non-African American) 59.1 ml/min; Magnesium 2.2 mg/dl (1.8-2.4); Potassium 3.8 mmol/L (3.5-5.1)
[2020-12-17] MEDS: FAMOTIDINE 20 MG TAB PO SCH ×2 (10:06→20:32)
[2020-12-17] MEDS: ATORVASTATIN 40 MG TAB PO SCH (10:06)
[2020-12-17] MEDS: METOPROLOL SUCC 50MG EXT REL TAB PO SCH ×2 (10:06→20:32)
[2020-12-17] MEDS: CLOPIDOGREL BISULFATE 75 MG TAB PO SCH (10:06)
--- NOTE | 2020-12-17 10:10 | Electrocardiogram Report ---
Test Reason : Blood Pressure : / mmHG Vent. Rate : 091 BPM Atrial Rate : 091 BPM P-R Int : 176 ms QRS Dur : 080 ms QT Int : 370 ms P-R-T Axes : 062 051 090 degrees QTc Int : 455 ms Poor data quality, interpretation may be adversely affected Normal sinus rhythm Normal ECG When compared with ECG of 16-DEC-2020 03:19, (unconfirmed) No significant change was found Confirmed by Donis Stein ([id number]) on 12/17/2020 10:09:48 AM Referred By: REFERRED SELF Confirmed By:Donis Stein
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
--- NOTE | 2020-12-17 14:10 | Magnetic Resonance Report ---
Brain MRI WITHOUT CONTRAST HISTORY: dysarthria, right facial droop, stroke TECHNIQUE: Multiplanar multisequence MRI of the brain was performed without the use of contrast. COMPARISON STUDY: Brain MRI 12/16/2020. FINDINGS: There is no mass, hematoma, midline shift, or acute infarct. The ventricles and sulci demon strate mild age-related involutional changes. Scattered foci of T2 hyperintensity seen within the per iventricular and subcortical white matter are nonspecific but suggestive of mild to moderate microvas cular ischemic changes. The major vascular flow voids at the skull base are well-maintained. Mild muc osal thickening within the paranasal sinuses and trace bilateral mastoid effusions. There are few pun ctate old lacunar infarcts within the right cerebellar hemisphere, unchanged. Prior bilateral lens re pair. IMPRESSION: No significant change compared to the prior study. No acute intracranial abnormality. ACT 112: Negative or not required by law. Electronically signed by: Momo Montiel M.D. 12/17/2020 2:09 PM
--- NOTE | 2020-12-17 14:38 | Hospitalist Progress Note ---
Date of Service December 17, 2020 Assessment & Plan (1) Stroke: Plan: * despite negative CT x3 and negative MRI, it appears as it patient is having acute neurological events (TIA vs CVA). * yesterday's event was self limiting * today, patient seems to have mild residual slurred speech * ASA added for dual antiplatelet therapy in addition to her high intensity statin therapy which at her age may not be beneficial regarding lipid panel but would help with cerebral penumbra * Neurology on board. Did discuss case with Dr. Beckwith and plan is for follow-up MRI as he is also convinced that the patient did have an acute neurological event * Patient with known right carotid stenosis. Has been seen by vascular who does not feel that patient needs emergent endovascular intervention but would like input from neurology * Will update echocardiogram to ensure patient does not have an intracardiac thrombus. 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 No under lying atrial fibrillation that we can see; however, may benefit from an event monitor * In addition, may consider anticoagulation therapy. Given multiple acute events, may be cardioembolic in nature. At her advanced age, I do get concerned with her being on dual antiplatelet therapy in addition to anticoagulation therapy. In addition, she has a reported allergy to Eliquis (dizziness). We will discuss this further with neurology and ultimately I do not want to start this in case vascular does decide to do intervention more urgently * Consult PT/OT/speech therapy * Patient currently n.p.o.would appreciate recommendations from speech therapy * I have called and updated patient's son who is requesting DNR status (he is the POA). (2) Internal carotid artery stenosis: Plan: * On dual antiplatelet therapy * Vascular surgery on board * Appreciate recommendations (3) HTN (hypertension): Plan: - BP high; however, acceptable given her recent acute event and known carotid stenosis (need higher BP for adequate cerebral perfusion) (4) Atrial flutter: Plan: -no evidence of A.Fib or flutter so far during this hospitalization. -May need event monitor as outlined. (5) CAD (coronary artery disease): Plan: - no evidence of ACS. on dual antiplatelet therapy, BB and statin Plan: plan of care to be D/W Dr. Gonzales. Further orders as warranted Admission and Anticipated Discharge Date Admission Date: December 16, 2020 Subjective Patient seen on daily rounds today. Had a similar event to yesterday take place around 2 AM this morning. Patient had increasing confusion and became nonverbal. Pupils were sluggish to respond. Episode was brief and self- limiting. Another CT of the head was done showing no acute pathology. Thus f ar, she has had a CT of the head that was negative, MRI/MRA of the brain and neck that was negative, CTA of the head and neck last evening, and subsequent CT of the head early this morning. No acute infarct seen. Patient remains on Plavix and high intensity statin therapy (as prior to hospitalization) with the addition of aspirin as recommended by neurology. A telestroke visit was done last evening and patient also seen by neurology today. Clinically, neurology feels as if the patient had a left hemispheric stroke by exam. Dr. Beckwith is recommending a repeat MRI since these 2 subsequent events occurred after the MRI that was done yesterday. Has also been seen by vascular surgery who is recommending no aggressive intervention at this time and for patient to be seen in follow-up next week. 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 No evidence of atrial fib/flutter although patient does have an underlying history of atrial flutter. Echocardiogram done September 2020; however, reordered to rule out underlying thrombus given her history of atrial flutter. She has a reported allergy to Eliquis. This was verified with patient and her son. Apparently she was on this in the past and developed dizziness. She stopped this at her own avail and her dizziness resolved. Currently, patient denies significant complaints or concerns. She has since been made n.p.o. given subsequent event that occurred this morning. Her speech/articulation is not quite as clear as it was yesterday. She is forming her words but sluggish. She denies fevers, chills, chest pain, shortness of breath, abdominal pain, nausea or vomiting. Nursing voices no significant complaints or concerns. Review of Systems Review of Systems: All systems reviewed and are unremarkable except as noted in HPI and below Denies fevers, chills, headache, nasal congestion, sore throat, cough, chest pain, shortness of breath, palpitations, orthopnea, PND, abdominal pain, nausea, vomiting, diarrhea, constipation, dysuria, hematuria, frequency, back pain, joint pain or swelling, easy bruising or blooding, skin lesions or rashes. Physical Exam Physical Exam: General: Resting comfortably in her hosptial bed. NAD. HEENT: Head is AT/NC buccal mucosa is moist and pink Neck: No JVD. Negative hepatojugular reflex Cardiac: RRR Lungs: CTA without W/R/R Abdomen: Normoactive X4. Soft and nontender in all quadrants. Extremities: No peripheral clubbing cyanosis or edema Neuro: A&O X4 cranial nerves II through XII are grossly intact. I do not a ppreciate facial drooping as I did yesterday. Shoulder shrug intact. Hclsit-bz-lrio intact. Speech is slightly slurred but not aphasic. No unilateral weakness in arms or legs. Downward Babinski bilaterally. Skin: No obvious skin lesions or rashes Psych: Appropriate affect pleasant and cooperative Results & Data Results & Data ([facility]) Vital Signs (Past 12 Hours) Vital Signs Temp Pulse Pulse Pulse Resp BP BP 12/17/20 09:00 83 12/17/20 07:26 37.2 C 90 18 141/75 H 12/17/20 06:14 91 H 18 173/89 H Pulse Ox 12/17/20 09:00 12/17/20 07:26 93 12/17/20 06:14 94 Laboratory Results 12/17/20 02:35 12/17/20 08:28 Diagnostic Findings MRI/MRA of the brain and neck: IMPRESSION: 1. No acute intracranial abnormality. No acute or subacute infarct. 2. Age-related involutional changes with chronic microvascular ischemic disease. IMPRESSION: 1. Severe stenosis (greater than 90%) of the proximal right internal carotid artery, similar to CTA of May 20, 2020. 2. Plaque within the proximal left internal carotid artery without stenosis. 3. Patent bilateral vertebral arteries. CT head/CTA head and neck following code stroke alert: IMPRESSION: There is no evidence of hemorrhage, mass effect, or acute territorial ischemia by CT criteria noting a significantly motion compromised examination. IMPRESSION: 1. There is no evidence of hemorrhage, mass effect, or acute territorial ischemia noting angiographic phase technique and a significantly motion compromised examination. 2. No change in CT angiogram of the head and neck as compared to 05/20/2020. 3. A 2 mm aneurysm is again seen arising from the left middle cerebral artery. 4. Otherwise unremarkable CT angiogram of the brain. 5. Approximately 90% focal stenosis at the origin of the right internal carotid artery is unchanged. 6. The left carotid arterial system and the vertebral arteries are widely patent in the neck. IMPRESSION: 1. There is no evidence of hemorrhage, mass effect, or acute territorial ischemia noting angiographic phase technique and a significantly motion compromised examination. 2. No change in CT angiogram of the head and neck as compared to 05/20/2020. 3. A 2 mm aneurysm is again seen arising from the left middle cerebral artery. 4. Otherwise unremarkable CT angiogram of the brain. 5. Approximately 90% focal stenosis at the origin of the right internal carotid artery is unchanged. 6. The left carotid arterial system and the vertebral arteries are widely patent in the neck. CT of the head following Rapid response at 0200: IMPRESSION: Motion degraded exam. No acute intracranial abnormality. PG Care Time/CCT Total # of Minutes Spent Total Time Spent with Patient: Total time spent is greater than 50% in coordination of care (as documented) at patient's floor/unit and/or counseling patient: Coding [place] [address] Subseq Hosp Care Lvl 3 Patient Type Established History Comprehensive Exam Comprehensive Medical Decision Making High Complexity Diagnoses Stroke I63.9 Internal carotid artery stenosis I65.29 HTN (hypertension) I10 Hypertension type: essential hypertension Atrial flutter I48.92 CAD (coronary artery disease) I25.10 (1) HTN (hypertension) Hypertension type: essential hypertension Qualified Code(s): I10 - Essential (primary) hypertension
--- NOTE | 2020-12-17 16:03 | XCELERA ---
[id number]
[2020-12-17] MEDS: ASPIRIN 81 MG ECTAB PO SCH ×2 (18:04→18:27)
--- NOTE | 2020-12-17 19:22 | Billing Data ---
Date of Service December 17, 2020 Coding Level of Care Code Critical Care 1st - mins
[2020-12-17] MEDS: ENOXAPARIN INJ 40 MG/0.4 ML SYR SQ SCH (21:00)
[2020-12-18] MEDS: PANTOprazole 40 MG TAB PO SCH (06:21)
[2020-12-18] MEDS: METOPROLOL SUCC 50MG EXT REL TAB PO SCH ×2 (08:02→21:14)
[2020-12-18] MEDS: CLOPIDOGREL BISULFATE 75 MG TAB PO SCH (08:03)
[2020-12-18] MEDS: ATORVASTATIN 40 MG TAB PO SCH (08:03)
[2020-12-18] MEDS: FAMOTIDINE 20 MG TAB PO SCH ×2 (08:03→21:15)
[2020-12-18 08:18] LABS: Basophils # (auto) 0.02 K/uL (0-0.2); Basophils % (auto) 0.3 %; Eosinophils # (auto) 0.11 K/uL (0-0.5); Eosinophils % (auto) 1.9 %; Hematocrit (blood only) 36.1 % (37-47); Hemoglobin 11.8 g/dL (12.0-16.0); Lymphocytes # (auto) 1.46 K/uL (1.2-3.4); Lymphocytes % (auto) 24.7 %; Mean Corpuscular Hemoglobin 32.9 pg (25-34); Mean Corpuscular Hgb Conc 32.7 g/dL (32-36); Mean Corpuscular Volume 100.6 fL (80-100); Mean Platelet Volume 9.9 fL (7.4-10.4); Monocytes % (auto) 6.8 %; Neutrophils # (auto) 3.93 K/uL (1.4-6.5); Neutrophils % (auto) 66.3 %; Platelet Count 212 K/uL (130-400); RDW Coefficient of Variation 14.2 % (11.5-14.5); RDW Standard Deviation 51.9 fL (36.4-46.3); Red Blood Count 3.59 M/uL (4.2-5.4); White Blood Count 5.92 K/uL (4.8-10.8)
[2020-12-18] MEDS ORDERED: RIVAROXABAN 20 MG TAB PO SCH (09:00)
[2020-12-18 09:19] LABS: BUN Creatinine Ratio 16.5 (10-20); Calcium 8.5 mg/dl (8.5-10.1); Creatinine Clr Calc Pharmacy 41.3 ml/min; Est GFR (African American) 71.4 ml/min; Est GFR (Non-African American) 61.6 ml/min; Potassium 3.5 mmol/L (3.5-5.1)
[2020-12-18 09:20] LABS: Magnesium 2.1 mg/dl (1.8-2.4)
--- NOTE | 2020-12-18 11:29 | Hospitalist Progress Note ---
Date of Service December 18, 2020 Assessment & Plan (1) Stroke: Plan: * CT of head done 12/16 (on admission) done and negative * MRI/MRA of brain and neck on 12/16 subsequently done and also negative * on the afternoon of 12/16 (after all imaging)-- became nonverbal and unable to follow commands. Then as it cleared, speech was slurred and she had a Right facial droop. Repeat CT of head and CTA of neck done and negative for acute CVA * Symptoms CLEARED/resolved completely. Neuro/ Telestroke visit done who agreed seemed like a TIA and agreed with addition of ASA to Plavix (which was not on her home med list) along with high intensity statin therapy * In the [facility] house of 12/17, patient had a similar event as prior. Repeat CT done and negative * Symptoms self limited. * seen in FU by Neuro who felt that symptoms were more consistent with a left hemispheric CVA and although known high grade stenosis (90%)-- neuro and vascular does not feel that surgical intervention is required at this time (will see vascular as an OP) * Patient asymptomatic this am. Now reports that she has been on dial antiplatelet therapy (ASA 81mg BID and Plavix) NEUROPHYSIOLOGY TECH. Knowing this, I am including to start ACT. No evidence of a.fib on monitor here but does have an underlying h/o flutter. Spoke with Dr. Beckwith (Neuro) who agrees that ACT is the best option. * Eliquis is preferred in elderly (as slightly shorter acting) but Given "failure" to eliquis in the past-- will try xarelto with renal adustment * Given age-- she is at risk of adverse bleeding on dual antiplatelet therapy and ACT. Will stop ASA and continue only plavix WITH XARELTO (was D/W Neuro) * PT/OT on board-- recommending home with home services * ST on board and recommending no addition W/U or dietary modification. * Patient is DNR (2) Internal carotid artery stenosis: Plan: * on plavix, xarelto and high intensity statin * Vascular surgery on board and to see as an OP to discuss options-- Appreciate recommendations * see above as outlined (3) HTN (hypertension): Plan: - BP high; however, acceptable given her recent acute event and known carotid stenosis (need higher BP for adequate cerebral perfusion) (4) Atrial flutter: Plan: -no evidence of A.Fib or flutter so far during this hospitalization. -May need event monitor as outlined how plan is to ACT anyway so could argue holding off on this (5) CAD (coronary artery disease): Plan: - no evidence of ACS. on dual antiplatelet therapy, BB and statin Plan: plan of care to be D/W Dr. Gonzales. Further orders as warranted son updated. Plan for hopeful D/C tomorrow with home PT/OT and VN Admission and Anticipated Discharge Date Admission Date: December 18, 2020 Subjective Patient seen on daily rounds today. Overall, so significant c/c. repeat MRI of the brain showing no acute pathology. Seen by neurology who felt that her symptomatology was more consistent with a left sided hemispheric stroke. Although she does have a 90% stenotic Right ICA-- surgical intervention not required as no correlation with symptomatology. Patient now on dual antiplatelet therapy- was reported to be on Plavix alone NEUROPHYSIOLOGY TECH. After discussing with patient's son-- he reports that SHE IS AND HAS BEEN ON ASA 81mg TWICE A DAY in addition to the plavix. On Eliquis in the past for h/o a.flutter-- stopped because of "dizziness" per the son. No bleeding issues with this. Seen by PT/OT: who are recommending home with home PT/OT Seen by who did a bedside eval and recommending no need for dietary modifications or further swallow evaluation. Review of Systems Review of Systems: All systems reviewed and are unremarkable except as noted in HPI and below Denies fevers, chills, headache, nasal congestion, sore throat, cough, chest pain, shortness of breath, palpitations, orthopnea, PND, abdominal pain, nausea, vomiting, diarrhea, constipation, dysuria, hematuria, frequency, back pain, joint pain or swelling, easy bruising or blooding, skin lesions or rashes. Physical Exam Physical Exam: General: Resting comfortably in her hospital bed. NAD. HEENT: Head is AT/NC buccal mucosa is moist and pink Neck: No JVD. Negative hepatojugular reflex Cardiac: Currently in a regular rate and rhythm without M/G/R Lungs: CTA without W/R/R Abdomen: Normoactive X4. Soft and nontender in all quadrants. Extremities: No peripheral clubbing cyanosis or edema Neuro: A&O X4 cranial nerves II through XII are grossly intact no focal neuro deficits. Speech and articulation is clear. Tongue and uvula midline. No facial droop. Boiler Repairman strength intact and symmetrical bilaterally. Negative pronator drift. Downward Babinski bilaterally Skin: No obvious skin lesions or rashes Psych: Appropriate affect pleasant and cooperative Results & Data Results & Data ([facility]) Vital Signs (Past 12 Hours) Vital Signs Temp Pulse Resp BP Pulse Ox 12/18/20 11:05 36.5 C 63 16 160/73 H 96 12/18/20 08:32 36.9 C 75 16 151/81 H 99 12/18/20 03:32 36.9 C 65 18 133/69 94 Laboratory Results 12/18/20 08:01 12/18/20 08:01 Diagnostic Findings Repeat MRI: FINDINGS: There is no mass, hematoma, midline shift, or acute infarct. The ventricles and sulci demonstrate mild age-related involutional changes. Scattered foci of T2 hyperintensity seen within the periventricular and subcortical white matter are nonspecific but suggestive of mild to moderate microvascular ischemic changes. The major vascular flow voids at the skull base are well-maintained. Mild mucosal thickening within the paranasal sinuses and trace bilateral mastoid effusions. There are few punctate old lacunar infarcts within the right cerebellar hemisphere, unchanged. Prior bilateral lens repair. IMPRESSION: No significant change compared to the prior study. No acute intracranial abnormality. PG Care Time/CCT Total # of Minutes Spent Total Time Spent with Patient: Total time spent is greater than 50% in coordination of care (as documented) at patient's floor/unit and/or counseling patient: [place] [address] Subseq Hosp Care Lvl 3 Patient Type Established History Detailed Exam Detailed Medical Decision Making Moderate Complexity Diagnoses Stroke I63.9 Internal carotid artery stenosis I65.29 HTN (hypertension) I10 Hypertension type: essential hypertension Atrial flutter I48.92 CAD (coronary artery disease) I25.10 (1) HTN (hypertension) Hypertension type: essential hypertension Qualified Code(s): I10 - Essential (primary) hypertension
[2020-12-18] MEDS: RIVAROXABAN 15 MG TAB PO SCH (17:12)
[2020-12-18] MEDS: ACETAMINOPHEN 325 MG TAB PO PRN (21:17)
[2020-12-19] MEDS ORDERED: Nursing to Pharmacy Communication SCH (06:45)
[2020-12-19] MEDS ORDERED: CALCIUM CARBONATE 500 MG CHEWABLE TAB PO PRN (07:26)
[2020-12-19] MEDS: PANTOprazole 40 MG TAB PO SCH ×2 (07:35→09:41)
[2020-12-19] MEDS: ATORVASTATIN 40 MG TAB PO SCH (07:51)
[2020-12-19] MEDS: CLOPIDOGREL BISULFATE 75 MG TAB PO SCH (07:52)
[2020-12-19] MEDS: METOPROLOL SUCC 50MG EXT REL TAB PO SCH (07:53)
[2020-12-19] MEDS: FAMOTIDINE 20 MG TAB PO SCH ×2 (07:53→21:31)
[2020-12-19 08:30] LABS: Basophils # (auto) 0.02 K/uL (0-0.2); Basophils % (auto) 0.3 %; Eosinophils # (auto) 0.12 K/uL (0-0.5); Eosinophils % (auto) 1.7 %; Hematocrit (blood only) 39.3 % (37-47); Hemoglobin 12.8 g/dL (12.0-16.0); Immature Granulocytes # (auto) 0.02 K/uL (0.00-0.02); Immature Granulocytes % (auto) 0.3 %; Lymphocytes % (auto) 28.9 %; Mean Corpuscular Hemoglobin 33.2 pg (25-34); Mean Corpuscular Hgb Conc 32.6 g/dL (32-36); Mean Corpuscular Volume 102.1 fL (80-100); Mean Platelet Volume 10.4 fL (7.4-10.4); Monocytes # (auto) 0.54 K/uL (0.11-0.59); Monocytes % (auto) 7.4 %; Neutrophils # (auto) 4.47 K/uL (1.4-6.5); Neutrophils % (auto) 61.4 %; Platelet Count 296 K/uL (130-400); RDW Standard Deviation 52.2 fL (36.4-46.3); Red Blood Count 3.85 M/uL (4.2-5.4); White Blood Count 7.27 K/uL (4.8-10.8)
[2020-12-19 08:50] LABS: BUN Creatinine Ratio 17.9 (10-20); Calcium 9.1 mg/dl (8.5-10.1); Creatinine Clr Calc Pharmacy 35.5 ml/min; Est GFR (African American) 59.5 ml/min; Est GFR (Non-African American) 51.3 ml/min; Magnesium 2.2 mg/dl (1.8-2.4); Potassium 3.8 mmol/L (3.5-5.1)
[2020-12-19] MEDS ORDERED: METOPROLOL TARTRATE 1 MG/ML VIAL IV PRN (08:57)
[2020-12-19] MEDS ORDERED: HALOPERIDOL LACTATE 5 MG/ML 1 ML VIAL IM PRN (11:02)
[2020-12-19] MEDS ORDERED: METOPROLOL SUCC 25MG EXT REL TAB PO ONE (11:30)
--- NOTE | 2020-12-19 11:48 | Hospitalist Progress Note ---
Date of Service December 19, 2020 Assessment & Plan (1) Atrial fibrillation: Plan: -A.Fib with variable response (it was suspected that this was the issue and paroxysmal). -was caught on the monitor/EKG. -rate variable ( mostly 90-110) but nonsustained bursts of 140 -Came in on metoprolol succinate 100mg daily. This was adjusted to 50mg BID but warranty administrator following her code purple on day#1-- thought to be TIA from hypoperfusion given known carotid stenosis of 90% (but BP at this time was 190's systolic) -Cozaar stopped (as goal BP 160/90 for adequate cerebral perfusion) -continue to hold/stop cozaar and further increase metoprolol to 75mg BID ( SUCCINATE) for added rate control. There is some room in the BP for this -CONTINUE ACT (xarelto) as already started as underlying a.fib was suspected. ALLERGY reported to [employer] (however that allergy is "dizziness" which I am wondering if it was d/t variable rate response) (2) Stroke: Plan: -CT of head done 12/16 (on admission) done and negative -MRI/MRA of brain and neck on 12/16 subsequently done and also negative -on the afternoon of 12/16 (after all imaging)-- became nonverbal and unable to follow commands. Then as it cleared, speech was slurred and she had a Right facial droop. Repeat CT of head and CTA of neck done and negative for acute CVA -Symptoms CLEARED/resolved completely. Neuro/ Telestroke visit done who agreed seemed like a TIA and agreed with addition of ASA (which was not on her home med list) along with her plavis and high intensity statin therapy -In the [facility] of [facility]/17, patient had a similar event as prior. Repeat CT done and negative -Symptoms self limited. Her BP was 190's/80's at the onset of the event but during- it did drop to 133/69. cozaar stopped and BB reduced as it was thought patient may have been "hypoperfusion with normal bp" -seen in FU by Neuro who felt that symptoms were more consistent with a left hemispheric CVA and although known high grade stenosis (90%)-- neuro and vascular does not feel that surgical intervention is required at this time (will see vascular as an OP) -No neurological deficits at this time. -patient later admitted that she WAS ALREADY ON ASA (81mg bid) in addition to the Plavix but she did not report this upfront -Eliquis is preferred in elderly (as slightly shorter acting) but Given "failure" to eliquis in the past-- will try xarelto with renal adustment -xarelto along with plavix on board. ASA held (given advanced age and risk of bleeding). Now with confirmed A.Fib-- benefit of ACT reassured. -PT/OT on board--now recommending placement. patient [facility] Case mgmt on board -Patient is DNR (3) Delirium: Plan: -Presumed hospital-acquired. -Currently mentation normal -Lengthy discussion with son who reports patient gets this way with each and every hospitalization. -Patient does get paranoid. Will order Haldol to be used as needed but encouraged nursing staff to use this only for agitation. We will hold off on routine antipsychotics (such as Seroquel) as patient is currently awake, alert, and cooperative. (4) Internal carotid artery stenosis: Plan: -on plavix, xarelto and high intensity statin -Seen by fast other surgery while in house. No urgent surgical intervention required at this time. Will follow as an outpatient. Appreciate recommendations. -see above as outlined (5) HTN (hypertension): Plan: - BP high; however, acceptable given her recent acute event and known carotid stenosis (need higher BP for adequate cerebral perfusion) -Adequate BP for patient would be 160/90. Continue to hold/stop Cozaar to allow for up titration of beta-blockade for added heart rate control with goal of slowly bringing blood pressure down over time. (6) Atrial flutter: Plan: -Patient with a diagnosis of atrial flutter upon presentation. She has been in a sinus rhythm up until this morning when she went into atrial fibrillation with variable response -Underlying paroxysmal A. fib was highly suspected given her symptomatology and history of atrial flutter. It was confirmed on the monitor today. (7) CAD (coronary artery disease): Plan: - no evidence of ACS. plavix, BB and statin -Aspirin stopped given addition of Plavix -Patient is on Protonix for GI prophylaxis Plan: plan of care to be D/W Dr. Gonzales. Further orders as warranted Son updated. Plan [facility] when bed available. Case management on board Admission and Anticipated Discharge Date Admission Date: December 18, 2020 Subjective Patient seen on daily rounds today yesterday morning-- therapy was recommending home with PT/OT; however, over the past 24 hours- patient has gotten somewhat confused. confusion waxes and wanes. Paranoid at times. per the son, this happens with every hospitalization. PT/OT now recommending IP rehab for which patient is agreeable. This morning, pt did go into A.Fib. HR was 111-125. Nurse encouraged to give am meds early (0800) PAtient remains in A.Fib with variable response. 70-80 at rest. With toileting-- nonsustained bursts into the 140's. PAtient currently answering all question appropriately. Denies dizziness, lightheadedness, CP, SOB, orthopnea, PND, abd pain, N/V Review of Systems Review of Systems: All systems reviewed and are unremarkable except as noted in HPI and below Denies fevers, chills, headache, nasal congestion, sore throat, cough, chest pain, shortness of breath, palpitations, orthopnea, PND, abdominal pain, nausea, vomiting, diarrhea, constipation, dysuria, hematuria, frequency, back pain, joint pain or swelling, easy bruising or blooding, skin lesions or rashes. Physical Exam Physical Exam: General: Resting comfortably in her hospital bed. NAD. HEENT: Head is AT/NC buccal mucosa is moist and pink. no facial droop. Tongue/Uvula Midline. Neck: No JVD. Negative hepatojugular reflex Cardiac:irreg irregwith current rate in the 90's Lungs: CTA without W/R/R Abdomen: Normoactive X4. Soft and nontender in all quadrants. Extremities: No peripheral clubbing cyanosis or edema Neuro: patient is oriented to person/self, place, time and situation. Answers all questions appropriately. Cranial nerves II through XII are grossly intact no focal neuro deficits. tongue and uvula midline. transportation planner strength intact and sym metrical bilaterally. Skin: No obvious skin lesions or rashes Psych: Appropriate affect pleasant and cooperative Results & Data Results & Data ([facility]) Vital Signs (Past 12 Hours) Vital Signs Temp Pulse Pulse Resp BP Pulse Ox 12/19/20 07:23 36.8 C 72 18 176/99 H 96 12/19/20 04:00 37.2 C 79 16 186/90 H 95 12/19/20 02:30 69 Laboratory Results 12/19/20 07:19 12/19/20 07:19 Diagnostic Findings Parquetry Layer: Atrial Fibrillation with variable response PG Care Time/CCT Total # of Minutes Spent Total Time Spent with Patient: Total time spent is greater than 50% in coordination of care (as documented) at patient's floor/unit and/or counseling patient: C[place] [address] Subseq Hosp Care Lvl 3 Patient Type Established History Comprehensive Exam Comprehensive Medical Decision Making High Complexity Diagnoses Stroke I63.9 Internal carotid artery stenosis I65.29 HTN (hypertension) I10 Hypertension type: essential hypertension Atrial flutter I48.92 CAD (coronary artery disease) I25.10 Atrial fibrillation I48.91 Delirium R41.0 (1) HTN (hypertension) Hypertension type: essential hypertension Qualified Code(s): I10 - Essential (primary) hypertension
[2020-12-19] MEDS: RIVAROXABAN 15 MG TAB PO SCH (16:46)
--- NOTE | 2020-12-19 20:41 | Electrocardiogram Report ---
Test Reason : Blood Pressure : / mmHG Vent. Rate : 082 BPM Atrial Rate : 127 BPM P-R Int : 000 ms QRS Dur : 080 ms QT Int : 384 ms P-R-T Axes : 000 042 024 degrees QTc Int : 448 ms Atrial fibrillation Cannot rule out Inferior infarct , age undetermined Abnormal ECG When compared with ECG of 17-DEC-2020 03:08, Atrial fibrillation has replaced Sinus rhythm Nonspecific T wave abnormality now evident in Inferior leads T wave inversion less evident in Lateral leads Confirmed by Carl Christianson ([id number]) on 12/19/2020 8:41:02 PM Referred By: REFERRED SELF Confirmed By:Carl Christianson
--- NOTE | 2020-12-19 20:49 | Electrocardiogram Report ---
Test Reason : Blood Pressure : / mmHG Vent. Rate : 079 BPM Atrial Rate : 079 BPM P-R Int : 150 ms QRS Dur : 080 ms QT Int : 398 ms P-R-T Axes : 055 040 086 degrees QTc Int : 456 ms Normal sinus rhythm Nonspecific ST and T wave abnormality Abnormal ECG When compared with ECG of 19-DEC-2020 07:46, (unconfirmed) Sinus rhythm has replaced Atrial fibrillation ST no longer depressed in Anterior leads Nonspecific T wave abnormality no longer evident in Inferior leads Confirmed by Carl Christianson ([id number]) on 12/19/2020 8:49:10 PM Referred By: REFERRED SELF Confirmed By:Carl Christianson
[2020-12-19] MEDS: METOPROLOL SUCC 25MG EXT REL TAB PO SCH (21:30)
[2020-12-19] MEDS: ACETAMINOPHEN 325 MG TAB PO PRN (23:32)
[2020-12-20 07:45] LABS: Basophils # (auto) 0.02 K/uL (0-0.2); Basophils % (auto) 0.4 %; Eosinophils # (auto) 0.15 K/uL (0-0.5); Eosinophils % (auto) 2.9 %; Hematocrit (blood only) 33.8 % (37-47); Immature Granulocytes # (auto) 0.01 K/uL (0.00-0.02); Immature Granulocytes % (auto) 0.2 %; Lymphocytes # (auto) 1.47 K/uL (1.2-3.4); Lymphocytes % (auto) 28.7 %; Mean Corpuscular Hemoglobin 32.4 pg (25-34); Mean Corpuscular Hgb Conc 32.5 g/dL (32-36); Mean Corpuscular Volume 99.7 fL (80-100); Mean Platelet Volume 10.1 fL (7.4-10.4); Monocytes # (auto) 0.32 K/uL (0.11-0.59); Monocytes % (auto) 6.2 %; Neutrophils # (auto) 3.16 K/uL (1.4-6.5); Neutrophils % (auto) 61.6 %; Platelet Count 212 K/uL (130-400); RDW Coefficient of Variation 14.3 % (11.5-14.5); RDW Standard Deviation 51.3 fL (36.4-46.3); Red Blood Count 3.39 M/uL (4.2-5.4); White Blood Count 5.13 K/uL (4.8-10.8)
[2020-12-20 08:12] LABS: BUN Creatinine Ratio 25.2 (10-20); Calcium 7.9 mg/dl (8.5-10.1); Creatinine Clr Calc Pharmacy 39.9 ml/min; Est GFR (African American) 68.5 ml/min; Est GFR (Non-African American) 59.1 ml/min; Potassium 3.6 mmol/L (3.5-5.1)
[2020-12-20] MEDS: FAMOTIDINE 20 MG TAB PO SCH (10:06)
[2020-12-20] MEDS: CLOPIDOGREL BISULFATE 75 MG TAB PO SCH (10:06)
[2020-12-20] MEDS: ATORVASTATIN 40 MG TAB PO SCH (10:06)
[2020-12-20] MEDS: METOPROLOL SUCC 25MG EXT REL TAB PO SCH (10:06)
[2020-12-20] MEDS: PANTOprazole 40 MG TAB PO SCH (10:07)
--- NOTE | 2020-12-20 12:16 | Discharge Summary ---
Date of Service December 20, 2020 Admission HPI Per Admitting Provider Mrs. Navarro is an 85-year-old white female with a PMHx of of CAD s/p old OK and multiple stents and CABG, carotid disease, history of CVA without sequella, paroxysmal atrial flutter, GERD, HTN, and recently diagnosed KATHRYN (has not yet gotten the CPAP). She is not confused but is an inconsistent historian. Reports that she came to the emergency department as she awoke in the middle the night to use the restroom and felt "dizzy". Described as a feeling of lightheadedness as if she would "pass out". Denied a spinning sensation; however, did vocalize to the ED staff a feeling of vertigo/"spinning". In add ition, she tells me that she recently had nausea and vomiting which she sought medical attention here in our emergency department 2 days ago. I cannot find documentation of this. At any rate, she claims that she was diagnosed with urinary tract infection and discharged with Macrobid. I see her last ED visit was September of this year. At any rate, she is complaining of a lightheaded sensation and feeling as if she is going to pass out. It is affecting her ability to stand/walk. She complains of subjective fevers/chills, a faintly productive cough of yellow sputum and recent nausea and vomiting as mentioned above. She denies headache, nasal congestion, sore throat, loss of taste/smell, palpitations, abdominal pain, diarrhea/constipation, dysuria, hematuria, urinary frequency, weakness in her upper or lower extremities, trouble talking/forming words or swallowing. I did attempt to call her son to further sort out her ongoing symptomatology; however, was unsuccessful in reaching him. At any rate, her work-up in the emergency department was unremarkable. She has some mild leukopenia at 3.85 but otherwise her CBC and metabolic panel are benign. Troponin is less than 0.015. Her Covid test is pending. Her urinalysis is not grossly infected as it is nitrite and leukocyte esterase negative. CT of the head shows mucosal thickening of the ethmoid sinuses without acute intracranial process. Her EKG shows a sinus rhythm at 65 bpm. Normal axis. No acute ST/T wave changes. On the athletic monitor, she is in a sinus rhythm in the 70s. Her blood pressure upon presentation was initially 155/90. Throughout her stay in the emergency department, it did go up to 199/95. She was given IV hydralazine 5 mg. Current blood pressure is 152/78. She has not gotten her morning medication. Typically takes metoprolol and Cozaar for BP control. Patient did receive Antivert and fentanyl in the ED. Her dizziness remains unchanged. I did review her records at length. She was hospitalized in March 2020 with altered mental status and she was found to have an acute neurological event. At that time, she was found to have 90% stenosis of the right ICA. Does not appear as if patient has followed up with this. Principal Diagnosis TIA, Atrial fibrillation Discharge Exam Constitutional WD/WN, vitals as above Eyes PERRL, conjunctivae normal, anicteric sclerae ENMT external ear and nose normal, oropharynx normal Neck trachea midline, no thyromegaly Respiratory normal respiratory effort, lungs clear to auscultation Cardiovascular RRR, no murmur, no edema Chest (Breasts) Chest: normal inspection of chest Gastrointestinal (Abdomen) normal bowel sounds, soft, nontender, no hepatosplenomegaly Musculoskeletal Extremities: extremities normal to inspection; no cyanosis and no clubbing Skin no rashes, warm and dry Neurologic moves all extremities and awake; no focal motor deficits Psychiatric A+Ox3, euthymic affect Lymphatic no lymphedema Discharge Data Allergies Allergy/AdvReac Type Severity Reaction Status Date / Time perflutren Allergy Severe MUSCLE Verified 12/16/20 07:13 TIGHTNESS propylene glycol Allergy Severe MUSCLE Verified 12/16/20 07:13 TIGHTNESS Sulfa (Sulfonamide Allergy Mild depleted Verified 12/16/20 07:13 Antibiotics) platelet count sulfamethoxazole Allergy Mild RASH Verified 12/16/20 07:13 trimethoprim Allergy Mild RASH Verified 12/16/20 07:13 apixaban [From Eliquis] AdvReac Unknown Dizziness, Verified 12/16/20 07:13 nausea tramadol AdvReac Unknown Hallucinati Verified 12/16/20 07:13 ng Consultations 12/16/20 07:43 ED Decision to Admit Stat 12/16/20 17:51 Consult Vascular Surgery Routine 12/17/20 07:32 Consult Neurology Routine Ordered Studies 12/16/20 05:56 CT head/brain wo con Stat 12/16/20 09:28 MR angio neck wo/w con Stat 12/16/20 12:12 MR brain wo/w con Routine 12/16/20 16:57 CT head/brain wo con Stat 12/16/20 16:58 CT angio head w con Stat 12/16/20 17:09 CT angio neck with con Stat 12/17/20 02:36 CT head/brain wo con Urgent 12/17/20 12:00 MR brain wo con Urgent Hospital Course (1) TIA (transient ischemic attack): Patient presented with presyncope-like symptoms but shortly after admission, had an episode of right-sided facial droop and aphasia which resolved on its own. It is likely that her symptoms of presyncope or either secondary to atrial fibrillation or a TIA at home CT of head done 12/16 (on admission) done and negative MRI of brain and neck on 12/16 subsequently done and also negative for acute CVA, but MRA of the neck showed 90% R ICA stenosis on the afternoon of 12/16 (after all imaging)-- became nonverbal and unable to follow commands. Then as it cleared, speech was slurred and she had a Right facial droop. Repeat CT of head and CTA of neck done and negative for acute CVA but again redemonstrated right 90% R ICA stenosis as well as 2 mm left MCA aneurysm unchanged from previous Symptoms CLEARED/resolved completely. Neuro/ Telestroke visit done who agreed seemed like this was a TIA and agreed with addition of ASA to Plavix (which was not on her home med list) along with high intensity statin therapy [facility] the [facility] of 12/17, patient had a similar event as prior. Repeat CT done and negative Lipids were not performed this admission but had been done in 03/2020 and were well controlled-she will be on atorvastatin 80 mg daily Again, hemoglobin A1c was not performed this admission but was normal at 5.3% in 03/2020 Echocardiogram was within normal limits and previous echocardiogram did not demonstrate an interatrial shunt Telemetry showed atrial fibrillation which is the likely cause of her TIAs- starting Xarelto Given age-- she is at risk of adverse bleeding on dual antiplatelet therapy and anticoagulation. She will remain on only plavix WITH XARELTO (was D/W Neuro) PT/OT on board--patient going to acute rehab Speech therapy on board and recommending no addition W/U or dietary modification. (2) Atrial fibrillation: -Paroxysmal A.Fib with variable response and on telemetry during hospitalization -Came in on metoprolol succinate 100mg daily. This was adjusted to 75 mg BID for improved rate control -She converted to sinus rhythm prior to discharge -Suspect her lightheadedness upon admission was related to rapid atrial fibrillation -Cozaar stopped (as goal BP 160/90 for adequate cerebral perfusion) for now but could be introduced again as an outpatient -Started Xarelto for anticoagulation (3) Delirium: Resolved after admission Likely related to TIA (4) Internal carotid artery stenosis: With 90% stenosis of the proximal R ICA-asymptomatic at this time as all symptoms of her TIAs in the hospital correlated with a left hemispheric dist ribution Follow-up as an outpatient Continue on plavix, xarelto and high intensity statin (5) HTN (hypertension): - BP high at times but given recurrent TIAs, allowing for some permissive hypertension acutely Increased Toprol-XL to 75 mg p.o. twice daily Holding home losartan but should be restarted as an outpatient near future if blood pressure tolerates (6) Atrial flutter: History of such, now with atrial fibrillation on telemetry monitoring here-starting Xarelto Metoprolol for rate control (7) CAD (coronary artery disease): With a history of CABG and drug-eluting stents - no evidence of ACS - on dual antiplatelet therapy at admission but now discontinue aspirin in favor of Plavix and Xarelto Continue beta-lilibeth and statin (8) Hematuria: Very mild on the day of discharge, urinalysis shows 3+ blood and greater than 30 RBCs, but no evidence of infection She is now on Xarelto for anticoagulation in addition to Plavix If hematuria persists-she should follow-up with urology as an outpatient to rule out bladder or kidney lesion if not already done in the past (9) Cerebral aneurysm: With a stable 2 mm left MCA aneurysm seen on CT angiogram Follow-up as an outpatient (10) Thyroid nodule: With a left sided 2.8 cm thyroid nodule TSH here is normal at 2.72 Follow-up with PCP Disposition-stable for discharge to acute rehab Total Time Total Time Spent Total Time Spent (In Minutes): 40 min Discharge Plan Discharge Items Patient Disposition: Transfer Inpatient Rehab Fac Reason For Visit: NEAR SYNCOPE Discharge Diagnosis: TIA, Atrial fibrillation Condition on Discharge: Good Activity: As commented below Lifting: Gradually increase as tolerated Bathing: No limitations Exercise/Sports: Gradually increase as tolerated Weightbearing: Full weightbearing Non-emergency contact: Primary Care Provider Call non-emergency contact if: you have any medication questions and your symptoms worsen Follow-up/Referrals: Susu Bower DO [Primary Care Provider] - Diet: Heart Healthy Addtl Attending Provider Instructions: You were admitted with a Transient Ischemic Attack (TIA) which is sometimes referred to as a "mini stroke." You had two more episodes of this while in the hospital and were found to have an irregular heart rhythm called atrial fibrillation. This heart rhythm can be a cause of strokes and TIAs. It is treated with a blood thinner such as Xarelto to help reduce your risk for stroke. If you have any bleeding issues (such as blood in your stool, vomiting blood, vaginal bleeding, blood in the urine, or have a trauma and hit your head), please return to the hospital immediately. You were having a small amount of pink urine and a urinalysis was performed on the day of discharge to look for a UTI. Please have [facility] follow up on the results of this culture and treat with antibiotics if needed. Risk Factors for Stroke: You can reduce your chances of stroke by working with your medical provider to adopt a healthy lifestyle. Some specific ways to lower your chance of stroke are: * If you are a smoker, now is the time to stop smoking cigarettes * If you are diabetic, improve the control of your blood sugars * Avoid excessive amounts of alcohol * Control high blood pressure * Lose weight if you are overweight * Be sure to lead an active lifestyle * Eat a healthy diet low in salt, cholesterol and fat You should know about other risk factors for stroke that you are unable to control. These include: * Age 55 years or older * Male gender * Certain racial groups: , or / * Family History of Stroke, Mini stroke or Heart Attack * Sickle Cell Disease Follow Up: It is important for you to keep your follow up appointments with your medical provider. Who to Call and When: Medical Emergencies: Call 911 immediately if you experience any of the following warning signs and symptoms of Stroke: * Sudden numbness or weakness of the face, arm or leg, especially on one side of the body * Sudden confusion, trouble speaking or understanding * Sudden trouble seeing in one or both eyes * Sudden trouble walking, dizziness, loss of balance or coordination * Sudden severe headache with no cause Do not delay calling 911 if you experience any warning signs or symptoms of a stroke. Delay in seeking medical attention may affect what treatments can be given to you. . Pending Studies at Discharge: Yes (UA, Urine culture) Stand-Alone Forms: My [facility] Skilled Items Patient informed of condition?: Yes DNR: Yes Discharge Level of Care: Acute rehab Communicable Disease: No Discharge Prognosis: Improving Lines: None Urinary Catheter: No Medications and DC Order Prescriptions: New Xarelto 15 mg Tablet 15 mg PO QDD Qty: 30 RF: 0 metoprolol succinate 25 mg Tablet Extended Release 24 Hr 75 mg PO BID Qty: 180 RF: 0 Continued nitroglycerin 0.4 mg tablet, sublingual 0.4 mg sublingual DIRECTED PRN (Reason: Chest Pain) RF: 0 atorvastatin 80 mg tablet 80 mg PO QAM RF: 0 Centrum Silver Women 8 mg iron-400 mcg-300 mcg Tablet 1 tab PO QAM RF: 0 clopidogrel 75 mg tablet 75 mg PO QAM RF: 0 pantoprazole 20 mg tablet,delayed release (DR/EC) 20 mg PO DAILYBB RF: 0 albuterol sulfate 90 mcg/actuation HFA aerosol inhaler 2 puffs INH Q6H PRN (Reason: Shortness Of Breath Or Wheezing) RF: 0 Vitamin B-12 1,000 mcg Tablet 1,000 mcg PO DAILY RF: 0 Tylenol Extra Strength 500 mg Tablet 500 mg PO Q6H PRN (Reason: Pain) RF: 0 Pepcid 20 mg tablet 20 mg PO BID RF: 0 Vitamin D3 10 mcg (400 unit) Capsule 10 mcg PO DAILY RF: 0 Discontinued metoprolol succinate 100 mg tablet extended release 24 hr 100 mg PO QAM RF: 0 losartan [Cozaar] 25 mg Tablet 25 mg PO QAM RF: 0 Discharge Orders: Discharge Order (Routine); Ordered 12/20/20 Ordered By: Raquel Perez Admission Data Admit Date/Time: 12/18/20 08:21 Attending Provider: Raquel Perez Admit Provider: Blayne Gonzales Primary Care Provider: Susu Bower Other Providers: Blayne Gonzales ; Edu Le ; Romain Beckwith ; [facility] Other Interventions: Discharge Summary Assessment (RN) Last Done: 12/20/20 15:10 Coding Level of Care Code D/C DAY MANAGEMENT >30 MINS Diagnoses Atrial fibrillation I48.91 Delirium R41.0 Internal carotid artery stenosis I65.29 HTN (hypertension) I10 Hypertension type: essential hypertension Atrial flutter I48.92 CAD (coronary artery disease) I25.10 Hematuria R31.0 Hematuria type: gross TIA (transient ischemic attack) G45.9 Cerebral aneurysm I67.1 Thyroid nodule E04.1
[2020-12-20 13:42] LABS: Appearance Urine Turbid (Clear); Bilirubin Urine 1+ (Negative); Blood Urine 3+ (Negative); Color Urine Brown; Glucose Urine UA Negative (Negative); Ketones Urine Trace (Negative); Leukocyte Esterase Urine Negative (Negative); Nitrite Urine Negative (Negative); Protein Urine 3+ (Negative); Specific Gravity Urine 1.025 (1.000-1.030); Urobilinogen Urine Negative (Negative); pH Urine 5.5 (4.5-7.5)
[2020-12-20 14:00] LABS: Bacteria Urine Negative (Negative); Epithelial Cell Urine >30 /lpf (0-5); RBC Urine >30 /hpf (0-4)
== END 2020-12-20 15:51 | DRG 69 ==
LOC: ED 03:15 → 2N 03:15 → SUATTDRO 12-18 08:21

== ENCOUNTER 2021-03-14 13:39 | Observation (INO) ==
--- NOTE | 2021-03-14 14:25 | XRay Report ---
XR chest 1V portable HISTORY: 85 years-old Female SEPSIS acute sepsis COMPARISON: Chest radiograph 02/08/2021 TECHNIQUE: Portable AP view of the chest FINDINGS: The cardiac silhouette is enlarged. Prior median sternotomy with suggested CABG. Cholecystectomy. The patient is mildly rotated and side bent. No pneumothorax, large pleural effusion or lobar airspace c onsolidation. Eventration of the right hemidiaphragm. Unchanged mild interstitial coarsening. Degener ative changes of the shoulders and spine with unchanged cervical spinal are clear. IMPRESSION: Cardiomegaly with unchanged mild interstitial coarsening. ACT 112: Negative or not required by law. The above report was generated using voice recognition software. It may contain grammatical, syntax o r spelling errors. Electronically signed by: Jamar Daniel M.D. 03/14/2021 2:24 PM
--- NOTE | 2021-03-14 14:28 | XRay Report ---
XR hip RT 2V w pelvis CLINICAL HISTORY: pain, fall TECHNIQUE: 2 views of the right hip and single frontal view of the pelvis were obtained. Comparison: None available at the time of this dictation. FINDINGS: There is no evidence of an acute fracture. The bones are anatomically aligned. Degenerative changes a re seen in the bilateral hip joints. IMPRESSION: No evidence of acute osseous injury. ACT 112: Negative or not required by law. Electronically signed by: Blayne May M.D. 03/14/2021 2:27 PM
--- NOTE | 2021-03-14 14:36 | CT Scan Report ---
CT head/brain wo con CLINICAL HISTORY: ams, ?fall Technique: Contiguous axial CT images of the head were acquired from the base of the skull to the luli christine without intravenous contrast administration. Images were viewed in brain, subdural and bone [facility]. Automated dose lowering techniques and/or adjustment according to patient size were utilized for this exam. Comparison: Comparison is made to CT head 02/08/2021 Findings: Areas of decreased attenuation are present in the periventricular and subcortical white matter bilate rally consistent with small vessel ischemic disease. Generalized cerebral atrophy with commensurate e nlargement of the ventricles, sulci, and cisterns is also present. There is no acute intracranial hem orrhage or evidence of acute territorial infarction. No shift of the midline structures, mass effect, or extra-axial abnormalities are shown. Atherosclerotic calcifications are present in the intracran ial segments of the internal carotid arteries. Imaged portions of the paranasal sinuses and mastoid air cells are clear. The orbits appear normal. There are no acute fractures of the calvaria or scalp swelling. Impression: No acute intracranial hemorrhage, no evidence of acute territorial infarction or other acute intracra nial disease process. ACT 112: Negative or not required by law. Electronically signed by: Blayne May M.D. 03/14/2021 2:35 PM
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
[2021-03-14 15:08] LABS: Basophils # (auto) 0.01 K/uL (0-0.2); Basophils % (auto) 0.1 %; Hemoglobin 11.7 g/dL (12.0-16.0); Immature Granulocytes # (auto) 0.01 K/uL (0.00-0.02); Immature Granulocytes % (auto) 0.1 %; Lymphocytes # (auto) 0.71 K/uL (1.2-3.4); Lymphocytes % (auto) 9.5 %; Mean Corpuscular Hemoglobin 33.5 pg (25-34); Mean Corpuscular Hgb Conc 33.4 g/dL (32-36); Mean Corpuscular Volume 100.3 fL (80-100); Monocytes # (auto) 0.33 K/uL (0.11-0.59); Monocytes % (auto) 4.4 %; Neutrophils # (auto) 6.44 K/uL (1.4-6.5); Neutrophils % (auto) 85.9 %; Platelet Count 223 K/uL (130-400); RDW Coefficient of Variation 13.6 % (11.5-14.5); RDW Standard Deviation 49.4 fL (36.4-46.3); Red Blood Count 3.49 M/uL (4.2-5.4)
[2021-03-14 15:27] LABS: Albumin Level 3.6 gm/dl (3.4-5.0); BUN Creatinine Ratio 16.3 (10-20); Calcium 9.4 mg/dl (8.5-10.1); Creatinine Clr Calc Pharmacy 43.7 ml/min; Est GFR (African American) 69.4 ml/min; Est GFR (Non-African American) 59.9 ml/min; Potassium 3.4 mmol/L (3.5-5.1)
[2021-03-14 15:38] LABS: Appearance Urine Clear (Clear); Bacteria Urine Automated Negative (Negative); Bilirubin Urine Negative (Negative); Blood Urine 2+ (Negative); Color Urine Yellow; Glucose Urine UA Negative (Negative); Ketones Urine 1+ (Negative); Leukocyte Esterase Urine Negative (Negative); Nitrite Urine Negative (Negative); Protein Urine Trace (Negative); RBC Urine Automated >30 /hpf (0-4); Specific Gravity Urine 1.013 (1.000-1.030); Urobilinogen Urine Negative (Negative)
[2021-03-14 15:40] LABS: Albumin Globulin Ratio 0.9 (0.9-2); Bilirubin,Total 0.8 mg/dl (0.2-1); Globulin 3.9 gm/dl (2.5-4.0); Total Protein 7.5 gm/dl (6.4-8.2); Troponin I 0.03 ng/ml (0-0.045)
[2021-03-14] MEDS ORDERED: SODIUM CHLORIDE 0.9% 1000ML 500 ML IV ONE (15:44)
[2021-03-14] MEDS ORDERED: POTASSIUM CHLORIDE CRTAB 20 MEQ TABCR PO STA ×2 (16:56→19:44)
[2021-03-14] MEDS ORDERED: cefTRIAXone SODIUM 1,000 MG/50 ML BAG IV STA (17:10)
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
[2021-03-14] MEDS ORDERED: ACETAMINOPHEN 325 MG TAB PO PRN (22:23)
[2021-03-14] MEDS ORDERED: SODIUM CHLORIDE 0.9% 1000ML 1,000 ML IV SCH (22:45)
[2021-03-14] MEDS: DOCUSATE SODIUM 100 MG CAP PO SCH (23:17)
[2021-03-14] MEDS: FAMOTIDINE 20 MG TAB PO SCH (23:17)
[2021-03-14] MEDS: METOPROLOL SUCC 25MG EXT REL TAB PO SCH (23:17)
[2021-03-15 00:35] LABS: Troponin I 0.054 ng/ml (0-0.045)
[2021-03-15] MEDS: PANTOprazole 40 MG TAB PO SCH (06:05)
[2021-03-15 06:44] LABS: Basophils # (auto) 0.01 K/uL (0-0.2); Basophils % (auto) 0.2 %; Eosinophils # (auto) 0.02 K/uL (0-0.5); Eosinophils % (auto) 0.4 %; Hematocrit (blood only) 32.5 % (37-47); Hemoglobin 10.5 g/dL (12.0-16.0); Immature Granulocytes # (auto) 0.01 K/uL (0.00-0.02); Immature Granulocytes % (auto) 0.2 %; Lymphocytes % (auto) 26.1 %; Mean Corpuscular Hemoglobin 33.2 pg (25-34); Mean Corpuscular Hgb Conc 32.3 g/dL (32-36); Mean Corpuscular Volume 102.8 fL (80-100); Monocytes # (auto) 0.34 K/uL (0.11-0.59); Monocytes % (auto) 6.8 %; Neutrophils # (auto) 3.31 K/uL (1.4-6.5); Neutrophils % (auto) 66.3 %; Platelet Count 203 K/uL (130-400); RDW Coefficient of Variation 13.9 % (11.5-14.5); RDW Standard Deviation 52.5 fL (36.4-46.3); Red Blood Count 3.16 M/uL (4.2-5.4); White Blood Count 4.99 K/uL (4.8-10.8)
[2021-03-15 07:25] LABS: BUN Creatinine Ratio 15.2 (10-20); Calcium 8.7 mg/dl (8.5-10.1); Creatinine Clr Calc Pharmacy 43.3 ml/min; Est GFR (African American) 75.6 ml/min; Est GFR (Non-African American) 65.3 ml/min; Potassium 4.4 mmol/L (3.5-5.1)
[2021-03-15] MEDS: DOCUSATE SODIUM 100 MG CAP PO SCH ×2 (09:16→21:16)
[2021-03-15] MEDS: FAMOTIDINE 20 MG TAB PO SCH ×2 (09:16→21:16)
[2021-03-15] MEDS: METOPROLOL SUCC 25MG EXT REL TAB PO SCH ×2 (09:16→21:16)
[2021-03-15] MEDS: ATORVASTATIN 40 MG TAB PO SCH (09:17)
[2021-03-15] MEDS: RIVAROXABAN 15 MG TAB PO SCH (09:18)
[2021-03-15] MEDS: LOSARTAN POTASSIUM 25 MG TAB PO SCH (09:18)
[2021-03-15] MEDS: CLOPIDOGREL BISULFATE 75 MG TAB PO SCH (09:19)
--- NOTE | 2021-03-15 16:37 | Hospitalist Progress Note ---
Date of Service March 15, 2021 Assessment & Plan (1) Fall: (2) UTI (urinary tract infection): Plan: Assessment & Plan (1) Fall: Plan: 85yo C female with history of CAD, HTN, HLP, Atrial flutter on Rivaroxaban anticoagulation presenting from home with a fall from bed. Patient states that she gently slipped out of her bed. Denies trauma, loss of consciousness. Presently complaining of diffuse weakness, otherwise no complaints. Possibly secondary to underlying UTI. No focal findings. -Observation to medical -Fall precautions -PT/OT evaluation -Check CK level -Treatment of underlying medical conditions as below recommendations with from physical therapy including rehabilitative care post hospitalization, recommendations for supervised care Discussed with case management and potential placement, consultation placed to Natasha (2) UTI (urinary tract infection): Plan: Patient was recently on an antibiotic for UTI - uncertain which one. Son states that she gets frequent UTIs and commonly becomes weak and falls when she has an infection. Presently afebrile, hemodynamically stable, non-toxic in appearance. She has no leukocytosis, procalcitonin is undetectable. UA with h ematuria (2+, >30 RBCs) as well as 5-10 epis. No WBCs/LE/Nitrites or bacteria, however, sample patient was recently on antibiotics - partially treated UTI? -Follow culture sent from ER -Continue Ceftriaxone 1gm IV daily plan on converting to p.o. medications (3) CAD /atrial flutter /hypertension (coronary artery disease): Plan: Patient with history of CAD s/p inferior [place] in 10/2007 with stents placed to proximal and distal RCA, subsequent CABG x 1V performed in 11/2007. She denies chest pain, SOB, palpitations, dizziness. EKG with old appearing changes. Trop onin is detectable at 0.030 -Continue Plavix 75mg po daily -Continue Atorvastatin 80mg po qPM -Contineu metoprolol 75mg po BID -Continue Losartan 12.5mg po daily -Repeat Troponin at 22:00, repeat normal Patient is asymptomatic continue to monitor Hyperlipidemia: Plan: Chronic -Continue Atorvastatin 80mg po daily (6) Gastroesophageal reflux disease: Plan: Chronic. Well controlled -Continue Pepcid and Protonix F/E/N - Gentle hydration with NSS at 80mL/hr x 1 liter, K repletion with 40mEq PO - repeat chemistry in AM, Heart healthy diet as tolerated with aspiration precautions Ppx - On Rivaroxaban for history of atrial flutter Code - DNR/DNI per discussion with patient Dispo - Observation to medical Admission and Anticipated Discharge Date Admission Date: March 14, 2021 Subjective no specific concerns this a.m. she slept well overnight. No fevers or chills nausea vomiting Tolerating her diet this a.m. Normal bowel movements No reported dizziness repeat symptoms Review of Systems Constitutional: no fever and no chills Respiratory: no cough, no chest congestion, no dyspnea and no wheezing Cardiovascular: no chest pain, no palpitations and no edema Gastrointestinal: no abdominal pain, no heartburn, no nausea, no vomiting and no change in bowel habits Neurologic: + gait abnormality and + falls; no headache(s) Physical Exam Physical Exam: Constitutional: WD/WN, vitals as above Respiratory: Effort normal, CTA B/L CV: RRR, no murmur, no edema Abdomen: normal bowel sounds, soft, nontender, no hepatosplenomegaly Neurologic: resting comfortably in bed, use of walker Results & Data Results & Data ([facility]) Vital Signs (Past 12 Hours) Vital Signs Temp Pulse Resp BP BP Pulse Ox 03/15/21 15:04 36.4 C L 67 18 125/64 96 03/15/21 07:17 36.6 C 68 18 135/80 99 Laboratory Results Laboratory Results - last 24 hr 03/14/21 03/14/21 03/15/21 17:05 23:30 06:35 WBC 4.99 RBC 3.16 L Hgb 10.5 L Hct 32.5 L MCV 102.8 H MCH 33.2 MCHC 32.3 RDW Std Deviation 52.5 H RDW Coeff of Fred 13.9 Plt Count 203 MPV 10.0 Immature Gran % (Auto) 0.2 Neut % (Auto) 66.3 Lymph % (Auto) 26.1 [place] % (Auto) 6.8 Eos % (Auto) 0.4 Baso % (Auto) 0.2 Neut # (Auto) 3.31 Lymph # (Auto) 1.30 [place] # (Auto) 0.34 Eos # (Auto) 0.02 Baso # (Auto) 0.01 Immature Gran # (Auto) 0.01 Sodium Potassium Chloride Carbon Dioxide Anion Gap BUN Creatinine Est Cr Clr Drug Dosing Est GFR ( Amer) Est GFR (Non-Af Amer) BUN/Creatinine Ratio Glucose Calcium Total Creatine Kinase 509 H Troponin I 0.054 H* SARS-CoV-2, RNA, NAAT NEGATIVE 03/15/21 03/15/21 06:35 06:35 WBC RBC Hgb Hct MCV MCH MCHC RDW Std Deviation RDW Coeff of Fred Plt Count MPV Immature Gran % (Auto) Neut % (Auto) Lymph % (Auto) [place] % (Auto) Eos % (Auto) Baso % (Auto) Neut # (Auto) Lymph # (Auto) [place] # (Auto) Eos # (Auto) Baso # (Auto) Immature Gran # (Auto) Sodium 136 Potassium 4.4 D Chloride 108 H Carbon Dioxide 26 Anion Gap 2.0 L BUN 12 Creatinine 0.82 Est Cr Clr Drug Dosing 43.3 Est GFR ( Amer) 75.6 Est GFR (Non-Af Amer) 65.3 BUN/Creatinine Ratio 15.2 Glucose 92 Calcium 8.7 Total Creatine Kinase Troponin I 0.043 SARS-CoV-2, RNA, NAAT Diagnostic Findings Chest X-Ray 03/14/21 13:57 XR chest 1V portable HISTORY: 85 years-old Female SEPSIS acute sepsis COMPARISON: Chest radiograph 02/08/2021 TECHNIQUE: Portable AP view of the chest FINDINGS: The cardiac silhouette is enlarged. Prior median sternotomy with suggested CABG. Cholecystectomy. The patient is mildly rotated and side bent. No pneumothorax, large pleural effusion or lobar airspace consolidation. Eventration of the right hemidiaphragm. Unchanged mild interstitial coarsening. Degenerative changes of the shoulders and spine with unchanged cervical spinal are clear. IMPRESSION: Cardiomegaly with unchanged mild interstitial coarsening. ACT 112: Negative or not required by law. The above report was generated using voice recognition software. It may contain grammatical, syntax or spelling errors. Electronically signed by: Jamar Daniel M.D. 03/14/2021 2:[address] 03/14/21 13:57 CT head/brain wo con CLINICAL HISTORY: ams, ?fall Technique: Contiguous axial CT images of the head were acquired from the base of the skull to the vertex without intravenous contrast administration. Images were viewed in brain, subdural and bone windows. Automated dose lowering techniques and/or adjustment according to patient size were utilized for this exam. Comparison: Comparison is made to CT head 02/08/2021 Findings: Areas of decreased attenuation are present in the periventricular and subcortical white matter bilaterally consistent with small vessel ischemic disease. Generalized cerebral atrophy with commensurate enlargement of the ventricles, sulci, and cisterns is also present. There is no acute intracranial hemorrhage or evidence of acute territorial infarction. No shift of the midline structures, mass effect, or extra-axial abnormalities are shown. Atherosclerotic calcifications are present in the intracranial segments of the internal carotid arteries. Imaged portions of the paranasal sinuses and mastoid air cells are clear. The orbits appear normal. There are no acute fractures of the calvaria or scalp swelling. Impression: No acute intracranial hemorrhage, no evidence of acute territorial infarction or other acute intracranial disease process. ACT 112: Negative or not required by law. Electronically signed by: Blayne May M.D. 03/14/2021 2:35 PM Hip/Pelvis X-Ray 03/14/21 13:57 XR hip RT 2V w pelvis CLINICAL HISTORY: pain, fall TECHNIQUE: 2 views of the right hip and single frontal view of the pelvis were obtained. Comparison: None available at the time of this dictation. FINDINGS: There is no evidence of an acute fracture. The bones are anatomically aligned. Degenerative changes are seen in the bilateral hip joints. IMPRESSION: No evidence of acute osseous injury. ACT 112: Negative or not required by law. Electronically signed by: Blayne May M.D. 03/14/2021 2:27 PM PG Care Time/CCT Total # of Minutes Spent Total Time Spent with Patient: Total time spent is greater than 50% in coordination of care (as documented) at patient's floor/unit and/or counseling patient: Coding Level of Care Code 98814 Subseq Hosp Care Lvl 2 Diagnoses Fall W19.XXXA UTI (urinary tract infection) N39.0
--- NOTE | 2021-03-15 16:38 | Electrocardiogram Report ---
Test Reason : Blood Pressure : / mmHG Vent. Rate : 078 BPM Atrial Rate : 078 BPM P-R Int : 184 ms QRS Dur : 076 ms QT Int : 398 ms P-R-T Axes : 066 022 073 degrees QTc Int : 453 ms Poor data quality, interpretation may be adversely affected Sinus rhythm with Premature atrial complexes Cannot rule out Inferior infarct , age undetermined Abnormal ECG When compared with ECG of 08-FEB-2021 17:20, Premature atrial complexes are now Present Minimal criteria for Inferior infarct are now Present Confirmed by Carl Christianson ([id number]) on 03/15/2021 4:38:08 PM Referred By: REFERRED SELF Confirmed By:Carl Christianson
[2021-03-15] MEDS: cefTRIAXone SODIUM 2,000 MG in DEXTROSE 5% 50 ML IV SCH (18:18)
[2021-03-16] MEDS: PANTOprazole 40 MG TAB PO SCH (05:49)
[2021-03-16] MEDS: ATORVASTATIN 40 MG TAB PO SCH (08:04)
[2021-03-16] MEDS: DOCUSATE SODIUM 100 MG CAP PO SCH (08:04)
[2021-03-16] MEDS: RIVAROXABAN 15 MG TAB PO SCH (08:04)
[2021-03-16] MEDS: FAMOTIDINE 20 MG TAB PO SCH (08:04)
[2021-03-16] MEDS: LOSARTAN POTASSIUM 25 MG TAB PO SCH (08:04)
[2021-03-16] MEDS: CLOPIDOGREL BISULFATE 75 MG TAB PO SCH (08:04)
[2021-03-16] MEDS: METOPROLOL SUCC 25MG EXT REL TAB PO SCH (08:04)
--- NOTE | 2021-03-16 08:27 | Hospitalist Progress Note ---
Date of Service March 16, 2021 Assessment & Plan Admission and Anticipated Discharge Date Admission Date: March 14, 2021 Review of Systems Constitutional: no fever and no chills Respiratory: no cough, no chest congestion, no dyspnea and no wheezing Cardiovascular: no chest pain, no palpitations and no edema Gastrointestinal: no abdominal pain, no heartburn, no nausea, no vomiting and no change in bowel habits Neurologic: no gait abnormality, no falls and no headache(s) Physical Exam Physical Exam: Constitutional: WD/WN, vitals as above ENMT: External ear and nose normal, TMs and EAC normal Neck: trachea midline, no thyromegaly Lymphatic: No cervical lymphadenopathy Respiratory: Effort normal, CTA B/L CV: RRR, no murmur, no edema Abdomen: normal bowel sounds, soft, nontender, no hepatosplenomegaly Neurologic: Normal gait Musculoskeletal: Skin: Psychiatric: Results & Data Results & Data ([facility]) Vital Signs (Past 12 Hours) Vital Signs Temp Pulse Resp BP Pulse Ox 03/16/21 07:24 36.9 C 91 H 16 180/71 H 96 03/15/21 23:14 36.6 C 85 16 166/80 H 96 PG Care Time/CCT Total # of Minutes Spent Total Time Spent with Patient: Total time spent is greater than 50% in coordination of care (as documented) at patient's floor/unit and/or counseling patient: Coding
--- NOTE | 2021-03-16 14:13 | Discharge Summary ---
Date of Service March 16, 2021 Admission HPI Per Admitting Provider Mrs. Navarro is an 85-year-old white female with a PMHx of of CAD s/p old MA and multiple stents and CABG, carotid disease, history of CVA without sequella, paroxysmal atrial flutter, GERD, HTN, and recently diagnosed KATHRYN (has not yet gotten the CPAP). She is not confused but is an inconsistent historian. Reports that she came to the emergency department as she awoke in the middle the night to use the restroom and felt "dizzy". Described as a feeling of lightheadedness as if she would "pass out". Denied a spinning sensation; however, did vocalize to the ED staff a feeling of vertigo/"spinning". In palak tion, she tells me that she recently had nausea and vomiting which she sought medical attention here in our emergency department 2 days ago. I cannot find documentation of this. At any rate, she claims that she was diagnosed with urinary tract infection and discharged with Macrobid. I see her last ED visit was September of this year. At any rate, she is complaining of a lightheaded sensation and feeling as if she is going to pass out. It is affecting her ability to stand/walk. She complains of subjective fevers/chills, a faintly productive cough of yellow sputum and recent nausea and vomiting as mentioned above. She denies headache, nasal congestion, sore throat, loss of taste/smell, palpitations, abdominal pain, diarrhea/constipation, dysuria, hematuria, urinary frequency, weakness in her upper or lower extremities, trouble talking/forming words or swallowing. I did attempt to call her son to further sort out her ongoing symptomatology; however, was unsuccessful in reaching him. At any rate, her work-up in the emergency department was unremarkable. She has some mild leukopenia at 3.85 but otherwise her CBC and metabolic panel are benign. Troponin is less than 0.015. Her Covid test is pending. Her urinalysis is not grossly infected as it is nitrite and leukocyte esterase negative. CT of the head shows mucosal thickening of the ethmoid sinuses without acute intracranial process. Her EKG shows a sinus rhythm at 65 bpm. Normal axis. No acute ST/T wave changes. On the child monitor, she is in a sinus rhythm in the 70s. Her blood pressure upon presentation was initially 155/90. Throughout her stay in the emergency department, it did go up to 199/95. She was given IV hydralazine 5 mg. Current blood pressure is 152/78. She has not gotten her morning medication. Typically takes metoprolol and Cozaar for BP control. Patient did receive Antivert and fentanyl in the ED. Her dizziness remains unchanged. I did review her records at length. She was hospitalized in March 2020 with altered mental status and she was found to have an acute neurological event. At that time, she was found to have 90% stenosis of the right ICA. Does not appear as if patient has followed up with this. Admission Exam Per Admitting Provider General: patient resting comfortably, NAD, non-toxic in appearance, AA&O x 4 Skin: warm, dry, intact, no rashes or lesions HEENT: NC/AT, PERRL, EOMI, anicteric sclera, conjunctiva without injection, external ear normal to inspection and nontender, nares patent, moist mucus membranes, dentition intact, no oropharyngeal lesions, neck supple, trachea midline, no LAD, no thyromegaly, no JVD Heart: +S1/S2, regular with frequent ectopy, no m/r/g Lungs: equal air entry bilaterally, no rales/rhonchi/wheezes Abd: +BS, soft, NT/ND, no masses/organomegaly/ascites Ext: warm, 2+ pulses in UE/LE bilaterally, no clubbing/cyanosis or edema Neuro: nonfocal, patient AA&O x 4, speech intact, no facial droop, moving all extremities on command with equal strength 5/5 Principal Diagnosis Fall and weakness Discharge Exam Constitutional WD/WN, vitals as above Respiratory normal respiratory effort, lungs clear to auscultation Cardiovascular Rate/Rhythm: + irregularly irregular (no murmur or edema) Gastrointestinal (Abdomen) normal bowel sounds, soft, nontender, no hepatosplenomegaly Psychiatric Orientation: alert, oriented to person and oriented to place Discharge Data Allergies Allergy/AdvReac Type Severity Reaction Status Date / Time perflutren Allergy Severe MUSCLE Verified 03/14/21 15:42 TIGHTNESS propylene glycol Allergy Severe MUSCLE Verified 03/14/21 15:42 TIGHTNESS Sulfa (Sulfonamide Allergy Mild depleted Verified 03/14/21 15:42 Antibiotics) platelet count sulfamethoxazole Allergy Mild RASH Verified 03/14/21 15:42 trimethoprim Allergy Mild RASH Verified 03/14/21 15:42 cephalexin Allergy Hives Verified 03/14/21 15:42 apixaban [From Eliquis] AdvReac Unknown Dizziness, Verified 03/14/21 15:42 nausea tramadol AdvReac Unknown Hallucinati Verified 03/14/21 15:42 ng Consultations 03/14/21 17:12 ED Decision to Admit Stat Ordered Studies 03/14/21 13:57 CT head/brain wo con Stat Hospital Course (1) Generalized weakness: (2) Fall: (3) Altered mental status: (4) UTI (urinary tract infection): (5) Coronary atherosclerosis: (6) Carotid artery stenosis: (7) Benign essential hypertension: (8) Hyperlipidemia: (9) Gastroesophageal reflux disease: 1,2,3 Fall and weakness Plan: 85yo C female with history of CAD, HTN, HLP, Atrial flutter on Rivaroxaban anticoagulation presenting from home with a fall from bed. Patient states that she gently slipped out of her bed. Denies trauma, loss of consciousness. Presently complaining of diffuse weakness, otherwise no complaints. Possibly secondary to underlying UTI. No focal findings. -Observation to medical -Fall precautions -PT/OT evaluation -Check CK level -Treatment of underlying medical conditions as below recommendations with from physical therapy including rehabilitative care post hospitalization, recommendations for supervised care likely multifactorial no obvious cause at this time. Will complete treatment potential UTI , though this seems unlikely to have caused overall symptoms No obvious medication interactions or cause for above symptoms. Patient is agreeable to rehabilitation and improvement 4. UTI (urinary tract infection): Plan: Patient was recently on an antibiotic for UTI - uncertain which one. Son states that she gets frequent UTIs and commonly becomes weak and falls when she has an infection. Presently afebrile, hemodynamically stable, non-toxic in appearance. She has no leukocytosis, procalcitonin is undetectable. UA with hematuria (2+, >30 RBCs) as well as 5-10 epis. No WBCs/LE/Nitrites or bacteria, however, sample patient was recently on antibiotics - partially treated UTI? No new concerns blood cultures preliminary negative no urine culture prior urine cultures February 20 E coli susceptible to all antibiotics Complete treatment for a total of 5 days, convert to Cipro 500 mg b.i.d. for an additional 3 days CAD /atrial flutter /hypertension /hyperlipidemia (coronary artery disease): Plan: Patient with history of CAD s/p inferior MA in 10/2007 with stents placed to proximal and distal RCA, subsequent CABG x 1V performed in 11/2007. She denies chest pain, SOB, palpitations, dizziness. EKG with old appearing changes. Troponin is detectable at 0.030 -Continue Plavix 75mg po daily -Continue Atorvastatin 80mg po qPM -Contineu metoprolol 75mg po BID -Continue Losartan 12.5mg po daily -Repeat Troponin at 22:00, repeat normal Patient is asymptomatic continue to monitor no changes of medications on discharge Gastroesophageal reflux disease: Plan: Chronic. Well controlled -Continue Pepcid and Protonix F/E/N - Gentle hydration with NSS at 80mL/hr x 1 liter, K repletion with 40mEq PO - repeat chemistry in AM, Heart healthy diet as tolerated with aspiration precautions Ppx - On Rivaroxaban for history of atrial flutter Code - DNR/DNI per discussion with patient Dispo - Observation to medical Admission and Anticipated Discharge Date Admission Date: March 14, 2021 Total Time Total Time Spent Total Time Spent (In Minutes): 40 Discharge Plan Discharge Items Patient Disposition: Home - Self-Care Reason For Visit: FALL Discharge Diagnosis: Fall with Weakness Activity: Per Instructions section Lifting: Gradually increase as tolerated Bathing: No limitations Exercise/Sports: Gradually increase as tolerated Driving/Machine Use: Not recommended Non-emergency contact: Primary Care Provider Call non-emergency contact if: you have any medication questions and you have a fever Follow-up/Referrals: Susu Bower DO [Primary Care Provider] - Diet: Heart Healthy Addtl Attending Provider Instructions: no additional instructions Pending Studies at Discharge: Yes ( blood cultures only preliminary results reported) Stand-Alone Forms: My [employer], Smoking Cessation Medications and DC Order Prescriptions: New ciprofloxacin HCl [Cipro] 500 mg tablet 500 mg PO BID Qty: 6 RF: 0 Continued docusate sodium 100 mg capsule 100 mg PO BID RF: 0 Xarelto 15 mg tablet 15 mg PO DAILY RF: 0 nitroglycerin 0.4 mg tablet, sublingual 0.4 mg sublingual DIRECTED PRN (Reason: Chest Pain) RF: 0 atorvastatin 80 mg tablet 80 mg PO QAM RF: 0 Centrum Silver Women 8 mg iron-400 mcg-300 mcg Tablet 1 tab PO QAM RF: 0 clopidogrel 75 mg tablet 75 mg PO QAM RF: 0 pantoprazole 20 mg tablet,delayed release (DR/EC) 20 mg PO DAILYBB RF: 0 albuterol sulfate 90 mcg/actuation HFA aerosol inhaler 2 puffs INH Q6H PRN (Reason: Shortness Of Breath Or Wheezing) RF: 0 cyanocobalamin (vitamin B-12) [Vitamin B-12] 1,000 mcg Tablet 1,000 mcg PO QAM RF: 0 acetaminophen [Tylenol Extra Strength] 500 mg Tablet 500 mg PO Q6H PRN (Reason: Pain) RF: 0 famotidine [Pepcid] 20 mg tablet 20 mg PO BID RF: 0 cholecalciferol (vitamin D3) [Vitamin D3] 10 mcg (400 unit) Capsule 10 mcg PO QAM RF: 0 metoprolol succinate 25 mg Tablet Extended Release 24 Hr 75 mg PO BID Qty: 180 RF: 0 aspirin [Aspirin Low Dose] 81 mg Tablet,Delayed Release (Dr/Ec) 81 mg PO QAM RF: 0 losartan [Cozaar] 25 mg tablet 12.5 mg PO QAM RF: 0 Discharge Orders: Discharge Order (Routine); Ordered 03/16/21 Ordered By: Romain Aly Admission Data Admit Date/Time: 03/14/21 19:44 Attending Provider: Romain Aly Admit Provider: Angelina Lopes Primary Care Provider: Susu Bower Other Providers: Jame Angela ; [facility] Other Interventions: Discharge Summary Assessment (RN) Last Done: 03/16/21 15:15 Coding Level of Care Code D/C DAY MANAGEMENT >30 MINS Diagnoses Generalized weakness R53.1 Fall W19.XXXA Encounter type: initial encounter Altered mental status R41.82 Altered mental status type: unspecified UTI (urinary tract infection) N30.01 Hematuria presence: with hematuria Urinary tract infection type: acute cystitis Carotid artery stenosis I65.29 Coronary atherosclerosis I25.10 Benign essential hypertension I10 Hyperlipidemia E78.5 Gastroesophageal reflux disease K21.9 Time Spent (min) 40
[2021-03-16] MEDS: cefTRIAXone SODIUM 2,000 MG in DEXTROSE 5% 50 ML IV SCH (15:25)
== END 2021-03-16 17:00 | disposition home or self-care (01) ==
LOC: ED 13:39 → 3N 13:39 → SUATTDRO 19:44 → 3N 21:46

== ENCOUNTER 2021-06-29 05:55 | Inpatient (IN) ==
--- NOTE | 2021-06-24 09:01 | PAT Medication Instructions ---
Medication Instructions Date of Service June 24, 2021 Home Medications Medication Instructions Recorded metoprolol succinate 25 mg 75 mg PO BID #180 tab 12/20/20 tablet,extended release 24 hr cholecalciferol (vitamin D3) 10 10 mcg PO QAM #90 cap 04/26/21 mcg (400 unit) capsule (Vitamin D3) atorvastatin 80 mg tablet 80 mg PO QAM multivit with fclizeec-looh-MC-lutein 8 mg iron-400 mcg-300 mcg tablet (Centrum Silver Women) 1 tab PO QAM nitroglycerin 0.4 mg sublingual tablet 0.4 mg SUBLINGUAL DIRECTED PRN clopidogrel 75 mg tablet 75 mg PO QAM pantoprazole 20 mg tablet,delayed release 10 mg PO QAM albuterol sulfate 90 mcg/actuation aerosol inhaler 2 puffs INH Q6H PRN acetaminophen 500 mg tablet (Tylenol Extra Strength) 500 mg PO Q6H PRN cyanocobalamin (vitamin B-12) 1,000 mcg tablet (Vitamin B-12) 1,000 mcg PO QAM famotidine 20 mg tablet (Pepcid) 20 mg PO QPM metoprolol succinate 25 mg tablet,extended release 24 hr 75 mg PO BID aspirin 81 mg tablet,delayed release (Aspirin Low Dose) 81 mg PO QAM losartan 25 mg tablet (Cozaar) 12.5 mg PO QAM rivaroxaban 15 mg tablet (Xarelto) 15 mg PO QPM cholecalciferol (vitamin D3) 10 mcg (400 unit) capsule (Vitamin D3) 10 mcg PO QAM Continue as directed nitroglycerin 0.4 mg sublingual tablet 0.4 mg SUBLINGUAL DIRECTED PRN (if needed) ASK your prescriber and surgeon aspirin 81 mg tablet,delayed release (Aspirin Low Dose) 81 mg PO QAM rivaroxaban 15 mg tablet (Xarelto) 15 mg PO QPM clopidogrel 75 mg tablet 75 mg PO QAM DO NOT take the morning of surgery Centrum Silver Women 1 tab PO QAM cyanocobalamin (vitamin B-12) 1,000 mcg tablet (Vitamin B-12) 1,000 mcg PO QAM losartan 25 mg tablet (Cozaar) 12.5 mg PO QAM cholecalciferol (vitamin D3) 10 mcg (400 unit) capsule (Vitamin D3) 10 mcg PO QAM Take morning of surgery With a small sip of water, OTHERWISE NOTHING TO EAT OR DRINK AFTER MIDNIGHT: atorvastatin 80 mg tablet 80 mg PO QAM pantoprazole 20 mg tablet,delayed release 10 mg PO QAM albuterol sulfate 90 mcg/actuation aerosol inhaler 2 puffs INH Q6H PRN (use if needed; please bring rescue inhaler with you to hospital day of surgery if possible) acetaminophen 500 mg tablet (Tylenol Extra Strength) 500 mg PO Q6H PRN (okay to take up to 4 hours prior to surgery if needed) metoprolol succinate 25 mg tablet,extended release 24 hr 75 mg PO BID Take evening before surgery albuterol sulfate 90 mcg/actuation aerosol inhaler 2 puffs INH Q6H PRN (if needed) acetaminophen 500 mg tablet (Tylenol Extra Strength) 500 mg PO Q6H PRN (if needed) famotidine 20 mg tablet (Pepcid) 20 mg PO QPM metoprolol succinate 25 mg tablet,extended release 24 hr 75 mg PO BID Other Notes If you have any questions please call us at [phone] or [phone] or [phone] or [phone]
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
[2021-06-29] MEDS ORDERED: SODIUM CHLORIDE 0.9% 1000ML 1,000 ML IV SCH (06:00)
[2021-06-29] MEDS ORDERED: PROPOFOL IV EMULSION 10 MG/ML 20 ML VIAL IV ONE (06:48)
[2021-06-29] MEDS ORDERED: LIDOCAINE 2% 2 ML VIAL/AMP(20MG/ML) INFIL ONE (06:48)
[2021-06-29] MEDS ORDERED: ONDANSETRON INJ 2 MG/ML 2 ML VIAL ONE (06:48)
[2021-06-29] MEDS ORDERED: MIDAZOLAM HCL 1 MG/ML 2ML VIAL ONE (06:48)
[2021-06-29] MEDS ORDERED: GLYCOPYRROLATE 0.2 MG/ML VIAL ONE (06:48)
[2021-06-29] MEDS ORDERED: DEXAMETHASONE SOD INJ 4 MG/ML VIAL ONE (06:48)
[2021-06-29] MEDS ORDERED: NEOSTIGMINE METHYLSULFATE 1 MG/ML 10ML VIAL ONE (06:48)
[2021-06-29] MEDS ORDERED: fentaNYL citrate 100 MCG/2 ML VIAL ONE (06:49)
[2021-06-29] MEDS ORDERED: THROMBIN FOR SOLN 20000 UNIT KIT ONE (07:04)
[2021-06-29] MEDS ORDERED: GELATIN SPONGE SZ 100 ONE (07:04)
[2021-06-29] MEDS ORDERED: ceFAZolin 330 MG/ML 1 GM VIAL ONE (07:04)
[2021-06-29] MEDS ORDERED: HEPARIN (PORCINE) 1000 UNIT/ML 10 ML (CATH LAB USE ONLY) ONE (07:04)
[2021-06-29] MEDS ORDERED: LIDOCAINE 1% LOCAL 20 ML VIAL ONE (07:04)
[2021-06-29] MEDS ORDERED: EPINEPHrine INJ 1 MG/ML AMP ONE (07:05)
[2021-06-29] MEDS ORDERED: BUPIVACAINE 0.5 % 5 MG/1 ML MPF 30ML VIAL ONE (07:05)
[2021-06-29 07:06] LABS: BUN Creatinine Ratio 22.5 (10-20); Calcium 9.1 mg/dl (8.5-10.1); Creatinine Clr Calc Pharmacy 39.1 ml/min; Est GFR (African American) 68.5 ml/min; Est GFR (Non-African American) 59.1 ml/min; Potassium 3.9 mmol/L (3.5-5.1)
[2021-06-29] MEDS ORDERED: ONDANSETRON INJ 2 MG/ML 2 ML VIAL IV PRN (07:07)
[2021-06-29] MEDS ORDERED: ATROPINE SULFATE 0.1 MG/ML 10ML SYR IV PRN (07:07)
[2021-06-29] MEDS ORDERED: LABETALOL HCL IV 5 MG/ML 20ML IV PRN (07:07)
[2021-06-29] MEDS ORDERED: fentaNYL citrate 100 MCG/2 ML VIAL IV PRN (07:07)
--- NOTE | 2021-06-29 07:14 | History & Physical Bridge Note ---
Date of Service June 29, 2021 History & Physical Bridge Note I have examined the patient, reviewed the History & Physical and in the interval since the performance of the History & Physical I have noted the following changes of clinical significance: no changes noted
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
[2021-06-29] MEDS ORDERED: CLINDAMYCIN 600 MG/54 ML D5W IV ONE (07:19)
[2021-06-29] MEDS ORDERED: CLINDAMYCIN 600 MG/54 ML BAG IV SCH (07:30)
[2021-06-29] MEDS ORDERED: ePHEDrine sulfate 50 MG/ML AMP ONE (09:50)
[2021-06-29] MEDS ORDERED: PHENYLEPHRINE HCL 10 MG/ML VIAL ONE (09:50)
[2021-06-29] MEDS ORDERED: HEPARIN SOD (PORCINE) 1000 UNIT/ML ONE ×2 (09:50)
--- NOTE | 2021-06-29 10:06 | Post Operative Brief Note ---
Immediate Post Op Note v1 Date of Surgery June 29, 2021 Pre & Post Diagnosis Operation Date: 06/29/21 07:30 Pre-Op Diagnosis: Right Internal Carotid Artery Stenosis Post-Op Diagnosis: Right Internal Carotid Artery Stenosis I identified the patient and participated in the time-out.: Yes Procedure Operation Date: 06/29/21 07:30 Actual Procedures p Right Carotid Endarterectomy with Bovine Patch(Right) - Edu Le MD Surgeon Edu Le MD [place] Attendant MD Juan LBasiliaMinarchick,PAC Estimated Blood Loss 30 Findings Consistent with Post-Op Diagnosis Anesthesia Type General Complications none Disposition Accompanied Patient To Recovery: No Disposition: Recovery Room
--- NOTE | 2021-06-29 10:28 | Operative Report ---
Post Operative Report Pre & Post Diagnosis Operation Date: 06/29/21 07:30 Pre-Op Diagnosis: Right Internal Carotid Artery Stenosis Post-Op Diagnosis: Right Internal Carotid Artery Stenosis I identified the patient and participated in the time-out.: Yes Procedure Operation Date: 06/29/21 07:30 Actual Procedures p Right Carotid Endarterectomy with Bovine Patch(Right) - Edu Le MD Surgeon Edu Le MD Slice Cutting Machine Operator MD Jesús Martinez,PAC Estimated Blood Loss 30 Findings Consistent with Post-Op Diagnosis Specimens right carotid endarterectomy plaque Drains none Anesthesia Type General Complications none Disposition Accompanied Patient To Recovery: No Disposition: Surgical ICU Indications This is an 85 year old female with high grade asymptomatic right carotid artery stenosis. On CT angiography she has greater than 90% stenosis of the proximal internal carotid artery. She presents for carotid endarterectomy. Description of Procedure The patient was taken to the operating room and placed in supine position. After general anesthesia was accomplished the right-side of the neck was prepped and draped in a sterile manner. A team timeout was performed. A longitudinal neck incision was then made coursing along the medial border of the sternocleidomastoid muscle. The incision was taken down through the platysmal layer. The facial vein was identified, ligated, and divided. The common carotid artery was then seen. It was dissected free down to the omohyoid muscle. The dissection was carried upward until the external carotid artery and superior thyroid artery was seen. There were actually two branches immediately adjacent to one another in this location. The superior thyroid artery and the additional artery were slung with 2-0 silk sutures. The external carotid was slung with a red rubber vessel loop. Next the dissection was carried up along the internal carotid artery. This was carried upward to beyond the area of narrowing. The hypoglossal nerve was seen and preserved. The patient was heparinized. After adequate heparinization was accomplished, the internal, external, and common carotid arteries were clamped. A longitudinal arteriotomy was started on the common carotid artery and extended upward along the internal carotid artery to a point beyond the area of narrowing. There was calcified plaque of the internal carotid artery origin causing approximately 90% narrowing. A Doppler shunt was then placed in the internal, followed by the common carotid artery and held in place with Zan clamps. There was good back bleeding seen from the internal carotid artery. The endarterectomy was then started in the appropriate plane on the common carotid artery. This was carried upward and the external carotid was everted and endarterectomized. The endarterectomy was then carried up along the internal carotid artery. The plaque was transected and this slight shelf was tacked down using 7-0 prolene sutures. The endarterectomy was then carried down further on the common carotid artery. At end of the arteriotomy, the plaque was then transected. Under loop magnification, all loose debris and flaps were removed. The arteriotomy was then closed using a bovine pericardium patch and a running 6-0 prolene suture. This was done in the usual vascular fashion. Prior to completing the closure, the doppler shunt was removed and the internal and common carotid arteries were reclamped. Backbleeding and forward bleeding was allowed to occur. The flow surface was irrigated with heparinized saline. The final few sutures were then placed and securely tied. Clamps were then removed off the external and common carotid arteries. The clamp was then removed from the internal carotid artery. Good distal flow was seen. Adequate hemostasis was seen of the patch. On removing the weitlaner retractor we noted bleeding from a defect in the internal jugular vein which was repaired with a running 6-0 prolene suture. The wound was inspected and adequate hemostasis was obtained. The wound was irrigated with antibiotic solution. It was then closed with a running 3-0 Vicryl suture for the platysmal layer and a 4-0 subcuticular Vicryl suture for the skin edges. Dermabond was used for dressing. The patient left the operating room in satisfactory condition and tolerated the procedure well. At the conclusion of the case, all needle, sponge, and instrument counts were correct. Dr. Le remained present and scrubbed for the entirety of the procedure. I attest to the content of the Intraoperative Record and any orders documented therein. Any exceptions are noted below.
[2021-06-29] MEDS ORDERED: SUGAMMADEX SODIUM 200 MG/2 ML VIAL IV ONE (10:29)
[2021-06-29] MEDS ORDERED: NITROGLYCERIN SL 0.4 MG/TAB TAB SL PRN (11:42)
[2021-06-29] MEDS ORDERED: oxyCODONE/ACETAMINOPHEN 5mg/325mg TAB PO PRN (11:42)
[2021-06-29] MEDS ORDERED: ACETAMINOPHEN 500 MG TAB PO PRN (11:42)
[2021-06-29] MEDS ORDERED: MoRPHine SULFATE 4 MG/ML 1 ML CARP\\VIAL IV PRN (11:42)
[2021-06-29] MEDS ORDERED: ALBUTEROL HFA 8 GM INHALER INH PRN (11:42)
[2021-06-29] MEDS ORDERED: ARTIFICIAL TEARS OP PRN (12:04)
[2021-06-29] MEDS: LACTATED RINGER'S 1,000 ML IV SCH ×2 (12:30→21:34)
[2021-06-29 12:38] LABS: Basophils # (auto) 0.01 K/uL (0-0.2); Basophils % (auto) 0.2 %; Eosinophils % (auto) 1.9 %; Hemoglobin 9.3 g/dL (12.0-16.0); Immature Granulocytes # (auto) 0.01 K/uL (0.00-0.02); Immature Granulocytes % (auto) 0.2 %; Lymphocytes # (auto) 0.94 K/uL (1.2-3.4); Lymphocytes % (auto) 18.3 %; Mean Corpuscular Hemoglobin 32.7 pg (25-34); Mean Corpuscular Volume 102.1 fL (80-100); Mean Platelet Volume 9.8 fL (7.4-10.4); Monocytes # (auto) 0.24 K/uL (0.11-0.59); Monocytes % (auto) 4.7 %; Neutrophils # (auto) 3.83 K/uL (1.4-6.5); Neutrophils % (auto) 74.7 %; Platelet Count 188 K/uL (130-400); RDW Coefficient of Variation 14.5 % (11.5-14.5); RDW Standard Deviation 54.3 fL (36.4-46.3); Red Blood Count 2.84 M/uL (4.2-5.4); White Blood Count 5.13 K/uL (4.8-10.8)
[2021-06-29 12:41] LABS: Mean Corpuscular Hgb Conc 32.1 g/dL (32-36)
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
[2021-06-29] MEDS: CLINDAMYCIN 600 MG in DEXTROSE 5% 50 ML IV SCH ×2 (13:24→21:35)
--- NOTE | 2021-06-29 13:25 | Anesthesiology Progress Note ---
Date of Service June 29, 2021 Anesthesia Post Procedure Vital Signs Vital Signs: Temp Pulse Pulse Resp BP BP BP 06/29/21 13:05 60 06/29/21 12:50 60 14 06/29/21 12:40 60 13 06/29/21 12:30 62 14 06/29/21 12:20 59 L 14 06/29/21 12:10 60 16 06/29/21 12:00 59 L 15 147/82 H 06/29/21 11:51 59 L 14 06/29/21 11:42 36.8 C 06/29/21 11:30 36.1 C L 57 L 16 117/60 06/29/21 11:20 58 L 16 112/62 06/29/21 11:10 58 L 18 103/61 06/29/21 11:00 57 L 12 96/58 L 06/29/21 10:50 36.3 C L 61 19 117/63 06/29/21 06:58 139/67 155/68 H 06/29/21 06:36 36.5 C 69 20 131/96 167/81 H BP Pulse Ox 06/29/21 13:05 06/29/21 12:50 98 06/29/21 12:40 99 06/29/21 12:30 98 06/29/21 12:20 98 06/29/21 12:10 95 06/29/21 12:00 96 06/29/21 11:51 92 06/29/21 11:42 06/29/21 11:30 129/60 95 06/29/21 11:20 128/61 94 06/29/21 11:10 124/61 93 06/29/21 11:00 116/61 92 06/29/21 10:50 92 06/29/21 06:58 06/29/21 06:36 97 Transfer of Care Handoff Completed per policy Notes Mental Status: alert / awake / arousable Patient Amnestic to Procedure: Yes Nausea / Vomiting: adequately controlled Pain: adequately controlled Airway Patency, RR, SpO2: stable & adequate BP & HR: stable & adequate Hydration State: stable & adequate Anesthetic Complications: no major complications apparent
[2021-06-29] MEDS: MoRPHine SULFATE 2 MG/ML CARP IV PRN ×2 (14:21→17:33)
[2021-06-29] MEDS: FAMOTIDINE 20 MG TAB PO SCH (19:47)
[2021-06-29] MEDS: METOPROLOL SUCC 25MG EXT REL TAB PO SCH (19:47)
[2021-06-29] MEDS ORDERED: RIVAROXABAN 15 MG TAB PO SCH (21:00)
[2021-06-30] MEDS ORDERED: LABETALOL HCL IV 5 MG/ML 20ML IV STA (03:05)
[2021-06-30] MEDS ORDERED: LABETALOL HCL IV 5 MG/ML 20ML IV ONE (03:06)
[2021-06-30] MEDS: LACTATED RINGER'S 1,000 ML IV SCH ×2 (04:51→14:51)
[2021-06-30 05:35] LABS: Basophils # (auto) 0.02 K/uL (0-0.2); Basophils % (auto) 0.4 %; Eosinophils # (auto) 0.02 K/uL (0-0.5); Eosinophils % (auto) 0.4 %; Hematocrit (blood only) 27.5 % (37-47); Hemoglobin 8.9 g/dL (12.0-16.0); Immature Granulocytes # (auto) 0.02 K/uL (0.00-0.02); Immature Granulocytes % (auto) 0.4 %; Lymphocytes # (auto) 0.88 K/uL (1.2-3.4); Lymphocytes % (auto) 16.7 %; Mean Corpuscular Hemoglobin 32.7 pg (25-34); Mean Corpuscular Hgb Conc 32.4 g/dL (32-36); Mean Corpuscular Volume 101.1 fL (80-100); Mean Platelet Volume 9.3 fL (7.4-10.4); Monocytes # (auto) 0.36 K/uL (0.11-0.59); Monocytes % (auto) 6.8 %; Neutrophils # (auto) 3.97 K/uL (1.4-6.5); Neutrophils % (auto) 75.3 %; Platelet Count 200 K/uL (130-400); RDW Coefficient of Variation 14.4 % (11.5-14.5); RDW Standard Deviation 52.9 fL (36.4-46.3); Red Blood Count 2.72 M/uL (4.2-5.4); White Blood Count 5.27 K/uL (4.8-10.8)
[2021-06-30] MEDS: LABETALOL HCL IV 5 MG/ML 20ML IV PRN ×3 (05:47→21:45)
--- NOTE | 2021-06-30 08:17 | Critical Care Progress Note ---
Date of Service June 30, 2021 Assessment & Plan (1) CVD (cardiovascular disease): (2) Dizziness: (3) Carotid artery stenosis: Plan: ICU Assessment and Plans Reason Critically Ill: 85-year-old female here with a PMHx significant for CVD, TIA, CAD, afib, HLD, HTN who presented with right carotid artery stenosis and who was admitted for R carotid endarterectomy. Neuro - [facility] ICU: NEGATIVE Sedation: none Analgesia: prn tylenol, morphine Cardiac - Status post right carotid endarterectomy: Management per vascular surgery. Hypertension: restarted home medication. Continue to monitor. Blood pressure parameters per vascular surgery. Anemia: hbg drop 11.1 on admit to 8.9, 2U blood on hold. She is hemodynamically stable. Continue to monitor. Cardiovascular disease: Continue home medications. Try and maintain on the slightly dry side. Abdominal aneurysm: Continued radiographic surveillance per vascular surgery and cardiology. Respiratory - patient may clear airway secretions with suction encourage ambulation, usage of incentive spirometer GI - heart healthy diet, minced and moist continue home pepcid, protonix RENAL/LYTES - No significant electrolyte derangement. Replace lytes as needed. - No concerns at this time. I/O: + 3027, urine 605 ENDO - no concerns at this time HEME - Anemia: hbg drop 11.1 on admit to 8.9, 2U blood on hold. On ASA plavix xarelto. She is hemodynamically stable. Continue to monitor. ID - No concerns for infection at this point. INTEGUMENTARY - skin dry clean intact, continue to monitor carotid incision site LINES/IV ACCESS - PIVs intact. Mohr catheter and arterial line per vascular surgery. Activity per vascular surgery. DVT PROPHYLAXIS - ASA, plavix, xarelto Thank you for allowing us to be part of this patient's care. Please refer to Dr. Hernandez's documentation for any further recommendations. Admission and Anticipated Discharge Date Admission Date: June 29, 2021 Supervising Physician Co-Signing Physician Notes Patient was seen and examined. EMR reviewed. Discussed on multidisciplinary rounds and with vascular surgery. Patient remains persistently dysarthric. She failed a swallow evaluation today. Feeding tube was recommended. She is been slightly hypertensive due to inability to take oral antihypertensive medications. Her incision sites look clean dry and intact. We will place course a feeding tube. Verify position with chest x-ray. Nutritional consult for tube feeding. Additional evaluation management per spe ech therapy. Ultimate disposition per vascular surgery. Her critical care issues appear resolved. Critical care services will sign off at this point time. Feel free to contact us if we can be of additional assistance Subjective Patient seen at bedside, calm comfortable cooperative, states she has difficulty breathing, secretions audible in mouths has difficulty coughing/spitting them out. Gurgles while speaking. Secretions cleared with suction, patient speech before more audible gurgles disappeared. She states she has a headache that improved with morhpine/tylenol overnight, otherwise no pain in her neck/chest/abd, only has pain on her neck if she touches it. States she has not gotten up to walk yet. States she had difficulty with nectar thick liquids, per nursing also had difficulty with water and ice. Patient AAOx3. No other events overnight. Review of Systems Review of Systems: Positive headache, swelling Negative fever chills Negative dizziness Negative chest pain palpitations SOB Negative nausea vomitting diarrhea constipation Negative numbness tingling rash Physical Exam Constitutional: well developed, well nourished, average body habitus, cailin ative and comfortable Eyes: PERRL, conjunctivae normal, anicteric sclerae ENMT: external ear and nose normal, oropharynx normal difficulty coughing/spitting Neck: trachea midline, skin folds noted under chin, incision over right carotid noted with dermabond dry clean intact, bruising noted along right neck and along base of left side of neck. Respiratory: normal respiratory effort, lungs clear to auscultation Cardiovascular: RRR, no murmur, no edema Chest (Breasts): Chest: normal inspection of chest Gastrointestinal (Abdomen): normal bowel sounds, soft, nontender, no hepatosplenomegaly Skin: no rashes, warm and dry Psychiatric: A+Ox3, euthymic affect Results & Data Results & Data ([facility]) Vital Signs (Past 12 Hours) Vital Signs Temp Pulse Resp BP Pulse Ox 06/30/21 06:00 37.2 C 75 19 89 L 06/30/21 05:30 81 21 100 06/30/21 05:01 85 16 163/84 H 99 06/30/21 05:00 82 18 100 06/30/21 04:30 81 25 H 99 06/30/21 04:00 94 H 17 170/94 H 95 06/30/21 03:30 73 23 95 06/30/21 03:00 37.2 C 95 H 18 182/105 H 06/30/21 02:30 93 H 23 94 06/30/21 02:06 96 H 19 87 L 06/30/21 01:30 79 21 99 06/30/21 01:00 98 H 23 177/115 H 98 06/30/21 00:30 36.9 C 94 H 17 99 06/30/21 00:01 99 H 26 H 163/90 H 97 06/30/21 00:00 93 H 16 98 06/29/21 23:30 90 17 97 06/29/21 23:00 88 19 163/87 H 96 06/29/21 22:30 89 18 95 06/29/21 22:00 97 H 17 172/99 H 97 06/29/21 21:30 75 17 100 06/29/21 21:00 76 21 167/89 H 100 06/29/21 20:30 82 12 99 Critical Care Results & Data Vital Signs (Past 12 Hours) Vital Signs Temp Pulse Resp BP Pulse Ox 06/30/21 06:00 37.2 C 75 19 89 L 06/30/21 05:30 81 21 100 06/30/21 05:01 85 16 163/84 H 99 06/30/21 05:00 82 18 100 06/30/21 04:30 81 25 H 99 06/30/21 04:00 94 H 17 170/94 H 95 06/30/21 03:30 73 23 95 06/30/21 03:00 37.2 C 95 H 18 182/105 H 06/30/21 02:30 93 H 23 94 06/30/21 02:06 96 H 19 87 L 06/30/21 01:30 79 21 99 06/30/21 01:00 98 H 23 177/115 H 98 06/30/21 00:30 36.9 C 94 H 17 99 06/30/21 00:01 99 H 26 H 163/90 H 97 06/30/21 00:00 93 H 16 98 06/29/21 23:30 90 17 97 06/29/21 23:00 88 19 163/87 H 96 06/29/21 22:30 89 18 95 06/29/21 22:00 97 H 17 172/99 H 97 06/29/21 21:30 75 17 100 06/29/21 21:00 76 21 167/89 H 100 06/29/21 20:30 82 12 99 Lab & Micro Results (Past 24 Hours) RBC 2.72 M/uL (4.2-5.4) L 06/30/21 WBC 5.27 K/uL (4.8-10.8) 06/30/21 Hgb 8.9 g/dL (12.0-16.0) L 06/30/21 Hct 27.5 % (37-47) L 06/30/21 MCV 101.1 fL (80-100) H 06/30/21 MCH 32.7 pg (25-34) 06/30/21 MCHC 32.4 g/dL (32-36) 06/30/21 RDW Standard Deviation 52.9 fL (36.4-46.3) H 06/30/21 RDW Coefficient of Variation 14.4 % (11.5-14.5) 06/30/21 Plt Count 200 K/uL (130-400) 06/30/21 MPV 9.3 fL (7.4-10.4) 06/30/21 Neutrophils (%) (Auto) 75.3 % 06/30/21 Lymphocytes (%) (Auto) 16.7 % 06/30/21 Monocytes # (Auto) 0.36 K/uL (0.11-0.59) 06/30/21 Eosinophils # (Auto) 0.02 K/uL (0-0.5) 06/30/21 Immature Granulocyte % (Auto) 0.4 % 06/30/21 Neutrophils # (Auto) 3.97 K/uL (1.4-6.5) 06/30/21 Lymphocytes # (Auto) 0.88 K/uL (1.2-3.4) L 06/30/21 Monocytes # (Auto) 0.36 K/uL (0.11-0.59) 06/30/21 Eosinophils # (Auto) 0.02 K/uL (0-0.5) 06/30/21 Basophils # (Auto) 0.02 K/uL (0-0.2) 06/30/21 Immature Granulocyte # (Auto) 0.02 K/uL (0.00-0.02) 06/30/21 No Data to Display No Data to Display I & O Totals 24 Hours 06/29/21 06/30/21 07/01/21 06:59 06:59 06:59 Intake Total 3632.417 / 3632.417 Output Total 605 / 605 Balance 3027.417 / 3027.417 Cumulative 05/31/21 16:58 thru 06/30/21 06:08 Intake Total 3632.417 Output Total 605 Balance 3027.417 RT Ventilator Mngmt (Last Documented) Ventilator Ordered Settings Respiratory Rate 19 06/30/21 06:00 Ventilator - PT Measurements Respiratory Rate 19 Resident Activity Tracking Resident Involvement: Resident Care Provided Care Provided: Adult Hospital Medicine
[2021-06-30] MEDS ORDERED: ACETAMINOPHEN 325 MG SUPP PR PRN (08:48)
--- NOTE | 2021-06-30 08:58 | Surgery Progress Note ---
Date of Service June 30, 2021 Assessment & Plan (1) S/P carotid endarterectomy: Plan: Doing well. She does not have any motor deficits but does have problem swallowing and controlling secretions. Will order speech eval for swallowing study. Admission and Anticipated Discharge Date Admission Date: June 29, 2021 Subjective Awake and alert. Denies weakness in extremities. Does have difficulty swallowing and eliminating secretions. Physical Exam Constitutional: WD/WN, vitals as above Neck: trachea midline Slight right sided neck swelling with ecchymosis Respiratory: normal respiratory effort; no respiratory distress Cardiovascular: Rate/Rhythm: regular rate and regular rhythm Musculoskeletal: Extremities: strength 5/5 throughout Skin: + incision (intact with small amount of edema and ecchymosis) Neurologic: CN's II-XI intact bilaterally and moves all extremities Speech / Cognition: + abnormal speech Has difficulty getting rid of secretions and swallowing Psychiatric: Orientation: alert and oriented x 3 Results & Data ([facility]) Vital Signs (Past 12 Hours) Vital Signs Temp Pulse Resp BP Pulse Ox 06/30/21 06:00 37.2 C 75 19 89 L 06/30/21 05:30 81 21 100 06/30/21 05:01 85 16 163/84 H 99 06/30/21 05:00 82 18 100 06/30/21 04:30 81 25 H 99 06/30/21 04:00 94 H 17 170/94 H 95 06/30/21 03:30 73 23 95 06/30/21 03:00 37.2 C 95 H 18 182/105 H 06/30/21 02:30 93 H 23 94 06/30/21 02:06 96 H 19 87 L 06/30/21 01:30 79 21 99 06/30/21 01:00 98 H 23 177/115 H 98 06/30/21 00:30 36.9 C 94 H 17 99 06/30/21 00:01 99 H 26 H 163/90 H 97 06/30/21 00:00 93 H 16 98 06/29/21 23:30 90 17 97 06/29/21 23:00 88 19 163/87 H 96 06/29/21 22:30 89 18 95 06/29/21 22:00 97 H 17 172/99 H 97 06/29/21 21:30 75 17 100 06/29/21 21:00 76 21 167/89 H 100
[2021-06-30] MEDS ORDERED: CYANOCOBALAMIN (B-12) 500 MCG TABLET PO SCH (09:00)
[2021-06-30] MEDS ORDERED: PANTOprazole 40 MG TAB PO SCH (09:00)
[2021-06-30] MEDS ORDERED: CEROVITE ADV FORMULA TAB PO SCH (09:00)
[2021-06-30] MEDS ORDERED: ASPIRIN 81 MG ECTAB PO SCH (09:00)
[2021-06-30] MEDS ORDERED: CHOLECALCIFEROL 400 UNITS 10 MCG TAB PO SCH (09:00)
--- NOTE | 2021-06-30 10:18 | Billing Data ---
Date of Service June 30, 2021 Coding Level of Care Code 95254 Subseq Hosp Care Lvl 2
--- NOTE | 2021-06-30 10:55 | XRay Report ---
KUB CLINICAL HISTORY: feeding tube placement COMPARISON STUDY: CT of the abdomen and pelvis May 20, 2020. FINDINGS: Incidental note is made of cholecystectomy clips and postoperative findings from right abdo surya hernia repair. There are suspected small bilateral pleural effusions. Bowel gas pattern is norm al. Tip of feeding tube projects over the distal stomach or proximal duodenum. Incidental note is mad e of partially calcified upper abdominal lymph nodes. IMPRESSION: Tip of feeding tube projects over the distal stomach or proximal duodenum. ACT 112: Negative or not required by law. Electronically signed by: Tyrell Bernadr M.D. 06/30/2021 10:53 AM
[2021-06-30] MEDS: LOSARTAN POTASSIUM 25 MG TAB PO SCH (11:17)
[2021-06-30] MEDS: METOPROLOL SUCC 25MG EXT REL TAB PO SCH (12:07)
[2021-06-30] MEDS: FIBERSOURCE HN 1.2 CAL 1000 ML BAG NG SCH (13:01)
[2021-06-30] MEDS: TUBE FEEDING WATER FLUSH NG SCH ×2 (14:51→20:00)
[2021-07-01] MEDS: TUBE FEEDING WATER FLUSH NG SCH ×6 (00:33→20:21)
[2021-07-01] MEDS: LACTATED RINGER'S 1,000 ML IV SCH (04:50)
[2021-07-01 05:54] LABS: Basophils # (auto) 0.01 K/uL (0-0.2); Basophils % (auto) 0.2 %; Eosinophils # (auto) 0.04 K/uL (0-0.5); Eosinophils % (auto) 0.7 %; Hematocrit (blood only) 27.6 % (37-47); Hemoglobin 9.1 g/dL (12.0-16.0); Immature Granulocytes # (auto) 0.02 K/uL (0.00-0.02); Immature Granulocytes % (auto) 0.3 %; Lymphocytes # (auto) 1.05 K/uL (1.2-3.4); Lymphocytes % (auto) 17.2 %; Mean Corpuscular Hemoglobin 32.9 pg (25-34); Mean Corpuscular Volume 99.6 fL (80-100); Mean Platelet Volume 10.1 fL (7.4-10.4); Monocytes # (auto) 0.47 K/uL (0.11-0.59); Monocytes % (auto) 7.7 %; Neutrophils % (auto) 73.9 %; Platelet Count 197 K/uL (130-400); RDW Standard Deviation 51.5 fL (36.4-46.3); Red Blood Count 2.77 M/uL (4.2-5.4); White Blood Count 6.09 K/uL (4.8-10.8)
[2021-07-01 06:09] LABS: BUN Creatinine Ratio 15.8 (10-20); Calcium 8.1 mg/dl (8.5-10.1); Creatinine Clr Calc Pharmacy 66.2 ml/min; Est GFR (Non-African American) 84.5 ml/min; Potassium 3.8 mmol/L (3.5-5.1)
[2021-07-01] MEDS: LABETALOL HCL IV 5 MG/ML 20ML IV PRN (06:09)
--- NOTE | 2021-07-01 08:36 | Hospitalist Progress Note ---
Date of Service July 01, 2021 Assessment & Plan (1) CVD (cardiovascular disease): (2) Dizziness: (3) Carotid artery stenosis: Plan: ICU Assessment and Plans Reason Critically Ill: 85-year-old female here with a PMHx significant for CVD, TIA, CAD, afib, HLD, HTN who presented with right carotid artery stenosis and who was admitted for R carotid endarterectomy. Neuro - [facility] ICU: NEGATIVE Sedation: none Analgesia: prn tylenol, morphine, oxycodone Cardiac - Status post right carotid endarterectomy: Management per vascular surgery. Hypertension: received losartan and IV labetalol overnight, will try to crush home PO medication and administer through NG tube Anemia: hbg stable at 9.1, 2U blood on hold. She is hemodynamically stable. Continue to monitor. Cardiovascular disease: Continue home medications through NG tube Abdominal aneurysm: Continued radiographic surveillance per vascular surgery and cardiology. Respiratory - patient may clear airway secretions with suction encourage ambulation, usage of incentive spirometer Ordered flutter valve GI - npo, NG tube in place with tube feeds patient failed swallow eval continue home pepcid through NG tube RENAL/LYTES - No significant electrolyte derangement. noted low Na 131 Replace lytes as needed. - No concerns at this time. I/O: + 1010, urine 1500 ENDO - no concerns at this time HEME - Anemia: hbg stable at 9.1, 2U blood on hold. On ASA plavix xarelto will administer through NG tube. She is hemodynamically stable. Continue to monitor. ID - No concerns for infection at this point. INTEGUMENTARY - skin dry clean intact, continue to monitor carotid incision site LINES/IV ACCESS - PIVs intact. NG tube intact DVT PROPHYLAXIS - ASA, plavix, xarelto Thank you for allowing us to be part of this patient's care. Please refer to Dr. Hernandez's documentation for any further recommendations. Admission and Anticipated Discharge Date Admission Date: June 29, 2021 Subjective Patient seen at bedside, calm comfortable cooperative. She went to the bathroom this morning. Patient has NG tube present, no complaints at this time, difficult to understand her speech given her gurgles, difficulty swallowing, and weak cough. Otherwise denies any pain. Her PO medications save for losartan were held yesterday, BP was elevated required several doses of IV labetelol. No other events overnight. Review of Systems Review of Systems: Positive swelling Negative fever chills Negative headache dizziness Negative chest pain palpitations SOB Negative nausea vomitting diarrhea constipation Physical Exam Constitutional: well developed, well nourished, average body habitus, cooperative and comfortable Eyes: PERRL, conjunctivae normal, anicteric sclerae ENMT: external ear and nose normal, oropharynx normal NG tube present Respiratory: normal respiratory effort, lungs clear to auscultation difficulty clearing secretions Cardiovascular: RRR, no murmur, no edema Chest (Breasts): Chest: normal inspection of chest Gastrointestinal (Abdomen): normal bowel sounds, soft, nontender, no hepatosplenomegaly Skin: no rashes, warm and dry Incision on right neck clean dry no discharge, note hard palpable mass under incision, rashes on left and right neck improved from yesterday Psychiatric: A+Ox3, euthymic affect Results & Data Results & Data ([facility]) Vital Signs (Past 12 Hours) Vital Signs Pulse Resp BP Pulse Ox 07/01/21 06:30 75 18 148/79 H 97 07/01/21 06:00 82 20 175/99 H 98 07/01/21 05:35 98 H 21 162/115 H 96 07/01/21 05:00 83 17 161/105 H 98 07/01/21 04:01 86 20 164/112 H 100 07/01/21 04:00 85 27 H 99 07/01/21 03:00 83 20 179/102 H 100 07/01/21 02:00 66 L 07/01/21 01:00 84 18 179/107 H 99 07/01/21 00:00 82 20 170/91 H 99 06/30/21 23:06 164/84 H 06/30/21 23:00 87 22 06/30/21 22:01 101 H 23 167/92 H 95 06/30/21 22:00 102 H 19 96 06/30/21 21:00 83 19 162/106 H 97 Critical Care Results & Data Vital Signs (Past 12 Hours) Vital Signs Pulse Resp BP Pulse Ox 07/01/21 06:30 75 18 148/79 H 97 07/01/21 06:00 82 20 175/99 H 98 07/01/21 05:35 98 H 21 162/115 H 96 07/01/21 05:00 83 17 161/105 H 98 07/01/21 04:01 86 20 164/112 H 100 07/01/21 04:00 85 27 H 99 07/01/21 03:00 83 20 179/102 H 100 07/01/21 02:00 66 L 07/01/21 01:00 84 18 179/107 H 99 07/01/21 00:00 82 20 170/91 H 99 06/30/21 23:06 164/84 H 06/30/21 23:00 87 22 06/30/21 22:01 101 H 23 167/92 H 95 06/30/21 22:00 102 H 19 96 06/30/21 21:00 83 19 162/106 H 97 Lab & Micro Results (Past 24 Hours) RBC 2.77 M/uL (4.2-5.4) L 07/01/21 WBC 6.09 K/uL (4.8-10.8) 07/01/21 Hgb 9.1 g/dL (12.0-16.0) L 07/01/21 Hct 27.6 % (37-47) L 07/01/21 MCV 99.6 fL (80-100) 07/01/21 MCH 32.9 pg (25-34) 07/01/21 MCHC 33.0 g/dL (32-36) 07/01/21 RDW Standard Deviation 51.5 fL (36.4-46.3) H 07/01/21 RDW Coefficient of Variation 14.0 % (11.5-14.5) 07/01/21 Plt Count 197 K/uL (130-400) 07/01/21 MPV 10.1 fL (7.4-10.4) 07/01/21 Neutrophils (%) (Auto) 73.9 % 07/01/21 Lymphocytes (%) (Auto) 17.2 % 07/01/21 Monocytes # (Auto) 0.47 K/uL (0.11-0.59) 07/01/21 Eosinophils # (Auto) 0.04 K/uL (0-0.5) 07/01/21 Immature Granulocyte % (Auto) 0.3 % 07/01/21 Neutrophils # (Auto) 4.50 K/uL (1.4-6.5) 07/01/21 Lymphocytes # (Auto) 1.05 K/uL (1.2-3.4) L 07/01/21 Monocytes # (Auto) 0.47 K/uL (0.11-0.59) 07/01/21 Eosinophils # (Auto) 0.04 K/uL (0-0.5) 07/01/21 Basophils # (Auto) 0.01 K/uL (0-0.2) 07/01/21 Immature Granulocyte # (Auto) 0.02 K/uL (0.00-0.02) 07/01/21 Na 131 mmol/L (136-145) L 07/01/21 K 3.8 mmol/L (3.5-5.1) 07/01/21 Cl 98 mmol/L (98-107) 07/01/21 CO2 27 mmol/L (21-32) 07/01/21 Anion Gap 6 (3-11) 07/01/21 BUN 9 mg/dl (6-23) 07/01/21 Creatinine 0.57 mg/dl (0.6-1.2) L 07/01/21 Estimated GFR ( Amer) 98.0 ml/min 07/01/21 Estimated GFR (Non-Af Amer) 84.5 ml/min 07/01/21 BUN/Creatinine Ratio 15.8 (10-20) 07/01/21 Glu 130 mg/dl (70-99(Fasting)) H 07/01/21 Ca 8.1 mg/dl (8.5-10.1) L 07/01/21 Calcium Level 8.1 mg/dl (8.5-10.1) L 07/01/21 05:06 07/01/21 Diagnostic Findings (Past 24 Hours) KUB X-Ray 06/30/21 10:19 KUB CLINICAL HISTORY: feeding tube placement COMPARISON STUDY: CT of the abdomen and pelvis May 20, 2020. FINDINGS: Incidental note is made of cholecystectomy clips and postoperative findings from right abdominal hernia repair. There are suspected small bilateral pleural effusions. Bowel gas pattern is normal. Tip of feeding tube projects over the distal stomach or proximal duodenum. Incidental note is made of partially calcified upper abdominal lymph nodes. IMPRESSION: Tip of feeding tube projects over the distal stomach or proximal duodenum. ACT 112: Negative or not required by law. Electronically signed by: Tyrell Bernard M.D. 06/30/2021 10:53 AM I & O Totals 24 Hours 06/30/21 07/01/21 07/02/21 06:59 06:59 06:59 Intake Total 3632.417 / 3632.417 2510.00 / 2510.00 Output Total 605 / 605 1500 / 1500 Balance 3027.417 / 3027.417 1010.00 / 1010.00 Cumulative 05/31/21 16:58 thru 07/01/21 06:30 Intake Total 6142.417 Output Total 2105 Balance 4037.417 RT Ventilator Mngmt (Last Documented) Ventilator Ordered Settings Respiratory Rate 18 07/01/21 06:30 Ventilator - PT Measurements Respiratory Rate 18 Resident Activity Tracking Resident Involvement: Resident Care Provided Care Provided: Adult Hospital Medicine
[2021-07-01] MEDS: LOSARTAN POTASSIUM 25 MG TAB PO SCH (08:51)
[2021-07-01] MEDS: CLOPIDOGREL BISULFATE 75 MG TAB PO SCH (08:51)
[2021-07-01] MEDS: ATORVASTATIN 40 MG TAB PO SCH (08:52)
--- NOTE | 2021-07-01 09:43 | Surgery Progress Note ---
Date of Service July 01, 2021 Assessment & Plan (1) S/P carotid endarterectomy: Plan: Doing well POD #2. She does not have any other motor deficits other than problem swallowing and controlling secretions. Failed speech eval. Continue with NG tube. Discussed with Dr Le. Transfer to PCU and to restart her necessary home meds through tube. Continue to monitor. Admission and Anticipated Discharge Date Admission Date: June 29, 2021 Subjective 85 yo f POD #2 after R CEA with bovine patch, seen in f/u today. Pt is OOB to chair currently. Patient seen at bedside, calm comfortable cooperative. Patient has NG tube present, no complaints at this time, difficult to understand her speech given her gurgles, difficulty swallowing, and weak cough. Otherwise denies any pain. Her PO medications were held yesterday. Review of Systems Review of Systems: All systems reviewed & are unremarkable except as noted in HPI & below Physical Exam Constitutional: WD/WN, vitals as above Neck: trachea midline Respiratory: normal respiratory effort; no respiratory distress Cardiovascular: Rate/Rhythm: regular rate and regular rhythm Musculoskeletal: Extremities: strength 5/5 throughout Skin: + incision (intact with small amount of edema and ecchymosis) Neurologic: moves all extremities Speech / Cognition: + abnormal speech Psychiatric: Orientation: alert and oriented x 3 Results & Data ([facility]) Vital Signs (Past 12 Hours) Vital Signs Pulse Resp BP Pulse Ox 07/01/21 09:00 83 23 132/77 97 07/01/21 08:37 83 19 122/76 96 07/01/21 08:00 81 18 157/96 H 95 07/01/21 07:00 78 16 161/89 H 98 07/01/21 06:45 77 17 100 07/01/21 06:30 75 18 148/79 H 97 07/01/21 06:00 82 20 175/99 H 98 07/01/21 05:35 98 H 21 162/115 H 96 07/01/21 05:00 83 17 161/105 H 98 07/01/21 04:01 86 20 164/112 H 100 07/01/21 04:00 85 27 H 99 07/01/21 03:00 83 20 179/102 H 100 07/01/21 02:00 66 L 07/01/21 01:00 84 18 179/107 H 99 07/01/21 00:00 82 20 170/91 H 99 06/30/21 23:06 164/84 H 06/30/21 23:00 87 22 06/30/21 22:01 101 H 23 167/92 H 95 06/30/21 22:00 102 H 19 96
[2021-07-01] MEDS: METOPROLOL TARTRATE 25 MG TAB PO SCH ×2 (09:44→20:20)
[2021-07-01] MEDS: ASPIRIN 81 MG CHEW PO SCH (09:44)
--- NOTE | 2021-07-01 09:50 | Billing Data ---
Date of Service July 01, 2021 Coding Level of Care Code 54097 Subseq Hosp Care Lvl 3
--- NOTE | 2021-07-01 09:52 | Critical Care Progress Note ---
Date of Service July 01, 2021 Assessment & Plan (1) S/P carotid endarterectomy: (2) Anemia: (3) Brain TIA: (4) CVD (cardiovascular disease): Plan: Reason Critically Ill: 85-year-old female here with a PMHx significant for CVD, TIA, CAD, afib, HLD, HTN who presented with right carotid artery stenosis and who was admitted for R carotid endarterectomy. Neuro - [facility] ICU: NEGATIVE Sedation: none Analgesia: prn tylenol, morphine, oxycodone Cardiac - Status post right carotid endarterectomy: Management per vascular surgery. Hypertension: received losartan and IV labetalol overnight, will try to crush home PO medication and administer through NG tube Anemia: hbg stable at 9.1, 2U blood on hold. She is hemodynamically stable. Continue to monitor. Cardiovascular disease: Continue home medications through NG tube Abdominal aneurysm: Continued radiographic surveillance per vascular surgery and cardiology. Respiratory - patient may clear airway secretions with suction encourage ambulation, usage of incentive spirometer Ordered flutter valve GI - npo, NG tube in place with tube feeds patient failed swallow eval continue home pepcid through NG tube RENAL/LYTES - No significant electrolyte derangement. noted low Na 131 - suspect SIADH. Hold on evalaution unless Na continues to drop Replace lytes as needed. - No concerns at this time. I/O: + 1010, urine 1500 ENDO - no concerns at this time HEME - Anemia: hbg stable at 9.1, 2U blood on hold. On ASA plavix xarelto will administer through NG tube. She is hemodynamically stable. Continue to monitor. ID - No concerns for infection at this point. INTEGUMENTARY - skin dry clean intact, continue to monitor carotid incision site LINES/IV ACCESS - PIVs intact. NG tube intact DVT PROPHYLAXIS - ASA, plavix, xarelto Thank you for allowing us to be part of this patient's care. Please refer to Dr. Hernandez's documentation for any further recommendations. Admission and Anticipated Discharge Date Admission Date: June 29, 2021 Supervising Physician Co-Signing Physician Notes Patient seen and examined. EMR reviewed. Discussed on multidisciplinary rounds and with family practice resident as well as with vascular surgery at the bedside. Agree with assessment and plan as noted by family practice resident. Patient failed her swallow evaluation yesterday. Enteric access was obtained and the patient was initiated on tube feeding. She remains slightly hypertensive. Her medications have been adjusted to go through the enteric feeding tube. She is mildly hyponatremic. Suspect SIADH. We will follow serum sodium levels. Discontinue IV fluids. Neurologically, the patient is stable. Continue physical therapy and Occupational Therapy. Patient is stable to downgrade from the ICU. Critical care services will sign off. Feel free to contact us if we can be of additional assistance. Subjective Patient seen at bedside, calm comfortable cooperative. She went to the bathroom this morning. Patient has NG tube present, no complaints at this time, difficult to understand her speech given her gurgles, difficulty swallowing, and weak cough. Otherwise denies any pain. Her PO medications save for losartan were held yesterday, BP was elevated required several doses of IV labetelol. No other events overnight. Review of Systems Review of Systems: Positive swelling Negative fever chills Negative headache dizziness Negative chest pain palpitations SOB Negative nausea vomitting diarrhea constipation Physical Exam Constitutional: well developed, well nourished, average body habitus, cooperative and comfortable Eyes: PERRL, conjunctivae normal, anicteric sclerae ENMT: external ear and nose normal, oropharynx normal difficulty coughing/spitting Neck: trachea midline, skin folds noted under chin, incision over right carotid noted with dermabond dry clean intact, bruising noted along right neck and along base of left side of neck improved from yesterday, hard mass palpable on right neck under incision Respiratory: normal respiratory effort, lungs clear to auscultation Cardiovascular: RRR, no murmur, no edema Chest (Breasts): Chest: normal inspection of chest Gastrointestinal (Abdomen): normal bowel sounds, soft, nontender, no hepatosplenomegaly Skin: no rashes, warm and dry Psychiatric: A+Ox3, euthymic affect Results & Data Results & Data ([facility]) Vital Signs (Past 12 Hours) Vital Signs Pulse Resp BP Pulse Ox 07/01/21 09:00 83 23 132/77 97 07/01/21 08:37 83 19 122/76 96 07/01/21 08:00 81 18 157/96 H 95 07/01/21 07:00 78 16 161/89 H 98 07/01/21 06:45 77 17 100 07/01/21 06:30 75 18 148/79 H 97 07/01/21 06:00 82 20 175/99 H 98 07/01/21 05:35 98 H 21 162/115 H 96 07/01/21 05:00 83 17 161/105 H 98 07/01/21 04:01 86 20 164/112 H 100 07/01/21 04:00 85 27 H 99 07/01/21 03:00 83 20 179/102 H 100 07/01/21 02:00 66 L 07/01/21 01:00 84 18 179/107 H 99 07/01/21 00:00 82 20 170/91 H 99 06/30/21 23:06 164/84 H 06/30/21 23:00 87 22 06/30/21 22:01 101 H 23 167/92 H 95 06/30/21 22:00 102 H 19 96 Critical Care Results & Data Vital Signs (Past 12 Hours) Vital Signs Pulse Resp BP Pulse Ox 07/01/21 09:00 83 23 132/77 97 07/01/21 08:37 83 19 122/76 96 07/01/21 08:00 81 18 157/96 H 95 07/01/21 07:00 78 16 161/89 H 98 07/01/21 06:45 77 17 100 07/01/21 06:30 75 18 148/79 H 97 07/01/21 06:00 82 20 175/99 H 98 07/01/21 05:35 98 H 21 162/115 H 96 07/01/21 05:00 83 17 161/105 H 98 07/01/21 04:01 86 20 164/112 H 100 07/01/21 04:00 85 27 H 99 07/01/21 03:00 83 20 179/102 H 100 07/01/21 02:00 66 L 07/01/21 01:00 84 18 179/107 H 99 07/01/21 00:00 82 20 170/91 H 99 06/30/21 23:06 164/84 H 06/30/21 23:00 87 22 06/30/21 22:01 101 H 23 167/92 H 95 06/30/21 22:00 102 H 19 96 Lab & Micro Results (Past 24 Hours) RBC 2.77 M/uL (4.2-5.4) L 07/01/21 WBC 6.09 K/uL (4.8-10.8) 07/01/21 Hgb 9.1 g/dL (12.0-16.0) L 07/01/21 Hct 27.6 % (37-47) L 07/01/21 MCV 99.6 fL (80-100) 07/01/21 MCH 32.9 pg (25-34) 07/01/21 MCHC 33.0 g/dL (32-36) 07/01/21 RDW Standard Deviation 51.5 fL (36.4-46.3) H 07/01/21 RDW Coefficient of Variation 14.0 % (11.5-14.5) 07/01/21 Plt Count 197 K/uL (130-400) 07/01/21 MPV 10.1 fL (7.4-10.4) 07/01/21 Neutrophils (%) (Auto) 73.9 % 07/01/21 Lymphocytes (%) (Auto) 17.2 % 07/01/21 Monocytes # (Auto) 0.47 K/uL (0.11-0.59) 07/01/21 Eosinophils # (Auto) 0.04 K/uL (0-0.5) 07/01/21 Immature Granulocyte % (Auto) 0.3 % 07/01/21 Neutrophils # (Auto) 4.50 K/uL (1.4-6.5) 07/01/21 Lymphocytes # (Auto) 1.05 K/uL (1.2-3.4) L 07/01/21 Monocytes # (Auto) 0.47 K/uL (0.11-0.59) 07/01/21 Eosinophils # (Auto) 0.04 K/uL (0-0.5) 07/01/21 Basophils # (Auto) 0.01 K/uL (0-0.2) 07/01/21 Immature Granulocyte # (Auto) 0.02 K/uL (0.00-0.02) 07/01/21 Na 131 mmol/L (136-145) L 07/01/21 K 3.8 mmol/L (3.5-5.1) 07/01/21 Cl 98 mmol/L (98-107) 07/01/21 CO2 27 mmol/L (21-32) 07/01/21 Anion Gap 6 (3-11) 07/01/21 BUN 9 mg/dl (6-23) 07/01/21 Creatinine 0.57 mg/dl (0.6-1.2) L 07/01/21 Estimated GFR ( Amer) 98.0 ml/min 07/01/21 Estimated GFR (Non-Af Amer) 84.5 ml/min 07/01/21 BUN/Creatinine Ratio 15.8 (10-20) 07/01/21 Glu 130 mg/dl (70-99(Fasting)) H 07/01/21 Ca 8.1 mg/dl (8.5-10.1) L 07/01/21 Calcium Level 8.1 mg/dl (8.5-10.1) L 07/01/21 05:06 07/01/21 Diagnostic Findings (Past 24 Hours) KUB X-Ray 06/30/21 10:19 KUB CLINICAL HISTORY: feeding tube placement COMPARISON STUDY: CT of the abdomen and pelvis May 20, 2020. FINDINGS: Incidental note is made of cholecystectomy clips and postoperative findings from right abdominal hernia repair. There are suspected small bilateral pleural effusions. Bowel gas pattern is normal. Tip of feeding tube projects over the distal stomach or proximal duodenum. Incidental note is made of partially calcified upper abdominal lymph nodes. IMPRESSION: Tip of feeding tube projects over the distal stomach or proximal duodenum. ACT 112: Negative or not required by law. Electronically signed by: Tyrell Bernard M.D. 06/30/2021 10:53 AM I & O Totals 24 Hours 06/30/21 07/01/21 07/02/21 06:59 06:59 06:59 Intake Total 3632.417 / 3632.417 2510.00 / 2510.00 334.667 / 334.667 Output Total 605 / 605 1500 / 1500 Balance 3027.417 / 3027.417 1010.00 / 1010.00 334.667 / 334.667 Cumulative 05/31/21 16:58 thru 07/01/21 09:01 Intake Total 6477.084 Output Total 2105 Balance 4372.084 RT Ventilator Mngmt (Last Documented) Ventilator Ordered Settings Respiratory Rate 23 07/01/21 09:00 Ventilator - PT Measurements Respiratory Rate 23 Resident Activity Tracking Resident Involvement: Resident Care Provided Care Provided: Adult [facility] Medicine
[2021-07-01] MEDS ORDERED: oxyCODONE HCL SOLN 5 MG/5 ML UDC PO PRN (10:47)
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
[2021-07-01] MEDS: SCOPOLAMINE 1 MG TDSY TD SCH (13:48)
--- NOTE | 2021-07-01 14:57 | Electrocardiogram Report ---
Test Reason : Blood Pressure : / mmHG Vent. Rate : 072 BPM Atrial Rate : 083 BPM P-R Int : 000 ms QRS Dur : 080 ms QT Int : 418 ms P-R-T Axes : 000 040 107 degrees QTc Int : 457 ms Atrial fibrillation Abnormal ECG When compared with ECG of 03-APR-2021 20:02, Atrial fibrillation has replaced Sinus rhythm T wave inversion now evident in Anterior leads Confirmed by Donis Stein ([id number]) on 07/01/2021 2:56:46 PM Referred By: Edu Le Confirmed By:Donis Stein
[2021-07-01] MEDS: CHECK SCOPOLAMINE PATCH PLACEMENT SCH (15:10)
[2021-07-01] MEDS ORDERED: LORazepam 2 MG/1 ML VIAL IV PRN (15:16)
--- NOTE | 2021-07-01 15:46 | Hospitalist Progress Note ---
Date of Service July 01, 2021 Assessment & Plan (1) Seizure: Plan: Patient had tonic-clonic seizure with postictal phase witnessed by the nursing staff. Patient is 2 days status post right carotid endarterectomy and post procedure she suffers from recurrence of her atrial fibrillation and dysphagia. Patient is stat CT scan of her head was negative for intracranial abnormalities will be loaded with a gram of Keppra will be continued on Keppra 500 twice daily and have Ativan as needed for seizure breakthrough. I did speak to the son at bedside who confirms his mother is a DNR status and he understands gravity of the situation (2) Dysphagia: Plan: Patient developed significant dysphagia postoperatively. Speech therapy feels the patient should be n.p.o. except for sips and chips of ice with head greater than 30 degrees at all times and oral hygiene to be performed every shift and prior to any intake. Nutrition has been consulted coarse A. fib and placed KUB confirms placement and tube feeding has begun with the maximum flow rate of 50 mL/h since this will be slow to improve this will likely impact the patient's eventual disposition Given the patient's significant dysphagia and some perioperative hematoma development going to delay the restart of her Xarelto for her A. fib until July 02 but this date of start also to be evaluated by the following consulting team. She is already on 2 antiplatelet agents and although there is risk of embolic stroke from her atrial fibrillation my concern is her dysphagia which is likely impacted by a perioperative hematoma. Another consideration for her dysphagia would be a cerebrovascular event however we may give this some time to improve as mentioned in the speech language pathologist notes and if it does not improve over the next 3 to 4 days then consider imaging as the patient is already on maximal therapy for stroke with aspirin Plavix and high-dose atorvastatin. Has an attempt to reduce secretions were can try Transderm scopolamine patch we also could consider oral atropine or glycopyrrolate (3) S/P carotid endarterectomy: Plan: Patient status post right carotid endarterectomy due to recurrent symptoms of dizziness and lightheadedness and a 90% stenosis of the left internal carotid artery. Patient on the primary service of Dr. Le (4) Atrial fibrillation: Plan: Patient is a history of paroxysmal atrial fibrillation, restarted on metoprolol tartrate 25 twice daily (typical dose was succinate 75 twice daily) she typically is anticoagulated with rivaroxaban (5) CAD (coronary artery disease): Plan: Patient with a history of coronary artery disease status post CABG and coronary stenting. She is on aspirin and clopidogrel and atorvastatin Last echo was in December 2020 around her dizzy admission at that time she had an EF of 55 to 60% mild concentric LVH no regional wall motion abnormalities Hypertension controlled the patient is also on a dose of losartan this is modest and the patient has preserved ejection fraction as if her blood pressure would need to be augmented this could be a medication that would be held (6) Gastroesophageal reflux disease: Plan: Patient is on pantoprazole Admission and Anticipated Discharge Date Admission Date: June 29, 2021 Subjective I was called at 1514 hrs. by nurse from ICU that the patient just had a tonic- clonic seizure and was now postictal. Patient states her vital signs are stable she is protecting her airway she is saturating well on her blood pressure is appropriate. Given concerns of possible stroke post procedure we will proceed with stat CAT scan as needed Ativan order a loading dose of fosphenytoin after discussion with pharmacy on-call. I presented to the bedside and the son is there we discussed what was going on the diagnostic testing to be performed and I queried him about her CODE STATUS as she is a full code in the chart. The patient herself was with her eyes open but could not make appropriate answers to my questions. She was moving her left side easily moving her right leg but her right arm was without good punch press setter strength or movement. The son states that prior to the hospitalization he believes his mom was DNR. I discussed the fact that would mean that if she were to get worse we would not proceed with life-saving maneuvers he said he believes that is her wishes. Subsequently at this time I believe we will trend the patient to DNR status Review of Systems Review of Systems: Unobtainable due to cognitive status Physical Exam Physical Exam: Patient was lethargic she did roll her head back and forth to her name she opened her eyes and looked at me she would not answer questions Cardiac exam is irregular rate controlled lungs were coarse at the bases she had no stridor she still has ecchymosis and fullness to her right neck and anterior neck with some bruising onto her chest wall Neurologically she would look at me when I called her name not follow commands when passively moving her arms and legs she had tone present in the left arm and left leg and right leg to the right leg would withdraw to Babinski testing but her right arm she had no tone just her arm would fall and hit her face. Results & Data Results & Data ([facility]) Vital Signs (Past 12 Hours) Vital Signs Temp Pulse Pulse Resp BP BP Pulse Ox 07/01/21 11:43 90 14 133/75 95 07/01/21 11:35 07/01/21 09:00 98.4 F 83 23 132/77 97 07/01/21 08:37 83 19 122/76 96 07/01/21 08:00 81 18 157/96 H 95 07/01/21 07:00 78 16 161/89 H 98 07/01/21 06:45 77 17 100 07/01/21 06:30 75 18 148/79 H 97 07/01/21 06:00 82 20 175/99 H 98 07/01/21 05:35 98 H 21 162/115 H 96 07/01/21 05:00 83 17 161/105 H 98 07/01/21 04:01 86 20 164/112 H 100 07/01/21 04:00 85 27 H 99 Pulse Ox Pulse Ox Pulse Ox 07/01/21 11:43 07/01/21 11:35 96 96 75 L 07/01/21 09:00 07/01/21 08:37 07/01/21 08:00 07/01/21 07:00 07/01/21 06:45 07/01/21 06:30 07/01/21 06:00 07/01/21 05:35 07/01/21 05:00 07/01/21 04:01 07/01/21 04:00 PG Care Time/CCT Total # of Minutes Spent Total Time Spent with Patient: Total time spent is greater than 50% in coordination of care (as documented) at patient's floor/unit and/or counseling patient: Coding Level of Care Code None Diagnoses S/P carotid endarterectomy Z98.890 Dysphagia R13.10 Atrial fibrillation I48.91 CAD (coronary artery disease) I25.10 Gastroesophageal reflux disease K21.9 Seizure R56.9
[2021-07-01] MEDS ORDERED: levETIRAcetam 1,000 MG in 0.9 % SODIUM CHLORIDE 100 ML IV ONE (16:00)
[2021-07-01] MEDS ORDERED: FOSPHENYTOIN 1,000 MGPE in SODIUM CHLORIDE 0.9% 50 ML IV ONE (16:00)
--- NOTE | 2021-07-01 16:12 | CT Scan Report ---
CT OF THE HEAD WITHOUT CONTRAST CLINICAL HISTORY: seizure, recent CVA. Status post recent right carotid endarterectomy. COMPARISON STUDY: MRI of the brain December 17, 2020. Head CT and CTA of the head April 03, 2021. CT DOSE: 881.47 mGy.cm TECHNIQUE: Helical axial images of the head were obtained without IV contrast. Automated exposure con trol was utilized for the study. A dose lowering technique was utilized adhering to the principles o f ALARA. FINDINGS: A nasogastric tube is incidentally noted. This exam is mildly compromised by motion artifac t. No acute intracranial hemorrhage, midline shift or mass effect is present. Ventricular system is n ormal. Basal cisterns are patent. There are no extra-axial collections. White matter hypodensity sugg ests small vessel disease. No findings to suggest acute dural sinus thrombosis or acute territorial i nfarct. A small amount of fluid within the bilateral mastoid air cells is similar to prior exam. Ther e is mild ethmoid sinus mucosal thickening IMPRESSION: No acute intracranial findings. Exam mildly compromised by motion artifact. ACT 112: Negative or not required by law. Electronically signed by: Tyrell Bernard M.D. 07/01/2021 4:11 PM
--- NOTE | 2021-07-01 17:08 | XRay Report ---
XR chest 1V portable CLINICAL HISTORY: possible aspiration COMPARISON STUDY: Chest radiograph June 27, 2021. FINDINGS: Tip of feeding tube projects over the distal stomach or duodenum. The feeding tube is parti ally imaged on this examination. There is no pneumothorax. There are median sternotomy wires and medi astinal surgical clips. Patient is rotated. Mild pulmonary edema is present with small bilateral pleu ral effusions and associated bibasilar opacities. IMPRESSION: 1. Mild interstitial pulmonary edema. 2. Small bilateral pleural effusions with associated airspace opacities which could reflect atelectas is or consolidation. ACT 112: Negative or not required by law. Electronically signed by: Tyrell Bernard M.D. 07/01/2021 5:07 PM
[2021-07-01] MEDS: FAMOTIDINE 20 MG TAB PO SCH (20:20)
[2021-07-02] MEDS: CHECK SCOPOLAMINE PATCH PLACEMENT SCH ×3 (01:07→15:19)
[2021-07-02] MEDS: TUBE FEEDING WATER FLUSH NG SCH ×6 (01:08→20:33)
[2021-07-02] MEDS: FIBERSOURCE HN 1.2 CAL 1000 ML BAG NG SCH (04:03)
[2021-07-02] MEDS: ASPIRIN 81 MG CHEW PO SCH (07:32)
[2021-07-02] MEDS: CLOPIDOGREL BISULFATE 75 MG TAB PO SCH (07:33)
[2021-07-02] MEDS: ATORVASTATIN 40 MG TAB PO SCH (07:33)
[2021-07-02] MEDS: LOSARTAN POTASSIUM 25 MG TAB PO SCH (07:34)
[2021-07-02] MEDS: METOPROLOL TARTRATE 25 MG TAB PO SCH ×2 (07:36→20:34)
[2021-07-02] MEDS: levETIRAcetam 500 MG in 0.9 % SODIUM CHLORIDE 100 ML IV SCH ×2 (07:56→20:33)
--- NOTE | 2021-07-02 09:12 | Surgery Progress Note ---
Date of Service July 02, 2021 Assessment & Plan (1) Dysphagia: Plan: Continuing with tube feedings. Handling secretions better today. (2) S/P carotid endarterectomy: Plan: Neck edema decreasing. Neuro intact except for dysphagia. Hospitalist help apprecitated. Admission and Anticipated Discharge Date Admission Date: June 29, 2021 Subjective Patient talking better today. Answering questions appropriately. She does not remember the seizure of yesterday. She denies any previous siezures. Physical Exam Constitutional: WD/WN, vitals as above Neck: trachea midline Neck swelling decreasing Respiratory: normal respiratory effort; no respiratory distress Cardiovascular: Rate/Rhythm: + irregularly irregular Extremities: normal capillary refill Musculoskeletal: no cyanosis or clubbing, extremities motor strength 5/5 Skin: + incision (dry and clean) Neurologic: CN's II-XI intact bilaterally and moves all extremities Speech / Cognition: + abnormal speech (slight hoarseness, improved from yesterday) Patient handling secretions better today Psychiatric: Orientation: alert and oriented x 3 Results & Data ([facility]) Vital Signs (Past 12 Hours) Vital Signs Temp Pulse Resp BP Pulse Ox 07/02/21 03:00 36.3 C L 70 16 132/74 93 07/01/21 23:00 37.3 C 76 16 136/71 100
--- NOTE | 2021-07-02 11:24 | Hospitalist Progress Note ---
Date of Service July 02, 2021 Assessment & Plan (1) Seizure: Plan: -Patient had tonic-clonic seizure with postictal phase witnessed by the nursing staff on 07/01 - Stat CT scan of her head was negative for intracranial abnormalities - Was loaded with 1gram of Keppra will be continued on Keppra 500 twice daily - Ativan is ordered as needed for seizure breakthrough (2) Dysphagia: Plan: S/p carotid endarterectomy and post procedure she suffers from recurrence of her atrial fibrillation and dysphagia. - Speech therapy feels the patient should be n.p.o. except for sips and chips of ice with head greater than 30 degrees at all times and oral hygiene to be performed every shift and prior to any intake. - Nutrition has been consulted for tube feeding recommendations--feedings initiated w/ max flow rate of 50 mL/h since this will be slow to improve this will likely impact the patient's eventual disposition - Given the patient's significant dysphagia and some perioperative hematoma development going to delay the restart of her Xarelto for her A. fib until July 02 but this date of start also to be evaluated by the following consulting team. * She is already on 2 antiplatelet agents and although there is risk of embolic stroke from her Afib, the concern is her dysphagia which is likely impacted by a perioperative hematoma could worsen with resumption of the DOAC too soon - Another consideration for her dysphagia would be a CVA however we may give this some time to improve as mentioned in the speech language pathologist notes and if it does not improve over the next 3 to 4 days then consider imaging as the patient is already on maximal therapy for stroke with aspirin, Plavix, and high-dose atorvastatin. - In attempt to reduce secretions Transderm scopolamine patch has been ordered -- seems improved today (3) S/P carotid endarterectomy: Plan: POD#3 s/p R CEA due to recurrent dizziness/lightheadedness and a 90% stenosis of the right internal carotid artery. Patient on the primary service of Dr. Le (4) Atrial fibrillation: Plan: - H/o of paroxysmal atrial fibrillation (which she is now back in post operatively)--restarted on metoprolol tartrate 25 twice daily (typical dose was succinate 75 twice daily) - Typically anticoagulated with Xarelto which is on hold as indicated above (5) CAD (coronary artery disease): Plan: - Patient with a history of coronary artery disease status post CABG and coronary stenting. She is on aspirin, clopidogrel, atorvastatin - Last echo was in December 2020 around her dizzy admission at that time she had an EF of 55 to 60% mild concentric LVH no regional wall motion abnormalities - Hypertension controlled the patient is also on a low dose of losartan (6) Gastroesophageal reflux disease: Plan: - Continue pantoprazole (7) Hyponatremia: Plan: - According to [employer] documentation suspected SIADH - Fluids capped, recheck labs Plan: Anticipate resumption of Xarelto in the next 24-48 hours due to her risk of CVA with her PAF if primary service is agreeable. Recommend f/u labs in AM Initiate PT/OT if not already done so 1g Mag L[place] ordered for level of 1.7 Noted that critical care team has signed off, could consider transfer out of ICU but will defer to primary service Will continue to follow along with this patient's care Plan to be d/w Dr. Calderón Admission and Anticipated Discharge Date Admission Date: June 29, 2021 Subjective Patient seen on rounds this morning. She is resting comfortably in bedside chair. She is pod#3 from right CEA, reports no complaints of pain at surgical site. Hospitalists consulted due to h/o afib and to assist with medical management. Following initial consult, pt apparently suffered witnessed seizure activity by RN, was started on Keppra. Denies chest pain, dyspnea, n/v. No further seizure activity witnessed. Pt has no other complaints/quest ions/concerns at this time. Review of Systems Review of Systems: CONSTITUTIONAL: Denies weight loss/gain, fever and chills, fatigue, malaise, generalized weakness. HEENT: +surgical incision right side of neck with associated swelling, trouble swallowing. No eye issues. RESPIRATORY: Denies SOB, cough, wheezing. CV: Denies palpitations, CP, lower extremity edema, orthopnea, PND. GI: Denies abdominal pain, nausea, vomiting and diarrhea. : Denies dysuria and urinary frequency, urgency, hesitancy. MUSCULOSKELETAL: Denies myalgia and joint pain. SKIN: Denies rash and pruritus. NEUROLOGICAL: +seizure activity /. Denies headache, syncope, focal weakness, numbness, tingling. PSYCHIATRIC: Denies recent changes in mood. Denies anxiety and depression. Physical Exam Physical Exam: GENERAL: 85 yo well-developed, well-nourished elderly WF. NAD. HENT: Right neck incision appears clean/dry w/o active bleeding. Associated ecchymosis and edema observed. Mildly TTP. NGT in place. LUNGS: Clear to auscultation bilaterally. No accessory muscle use. No W/R/R. CARDIOVASCULAR: S1 S2 irregular ABDOMEN: Soft, non-tender and non-distended. No palpable masses. Bowel sounds normoactive x 4 quad. EXTREMITIES: No edema. Non-tender. Peripheral pulses +2/4. NEUROLOGIC: A&O x3. No focal neurological deficits. CN II-XII grossly intact. PSYCHIATRIC: Cooperative. Appropriate mood and affect. SKIN: see ENT -- otherwise warm, dry, intact Results & Data Results & Data ([facility]) Vital Signs (Past 12 Hours) Vital Signs Temp Pulse Resp BP Pulse Ox 07/02/21 03:00 36.3 C L 70 16 132/74 93 Laboratory Results 07/02/21 11:41 07/02/21 11:41 mag=1.7 PG Care Time/CCT Total # of Minutes Spent Total Time Spent with Patient: Total time spent is greater than 50% in coordination of care (as documented) at patient's floor/unit and/or counseling patient: Coding Level of Care Code 75001 Subseq Hosp Care Lvl 2 Diagnoses Seizure R56.9 Dysphagia R13.10 S/P carotid endarterectomy Z98.890 Atrial fibrillation I48.91 CAD (coronary artery disease) I25.10 Gastroesophageal reflux disease K21.9 Hyponatremia E87.1
[2021-07-02 12:04] LABS: Basophils # (auto) 0.01 K/uL (0-0.2); Basophils % (auto) 0.2 %; Eosinophils # (auto) 0.08 K/uL (0-0.5); Eosinophils % (auto) 1.4 %; Hematocrit (blood only) 28.2 % (37-47); Hemoglobin 9.2 g/dL (12.0-16.0); Immature Granulocytes # (auto) 0.01 K/uL (0.00-0.02); Immature Granulocytes % (auto) 0.2 %; Lymphocytes # (auto) 0.92 K/uL (1.2-3.4); Lymphocytes % (auto) 16.3 %; Mean Corpuscular Volume 101.1 fL (80-100); Monocytes # (auto) 0.44 K/uL (0.11-0.59); Monocytes % (auto) 7.8 %; Neutrophils # (auto) 4.19 K/uL (1.4-6.5); Neutrophils % (auto) 74.1 %; Platelet Count 195 K/uL (130-400); RDW Coefficient of Variation 14.4 % (11.5-14.5); Red Blood Count 2.79 M/uL (4.2-5.4); White Blood Count 5.65 K/uL (4.8-10.8)
[2021-07-02 12:11] LABS: BUN Creatinine Ratio 21.1 (10-20); Calcium 8.1 mg/dl (8.5-10.1); Creatinine Clr Calc Pharmacy 50.6 ml/min; Est GFR (African American) 82.9 ml/min; Est GFR (Non-African American) 71.5 ml/min; Magnesium 1.7 mg/dl (1.7-2.4); Potassium 3.9 mmol/L (3.5-5.1)
[2021-07-02 12:17] LABS: Mean Corpuscular Hgb Conc 32.6 g/dL (32-36)
[2021-07-02] MEDS ORDERED: MAGNESIUM SULFATE / D5W 1 GM/100 ML BAG IV ONE (13:17)
[2021-07-02] MEDS: FAMOTIDINE 20 MG TAB PO SCH (20:34)
[2021-07-02] MEDS: RIVAROXABAN 15 MG TAB PO SCH (20:34)
[2021-07-03] MEDS: FIBERSOURCE HN 1.2 CAL 1000 ML BAG NG SCH ×2 (00:14→23:15)
[2021-07-03] MEDS: TUBE FEEDING WATER FLUSH NG SCH ×6 (00:36→21:11)
[2021-07-03] MEDS: CHECK SCOPOLAMINE PATCH PLACEMENT SCH ×3 (00:36→16:58)
[2021-07-03] MEDS: ASPIRIN 81 MG CHEW PO SCH (07:59)
[2021-07-03] MEDS: ATORVASTATIN 40 MG TAB PO SCH (08:00)
[2021-07-03] MEDS: LOSARTAN POTASSIUM 25 MG TAB PO SCH (08:00)
[2021-07-03] MEDS: CLOPIDOGREL BISULFATE 75 MG TAB PO SCH (08:00)
[2021-07-03] MEDS: METOPROLOL TARTRATE 25 MG TAB PO SCH ×2 (08:02→21:12)
[2021-07-03] MEDS: levETIRAcetam 500 MG in 0.9 % SODIUM CHLORIDE 100 ML IV SCH ×2 (08:05→21:31)
[2021-07-03 09:05] LABS: Basophils # (auto) 0.01 K/uL (0-0.2); Basophils % (auto) 0.2 %; Eosinophils # (auto) 0.18 K/uL (0-0.5); Eosinophils % (auto) 4.1 %; Hematocrit (blood only) 26.8 % (37-47); Hemoglobin 8.7 g/dL (12.0-16.0); Immature Granulocytes # (auto) 0.01 K/uL (0.00-0.02); Immature Granulocytes % (auto) 0.2 %; Lymphocytes # (auto) 0.83 K/uL (1.2-3.4); Lymphocytes % (auto) 18.8 %; Mean Corpuscular Hemoglobin 33.1 pg (25-34); Mean Corpuscular Volume 101.9 fL (80-100); Mean Platelet Volume 9.9 fL (7.4-10.4); Monocytes # (auto) 0.43 K/uL (0.11-0.59); Monocytes % (auto) 9.8 %; Neutrophils # (auto) 2.95 K/uL (1.4-6.5); Neutrophils % (auto) 66.9 %; Platelet Count 200 K/uL (130-400); RDW Coefficient of Variation 14.6 % (11.5-14.5); RDW Standard Deviation 54.1 fL (36.4-46.3); Red Blood Count 2.63 M/uL (4.2-5.4); White Blood Count 4.41 K/uL (4.8-10.8)
[2021-07-03 09:07] LABS: Mean Corpuscular Hgb Conc 32.5 g/dL (32-36)
[2021-07-03 09:24] LABS: BUN Creatinine Ratio 26.1 (10-20); Calcium 7.9 mg/dl (8.5-10.1); Creatinine Clr Calc Pharmacy 55.7 ml/min; Est GFR (Non-African American) 79.4 ml/min; Magnesium 1.8 mg/dl (1.7-2.4); Potassium 3.9 mmol/L (3.5-5.1)
--- NOTE | 2021-07-03 09:47 | Surgery Progress Note ---
Date of Service July 03, 2021 Assessment & Plan (1) S/P carotid endarterectomy: Plan: Doing well. Stronger today. (2) Dysphagia: Plan: Will need to be evaluated in the near future. Admission and Anticipated Discharge Date Admission Date: June 29, 2021 Subjective No complaints. She is feeling better today. Not sure if she is swallowing any better. Not making much saliva. Physical Exam Constitutional: WD/WN, vitals as above Neck: trachea midline Respiratory: normal respiratory effort; no respiratory distress Cardiovascular: Rate/Rhythm: regular rate and regular rhythm Extremities: normal capillary refill Musculoskeletal: Extremities: extremities normal to inspection and strength 5/5 throughout Skin: + incision (dry and clean) Neurologic: CN's II-XI intact bilaterally and moves all extremities Psychiatric: Orientation: alert and oriented x 3 Results & Data ([facility]) Vital Signs (Past 12 Hours) Vital Signs Temp Pulse Resp BP Pulse Ox 07/03/21 03:00 36.7 C 92 H 18 122/75 92 07/02/21 22:52 36.7 C 86 16 134/80 92
--- NOTE | 2021-07-03 10:49 | Hospitalist Progress Note ---
Date of Service July 03, 2021 Assessment & Plan (1) Seizure: Plan: - Patient had tonic-clonic seizure with postictal phase witnessed by the nursing staff on 07/01 - Stat CT scan of her head was negative for intracranial abnormalities - Was loaded with 1gram of Keppra and is currently receiving Keppra 500 twice daily - Ativan is ordered as needed for seizure breakthrough (2) Dysphagia: Plan: S/p carotid endarterectomy and post procedure she suffers from recurrence of her atrial fibrillation and dysphagia. - Speech therapy feels the patient should be n.p.o. except for sips and chips of ice with head greater than 30 degrees at all times and oral hygiene to be performed every shift and prior to any intake. - Nutrition has been consulted for tube feeding recommendations--feedings initiated w/ max flow rate of 50 mL/h since this will be slow to improve this will likely impact the patient's eventual disposition - Given the patient's significant dysphagia and some perioperative hematoma dev elopment going to delay the restart of her Xarelto for her A. fib until July 02 but this date of start also to be evaluated by the following consulting team. * She is already on 2 antiplatelet agents and although there is risk of embolic stroke from her Afib, the concern is her dysphagia which is likely impacted by a perioperative hematoma could worsen with resumption of the DOAC too soon - Another consideration for her dysphagia would be a CVA however we may give this some time to improve as mentioned in the speech language pathologist notes and if it does not improve over the next 3 to 4 days then consider imaging as the patient is already on maximal therapy for stroke with aspirin, Plavix, and high-dose atorvastatin. - In attempt to reduce secretions Transderm scopolamine patch has been ordered -- seems improved today - Hasn't seen seen ST since initial eval on 06/30, will await input from ST on 07/04 (3) S/P carotid endarterectomy: Plan: POD#4 s/p R CEA due to recurrent dizziness/lightheadedness and a 90% stenosis of the right internal carotid artery. Patient on the primary service of Dr. Le (4) Atrial fibrillation: Plan: - H/o of paroxysmal atrial fibrillation (which she is now back in post operatively)--restarted on metoprolol tartrate 25 twice daily (typical dose was succinate 75 twice daily) - Typically anticoagulated with Xarelto which is on hold as indicated above (5) CAD (coronary artery disease): Plan: - Patient with a history of coronary artery disease status post CABG and coronary stenting. She is on aspirin, clopidogrel, atorvastatin - Last echo was in December 2020 around her dizzy admission at that time she had an EF of 55 to 60% mild concentric LVH no regional wall motion abnormalities - Hypertension well controlled on Losartan and Metoprolol (6) Gastroesophageal reflux disease: Plan: - Continue pantoprazole (7) Hyponatremia: Plan: - According to Group [employer] documentation suspected SIADH - Fluids capped, recheck labs - RESOLVED on AM labs 07/03 (8) Anemia: Plan: - Macrocytosis noted - Anemia worsened since surgery, likely d/t blood loss - H&H stable, will continue to monitor - TIBC, Ferritin, Iron, Retic Count, B12 and Folate Plan: Both IV sites infiltrated, to be replaced by RN Bernice resumed AM labs ordered PT/OT/ST Plan to be d/w Dr. Calderón Admission and Anticipated Discharge Date Admission Date: June 29, 2021 Subjective Patient seen on rounds this morning, she is resting comfortably in bed. Reports that her sheets and gown are wet. She denies cp, dyspnea, n/v/d, f/c, headache, or gu symptoms. No significant pain at incision site. Review of Systems Review of Systems: CONSTITUTIONAL: Denies weight loss/gain, fever and chills, fatigue, malaise, generalized weakness. HEENT: +surgical incision right side of neck with associated swelling, trouble swallowing. No eye issues. RESPIRATORY: Denies SOB, cough, wheezing. CV: Denies palpitations, CP, lower extremity edema, orthopnea, PND. GI: Denies abdominal pain, nausea, vomiting and diarrhea. : Denies dysuria and urinary frequency, urgency, hesitancy. MUSCULOSKELETAL: Denies myalgia and joint pain. SKIN: neck incision, extensive bruising over neck and chest NEUROLOGICAL: +seizure activity 07/01. Denies headache, syncope, focal weakness, numbness, tingling. PSYCHIATRIC: Denies recent changes in mood. Denies anxiety and depression. Physical Exam Physical Exam: GENERAL: 85 yo well-developed, well-nourished elderly WF. NAD. HENT: Right neck incision appears clean/dry w/o active bleeding. Associated ecchymosis and edema observed--edema seems improved. Mildly TTP. NGT in place. LUNGS: Clear to auscultation bilaterally. No accessory muscle use. No W/R/R. CARDIOVASCULAR: S1 S2 regular ABDOMEN: Soft, non-tender and non-distended. No palpable masses. Bowel sounds normoactive x 4 quad. EXTREMITIES: No edema. Non-tender. Peripheral pulses +2/4. Leaking noted around IV site on right forearm. NEUROLOGIC: A&O x3. PSYCHIATRIC: Cooperative. Appropriate mood and affect. SKIN: extensive ecchymosis over neck and anterior chest. Otherwise warm, dry, intact. Results & Data Results & Data ([facility]) Vital Signs (Past 12 Hours) Vital Signs Temp Pulse Resp BP Pulse Ox 07/03/21 03:00 36.7 C 92 H 18 122/75 92 07/02/21 22:52 36.7 C 86 16 134/80 92 Laboratory Results 07/03/21 08:52 07/03/21 08:52 Mag=1.8 ECG Additional Comments: TELE--NSR 70s PG Care Time/CCT Total # of Minutes Spent Total Time Spent with Patient: Total time spent is greater than 50% in coordination of care (as documented) at patient's floor/unit and/or counseling patient: Coding Level of Care Code 59801 Subseq Hosp Care Lvl 2 Diagnoses Seizure R56.9 Dysphagia R13.10 S/P carotid endarterectomy Z98.890 Atrial fibrillation I48.91 CAD (coronary artery disease) I25.10 Gastroesophageal reflux disease K21.9 Hyponatremia E87.1 Anemia D64.9
[2021-07-03 12:10] LABS: Iron 20 mcg/dl (35-150); Total Iron Binding Cap Calc 214 mcg/dl (250-450); Transferrin (FE) Percent Satur 9 % (15-50); Unsaturated Iron Binding Cap 194 mcg/dl (155-355)
[2021-07-03] MEDS: RIVAROXABAN 15 MG TAB PO SCH (16:58)
[2021-07-03] MEDS: FAMOTIDINE 20 MG TAB PO SCH (21:12)
[2021-07-03] MEDS: LABETALOL HCL IV 5 MG/ML 20ML IV PRN (23:28)
[2021-07-04] MEDS: CHECK SCOPOLAMINE PATCH PLACEMENT SCH ×4 (00:35→23:51)
[2021-07-04] MEDS: TUBE FEEDING WATER FLUSH NG SCH ×7 (00:36→23:52)
[2021-07-04] MEDS: LABETALOL HCL IV 5 MG/ML 20ML IV PRN (01:35)
[2021-07-04] MEDS ORDERED: ONDANSETRON 4 MG OD TAB PO PRN (03:50)
[2021-07-04 05:44] LABS: Basophils # (auto) 0.01 K/uL (0-0.2); Basophils % (auto) 0.2 %; Eosinophils # (auto) 0.17 K/uL (0-0.5); Eosinophils % (auto) 3.8 %; Hematocrit (blood only) 28.8 % (37-47); Hemoglobin 9.5 g/dL (12.0-16.0); Lymphocytes # (auto) 0.87 K/uL (1.2-3.4); Lymphocytes % (auto) 19.6 %; Mean Corpuscular Hemoglobin 33.1 pg (25-34); Mean Corpuscular Volume 100.3 fL (80-100); Mean Platelet Volume 9.8 fL (7.4-10.4); Monocytes # (auto) 0.41 K/uL (0.11-0.59); Monocytes % (auto) 9.2 %; Neutrophils # (auto) 2.98 K/uL (1.4-6.5); Neutrophils % (auto) 67.2 %; Platelet Count 215 K/uL (130-400); RDW Coefficient of Variation 14.2 % (11.5-14.5); Red Blood Count 2.87 M/uL (4.2-5.4); White Blood Count 4.44 K/uL (4.8-10.8)
[2021-07-04 06:07] LABS: BUN Creatinine Ratio 25.8 (10-20); Calcium 8.5 mg/dl (8.5-10.1); Creatinine Clr Calc Pharmacy 60.8 ml/min; Est GFR (African American) 95.3 ml/min; Est GFR (Non-African American) 82.2 ml/min
[2021-07-04] MEDS: levETIRAcetam 500 MG in 0.9 % SODIUM CHLORIDE 100 ML IV SCH ×3 (06:16→18:43)
[2021-07-04] MEDS: ASPIRIN 81 MG CHEW PO SCH (09:48)
[2021-07-04] MEDS: ATORVASTATIN 40 MG TAB PO SCH (09:48)
[2021-07-04] MEDS: METOPROLOL TARTRATE 25 MG TAB PO SCH ×2 (09:49→19:53)
[2021-07-04] MEDS: LOSARTAN POTASSIUM 25 MG TAB PO SCH (09:49)
[2021-07-04] MEDS: CLOPIDOGREL BISULFATE 75 MG TAB PO SCH (09:49)
--- NOTE | 2021-07-04 10:00 | Surgery Progress Note ---
Date of Service July 04, 2021 Assessment & Plan (1) S/P carotid endarterectomy: Plan: Pt significantly improved overall. Neck swelling decreased. Well-oriented, but mildly confused, stating her son was here and brought her groceries today (It is morning, not currently visiting hours). No further seizures. Pt is ambulating to BR and back with walker. (2) Dysphagia: Plan: Pt pulled out her feeding tube overnight, but is not choking on saliva or secretions. After multiple unsuccessful attempts to replace her feeding tube, pt declined it and states she doesn't want it. Will have speech therapy reeval pt today. Admission and Anticipated Discharge Date Admission Date: June 29, 2021 Subjective 85 yo f POD #6 after R CEA, seen in f/u today. Pt pulled out her feeding tube overnight, pt states was an accident. Admits some overall weakness and R sided neck discomfort. Denies any significant pain or other new complaints. States not choking on saliva/secretions, has not had to suction. Review of Systems 2 Review of Systems: All systems reviewed & are unremarkable except as noted in HPI & below Physical Exam Constitutional: WD/WN, vitals as above Neck: trachea midline Respiratory: normal respiratory effort; no respiratory distress Cardiovascular: Rate/Rhythm: regular rate and regular rhythm Musculoskeletal: no cyanosis or clubbing, extremities motor strength 5/5 Skin: + incision (intact with small amount of edema and ecchymosis) Neurologic: moves all extremities, awake and + confused (well oriented, but then asks if her son brought her groceries today); no focal motor deficits Psychiatric: Orientation: alert and oriented x 3 Results & Data ([facility]) Vital Signs (Past 12 Hours) Vital Signs Temp Pulse Pulse Resp BP BP Pulse Ox 07/04/21 08:46 87 07/04/21 07:34 37.0 C 87 17 157/81 H 93 07/04/21 04:07 36.7 C 82 20 163/105 H 91 07/04/21 04:00 83 19 07/04/21 03:00 91 H 25 H 07/04/21 02:00 79 19 07/04/21 01:33 90 28 H 179/97 H 07/04/21 01:00 82 18 07/04/21 00:28 88 24 171/101 H 07/04/21 00:00 81 24 07/03/21 23:39 77 07/03/21 23:25 36.6 C 91 H 24 191/100 H 91 07/03/21 23:00 87 20 07/03/21 22:36 77 07/03/21 22:00 71 20
--- NOTE | 2021-07-04 11:26 | Hospitalist Progress Note ---
Date of Service July 04, 2021 Assessment & Plan (1) Dysphagia: Plan: S/p carotid endarterectomy and post procedure dysphagia. - Speech therapy feels the patient should be n.p.o. except for sips and chips of ice with head greater than 30 degrees at all times and oral hygiene to be performed every shift and prior to any intake. - NGT inserted and tube feeds started which she was tolerating but removed NGT overnight 07/03-07/04 (now TF on hold) - In attempt to reduce secretions Transderm scopolamine patch has been ordered--no issues managing secretions - Hasn't seen seen ST since initial eval on 06/30, will await input from ST--reconsulted today (07/04) (2) Seizure: Plan: - Patient had tonic-clonic seizure with postictal phase witnessed by the nursing staff on 07/01 - Stat CT scan of her head was negative for intracranial abnormalities - Was loaded with 1gram of Keppra on 07/01 and is currently receiving Keppra 500 twice daily - Ativan is ordered as needed for seizure breakthrough (3) S/P carotid endarterectomy: Plan: POD#5 s/p R CEA due to recurrent dizziness/lightheadedness and a 90% stenosis of the right internal carotid artery. Patient on the primary service of Dr. Le (4) Atrial fibrillation: Plan: - H/o of PAF--restarted on metoprolol tartrate 25 twice daily (typical dose was succinate 75 twice daily) - Anticoagulated with Xarelto which was resumed on 07/02 - In afib following procedure but has since converted back to NSR (5) CAD (coronary artery disease): Plan: - Patient with a history of coronary artery disease status post CABG and coronary stenting. She is on aspirin, clopidogrel, atorvastatin - Last echo was in December 2020 around her dizzy admission at that time she had an EF of 55 to 60% mild concentric LVH no regional wall motion abnormalities - Hypertension well controlled on Losartan and Metoprolol (6) Gastroesophageal reflux disease: Plan: - Continue pantoprazole (7) Anemia: Plan: - Macrocytosis noted - Anemia worsened since surgery, likely d/t blood loss but overall stable - Vitamin B12/Folate WNL - Iron low at 20 with low TIBC, likely d/t chronic illness Plan: No new recommendations, will continue to follow PT/OT/ST Plan to be d/w Dr. Calderón Admission and Anticipated Discharge Date Admission Date: June 29, 2021 Subjective Patient seen on daily rounds this morning. Pt pulled out her feeding tube overnight, pt states was an accident. Admits some overall weakness and R sided neck discomfort, but pain not uncontrolled. Denies any significant pain or other new complaints. States not choking on saliva/secretions, has not had to suction. Oral meds held this morning d/t her removal of NGT and NPO status until she is re-evaluated by ST. Review of Systems Review of Systems: CONSTITUTIONAL: Denies weight loss/gain, fever and chills, fatigue, malaise, generalized weakness. HEENT: +surgical incision right side of neck with associated swelling, trouble swallowing. No eye issues. RESPIRATORY: Denies SOB, cough, wheezing. CV: Denies palpitations, CP, lower extremity edema, orthopnea, PND. GI: Denies abdominal pain, nausea, vomiting and diarrhea. : Denies dysuria and urinary frequency, urgency, hesitancy. MUSCULOSKELETAL: Denies myalgia and joint pain. SKIN: neck incision, extensive bruising over neck and chest NEUROLOGICAL: +seizure activity 07/01. Denies headache, syncope, focal weakness, numbness, tingling. PSYCHIATRIC: Denies recent changes in mood. Denies anxiety and depression. Physical Exam Physical Exam: GENERAL: 85 yo well-developed, well-nourished elderly WF. NAD. HENT: Right neck incision appears clean/dry w/o active bleeding. Associated ecchymosis and edema observed--edema seems improved. Mildly TTP. LUNGS: Clear to auscultation bilaterally. No accessory muscle use. No W/R/R. CARDIOVASCULAR: S1 S2 regular ABDOMEN: Soft, non-tender and non-distended. Bowel sounds normoactive x 4 quad. EXTREMITIES: No edema. Non-tender. Peripheral pulses +2/4. NEUROLOGIC: A&O x3. PSYCHIATRIC: Cooperative. Appropriate mood and affect. SKIN: extensive ecchymosis over neck and anterior chest. Otherwise warm, dry, intact. Results & Data Results & Data ([facility]) Vital Signs (Past 12 Hours) Vital Signs Temp Pulse Pulse Resp BP BP Pulse Ox 07/04/21 08:46 87 07/04/21 07:34 37.0 C 87 17 157/81 H 93 07/04/21 04:07 36.7 C 82 20 163/105 H 91 07/04/21 04:00 83 19 07/04/21 03:00 91 H 25 H 07/04/21 02:00 79 19 07/04/21 01:33 90 28 H 179/97 H 07/04/21 01:00 82 18 07/04/21 00:28 88 24 171/101 H 07/04/21 00:00 81 24 07/03/21 23:39 77 07/03/21 23:25 36.6 C 91 H 24 191/100 H 91 Laboratory Results 07/04/21 05:18 07/04/21 05:18 PG Care Time/CCT Total # of Minutes Spent Total Time Spent with Patient: Total time spent is greater than 50% in coordination of care (as documented) at patient's floor/unit and/or counseling patient: Coding Level of Care Code 87202 Subseq Hosp Care Lvl 2 Diagnoses Seizure R56.9 Dysphagia R13.10 S/P carotid endarterectomy Z98.890 Atrial fibrillation I48.91 CAD (coronary artery disease) I25.10 Gastroesophageal reflux disease K21.9 Anemia D64.9
[2021-07-04] MEDS: SCOPOLAMINE 1 MG TDSY TD SCH (13:49)
[2021-07-04] MEDS: RIVAROXABAN 15 MG TAB PO SCH (15:54)
[2021-07-04] MEDS: FAMOTIDINE 20 MG TAB PO SCH (19:53)
[2021-07-05] MEDS: TUBE FEEDING WATER FLUSH NG SCH (00:18)
[2021-07-05] MEDS: levETIRAcetam 500 MG in 0.9 % SODIUM CHLORIDE 100 ML IV SCH (06:02)
[2021-07-05] MEDS: CHECK SCOPOLAMINE PATCH PLACEMENT SCH (09:59)
[2021-07-05] MEDS: ASPIRIN 81 MG CHEW PO SCH (10:00)
[2021-07-05] MEDS: LOSARTAN POTASSIUM 25 MG TAB PO SCH (10:00)
[2021-07-05] MEDS: ATORVASTATIN 40 MG TAB PO SCH (10:00)
[2021-07-05] MEDS: METOPROLOL TARTRATE 50 MG TAB PO SCH ×2 (10:00→22:10)
[2021-07-05] MEDS: CLOPIDOGREL BISULFATE 75 MG TAB PO SCH (10:01)
--- NOTE | 2021-07-05 11:16 | Surgery Progress Note ---
Date of Service July 05, 2021 Assessment & Plan (1) S/P carotid endarterectomy: Plan: Pt doing well post op. Dysphagia has resolved. Ambulating with walker. participating in PT/OT. Pt discussed with Dr Le. PANCHITO for d/c to rehab when accepted. (2) Dysphagia: Plan: Pt reeval by speech therapy and has now been eating and drinking without further difficulty. Admission and Anticipated Discharge Date Admission Date: June 29, 2021 Subjective 85 yo f POD #7 after R CEA, seen in f/u today. Pt admits general weakness and mild discomfort/itching of R neck incision, but states no other pain or other new complaints. Reeval by speech yesterday and has been eating and drinking without difficulty or choking since yesterday. Review of Systems Review of Systems: All systems reviewed & are unremarkable except as noted in HPI & below Physical Exam Constitutional: WD/WN, vitals as above Neck: trachea midline Respiratory: normal respiratory effort; no respiratory distress Cardiovascular: Rate/Rhythm: regular rate and regular rhythm Musculoskeletal: no cyanosis or clubbing, extremities motor strength 5/5 Extremities: strength 5/5 throughout Skin: + incision (R neck intact with small amount of edema and ecchymosis) Neurologic: moves all extremities and awake; no focal motor deficits and not confused Psychiatric: Orientation: alert and oriented x 3 Results & Data ([facility]) Vital Signs (Past 12 Hours) Vital Signs Temp Pulse Pulse Resp BP BP Pulse Ox 07/05/21 08:28 36.6 C 82 18 140/71 96 07/05/21 03:29 36.5 C 83 20 156/92 H 93 07/04/21 23:52 36.5 C 80 20 165/95 H 95
--- NOTE | 2021-07-05 11:40 | Hospitalist Progress Note ---
Date of Service July 05, 2021 Assessment & Plan (1) Dysphagia: Plan: S/p carotid endarterectomy and post procedure dysphagia. - Speech therapy feels the patient should be n.p.o. except for sips and chips of ice with head greater than 30 degrees at all times and oral hygiene to be performed every shift and prior to any intake. - NGT inserted and tube feeds started which she was tolerating but removed NGT overnight 07/03 - In attempt to reduce secretions Transderm scopolamine patch has been ordered--no issues managing secretions - ST re-evaluated patient at bedside on 07/04, diet ordered, tolerating it well w/o issue and swallowing pills - D/C Transderm scop patch since she is now swallowing well (2) Seizure: Plan: - Patient had tonic-clonic seizure with postictal phase witnessed by the nursing staff on 07/01 - Stat CT scan of her head was negative for intracranial abnormalities - Was loaded with 1gram of Keppra on 07/01 and is currently receiving Keppra 500 twice daily - Ativan ordered as needed for seizure breakthrough (which she has not needed) - D/w neurology, will d/c with 30 day supply of Keppra and she will need to f/u as outpatient in the office (3) S/P carotid endarterectomy: Plan: POD#6 s/p R CEA due to recurrent dizziness/lightheadedness and a 90% stenosis of the right internal carotid artery. Patient on the primary service of Dr. Le (4) Atrial fibrillation: Plan: - H/o of PAF--restarted on metoprolol tartrate 25 twice daily (typical dose was succinate 75 twice daily prior to hospitalization) - Anticoagulated with Xarelto which was resumed on 07/02 - In afib following procedure but has since converted back to NSR - Remains in NSR but increased Metoprolol Tartrate to 50mg BID (BP also has been trending on the higher side the last couple days) - Would advise d/c home either with new prescription or could just simply reduce her previous prescription of Toprol XL from 75mg BID to once daily (5) CAD (coronary artery disease): Plan: - Patient with a history of coronary artery disease status post CABG and coronary stenting. She is on aspirin, clopidogrel, atorvastatin - Last echo was in December 2020 around her dizzy admission at that time she had an EF of 55 to 60% mild concentric LVH no regional wall motion abnormalities - Hypertension well controlled on Losartan and Metoprolol (6) Gastroesophageal reflux disease: Plan: - Continue pantoprazole (7) Anemia: Plan: - Macrocytosis noted - Anemia worsened since surgery, likely d/t blood loss but overall stable - Vitamin B12/Folate WNL - Iron low at 20 with low TIBC, likely d/t chronic illness Plan: Only new recommendation/change was to Metoprolol as indicated above Would advise Keppra 500mg bid upon discharge (30 day supply sent to pharmacy) and outpt f/u with neurology Thank you for allowing us to participate in the care of your patient, medicine will sign off but continue to follow peripherally. Please let us know if can be of any further assistance. Plan to be d/w Dr. Calderón Admission and Anticipated Discharge Date Admission Date: June 29, 2021 Subjective Patient seen on daily rounds this morning. She is resting comfortably in bed, offers no complaints. She is tolerating oral intake, diet ordered yesterday by ST. Swallowing pills. No significant neck discomfort. Review of Systems Review of Systems: CONSTITUTIONAL: Denies weight loss/gain, fever and chills, fatigue, malaise, generalized weakness. HEENT: +surgical incision right side of neck with associated swelling. No eye issues. RESPIRATORY: Denies SOB, cough, wheezing. CV: Denies palpitations, CP, lower extremity edema, orthopnea, PND. GI: Denies abdominal pain, nausea, vomiting and diarrhea. : Denies dysuria and urinary frequency, urgency, hesitancy. MUSCULOSKELETAL: Denies myalgia and joint pain. SKIN: neck incision, extensive bruising over neck and chest NEUROLOGICAL: +seizure activity 07/01, none since. Denies headache, syncope, focal weakness, numbness, tingling. PSYCHIATRIC: Denies recent changes in mood. Denies anxiety and depression. Physical Exam Physical Exam: GENERAL: 85 yo well-developed, well-nourished elderly WF. NAD. HENT: Right neck incision appears clean/dry w/o active bleeding. Associated ecchymosis is dissipating and edema observed but improved. Mildly TTP. LUNGS: Clear to auscultation bilaterally. No accessory muscle use. No W/R/R. CARDIOVASCULAR: S1 S2 regular ABDOMEN: Soft, non-tender and non-distended. Bowel sounds normoactive x 4 quad. EXTREMITIES: No edema. Non-tender. Peripheral pulses +2/4. NEUROLOGIC: A&O x3. PSYCHIATRIC: Cooperative. Appropriate mood and affect. SKIN: extensive ecchymosis over neck and anterior chest fading. Otherwise warm, dry, intact. Results & Data Results & Data ([facility]) Vital Signs (Past 12 Hours) Vital Signs Temp Pulse Pulse Resp BP BP Pulse Ox 07/05/21 08:28 36.6 C 82 18 140/71 96 07/05/21 03:29 36.5 C 83 20 156/92 H 93 07/04/21 23:52 36.5 C 80 20 165/95 H 95 PG Care Time/CCT Total # of Minutes Spent Total Time Spent with Patient: Total time spent is greater than 50% in coordination of care (as documented) at patient's floor/unit and/or counseling patient: Coding Level of Care Code 48420 Subseq Hosp Care Lvl 2 Diagnoses Dysphagia R13.10 Seizure R56.9 S/P carotid endarterectomy Z98.890 Atrial fibrillation I48.91 CAD (coronary artery disease) I25.10 Gastroesophageal reflux disease K21.9 Anemia D64.9
[2021-07-05] MEDS: RIVAROXABAN 15 MG TAB PO SCH (17:30)
[2021-07-05] MEDS: FAMOTIDINE 20 MG TAB PO SCH (20:36)
[2021-07-05] MEDS: levETIRAcetam 500 MG TAB PO SCH (20:36)
[2021-07-06] MEDS: ASPIRIN 81 MG CHEW PO SCH (08:26)
[2021-07-06] MEDS: LOSARTAN POTASSIUM 25 MG TAB PO SCH (08:26)
[2021-07-06] MEDS: levETIRAcetam 500 MG TAB PO SCH ×2 (08:26→21:19)
[2021-07-06] MEDS: ATORVASTATIN 40 MG TAB PO SCH (08:26)
[2021-07-06] MEDS: CLOPIDOGREL BISULFATE 75 MG TAB PO SCH (08:26)
[2021-07-06] MEDS: METOPROLOL TARTRATE 50 MG TAB PO SCH ×2 (09:28→21:22)
--- NOTE | 2021-07-06 09:47 | Surgery Progress Note ---
Date of Service July 06, 2021 Assessment & Plan (1) S/P carotid endarterectomy: Plan: Pt doing well post op. Dysphagia has resolved. Ambulating with walker. participating in PT/OT. Pt discussed with Dr Le. D/C to rehab once placement. Discussed with CM. (2) Dysphagia: Plan: Pt reeval by speech therapy and has now been eating and drinking without further difficulty. Admission and Anticipated Discharge Date Admission Date: June 29, 2021 Subjective 85 yo f s/p R CEA, seen in f/u today. Pt states feeling well. Ambulating with walker, participating in PT/OT. No MULLER, dizziness, N/V, or pain other than mild in R neck incision. Review of Systems Review of Systems: All systems reviewed & are unremarkable except as noted in HPI & below Physical Exam Constitutional: WD/WN, vitals as above Neck: trachea midline Respiratory: normal respiratory effort; no respiratory distress Cardiovascular: Rate/Rhythm: regular rate and regular rhythm Musculoskeletal: no cyanosis or clubbing, extremities motor strength 5/5 Extremities: strength 5/5 throughout Skin: + incision (R neck intact with small amount of edema and ecchymosis) Neurologic: moves all extremities and awake; no focal motor deficits and not confused Psychiatric: Orientation: alert and oriented x 3 Results & Data ([facility]) Vital Signs (Past 12 Hours) Vital Signs Temp Pulse Pulse Resp BP BP Pulse Ox 07/06/21 08:00 37.1 C 68 20 122/67 90 07/06/21 03:22 36.9 C 72 16 101/60 94 07/06/21 00:08 36.3 C L 76 18 121/73 92 07/05/21 23:36 78
--- NOTE | 2021-07-06 10:40 | Discharge Summary ---
Date of Service July 07, 2021 Admission HPI Per Admitting Provider Name: KELTON LUNA Patient Number: [id number] : 1935 Date of Service: 05/31/2021 Chief Complaint: _Carotid stenosis HPI: _Mrs. Luna is an elderly female who presents to Dr. Le's vascular surgery clinic today for a visit regarding her history of carotid stenosis. Patient has been seen regularly by Dr. Le for a few years, however, she then canceled some appointments and these were not rescheduled. She was admitted to [facility] in April 2021, and a CTA of the neck redemonstrated about 90% stenosis of her right ICA. Her admission at that time was due to generalized dizziness weakness and a fall. In the past, patient has had some left hemispheric symptoms that were questionable for a cerebrovascular event, however, this was never confirmed by MRI. She has not had any right hemispheric symptoms. She continues to deny amaurosis on the right eye, extremity weakness numbness or tingling on the left, sudden onset confusion, inability to speak clearly or swallow or left facial droop. She does state to having some chronic bilateral lower extremity edema and occasional bouts of cellulitis. Additionally she denies fever, chest pain, shortness of breath, abdominal pain, nausea, vomiting, rest pain, claudication, nonhealing wounds or ulcers, other concerns. Patient does live independently at home, and wears an emergency necklace, as well as having multiple cameras throughout the house so her son can check on her when he is not there. Her son does live very close and checks on her frequently. CTA of the neck performed in April 2021 demonstrates right ICA stenosis of 90%. Emotional Assessment (PHQ-2) (Data Documented on:05/30/2021 09:45) [place] down or depressed over last 2 weeks? 0 - Not at All Little interest in doing things? 0 - Not at All PHQ-2 Score: 0 - Emotional health assessment NEGATIVE Current Home Meds: (Last Updated 05/31 13:49) acetaminophen (Tylenol 500 mg oral tablet) 2 tab PO q6h PRN: as needed for pain albuterol (albuterol CFC free 90 mcg/inh MDI) INHALE 2 PUFFS BY MOUTH EVERY 6 HOURS NEEDED FOR WHEEZING amoxicillin (Amoxil 500 mg oral capsule) 500 mg PO tid atorvastatin (atorvastatin 80 mg oral tablet) 80 mg PO Daily cephalexin (Keflex 500 mg oral capsule) 500 mg PO tid cholecalciferol (Vitamin D3 1000 intl units (25 mcg) oral tablet) TAKE 1 TABLET BY MOUTH EVERY DAY clopidogrel (clopidogrel 75 mg oral tablet) 75 mg PO Daily TAKE 1 TABLET BY MOUTH EVERY DAY cyanocobalamin (Vitamin B12) docusate (docusate sodium 100 mg oral capsule) 100 mg PO Daily PRN: as needed for constipation famotidine (Pepcid 20 mg oral tablet) 20 mg PO bid furosemide (furosemide 20 mg oral tablet) 20 mg PO Daily 1 po daily for swelling x 10 days losartan (losartan 25 mg oral tablet) TAKE 1 TABLET BY MOUTH EVERY DAY metoprolol (metoprolol succinate 25 mg oral tablet, extended release) 3 tab at breakfast and 3 tabs at bedtime. multivitamin with minerals (Centrum Silver oral tablet) 1 tab PO Daily nitrofurantoin (Macrobid 100 mg oral capsule) 100 mg PO bid nitrofurantoin (nitrofurantoin macrocrystals 50 mg oral capsule) TAKE 1 CAPSULE BY MOUTH AT BEDTIME WITH FOOD OR A MEAL nitroglycerin (nitroglycerin 0.3 mg sublingual tablet) 0.3 mg SL q5min PRN: as needed for chest pain pantoprazole (pantoprazole 20 mg oral delayed release tablet) 20 mg PO Daily Allergies and Sensitivities: Eliquis(uncontrolled heart rate) traMADol(hallucinations) sulfa drugs(low platelets) Bactrim(low platelets) Definity(severe lower back pain) Past Medical History: Problems: Carotid stenosis, right Uses walker Muscle weakness-general Alteration in mobility due to weakness RLQ abdominal pain AFX (amaurosis fugax) Melena Unintended weight loss Anemia, macrocytic Situational stress Lipodermatosclerosis Leg mass CAD - Coronary artery disease OBJECTIVE Vitals: Last Updated 05/31/21 13:56 Date Temp BP Location Pulse RR SpO2 Pain 05/31/21 110/64 Right Arm 05/31/21 0 05/31/21 110/62 Left Arm 70 98 Vital Signs are the last 3 documented. No Orthostatic Data Available Height and Weight: Last Updated 05/30/21 09:45 Date BMI Wt(kg) Wt(lb) Method Ht(cm) (ft-in) Method 05/30/21 62.4 137 Standing Scale 05/10/21 61.8 136 Standing Scale 05/04/21 25.08 62.3 137 Standing Scale 157.6 5-2 Standing Heights and Weights are the last 3 documented. Physical Exam Constitutional: In general patient is a healthy-appearing well-nourished well- developed elderly female no distress. Is alert and oriented without any focal deficits. She does ambulate with a cane. Her carotids do not demonstrate a bruit. Her heart is irregular, her lungs are clear throughout. Her abdomen is soft and nontender with normoactive bowel sounds in all 4 quadrants. Her brachial radial and femoral pulses are +3. Her bilateral extremities do demonstrate +2 edema, with skin changes in the lower legs consistent with chronic venous insufficiency. Her distal pulses are +2. She has a brisk capillary refill and no sign of distal ischemia. ASSESSMENT: _ PLAN: _ 1 ) _carotid stenosis Patient is asymptomatic from a severe right ICA stenosis of 90%. She is at a significantly increased risk of a right hemispheric cerebrovascular event. Patient was also seen by Dr. Le today. He recommends that patient consider undergoing a right carotid endarterectomy procedure. The procedure, risks, benefits, and alternatives were discussed with the patient by myself at Dr. Le's request. Patient expressed understanding and agreement to proceed. Her son was also with her in the office today and participated in the discussion. Review of the patient's recent cardiology visit with Dr. Marquis indicates that she is an acceptable surgical risk for carotid endarterectomy. Patient did states she was having some trouble obtaining her Xarelto prescription due to cost, and states she has not been taking it for the past 2 to 3 weeks. We were able to find some discount cards for the Xarelto to hopefully assist in reducing her cost. She and her son will attempt to use these. Thank you for letting us participate in the care of this patient. Signature Line Electronic Signature on File Electronically Reviewed/Signed by: Devi Barr PA-C Author Signature Dt/Tm:05/31/2021 04:22 PM [facility] [place], [address] [place] [address] Electronically Reviewed/Signed by: MD aRffy Busbyigner Signature Dt/Tm: 06/02/2021 08:33 AM Air Pollution Analyst [facility] [place] [address], [address] [place], [place] [address] Result Type: HVI Outpt Note Date of Service: May 31, 2021 15:52 EST Authorization Status: Final Author or Import Date: CANDE aBrr, Devi on May 31, 2021 16:22 EST Verified By: MD Mimi, Edu Stewart on June 02, 2021 08:33 EST Encounter info: [id number], [facility], Clinic, 05/31/2021 - 05/31/2021 Admission Exam Per Admitting Provider In general patient is a healthy-appearing well-nourished well-developed elderly female no distress. Is alert and oriented without any focal deficits. She does ambulate with a cane. Her carotids do not demonstrate a bruit. Her heart is irregular, her lungs are clear throughout. Her abdomen is soft and nontender with normoactive bowel sounds in all 4 quadrants. Her brachial radial and femoral pulses are +3. Her bilateral extremities do demonstrate +2 edema, with skin changes in the lower legs consistent with chronic venous insufficiency. Her distal pulses are +2. She has a brisk capillary refill and no sign of distal ischemia. Principal Diagnosis 1. s/p R CEA 2. R ICA stenosis 3. Dysphagia 4. Seizure Discharge Exam Constitutional WD/WN, vitals as above Neck trachea midline Respiratory normal respiratory effort; no respiratory distress Cardiovascular Rate/Rhythm: regular rate and regular rhythm Musculoskeletal no cyanosis or clubbing, extremities motor strength 5/5 Extremities: strength 5/5 throughout Skin + incision (R neck intact with small amount of edema and ecchymosis) Neurologic moves all extremities and awake; no focal motor deficits and not confused Psychiatric Orientation: alert and oriented x 3 Discharge Data Allergies Allergy/AdvReac Type Severity Reaction Status Date / Time cephalexin Allergy Intermediate Hives Verified 07/05/21 08:13 perflutren Allergy Intermediate Muscle Verified 07/05/21 08:13 tightness propylene glycol Allergy Intermediate Muscle Verified 07/05/21 08:13 tightness sulfamethoxazole Allergy Mild Rash Verified 06/29/21 06:31 trimethoprim Allergy Mild Rash Verified 06/29/21 06:31 apixaban [From Eliquis] AdvReac Mild Dizziness, Verified 07/05/21 08:13 nausea Sulfa (Sulfonamide AdvReac Mild Depleted Verified 06/29/21 06:31 Antibiotics) platelet count tramadol AdvReac Mild Hallucinati Verified 07/05/21 08:13 ons Consultations 06/29/21 11:42 Consult Safety Grooving Machine Operator Routine 07/01/21 12:20 Consult Hospitalist Routine Procedures Performed Operation Date: 06/29/21 07:30 Actual Procedures p Right Carotid Endarterectomy with Bovine Patch(Right) - Edu Le MD Ordered Studies 07/01/21 15:15 CT head/brain wo con Urgent 07/06/21 10:00 Fluoro video [FL video swallow] Routine Hospital Course (1) S/P carotid endarterectomy: Pt was somewhat obtunded/mildly confused post op and had severe dysphagia post op. She had coresafe feeding tube placed adn performed self-suction. She also suffered a tonic-clonic seizure and was started on Keppra withotu any further seizures. Imaging was negative for any contributing abnormalities. By POD #5, pt had pulled her feeding tube and was well oriented. Reeval by speech therapy was normal and regular PO feeding was resumed. Has been improving with PT/OT post op. Pt doing well post op. Dysphagia has resolved. Ambulating with walker. part icipating in PT/OT. Pt discussed with Dr Le. D/C to rehab once placement. Discussed with CM. (2) Dysphagia: Pt reeval by speech therapy and has now been eating and drinking without further difficulty. Total Time Total Time Spent Total Time Spent (In Minutes): 0 Discharge Plan Discharge Items Patient Disposition: Transfer Inpatient Rehab Fac Reason For Visit: Right Internal Carotid Artery Stenosis Discharge Diagnosis: 1. s/p R CEA 2. R ICA stenosis 3. Dysphagia 4. Seizure Condition on Discharge: Good Activity: Per Instructions section Non-emergency contact: Primary Care Provider Call non-emergency contact if: you have any medication questions, your pain is not controlled, your pain is concerning for you, you have a fever, your wound has increased redness and your wound has increased drainage Follow-up/Referrals: Susu Bower DO [Primary Care Provider] - 07/20/21 12:10 pm (Follow up with PCP within 2 weeks) Edu Le MD [Physician] - 07/14/21 12:45 pm (Follow up in [address] Le or Devi Barr PA-C) Miguelina Combs PA-C [Physician Dietitian Research] - 07/19/21 11:45 am ([facility]) Diet: Regular Diet Comment: see speech therapy discharge recommendations Addtl Attending Provider Instructions: SPECIAL CARE INSTRUCTIONS: Medications: * Continue to take Aspirin as directed. Incision Care: * You may shower, but do not rub incision. You may let the warm soapy water run over it. Be sure to dry the incision well after bathing. * Do not shave directly over the incision until it is healed. * DO NOT IMMERSE THE INCISION IN A TUB/POOL/etc. UNTIL HEALED. Restrictions: * Do not drive for at least one week or if you are still taking any narcotic pain medication. * Do not lift anything heavier than a gallon of milk for one week after going home. Possible Complications: * Numbness - It is normal to have some numbness around the incision. Numbness can extend beyond the incision to areas of the neck, ear and face. The numbness is due to bruising of nerves during the surgery and will gradually improve over a period of months. * Hoarseness/Difficulty Speaking and Swallowing - The bruising of nerves in the neck can also cause a hoarse voice, difficulty speaking or swallowing. This may improve over time, HOWEVER, if it continues for more than a few days please contact our office ([phone]). * Excessive Swelling - There will be some swelling immediately after surgery which usually resolves within one week. If you notice that the swelling is getting worse, notify your surgeon ([phone]). * Drainage/Bleeding - If there is any drainage or bleeding, it should be a very small amount (less than a teaspoon per day). If you have excessive bleeding or drainage from the incision, call your surgeon ([phone]) right away. ACTIVATION OF EMERGENCY MEDICAL SYSTEM: Call 911, immediately, if you experience any of the following: Warning Signs and Symptoms of Stroke: * Sudden numbness or weakness of the face, arm or leg, especially on one side of the body * Sudden confusion, trouble speaking or understanding * Sudden trouble seeing in one or both eyes * Sudden trouble walking, dizziness, loss of balance or coordination * Sudden severe headache with no cause Do not delay calling 911 if you experience any warning signs or symptoms of a stroke. Delay in seeking medical attention may affect what treatments can be given to you. Risk Factors for Stroke: You can reduce your chances of stroke by working with your medical provider to adopt a healthy lifestyle. Some specific ways to lower your chance of stroke are: * If you are a smoker, now is the time to stop smoking cigarettes * If you are diabetic, improve the control of your blood sugars * Avoid excessive amounts of alcohol * Control high blood pressure * Lose weight if you are overweight * Be sure to lead an active lifestyle * Eat a healthy diet low in salt, cholesterol and fat You should know about other risk factors for stroke that you are unable to control. These include: * Age 55 years or older * Male gender * Certain racial groups: , or / * Family History of Stroke, Mini stroke or Heart Attack * Sickle Cell Disease You will be receiving a call from the Vascular Surgery Nurse after you are discharged. FOLLOW UP VISIT: It is important for you to keep your follow up appointments with your medical provider. Keep any scheduled doctor appointments. Addtl Direct Service Provider Provider Instructions: It is recommended that due to the seizure activity that you suffered on 07/01/21 that you continue on anti-seizure medications: Keppra 500mg to be taken twice daily. An appointment with neurology will be made for you on your behalf. We recommend that you keep that appointment as scheduled. They can determine what additional work up you may require and how much longer you may need this medication. Your Metoprolol has been adjusted during your hospitalization. Upon discharge we recommend you taking the following dose: Metoprolol Succinate 75mg once daily. This is a change from dose that you were previously taking prior to coming into the hospital which was Metoprolol Succinate 75mg twice daily. Advise you to follow up with your family doctor within 1 week of discharge due to the medication changes/additions that were made during your hospital stay. Pending Studies at Discharge: No Stand-Alone Forms: My [facility] Skilled Items Patient informed of condition?: Yes DNR: Yes Discharge Level of Care: Acute rehab Communicable Disease: No Discharge Prognosis: Improving Lines: None Urinary Catheter: No Medications and DC Order Prescriptions: New levetiracetam [Keppra] 500 mg tablet 500 mg PO BID Qty: 60 RF: 0 Continued Xarelto 15 mg tablet 15 mg PO QPM RF: 0 cholecalciferol (vitamin D3) [Vitamin D3] 10 mcg (400 unit) capsule 10 mcg PO QAM Qty: 90 RF: 3 nitroglycerin 0.4 mg tablet, sublingual 0.4 mg sublingual DIRECTED PRN (Reason: Chest Pain) RF: 0 atorvastatin 80 mg tablet 80 mg PO QAM RF: 0 Centrum Silver Women 8 mg iron-400 mcg-300 mcg Tablet 1 tab PO QAM RF: 0 clopidogrel 75 mg tablet 75 mg PO QAM RF: 0 pantoprazole 20 mg tablet,delayed release (DR/EC) 10 mg PO QAM RF: 0 albuterol sulfate 90 mcg/actuation HFA aerosol inhaler 2 puffs INH Q6H PRN (Reason: Shortness Of Breath Or Wheezing) RF: 0 cyanocobalamin (vitamin B-12) [Vitamin B-12] 1,000 mcg Tablet 1,000 mcg PO QAM RF: 0 acetaminophen [Tylenol Extra Strength] 500 mg Tablet 500 mg PO Q6H PRN (Reason: Pain) RF: 0 famotidine [Pepcid] 20 mg tablet 20 mg PO QPM RF: 0 aspirin [Aspirin Low Dose] 81 mg Tablet,Delayed Release (Dr/Ec) 81 mg PO QAM RF: 0 losartan [Cozaar] 25 mg tablet 12.5 mg PO QAM RF: 0 Changed metoprolol succinate 25 mg Tablet Extended Release 24 Hr 75 mg PO DAILY Qty: 180 RF: 0 Discharge Orders: Discharge Order (Routine); Ordered 07/07/21 Ordered By: Edu Le Admission Data Admit Date/Time: 06/29/21 07:16 Attending Provider: Edu Le Admit Provider: Edu Le Primary Care Provider: Susu Bower Other Providers: Prateek Barry ; Romain Pompa ; Kody Whitley ; Daryn Zeng ; Haile Hand ; Sebas Hernandez ; Kristal Avila ; Cruz Fuentse ; [facility] ; Ean Mathews Other Interventions: Discharge Summary Assessment (RN) Last Done: 07/06/21 10:57
--- NOTE | 2021-07-06 11:45 | Fluoroscopy Report ---
FL video swallow HISTORY: Bibasilar airspace opacity/pneumonia. r/o aspiration TECHNIQUE: Video fluoroscopic evaluation of swallowing was performed in the AP and lateral projection s by the speech pathology staff. The patient is fed nectar-thick and thin liquid barium, a barium coa varsha wafer, and barium pudding. FLUOROSCOPY TIME: 7.2 minutes. A cine loop submitted. COMPARISON STUDY: Chest x-ray 07/01/2021. FINDINGS: There are a few episodes of incomplete epiglottic deflection. There is delayed penetration with silent aspiration of the thin liquid barium. Moderate vallecular residue seen throughout the exa mination. IMPRESSION: 1. Delayed aspiration identified with the thin liquid barium. 2. Moderate vallecular residue throughout the majority of the examination. 3. Please see the speech pathologist report for detailed findings and recommendations. ACT 112: Negative or not required by law. Electronically signed by: Momo Montiel M.D. 07/06/2021 11:43 AM
--- NOTE | 2021-07-06 13:32 | XRay Report ---
XR chest 2V PA/lateral CLINICAL HISTORY: possible aspiration TECHNIQUE: AP and lateral radiographs of the chest was obtained. Comparison: Comparison is made to chest radiograph 07/01/2021 FINDINGS: Median sternotomy wires are unchanged. Calcified aortic knob is seen. The lungs are clear. No evidenc e of pleural effusion or pneumothorax. IMPRESSION: No airspace opacity to suggest aspiration. ACT 112: Negative or not required by law. Electronically signed by: Blayne May M.D. 07/06/2021 1:31 PM
[2021-07-06] MEDS: RIVAROXABAN 15 MG TAB PO SCH (17:36)
[2021-07-06] MEDS: FAMOTIDINE 20 MG TAB PO SCH (21:19)
[2021-07-07] MEDS: METOPROLOL TARTRATE 50 MG TAB PO SCH (08:48)
[2021-07-07] MEDS: CLOPIDOGREL BISULFATE 75 MG TAB PO SCH (08:49)
[2021-07-07] MEDS: ATORVASTATIN 40 MG TAB PO SCH (08:49)
[2021-07-07] MEDS: levETIRAcetam 500 MG TAB PO SCH (08:49)
[2021-07-07] MEDS: LOSARTAN POTASSIUM 25 MG TAB PO SCH (08:49)
[2021-07-07] MEDS: ASPIRIN 81 MG CHEW PO SCH (08:50)
== END 2021-07-07 14:55 | DRG 38 ==
LOC: ASU 05:55 → 1E 07:16 → 2S 07-05 18:13

== ENCOUNTER 2022-09-10 20:23 | Inpatient (IN) ==
[2022-09-10] MEDS ORDERED: SODIUM CHLORIDE 0.9% 500 ML IV ONE (21:46)
[2022-09-10 22:52] LABS: Basophils # (auto) 0.02 K/uL (0-0.2); Basophils % (auto) 0.5 %; Eosinophils # (auto) 0.21 K/uL (0-0.50); Eosinophils % (auto) 4.8 %; Hemoglobin 9.9 g/dl (12.0-16.0); Immature Granulocytes # (auto) 0.02 K/uL (0.01-0.20); Immature Granulocytes % (auto) 0.5 %; Lymphocytes # (auto) 1.32 K/uL (1.2-3.4); Lymphocytes % (auto) 30.3 %; Mean Corpuscular Hemoglobin 32.2 pg (25.0-34.0); Mean Corpuscular Hgb Conc 31.9 g/dL (32.0-36.0); Monocytes % (auto) 9.2 %; Neutrophils # (auto) 2.38 K/uL (1.40-6.50); Neutrophils % (auto) 54.7 %; Platelet Count 208 K/uL (130-400); RDW Coefficient of Variation 14.3 % (11.5-14.5); RDW Standard Deviation 52.5 fL (36.4-46.3); Red Blood Count 3.07 M/uL (4.20-5.40); White Blood Count 4.35 K/ul (4.8-10.8)
[2022-09-10 22:57] LABS: Appearance Urine Clear (Clear); Bacteria Urine Automated Negative (Negative); Bilirubin Urine Negative (Negative); Blood Urine Trace (Negative); Color Urine Yellow; Epithelial Cell Urine Auto 20-30 /lpf (0-5); Glucose Urine UA Negative (Negative); Ketones Urine Negative (Negative); Leukocyte Esterase Urine 1+ (Negative); Nitrite Urine Negative (Negative); Protein Urine Negative (Negative); Specific Gravity Urine 1.023 (1.000-1.030); Urobilinogen Urine Negative (Negative); pH Urine 5.5 (4.5-7.5)
[2022-09-10 23:09] LABS: Albumin Globulin Ratio 1.1 (0.9-2); Albumin Level 3.5 gm/dl (3.4-5.0); BUN Creatinine Ratio 24.8 (10-20); Bilirubin Direct 0.1 mg/dl (0-0.2); Bilirubin,Total 0.4 mg/dl (0.2-1.0); Calcium 8.9 mg/dl (8.6-10.3); Creatinine Clr Calc Pharmacy 33.2 ml/min; Est GFR (African American) 55.7 ml/min; Est GFR (Non-African American) 48.1 ml/min; Globulin 3.1 gm/dl (2.5-4.0); Magnesium 1.7 mg/dl (1.7-2.4); Phosphorus 3.3 mg/dl (2.5-4.9); Potassium 4.2 mmol/L (3.5-5.1); Total Protein 6.6 gm/dl (6.0-8.3)
[2022-09-10 23:17] LABS: Prothrombin Time 10.9 Seconds (9.0-12.0)
--- NOTE | 2022-09-10 23:51 | Emergency Department Note ---
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 JOSSELYN Imaging Data My Impression: CXR: No acute cardiopulmonary process per my preliminary review. Discharge Plan Visit Data Chief Complaint: Allergic Reaction Stated Complaint: ALLERGIC REACTION ED Provider: Viktor Brewer Discharge Problem: Wound infection, Sarcoma of right lower extremity, Surgical wound, non healing, Pseudomonas infection Forms Stand Alone Forms: My [facility] Prescriptions Prescriptions: No Action cholecalciferol (vitamin D3) [Vitamin D3] 10 mcg (400 unit) capsule 10 mcg PO QAM Qty: 90 3RF metoprolol succinate 25 mg tablet extended release 24 hr 50 mg PO BID nitroglycerin 0.4 mg tablet, sublingual 0.4 mg sublingual DIRECTED PRN (Reason: Chest Pain) Rx Instructions: PLACE ONE TABLET UNDER THE TONGUE EVERY 5 MINUTES FOR UP TO 3 DOSES OVER 15 MINUTES IF NEEDED FOR CHEST PAIN atorvastatin 80 mg tablet 80 mg PO QAM Centrum Silver Women 8 mg iron-400 mcg-300 mcg Tablet 1 tab PO QAM pantoprazole 20 mg tablet,delayed release (DR/EC) 20 mg PO QAM albuterol sulfate 90 mcg/actuation HFA aerosol inhaler 2 puffs INH Q6H PRN (Reason: Shortness Of Breath Or Wheezing) cyanocobalamin (vitamin B-12) [Vitamin B-12] 1,000 mcg Tablet 1,000 mcg PO QAM acetaminophen [Tylenol Extra Strength] 500 mg Tablet 500 mg PO Q6H PRN (Reason: Pain) famotidine [Pepcid] 20 mg tablet 20 mg PO QPM aspirin [Caio Low Dose Aspirin] 81 mg Tablet,Delayed Release (Dr/Ec) 81 mg PO QAM acetic acid 0.25 % Solution 0 ml irrigation DIRECTED Rx Instructions: Clean wound as directed. hydrochlorothiazide 12.5 mg Tablet 12.5 mg PO DAILY Rx Instructions: stated she takes this but it is not on dr 1st. levofloxacin 750 mg tablet 750 mg PO DAILY 14 Days Qty: 14 0RF amoxicillin-pot clavulanate 875-125 mg tablet 1 tab PO Q12H 14 Days Qty: 28 0RF Saccharomyces boulardii [Florastor] 250 mg capsule 250 mg PO BID 14 Days Qty: 28 0RF Rx Instructions: swallow whole Referrals Referrals: Susu Bower DO [Primary Care Provider] -
[2022-09-10] MEDS ORDERED: ONDANSETRON INJ 2 MG/ML 2 ML VIAL IV STA (23:52)
[2022-09-10] MEDS ORDERED: FAMOTIDINE 20MG IV PUSH 20 MG/5 ML SYR IV STA (23:52)
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
[2022-09-11] MEDS ORDERED: ALBUTEROL HFA 8 GM INHALER INH PRN (03:03)
[2022-09-11] MEDS ORDERED: ONDANSETRON INJ 2 MG/ML 2 ML VIAL IV PRN (03:03)
[2022-09-11] MEDS ORDERED: NITROGLYCERIN SL 0.4 MG/TAB TAB SL PRN (03:03)
[2022-09-11] MEDS: ACETAMINOPHEN 325 MG TAB PO PRN ×2 (03:24→20:56)
[2022-09-11] MEDS: MEROPENEM 500 MG in SYRINGE 0 ML IV SCH ×2 (03:28→11:45)
[2022-09-11] MEDS: CIPROFLOXACIN / D5W 400 MG/200 ML BAG IV SCH ×2 (03:28→15:41)
--- NOTE | 2022-09-11 06:27 | CT Scan Report ---
Exam(s): CT HEAD Without Contrast EXAM: CT Head Without Intravenous Contrast CLINICAL HISTORY: Reason for exam: headaches. TECHNIQUE: Axial computed tomography images of the head/brain without intravenous contrast. CTDI is 38.17 mGy and DLP is 547.75 mGy-cm. Automated exposure control was utilized for the study. A dose lowering technique was utilized adhering to the principles of ALARA. COMPARISON: No relevant prior studies available. FINDINGS: Brain: Chronic periventricular ischemic demyelination changes seen due to small vessel disease. No hemorrhage. Ventricles: Unremarkable. No ventriculomegaly. Bones/joints: Unremarkable. No acute fracture. Soft tissues: Unremarkable. Sinuses: Unremarkable as visualized. No acute sinusitis. Mastoid air cells: Unremarkable as visualized. No mastoid effusion. IMPRESSION: No acute intracranial abnormality Electronically signed by: Ruben Kennedy MD 09/11/22 06:26 AM
--- NOTE | 2022-09-11 06:54 | XRay Report ---
XR chest 1V portable CLINICAL HISTORY: Weakness. COMPARISON STUDY: Chest radiograph September 05, 2022. Chest CT October 05, 2019. FINDINGS: There are median sternotomy wires and mediastinal surgical clips. No pneumothorax or pleura l effusion is present. Cardiomegaly is unchanged. There is no evidence for pulmonary edema. Mild left basilar opacity favors atelectasis. No consolidation to suggest pneumonia. IMPRESSION: No acute cardiopulmonary findings. ACT 112: Negative or not required by law. Electronically signed by: Tyrell Bernard M.D. 09/11/2022 6:53 AM
[2022-09-11] MEDS ORDERED: oxyCODONE HCL IR 5 MG TAB (IMMEDIATE RELEASE) PO STA (07:43)
[2022-09-11] MEDS: ASPIRIN 81 MG ECTAB PO SCH (08:00)
[2022-09-11] MEDS: PANTOprazole 40 MG TAB PO SCH (08:00)
[2022-09-11] MEDS: MULTIVITAMIN TAB PO SCH (08:00)
[2022-09-11] MEDS: SACCHAROMYCES BOULARDII 250 MG CAP PO SCH ×2 (08:00→20:50)
[2022-09-11] MEDS: ATORVASTATIN 40 MG TAB PO SCH (08:00)
[2022-09-11] MEDS: CYANOCOBALAMIN (B-12) 500 MCG TABLET PO SCH (08:00)
[2022-09-11] MEDS: CHOLECALCIFEROL 400 UNITS 10 MCG TAB PO SCH (08:00)
[2022-09-11] MEDS ORDERED: METOPROLOL SUCC 50MG EXT REL TAB PO SCH (09:00)
--- NOTE | 2022-09-11 12:07 | Hospitalist Progress Note ---
Date of Service September 11, 2022 Assessment & Plan (1) Surgical wound, non healing: (2) Generalized weakness: (3) Sarcoma of right lower extremity: (4) History of carotid endarterectomy: (5) Benign essential hypertension: (6) Abnormal ankle brachial index: (7) History of melanoma: (8) Gastroesophageal reflux disease: (9) Intermittent headache: Irma Gibson is an 86 y/o F with PMHx of right-sided lower extremity sarcoma (resected in 2016, with recent repeat biopsies showing recurrence) and significant cardiovascular history who presented on 09/10/22 out of concern of an infected surgical wound where her sarcoma was biopsied. Of note came to [facility] on 09/05/22 and started on Levaquin with wound cultures positive for pseudomonas. 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 Turpin from [facility] -Regularly sees [facility]ound [facility]. Daily home visits with wound care nurse -Continue Zosyn and ciprofloxacin (started 09/11/22) given her persistent infect ion despite recent Levaquin and Augmentin treatment (started 09/05/22). -Blood cultures pending #Generalized weakness -Likely 2/2 acute infection and deconditioning -PT evaluation on 09/11/22: 20/24 points on 6 click. Ambulates with walker at home. -OT evaluations pending #Intermittent headaches -Right-sided without neuro deficits and no migraine history. CT without trauma or bleeds. -Tylenol PRN #Essential hypertension -Hold parameters placed on metoprolol succinate given low-normal BP readings -Hold HCTZ #Coronary artery disease -s/p 2 stents, CABG and VT in 2007. History of TIA. -Continue ASA 81, high-intensity atorvastatin -EKG without overt ischemia #Right-sided endarterectomy on 06/29/21 -Follows with Dr. Le for endarterectomy -Medical therapy as above #B12 deficiency -Continue supplementation #Vitamin D deficiency -Continue supplementation #GERD -Continue pantoprazole, famotidine GENIEI: heart healthy diet DVT prophylaxis: heparin Dispo: pending PT/OT evaluations Full code Admission and Anticipated Discharge Date Admission Date: September 11, 2022 Supervising Physician Co-Signing Physician Notes Attending attestation Pt seen and examined in concert with [facility]. Combs. In agreement with the documented findings as noted in the resident documentation with any exceptions or additions as noted here. Postoperative wound of the RLE, non-healing - concern for pseudomonas failing 2 drug outpatient regimen prompting polycoverage on inpatient. Transition to cipro floxacin and pip/erin today at recommendation of pharmacy. f/u Cx. Generalized weakness w/ concern for ambulatory dysfxn - PT/OT pending Else see resident documentation as noted. Jf Gibson has been chilly in the hospital but has no rigors. She notes some intermittent dizziness that comes and goes, since 09/09/22. No associated palpitations, falls or LOC. Uses a walker at home. The non-healing surgical wound on her right lower extremity is tender to the touch. She has not noticed increased redness, warmth or swelling of her lower extremities. Her stomach is upset but she is eating and drinking without vomiting. She has a right-sided headache that has has waxed and waned since her endarterectomy in May of 2021. No history of migraines, no associated photophobia or neuro deficits. Wound clinic sees her daily at home. One of her 3 sons helps her as able with at home ADLs, but has been less available lately due to his recent cancer diagnosis. No dysuria, diarrhea, chest pain, or SOB. Review of Systems Review of Systems: All systems reviewed & are unremarkable except as noted in HPI & below Physical Exam Physical Exam: Sitting upright in hospital bed, eating breakfast, NAD Respiratory: Anterior/lateral lung crews are CTA without crackles or wheeze Cardiovascular: Normal S1, S1, no appreciable murmurs Extremities warm No LE edema No cyanosis Gastrointestinal (Abdomen): Active bowel sounds without pain/rebound/guarding to palpation Skin: +circumferential wound dressing on right lower extremity. Dry without surrounding erythema or purulence. The area above the dressing is tender to palpation, no skin changes +wound dressing on left lower leg. Dry without surrounding erythema or purulence. Neurologic: Alert, answering questions appropriately +R-sided headache without photophobia CN 2-12 intact Results & Data Results & Data Vital Signs (Past 12 Hours) Vital Signs Temp Pulse Pulse Resp BP BP BP 09/11/22 07:14 36.4 C L 73 16 121/69 09/11/22 02:45 36.7 C 83 16 152/69 H 09/11/22 02:55 36.7 C 83 18 152/69 H 09/11/22 02:17 78 16 145/92 H 09/11/22 01:10 80 14 09/11/22 01:00 71 18 09/11/22 01:00 138/75 09/11/22 00:50 71 18 09/11/22 00:40 79 18 09/11/22 00:30 78 14 09/11/22 00:30 115/75 09/11/22 00:20 72 14 09/11/22 00:10 80 27 H 09/11/22 00:00 79 30 H 09/11/22 00:00 122/62 09/10/22 23:50 78 25 H 09/10/22 23:40 76 18 09/10/22 23:30 67 19 09/10/22 23:30 107/56 L 09/10/22 23:20 77 25 H 09/10/22 23:15 78 17 09/10/22 23:15 123/60 09/10/22 23:10 69 15 09/10/22 23:00 71 16 09/10/22 22:50 77 15 09/10/22 22:43 79 13 09/10/22 22:30 75 21 09/10/22 22:20 93 H 15 09/10/22 22:10 68 19 09/10/22 22:07 76 24 09/10/22 22:07 101/85 09/10/22 22:03 85 7 L 09/10/22 21:50 79 27 H 09/10/22 21:40 77 15 09/10/22 22:04 78 20 Pulse Ox O2 Del Method 09/11/22 07:14 97 Room Air 09/11/22 02:45 96 Room Air 09/11/22 02:55 96 Room Air 09/11/22 02:17 98 Room Air 09/11/22 01:10 97 09/11/22 01:00 99 09/11/22 01:00 09/11/22 00:50 97 09/11/22 00:40 98 09/11/22 00:30 100 09/11/22 00:30 09/11/22 00:20 100 09/11/22 00:10 98 09/11/22 00:00 100 09/11/22 00:00 09/10/22 23:50 09/10/22 23:40 97 09/10/22 23:30 98 09/10/22 23:30 09/10/22 23:20 97 09/10/22 23:15 99 09/10/22 23:15 09/10/22 23:10 09/10/22 23:00 09/10/22 22:50 09/10/22 22:43 09/10/22 22:30 09/10/22 22:20 09/10/22 22:10 09/10/22 22:07 100 09/10/22 22:07 09/10/22 22:03 09/10/22 21:50 99 09/10/22 21:40 96 09/10/22 22:04 98 Room Air
[2022-09-11] MEDS ORDERED: PIPERACILLIN/TAZOBACTAM 4.5 GM in DEXTROSE 5% 100 ML IV ONE (13:30)
--- NOTE | 2022-09-11 16:40 | Electrocardiogram Report ---
Test Reason : Blood Pressure : / mmHG Vent. Rate : 065 BPM Atrial Rate : 065 BPM P-R Int : 194 ms QRS Dur : 082 ms QT Int : 404 ms P-R-T Axes : 038 024 034 degrees QTc Int : 420 ms Sinus rhythm with Blocked Premature atrial complexes Nonspecific T wave abnormality Abnormal ECG When compared with ECG of 05-SEP-2022 14:59, Premature atrial complexes are now Present Criteria for Inferior infarct are no longer Present Confirmed by Aiden Bello ([id number]) on 09/11/2022 4:39:52 PM Referred By: REFERRED SELF Confirmed By:Chris Bello
[2022-09-11] MEDS: PIPERACILLIN/TAZOBACTAM 4.5 GM in DEXTROSE 5% 100 ML IV SCH (18:39)
[2022-09-11] MEDS: FAMOTIDINE 20 MG TAB PO SCH (20:50)
[2022-09-11] MEDS: HEPARIN SOD 5,000 UNIT/0.5 ML VIAL SQ SCH (20:50)
[2022-09-12] MEDS: PIPERACILLIN/TAZOBACTAM 4.5 GM in DEXTROSE 5% 100 ML IV SCH ×3 (02:02→18:29)
[2022-09-12] MEDS: CIPROFLOXACIN / D5W 400 MG/200 ML BAG IV SCH ×2 (05:25→16:20)
--- NOTE | 2022-09-12 07:48 | Hospitalist Progress Note ---
Date of Service September 12, 2022 Assessment & Plan (1) Surgical wound, non healing: (2) Generalized weakness: (3) Sarcoma of right lower extremity: (4) History of carotid endarterectomy: (5) Benign essential hypertension: (6) Abnormal ankle brachial index: (7) History of melanoma: (8) Gastroesophageal reflux disease: (9) Intermittent headache: Irma Gibson is an 86 y/o F with PMHx of right-sided lower extremity sarcoma (resected in 2016, with recent repeat biopsies showing recurrence) and significant cardiovascular history who presented on 09/10/22 out of concern of an infected surgical wound where her sarcoma was biopsied. Of note came to [facility] on 09/05/22 and started on Levaquin and Augmentin with wound cultures positive for pseudomonas. 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 Turpin from [facility] -Regularly sees Wound Care Clinic. Daily home visits with wound care nurse -Continue Zosyn and ciprofloxacin (started 09/11/22) given her persistent infection despite recent Levaquin and Augmentin treatment (started 09/05/22). -ID consult placed, appreciated -Blood cultures negative after 24 hours #Generalized weakness -Likely 2/2 acute infection and deconditioning -PT/OT input appreciated, both recommend rehab after discharge #Intermittent headaches -Right-sided without neuro deficits and no migraine history. CT without trauma or bleeds. -Tylenol PRN #Essential hypertension -Hold parameters placed on metoprolol succinate given low-normal BP readings -Hold HCTZ #Coronary artery disease -s/p 2 stents, CABG and [place] in 2007. History of TIA. -Continue ASA 81, high-intensity atorvastatin -EKG without overt ischemia #Right-sided endarterectomy on 06/29/21 -Follows with Dr. Le for endarterectomy -Medical therapy as above #B12 deficiency -Continue supplementation #Vitamin D deficiency -Continue supplementation #GERD -Continue pantoprazole, famotidine GENIEI: heart healthy diet DVT prophylaxis: heparin Dispo: short term rehab recommended Full code Admission and Anticipated Discharge Date Admission Date: September 11, 2022 Supervising Physician Co-Signing Physician Notes ATTESTATION I also saw the patient and confirmed quintana portions of the history and exam. I agree with the impression and plan in the resident documentation, and as summarized below. EXAM 111/61, 78, 17, 36.7, 90% room air Pleasant alert. No distress appreciated Quite talkative Heart regular Lungs clear with nonlabored respirations The wound on the right lower extremity is bandaged, the wound care photo was reviewed DATA Labs White blood cell count 3.51, hemoglobin 9 Sodium 138, potassium 4.6, BUN 15, creatinine 0.[address] of the head dated 09/11/2022 shows no acute intracranial abnormality Micro Blood cultures dated 09/11/2022 showed no growth at 24 hours Urine culture dated 09/10/2022 shows no growth. Wound culture from the right lower leg dated 09/05/2022 shows Pseudomonas. IMPRESSION & PLAN Postoperative wound of the RLE, non-healing Concern for pseudomonas failing 2 drug outpatient regimen prompting polycoverage on inpatient. Transitioned to ciprofloxacin and pip/erin today at recommendation of pharmacy Infectious disease to see today Generalized weakness w/ concern for ambulatory dysfxn PT/OT pending Additional per medical student/resident documentation Subjective Paige notes her leg pain is 3 or 4 out of 10 at rest, which is stable. Her wound dressing was changed and has not had any increased weeping, drainage or bleeding. She is tolerating her antibiotics and is able to eat without concerns. Last night from sitting to standing as she was going to the bathroom, she noted a transient episode of double vision that resolved. She did not fall and the episode has resolved. Her chronic headache still persists and she has no associated neurologic deficits. No fevers, chills, dysuria, chest pain, or shortness of breath. Review of Systems Review of Systems: All systems reviewed & are unremarkable except as noted in HPI & below Physical Exam Physical Exam: Appearance: sitting upright in bed, NAD Respiratory: Room air, no conversational dyspnea, no cyanosis Lungs clear to auscultation without crackles or wheeze Cardiovascular: Normal S1, S2 with 3/6 Systolic murmur Carotid pulses 2+ Extremities well perfused, warm, without lower extremity edema No cyanosis Gastrointestinal (Abdomen): Active bowel sounds, no rebound/guarding/pain to palpation Skin: Right lower extremity has a dressing on the calf region Dressing has no surrounding drainage, blood or purulence The area is tender to palpation Neurologic: Alert, answering questions appropriately Results & Data Results & Data Vital Signs (Past 12 Hours) Vital Signs Temp Pulse Pulse Resp BP Pulse Ox O2 Del Method 09/12/22 07:26 36.5 C 70 16 122/71 96 Room Air 09/11/22 20:55 36.9 C 75 16 92/56 L 98 Room Air
[2022-09-12 08:44] LABS: Basophils # (auto) 0.02 K/uL (0-0.2); Basophils % (auto) 0.6 %; Eosinophils # (auto) 0.18 K/uL (0-0.50); Eosinophils % (auto) 5.1 %; Hematocrit (blood only) 28.2 % (37.0-47.0); Immature Granulocytes # (auto) 0.01 K/uL (0.01-0.20); Immature Granulocytes % (auto) 0.3 %; Lymphocytes # (auto) 1.07 K/uL (1.2-3.4); Lymphocytes % (auto) 30.5 %; Mean Corpuscular Hemoglobin 32.3 pg (25.0-34.0); Mean Corpuscular Hgb Conc 31.9 g/dL (32.0-36.0); Mean Corpuscular Volume 101.1 fL (80.0-100.0); Mean Platelet Volume 10.2 fL (9.4-12.4); Monocytes % (auto) 8.5 %; Neutrophils # (auto) 1.93 K/uL (1.40-6.50); Platelet Count 164 K/uL (130-400); RDW Coefficient of Variation 14.3 % (11.5-14.5); RDW Standard Deviation 53.1 fL (36.4-46.3); Red Blood Count 2.79 M/uL (4.20-5.40); White Blood Count 3.51 K/ul (4.8-10.8)
[2022-09-12 08:49] LABS: BUN Creatinine Ratio 15.3 (10-20); Calcium 8.5 mg/dl (8.6-10.3); Creatinine Clr Calc Pharmacy 35.6 ml/min; Est GFR (African American) 60.5 ml/min; Est GFR (Non-African American) 52.2 ml/min; Potassium 4.6 mmol/L (3.5-5.1)
[2022-09-12] MEDS: SACCHAROMYCES BOULARDII 250 MG CAP PO SCH ×2 (09:28→20:08)
[2022-09-12] MEDS: HEPARIN SOD 5,000 UNIT/0.5 ML VIAL SQ SCH ×2 (09:28→20:09)
[2022-09-12] MEDS: ASPIRIN 81 MG ECTAB PO SCH (09:29)
[2022-09-12] MEDS: ATORVASTATIN 40 MG TAB PO SCH (09:29)
[2022-09-12] MEDS: MULTIVITAMIN TAB PO SCH (09:30)
[2022-09-12] MEDS: CYANOCOBALAMIN (B-12) 500 MCG TABLET PO SCH (09:30)
[2022-09-12] MEDS: PANTOprazole 40 MG TAB PO SCH (09:30)
[2022-09-12] MEDS: CHOLECALCIFEROL 400 UNITS 10 MCG TAB PO SCH (09:31)
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
[2022-09-12] MEDS: FAMOTIDINE 20 MG TAB PO SCH (20:09)
[2022-09-13] MEDS: PIPERACILLIN/TAZOBACTAM 4.5 GM in DEXTROSE 5% 100 ML IV SCH ×3 (02:04→18:28)
[2022-09-13 08:18] LABS: Hematocrit (blood only) 28.8 % (37.0-47.0); Hemoglobin 9.4 g/dl (12.0-16.0); Mean Corpuscular Hemoglobin 31.8 pg (25.0-34.0); Mean Corpuscular Hgb Conc 32.6 g/dL (32.0-36.0); Mean Corpuscular Volume 97.3 fL (80.0-100.0); Platelet Count 180 K/uL (130-400); RDW Coefficient of Variation 14.1 % (11.5-14.5); Red Blood Count 2.96 M/uL (4.20-5.40); White Blood Count 3.93 K/ul (4.8-10.8)
[2022-09-13 08:35] LABS: BUN Creatinine Ratio 18.2 (10-20); Calcium 8.4 mg/dl (8.6-10.3); Creatinine Clr Calc Pharmacy 31.7 ml/min; Est GFR (African American) 52.6 ml/min; Est GFR (Non-African American) 45.4 ml/min
[2022-09-13] MEDS: HEPARIN SOD 5,000 UNIT/0.5 ML VIAL SQ SCH ×2 (09:32→20:46)
[2022-09-13] MEDS: SACCHAROMYCES BOULARDII 250 MG CAP PO SCH ×2 (09:32→20:46)
[2022-09-13] MEDS: PANTOprazole 40 MG TAB PO SCH (09:32)
[2022-09-13] MEDS: MULTIVITAMIN TAB PO SCH (09:33)
[2022-09-13] MEDS: CYANOCOBALAMIN (B-12) 500 MCG TABLET PO SCH (09:33)
[2022-09-13] MEDS: ASPIRIN 81 MG ECTAB PO SCH (09:33)
[2022-09-13] MEDS: ATORVASTATIN 40 MG TAB PO SCH (09:33)
[2022-09-13] MEDS: CHOLECALCIFEROL 400 UNITS 10 MCG TAB PO SCH (09:33)
--- NOTE | 2022-09-13 15:28 | Hospitalist Progress Note ---
Date of Service September 13, 2022 Assessment & Plan (1) Surgical wound, non healing: (2) Generalized weakness: (3) Sarcoma of right lower extremity: (4) History of carotid endarterectomy: (5) Benign essential hypertension: (6) Abnormal ankle brachial index: (7) History of melanoma: (8) Gastroesophageal reflux disease: (9) Intermittent headache: Irma Gibson is an 86 y/o F with PMHx of right-sided lower extremity sarcoma (resected in 2016, with recent repeat biopsies showing recurrence) and significant cardiovascular history who presented on 09/10/22 out of concern of an infected surgical wound where her sarcoma was biopsied. Of note came to [facility] on 09/05/22 and started on Levaquin and Augmentin with wound cultures positive for pseudomonas. 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 Turpin from [facility] -Regularly sees [facility]. Daily home visits with wound care nurse -ID consult appreciated: discontinue ciprofloxacin, continue pip-tazo. Discharge on levofloxacin 750 mg PO daily to complete the previously prescribed 14 day course through 09/19. QTc 420. -Blood cultures negative after 24 hours #Generalized weakness -Likely 2/2 acute infection and deconditioning -PT/OT input appreciated, both recommend rehab after discharge #Intermittent headaches -Right-sided without neuro deficits and no migraine history. CT without trauma or bleeds. -Tylenol PRN #Essential hypertension -Hold parameters placed on metoprolol succinate given low-normal BP readings -Hold HCTZ #Coronary artery disease -s/p 2 stents, CABG and IL in 2007. History of TIA. -Continue ASA 81, high-intensity atorvastatin -EKG without overt ischemia #Right-sided endarterectomy on 06/29/21 -Follows with Dr. eL for endarterectomy -Medical therapy as above #B12 deficiency -Continue supplementation #Vitamin D deficiency -Continue supplementation #GERD -Continue pantoprazole, famotidine GENIEI: heart healthy diet DVT prophylaxis: heparin Dispo: short term rehab recommended Full code Admission and Anticipated Discharge Date Admission Date: September 11, 2022 Supervising Physician Co-Signing Physician Notes ATTESTATION I also saw the patient and confirmed quintana portions of the history and exam. I agree with the impression and plan in the resident/medical student documentation, and as summarized below. Paige has no new complaints today. We discussed, she seems understand, the need for inpatient rehabilitation following hospital discharge. EXAM 130/73, 71, 18, 36 C, 97% room air Pleasant alert. No distress appreciated Quite talkative Heart regular Lungs clear with nonlabored respirations The wound on the right lower extremity is bandaged, the wound care photo was reviewed DATA Labs White blood cell count 3.93, hemoglobin 9.4 Sodium 138, potassium 4, BUN 20, creatinine 1.[address] of the head dated 09/11/2022 shows no acute intracranial abnormality Micro Blood cultures dated 09/11/2022 showed no growth at 48 hours Urine culture dated 09/10/2022 shows no growth. IMPRESSION & PLAN Postoperative wound of the RLE, non-healing Appreciate ID consultation Currently on PIP/Girish; recommendation for levofloxacin 750 mg p.o. every 24 hours upon discharge x14 days (Failure thought to be secondary to underdosing on first course of quinolone; of note, the patient was transitioned to levofloxacin 750 mg after her first ED visit, although probably not enough time on this dose to make appreciable change prior to her return) Generalized weakness w/ concern for ambulatory dysfxn PT/OT recommending inpatient Additional per medical student/resident documentation Subjective Paige is doing well and stable. She had no events to report overnight. No fevers, chills, dysuria, chest pain, or SOB. We reviewed possible steps after discharge and her antibiotic regimen. She had questions about her chronic, right-sided headache and if her initial head imaging showed anything. We reviewed that the head CT did not show any acute pathology. Her headache is unchanged. No associated double vision or other vision changes. Review of Systems Review of Systems: All systems reviewed & are unremarkable except as noted in HPI & below Physical Exam Physical Exam: Appearance: sitting upright in bed, NAD Respiratory: Room air No conversational dyspnea Lungs clear bilaterally without crackles or wheeze Cardiovascular: Regular rate Normal S1, S2 with 3/6 systolic murmur Carotid pulses 2+ Extremities warm Bilateral lower extremities without edema or erythema No cyanosis Gastrointestinal (Abdomen): Active bowel sounds, no pain/rebound/guarding to palpation Skin: +R lower extremity wound dressing is dry without surround erythema or purulence. Painful to palpation. Neurologic: Alert, answering questions appropriately CN 2-12 intact Strength 5/5 for hand third rigger, shoulder abduction, biceps/triceps, feet plantar flexion/dorsiflexion Results & Data Results & Data Vital Signs (Past 12 Hours) Vital Signs Temp Pulse Resp BP Pulse Ox O2 Del Method 09/13/22 07:51 36.0 C L 71 18 130/73 97 Room Air
[2022-09-13] MEDS: FAMOTIDINE 20 MG TAB PO SCH (20:46)
[2022-09-13] MEDS: ACETAMINOPHEN 325 MG TAB PO PRN (22:31)
[2022-09-14] MEDS: PIPERACILLIN/TAZOBACTAM 4.5 GM in DEXTROSE 5% 100 ML IV SCH ×2 (01:07→09:23)
[2022-09-14] MEDS: MULTIVITAMIN TAB PO SCH (08:55)
[2022-09-14] MEDS: HEPARIN SOD 5,000 UNIT/0.5 ML VIAL SQ SCH ×2 (08:55→19:59)
[2022-09-14] MEDS: ASPIRIN 81 MG ECTAB PO SCH (08:55)
[2022-09-14] MEDS: SACCHAROMYCES BOULARDII 250 MG CAP PO SCH ×2 (08:55→19:57)
[2022-09-14] MEDS: CHOLECALCIFEROL 400 UNITS 10 MCG TAB PO SCH (08:55)
[2022-09-14] MEDS: ATORVASTATIN 40 MG TAB PO SCH (08:55)
[2022-09-14] MEDS: CYANOCOBALAMIN (B-12) 500 MCG TABLET PO SCH (08:55)
[2022-09-14] MEDS: PANTOprazole 40 MG TAB PO SCH (08:55)
[2022-09-14] MEDS: ACETAMINOPHEN 325 MG TAB PO PRN (09:00)
--- NOTE | 2022-09-14 09:28 | Hospitalist Progress Note ---
Date of Service September 14, 2022 Assessment & Plan (1) Surgical wound, non healing: (2) Generalized weakness: (3) Sarcoma of right lower extremity: (4) History of carotid endarterectomy: (5) Benign essential hypertension: (6) Abnormal ankle brachial index: (7) History of melanoma: (8) Gastroesophageal reflux disease: (9) Intermittent headache: Plan Paige is an 86 y/o F with PMHx of right-sided lower extremity sarcoma (resected in 2016, with recent repeat biopsies showing recurrence) and significant cardiovascular history who presented on 09/10/22 out of concern of an infected surgical wound where her sarcoma was biopsied. Of note came to [facility] on 09/05/22 and started on Levaquin and Augmentin with wound cultures positive for pseudomonas. 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 Turpin from [facility] -Regularly sees [facility]. Daily home visits with wound care nurse -ID consult appreciated. Starting levofloxacin 750 mg PO daily on 09/14 (end 09/19) and will assess how she tolerates it prior to discharge -Pip/tazo discontinued on 09/14 -Blood cultures negative #Generalized weakness -Likely 2/2 acute infection and deconditioning -PT/OT input appreciated #Intermittent headaches -Right-sided without neuro deficits and no migraine history. CT without trauma or bleeds. -Tylenol PRN #Essential hypertension -Hold parameters placed on metoprolol succinate given low-normal BP readings -Hold HCTZ #Coronary artery disease -s/p 2 stents, CABG and ID in 2007. History of TIA. -Continue ASA 81, high-intensity atorvastatin -EKG without overt ischemia #Right-sided endarterectomy on 06/29/21 -Follows with Dr. Le for endarterectomy -Medical therapy as above #GERD -Continue pantoprazole, famotidine JASPAL: heart healthy diet DVT prophylaxis: heparin Dispo: home health Full code Admission and Anticipated Discharge Date Admission Date: September 11, 2022 Supervising Physician Co-Signing Physician Notes ATTESTATION I also saw the patient and confirmed quintana portions of the history and exam. I agree with the impression and plan in the resident/medical student documentation, and as summarized below. Paige has no new complaints today. She really is adamant about going home and not to inpatient rehabilitation. I did learn today that her son would be able to stay with her pretty much all the time, at least in the immediate period after discharge. Discussed with Paige while I think inpatient rehabilitation would be the optimal discharge plan, I think home with services (and family assistance) is not a completely unreasonable second option. EXAM 127/80, 88, 16, 36.6, 94% on room air Pleasant alert. No distress appreciated Heart regular Lungs clear with nonlabored respirations The wound on the right lower extremity is bandaged. DATA Labs No new blood work today Micro Blood cultures dated 09/11/2022 showed no growth at 48 hours Urine culture dated 09/10/2022 shows no growth. IMPRESSION & PLAN Postoperative wound of the RLE, non-healing Appreciate ID consultation Transition to levofloxacin 700 mg p.o. every 24 hours, assure p.o. tolerability Generalized weakness w/ concern for ambulatory dysfxn PT/OT recommending inpatient, although patient is adamant returning home (see discussion above) Likely home tomorrow with services and family care Additional per medical student/resident documentation Subjective Paige is doing well. She tolerated physical therapy yesterday without major concerns or dizziness. She does not want to go to rehab after discharge and instead prefers home health. Her son Juan helps her at home and is there most days of the week, including nights. Her headache has improved. No acute concerns, fevers, chills, chest pain, SOB. Review of Systems Review of Systems: All systems reviewed & are unremarkable except as noted in HPI & below Physical Exam Physical Exam: Appearance: sitting upright in bed, NAD Respiratory: Room air No conversational dyspnea Lungs clear bilaterally without crackles or wheeze Cardiovascular: Regular rate Normal S1, S2 with 3/6 systolic murmur Carotid pulses 2+ Extremities warm Bilateral lower extremities without edema or erythema No cyanosis Gastrointestinal (Abdomen): Active bowel sounds, no pain/rebound/guarding to palpation Skin: +R lower extremity wound dressing is dry without surround erythema or purulence. Painful to palpation. Neurologic: Alert, answering questions appropriately Results & Data Results & Data Vital Signs (Past 12 Hours) Vital Signs Temp Pulse Resp BP Pulse Ox O2 Del Method 09/14/22 07:10 36.8 C 83 16 141/81 H 98 Room Air
[2022-09-14] MEDS: FAMOTIDINE 20 MG TAB PO SCH (19:57)
[2022-09-14] MEDS ORDERED: levoFLOXacin 750 MG TAB PO SCH ×2 (20:00)
[2022-09-14 21:11] VITALS: TEMP 98.1
[2022-09-15] MEDS: ACETAMINOPHEN 325 MG TAB PO PRN (01:30)
[2022-09-15 06:57] VITALS: BP 138/73; PULSE 89; O2SAT 98
[2022-09-15] MEDS: ASPIRIN 81 MG ECTAB PO SCH (08:32)
[2022-09-15] MEDS: MULTIVITAMIN TAB PO SCH (08:32)
[2022-09-15] MEDS: CYANOCOBALAMIN (B-12) 500 MCG TABLET PO SCH (08:33)
[2022-09-15] MEDS: CHOLECALCIFEROL 400 UNITS 10 MCG TAB PO SCH (08:33)
[2022-09-15] MEDS: ATORVASTATIN 40 MG TAB PO SCH (08:33)
[2022-09-15] MEDS: PANTOprazole 40 MG TAB PO SCH (08:34)
[2022-09-15] MEDS: SACCHAROMYCES BOULARDII 250 MG CAP PO SCH (08:34)
[2022-09-15] MEDS: HEPARIN SOD 5,000 UNIT/0.5 ML VIAL SQ SCH (08:35)
--- NOTE | 2022-09-15 13:32 | Discharge Summary ---
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 She had been seen most recently in the emergency department on 09/05/2022, and wound cultures at that time growing Pseudomonas. The patient has been taking Augmentin and levofloxacin since that time. Her most recent visit to wound care was on 09/08/2022. The patient is referred to the emergency department by visiting nurse today, due to symptoms of generalized body aches, chills, nausea and poor oral intake for 24 hours Admission Exam Per Admitting Provider The patient is awake, alert and oriented 3, well developed and well nourished, normocephalic and atraumatic, lying in bed and in no acute distress. HEENT--PERRL, EOMI, mucous membranes and oropharynx normal. Neck--supple. No JVD. No bruits. Thyroid normal, trachea midline, no adenopathy. Heart--normal S1 and S2. No murmurs, rubs or gallops. Lungs--clear bilaterally, no respiratory distress, no accessory muscle use. Abdomen--normal bowel sounds and soft. Nontender. Nondistended, no hernias or masses, no organomegaly. Extremities--right lower extremity with nonhealing wound right lateral surface Dermatologic-see above Neurologic--cranial nerves II through XII grossly intact. Rheumatologic--normal range of motion. Psychiatric--normal affect. Principal Diagnosis Surgical wound, non-healing, right lower extremity Discharge Exam Appearance: sitting upright in bed, NAD Respiratory: room air, no conversational dyspnea, lungs clear bilaterally without crackles or wheeze Cardiovascular: regular rate, normal S1, S2, with 3/6 systolic murmur in the aortic/pulmonic areas. Extremities warm, bilateral lower extremity edema or erythema, no cyanosis Gastrointestinal: active bowel sounds, no pain/rebound/guarding to palpation Skin: +R lower extremity wound dressing is dry without surrounding erythema or purulence. Area is tender to palpation. Neuro: alert, answering, questions appropriately Discharge Data Allergies Allergy/AdvReac Type Severity Reaction Status Date / Time cephalexin Allergy Intermediate Hives Verified 09/11/22 00:22 perflutren Allergy Intermediate Muscle Verified 09/11/22 00:22 tightness propylene glycol Allergy Intermediate Muscle Verified 09/11/22 00:22 tightness sulfamethoxazole Allergy Intermediate Rash Verified 09/11/22 00:22 trimethoprim Allergy Intermediate Rash Verified 09/11/22 00:22 Sulfa (Sulfonamide AdvReac Severe Depleted Verified 09/11/22 00:22 Antibiotics) platelet count apixaban [From Eliquis] AdvReac Intermediate Dizziness, Verified 09/11/22 00:22 nausea tramadol AdvReac Intermediate Hallucinati Verified 09/11/22 00:22 ons Consultations 09/10/22 23:52 ED Decision to Admit Stat 09/12/22 12:10 Consult Infectious Diseases Routine Ordered Studies 09/11/22 02:03 CT head/brain wo con Stat Laboratory Results WBC 3.93 K/ul (4.8-10.8) L 09/13/22 07:43 RBC 2.96 M/uL (4.20-5.40) L 09/13/22 07:43 Hgb 9.4 g/dl (12.0-16.0) L 09/13/22 07:43 Hct 28.8 % (37.0-47.0) L 09/13/22 07:43 MCV 97.3 fL (80.0-100.0) 09/13/22 07:43 MCH 31.8 pg (25.0-34.0) 09/13/22 07:43 MCHC 32.6 g/dL (32.0-36.0) 09/13/22 07:43 RDW Std Deviation 51.0 fL (36.4-46.3) H 09/13/22 07:43 RDW Coeff of Fred 14.1 % (11.5-14.5) 09/13/22 07:43 Plt Count 180 K/uL (130-400) 09/13/22 07:43 MPV 10.0 fL (9.4-12.4) 09/13/22 07:43 Immature Gran % (Auto) 0.3 % 09/12/22 07:27 Neut % (Auto) 55.0 % 09/12/22 07:27 Lymph % (Auto) 30.5 % 09/12/22 07:27 [place] % (Auto) 8.5 % 09/12/22 07:27 Eos % (Auto) 5.1 % 09/12/22 07:27 Baso % (Auto) 0.6 % 09/12/22 07:27 Neut # (Auto) 1.93 K/uL (1.40-6.50) 09/12/22 07:27 Lymph # (Auto) 1.07 K/uL (1.2-3.4) L 09/12/22 07:27 [place] # (Auto) 0.30 K/uL (0.11-0.59) 09/12/22 07:27 Eos # (Auto) 0.18 K/uL (0-0.50) 09/12/22 07:27 Baso # (Auto) 0.02 K/uL (0-0.2) 09/12/22 07:27 Immature Gran # (Auto) 0.01 K/uL (0.01-0.20) 09/12/22 07:27 PT 10.9 Seconds (9.0-12.0) 09/10/22 22:39 INR 1.0 (0.9-1.1) 09/10/22 22:39 Sodium 138 mmol/L (136-145) 09/13/22 07:43 Potassium 4.0 mmol/L (3.5-5.1) 09/13/22 07:43 Chloride 108 mmol/L (98-107) H 09/13/22 07:43 Carbon Dioxide 26 mmol/L (21-32) 09/13/22 07:43 Anion Gap 4 (3-11) 09/13/22 07:43 BUN 20 mg/dl (6-23) 09/13/22 07:43 Creatinine 1.10 mg/dl (0.6-1.2) 09/13/22 07:43 Est Cr Clr Drug Dosing 31.7 ml/min 09/13/22 07:43 Est GFR ( Amer) 52.6 ml/min 09/13/22 07:43 Est GFR (Non-Af Amer) 45.4 ml/min 09/13/22 07:43 BUN/Creatinine Ratio 18.2 (10-20) 09/13/22 07:43 Glucose 94 mg/dl (70-99(Fasting)) 09/13/22 07:43 Lactate 0.8 mmol/L (0.4-2.0) 09/11/22 00:17 Calcium 8.4 mg/dl (8.6-10.3) L 09/13/22 07:43 Phosphorus 3.3 mg/dl (2.5-4.9) 09/10/22 22:39 Magnesium 1.7 mg/dl (1.7-2.4) 09/10/22 22:39 Total Bilirubin 0.4 mg/dl (0.2-1.0) 09/10/22 22:39 Direct Bilirubin 0.1 mg/dl (0-0.2) 09/10/22 22:39 AST 28 U/L (13-39) 09/10/22 22:39 ALT 12 U/L (7-52) 09/10/22 22:39 Alkaline Phosphatase 70 U/L (34-104) 09/10/22 22:39 Total Creatine Kinase 143 U/L (26-192) 09/10/22 22:39 Total Protein 6.6 gm/dl (6.0-8.3) 09/10/22 22:39 Albumin 3.5 gm/dl (3.4-5.0) 09/10/22 22:39 Globulin 3.1 gm/dl (2.5-4.0) 09/10/22 22:39 Albumin/Globulin Ratio 1.1 (0.9-2) 09/10/22 22:39 Lipase 28 U/L (11-82) 09/10/22 22:39 Procalcitonin < 0.05 ng/ml (0-0.5) 09/10/22 22:39 TSH 1.491 uIu/ml (0.300-4.500) 09/10/22 22:39 Urine Color Yellow 09/10/22 22:43 Urine Appearance Clear (Clear) 09/10/22 22:43 Urine pH 5.5 (4.5-7.5) 09/10/22 22:43 Ur Specific [place] 1.023 (1.000-1.030) 09/10/22 22:43 Urine Protein Negative (Negative) 09/10/22 22:43 Urine Glucose (UA) Negative (Negative) 09/10/22 22:43 Urine Ketones Negative (Negative) 09/10/22 22:43 Urine Blood Trace (Negative) H 09/10/22 22:43 Urine Nitrite Negative (Negative) 09/10/22 22:43 Urine Bilirubin Negative (Negative) 09/10/22 22:43 Urine Urobilinogen Negative (Negative) 09/10/22 22:43 Ur Leukocyte Esterase 1+ (Negative) H 09/10/22 22:43 Urine WBC (Auto) 10-30 /hpf (0-5) H 09/10/22 22:43 Urine RBC (Auto) 5-10 /hpf (0-4) H 09/10/22 22:43 U Hyaline Cast (Auto) 1-5 /lpf (0-5) 09/10/22 22:43 U Epithel Cells (Auto) 20-30 /lpf (0-5) H 09/10/22 22:43 Urine Bacteria (Auto) Negative (Negative) 09/10/22 22:43 SARS-CoV-2, RNA, NAAT NEGATIVE (NEGATIVE) 09/11/22 00:10 Impressions Chest X-Ray 09/10/22 21:44 XR chest 1V portable CLINICAL HISTORY: Weakness. COMPARISON STUDY: Chest radiograph September 05, 2022. Chest CT October 05, 2019. FINDINGS: There are median sternotomy wires and mediastinal surgical clips. No pneumothorax or pleural effusion is present. Cardiomegaly is unchanged. There is no evidence for pulmonary edema. Mild left basilar opacity favors atelectasis. No consolidation to suggest pneumonia. IMPRESSION: No acute cardiopulmonary findings. ACT 112: Negative or not required by law. Electronically signed by: Tyrell Bernard M.D. 09/11/2022 6:[address] 09/11/22 02:03 Exam(s): CT HEAD Without Contrast EXAM: CT Head Without Intravenous Contrast CLINICAL HISTORY: Reason for exam: headaches. TECHNIQUE: Axial computed tomography images of the head/brain without intravenous contrast. CTDI is 38.17 mGy and DLP is 547.75 mGy-cm. Automated exposure control was utilized for the study. A dose lowering technique was utilized adhering to the principles of ALARA. COMPARISON: No relevant prior studies available. FINDINGS: Brain: Chronic periventricular ischemic demyelination changes seen due to small vessel disease. No hemorrhage. Ventricles: Unremarkable. No ventriculomegaly. Bones/joints: Unremarkable. No acute fracture. Soft tissues: Unremarkable. Sinuses: Unremarkable as visualized. No acute sinusitis. Mastoid air cells: Unremarkable as visualized. No mastoid effusion. IMPRESSION: No acute intracranial abnormality Electronically signed by: Ruben Kennedy MD 09/11/22 06:26 AM Hospital Course (1) Surgical wound, non healing: (2) Generalized weakness: (3) Sarcoma of right lower extremity: (4) History of carotid endarterectomy: (5) Benign essential hypertension: (6) Abnormal ankle brachial index: (7) History of melanoma: (8) Gastroesophageal reflux disease: (9) Intermittent headache: Irma Gibson is an 86 y/o F with PMHx of right-sided lower extremity sarcoma (resected in 2015, with recent repeat biopsies showing recurrence) and significant cardiovascular history who presented on 09/10/22 out of concern of an infected surgical wound where her sarcoma was biopsied. Of note came to [facility] on 09/05/22 and started on Levaquin and Augmentin with wound cultures positive for pseudomonas. #Surgical wound, non-healing, right-lower extremity -At baseline regularly sees [facility] and has daily home visits with wound care nurse -Continue Levofloxacin 750 mg PO daily until end 09/19 -Wound cultures from prior admission on 09/05 were positive for Pseudomonas -Blood cultures negative #Intermittent headaches -Right-sided without neuro deficits and no migraine history. CT without trauma or bleeds. -Tylenol as needed #Essential hypertension -Continue home regimen of HCTZ AND metoprolol succinate #Coronary artery disease -s/p 2 stents, CABG and MA in 2007. History of TIA. -Continue ASA 81, high-intensity atorvastatin -EKG without overt ischemia #Right-sided endarterectomy on 06/29/21 -Follows with Dr. 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 You were treated with antibiotics and wound care. Your symptoms have improved, and while we recommend going to a rehab facility to gain strength prior to returning home, you have insisted on returning home with home health. We feel this is a reasonable option, and we feel it is safe for you to continue your recovery from home. A discharge summary will be sent to your primary care physician to ensure continuity of care. Please bring this discharge summary with you to your next o ffice appointment so that your provider can review it at that time. Follow-up appointments: Make a follow-up appointment with your PCP within the next week. It is very i mportant that you follow up with them shortly after discharge from the hospital. Keep all your follow-up appointments as already scheduled. If you cannot make an appointment, notify your provider. Medications: Your medication list has been reviewed and reconciled upon discharge to ensure accuracy and continuity of care. An updated list of all your medications is inc luded with your hospital discharge paperwork. Please review this list closely, and make note of any changes. * Take levaquin (750mg) one tablet daily for four more days. Your final dose will be on September 19. We have not sent this medication to your pharmacy because you already have your own supply. Take your medications as instructed; do not skip a dose of your medicines. Make sure all of your doctors know every medicine you are taking (including [id number] medicines, vitamins, and supplements). Call your primary care provider before taking any new medicines (including [id number] medicines, vitamins, and supplements), because some of these may interact with your current medications, or may make your symptoms worse. Tell your primary care provider if you cannot afford your medications. CONTACT YOUR PRIMARY CARE PROVIDER if you experience any of the following: Worsening wound drainage Difficulty following your treatment plan, or difficulty taking medications CALL 911 OR GO TO THE EMERGENCY DEPARTMENT if you experience any of the following: Sudden, severe abdominal pain or nausea/vomiting Severe chest pain, or chest pain that radiates (moves) to your jaw or arm Sudden, severe shortness of breath or difficulty breathing Thank you for allowing us to participate in your care. Pending Studies at Discharge: No Stand-Alone Forms: My [facility] Medications and DC Order Prescriptions: Continued cholecalciferol (vitamin D3) [Vitamin D3] 10 mcg (400 unit) capsule 10 mcg PO QAM Qty: 90 3RF metoprolol succinate 25 mg tablet extended release 24 hr 50 mg PO BID nitroglycerin 0.4 mg tablet, sublingual 0.4 mg sublingual DIRECTED PRN (Reason: Chest Pain) Rx Instructions: PLACE ONE TABLET UNDER THE TONGUE EVERY 5 MINUTES FOR UP TO 3 DOSES OVER 15 MINUTES IF NEEDED FOR CHEST PAIN atorvastatin 80 mg tablet 80 mg PO QAM Centrum Silver Women 8 mg iron-400 mcg-300 mcg Tablet 1 tab PO QAM pantoprazole 20 mg tablet,delayed release (DR/EC) 20 mg PO QAM albuterol sulfate 90 mcg/actuation HFA aerosol inhaler 2 puffs INH Q6H PRN (Reason: Shortness Of Breath Or Wheezing) cyanocobalamin (vitamin B-12) [Vitamin B-12] 1,000 mcg Tablet 1,000 mcg PO QAM acetaminophen [Tylenol Extra Strength] 500 mg Tablet 500 mg PO Q6H PRN (Reason: Pain) famotidine [Pepcid] 20 mg tablet 20 mg PO QPM aspirin [Caio Low Dose Aspirin] 81 mg Tablet,Delayed Release (Dr/Ec) 81 mg PO QAM acetic acid 0.25 % Solution 0 ml irrigation DIRECTED Rx Instructions: Clean wound as directed. hydrochlorothiazide 12.5 mg Tablet 12.5 mg PO DAILY Rx Instructions: stated she takes this but it is not on dr 1st. levofloxacin 750 mg tablet 750 mg PO DAILY 4 Days Qty: 14 0RF Saccharomyces boulardii [Florastor] 250 mg capsule 250 mg PO BID 14 Days Qty: 28 0RF Rx Instructions: swallow whole Discontinued amoxicillin-pot clavulanate 875-125 mg tablet 1 tab PO Q12H 14 Days Qty: 28 0RF Discharge Orders: Discharge Order (Routine); Ordered 09/15/22 Ordered By: Sohail Watts Admission Data Admit Date/Time: 09/11/22 00:36 Attending Provider: Jethro Pichardo Admit Provider: Santi Rajput Primary Care Provider: Susu Bower Other Providers: Santi Rajput ; [employer] [facility] ; Yumiko Lara Other Interventions: Discharge Summary Assessment (RN) Last Done: 09/15/22 11:51 Supervising Physician Co-Signing Physician Notes Attending attestation Pt seen and examined in concert with Dr. Watts, St. Dr. Combs. In agreement with the documented findings as noted in the resident documentation with any exceptions or additions as noted here. Pain well controlled with present analgesia and no new complaints at present. Stands firm in her decision to go home w/ increased support. On examination, S1/S2 nl RRR no MCG. CTAB. Abd NT/ND BS+ve RLE wound C/D/I Postoperative RLE wound, nonhealing - ID consult - complete course of levofloxacin 750mg q24 Generalized weakness w/ ambulatory dysfunction - PT/OT recommending rehab, will be returning home with increased support, home services. Stressed safety and adherence to rehab plans in outpatient setting. Else see resident/student documentation as noted. Total attending physician time spent with this patient's care on the day of discharge: 35 minutes.
== END 2022-09-15 14:19 | disposition home health service (06) | DRG 921 ==
LOC: ED 20:23 → 3N 09-11 00:36 → SUATTDRO 09-11 00:36 → 3N 09-11 02:17
DX: Z95.1 Presence of aortocoronary bypass graft; Z20.822 Contact with and (suspected) exposure to COVID-19; Z88.2 Allergy status to sulfonamides; R51.9 Headache, unspecified; Z95.5 Presence of coronary angioplasty implant and graft; Z86.73 Personal history of transient ischemic attack (TIA), and cerebral infarction without residual deficits; E55.9 Vitamin D deficiency, unspecified; L08.9 Local infection of the skin and subcutaneous tissue, unspecified; B96.5 Pseudomonas (aeruginosa) (mallei) (pseudomallei) as the cause of diseases classified elsewhere; Y83.8 Other surgical procedures as the cause of abnormal reaction of the patient, or of later complication, without mention of misadventure at the time of the procedure; Z85.820 Personal history of malignant melanoma of skin; Z88.1 Allergy status to other antibiotic agents; C76.51 Malignant neoplasm of right lower limb; E53.8 Deficiency of other specified B group vitamins; Z88.5 Allergy status to narcotic agent; Z79.899 Other long term (current) drug therapy; Z88.8 Allergy status to other drugs, medicaments and biological substances; I25.2 Old myocardial infarction; I10 Essential (primary) hypertension; T81.49XA Infection following a procedure, other surgical site, initial encounter; K21.9 Gastro-esophageal reflux disease without esophagitis; R56.9 Unspecified convulsions; M10.9 Gout, unspecified; Z79.82 Long term (current) use of aspirin; I25.10 Atherosclerotic heart disease of native coronary artery without angina pectoris; T81.89XA Other complications of procedures, not elsewhere classified, initial encounter

== ENCOUNTER 2022-09-24 16:17 | Inpatient (IN) ==
[2022-09-24] MEDS ORDERED: SODIUM CHLORIDE 0.9% 1000ML 1,000 ML IV SCH ×2 (17:00→21:13)
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
[2022-09-24 17:15] LABS: Basophils # (auto) 0.03 K/uL (0-0.2); Basophils % (auto) 0.6 %; Eosinophils # (auto) 0.12 K/uL (0-0.50); Eosinophils % (auto) 2.3 %; Hematocrit (blood only) 33.6 % (37.0-47.0); Hemoglobin 11.1 g/dl (12.0-16.0); Immature Granulocytes # (auto) 0.02 K/uL (0.01-0.20); Immature Granulocytes % (auto) 0.4 %; Lymphocytes # (auto) 1.35 K/uL (1.2-3.4); Lymphocytes % (auto) 25.6 %; Mean Corpuscular Hemoglobin 32.3 pg (25.0-34.0); Mean Corpuscular Volume 97.7 fL (80.0-100.0); Mean Platelet Volume 10.1 fL (9.4-12.4); Monocytes # (auto) 0.44 K/uL (0.11-0.59); Monocytes % (auto) 8.3 %; Neutrophils # (auto) 3.32 K/uL (1.40-6.50); Neutrophils % (auto) 62.8 %; Platelet Count 215 K/uL (130-400); RDW Coefficient of Variation 13.7 % (11.5-14.5); RDW Standard Deviation 49.1 fL (36.4-46.3); Red Blood Count 3.44 M/uL (4.20-5.40); White Blood Count 5.28 K/ul (4.8-10.8)
[2022-09-24 17:28] LABS: Alanine Aminotransferase 19 U/L (7-52); Albumin Globulin Ratio 1.2 (0.9-2); Albumin Level 3.8 gm/dl (3.4-5.0); Alkaline Phosphatase 71 U/L (34-104); Anion Gap 9 (3-11); Aspartate Aminotransferase 42 U/L (13-39); BUN Creatinine Ratio 20.8 (10-20); Bilirubin,Total 0.6 mg/dl (0.2-1.0); Blood Urea Nitrogen 27 mg/dl (6-23); C Reactive Protein < 0.50 mg/dl (0-0.5); Calcium 9.6 mg/dl (8.6-10.3); Carbon Dioxide 23 mmol/L (21-32); Chloride 101 mmol/L (98-107); Creatine Kinase 174 U/L (26-192); Creatinine Clr Calc Pharmacy 26.8 ml/min; Est GFR (Non-African American) 37.1 ml/min; Globulin 3.3 gm/dl (2.5-4.0); Glucose 100 mg/dl (70-99(Fasting)); Lipase 32 U/L (11-82); Magnesium 1.7 mg/dl (1.7-2.4); Potassium 4.8 mmol/L (3.5-5.1); Sodium 133 mmol/L (136-145); Total Protein 7.1 gm/dl (6.0-8.3)
--- NOTE | 2022-09-24 17:32 | CT Scan Report ---
CT OF THE HEAD WITHOUT CONTRAST CLINICAL HISTORY: Fall. COMPARISON STUDY: Head CT September 11, 2022. CT DOSE: 899.82 mGy.cm TECHNIQUE: Helical axial images of the head were obtained without IV contrast. Automated exposure con trol was utilized for the study. A dose lowering technique was utilized adhering to the principles o f ALARA. FINDINGS: No acute intracranial hemorrhage, midline shift or mass effect is present. White matter hyp odensities are unchanged and favor small vessel disease. The ventricular system is unremarkable. The basal cisterns are patent. No extra-axial collections are present. There are no findings to suggest a cute dural sinus thrombosis or acute territorial infarct. No significant calvarial abnormalities are present. Visualized portions of the sinuses and mastoid air cells are clear. IMPRESSION: 1. No acute intracranial findings. No change in appearance of the brain. 2. No acute calvarial fracture. ACT 112: Negative or not required by law. Electronically signed by: Tyrell Bernard M.D. 09/24/2022 5:31 PM
[2022-09-24 17:35] LABS: Troponin I High Sensitivity 17.1 pg/ml (0-14)
--- NOTE | 2022-09-24 17:41 | CT Scan Report ---
CT OF THE CERVICAL SPINE WITHOUT CONTRAST CLINICAL HISTORY: fall COMPARISON STUDY: CTA of the neck April 03, 2021. CT of the cervical spine December 02, 2019. TECHNIQUE: Helical axial images of the cervical spine were obtained without IV contrast. Sagittal a nd coronal reconstructions were viewed. Automated exposure control was utilized for the study. A do se lowering technique was utilized adhering to the principles of ALARA. FINDINGS: There are stable postoperative findings consistent with C5-C7 anterior discectomy and fusio n. Anterolisthesis of C7 on T1 has slightly increased. This is likely related to facet arthrosis. No acute cervical spine fracture is noted. There is severe multilevel facet arthrosis. Craniocervical ju nction is intact. Degenerative changes at the C1-C2 articulation are noted. IMPRESSION: 1. No acute cervical spine fracture or subluxation. 2. Severe multilevel degenerative changes within the cervical spine. Status post C5-C7 anterior disce ctomy and fusion. ACT 112: Negative or not required by law. Electronically signed by: Tyrell Bernard M.D. 09/24/2022 5:39 PM
[2022-09-24 17:46] LABS: Appearance Urine Clear (Clear); Bacteria Urine Automated Negative (Negative); Bilirubin Urine Negative (Negative); Blood Urine Negative (Negative); Color Urine Dark Yellow; Epithelial Cell Urine Auto >30 /lpf (0-5); Glucose Urine UA Negative (Negative); Ketones Urine 1+ (Negative); Leukocyte Esterase Urine Negative (Negative); Nitrite Urine Negative (Negative); Protein Urine 1+ (Negative); RBC Urine Automated 0-4 /hpf (0-4); Urobilinogen Urine Negative (Negative)
[2022-09-24 17:51] LABS: Partial Thromboplastin Ratio 0.9; Partial Thromboplastin Time 25.4 Seconds (21.0-31.0); Prothrombin Time 10.9 Seconds (9.0-12.0)
--- NOTE | 2022-09-24 17:55 | XRay Report ---
XR knee LT 1 or 2V routine CLINICAL HISTORY: fall COMPARISON: Knee radiographs December 20, 2012. FINDINGS: Alignment of the left knee is anatomic. There is no acute fracture. No evidence for a join t effusion. Chondrocalcinosis within the menisci are noted. There is moderate vascular calcification. There is moderate medial compartment joint space narrowing. IMPRESSION: 1. No acute fracture. No left knee joint effusion. 2. Moderate medial compartment osteoarthritis. ACT 112: Negative or not required by law. Electronically signed by: Tyrell Bernard M.D. 09/24/2022 5:54 PM
--- NOTE | 2022-09-24 17:56 | XRay Report ---
XR knee RT 1 or 2V routine CLINICAL HISTORY: fall COMPARISON: Right tibia and fibula radiograph September 05, 2022. CT of the right tibia and fibula May 05, 2022. FINDINGS: No fracture is present. Severe medial compartment joint space narrowing with osteophytosis is noted. There is a trace joint effusion. Vascular calcification is incidentally noted. IMPRESSION: 1. No acute fracture. Trace right knee joint effusion. 2. Severe medial compartment osteoarthritis. ACT 112: Negative or not required by law. Electronically signed by: Tyrell Bernard M.D. 09/24/2022 5:55 PM
--- NOTE | 2022-09-24 17:58 | XRay Report ---
XR chest 1V portable CLINICAL HISTORY: Syncope. COMPARISON STUDY: Chest radiograph September 19, 2022 and September 10, 2022. FINDINGS: There are median sternotomy wires and mediastinal surgical clips. No pneumothorax or pleura l effusion is present. Tortuosity of the descending thoracic aorta is again noted. Cardiomediastinal silhouette is stable. Postoperative findings within the cervical spine are incidentally noted. IMPRESSION: No acute cardiopulmonary findings. No change in appearance of the chest. ACT 112: Negative or not required by law. Electronically signed by: Tyrell Bernard M.D. 09/24/2022 5:56 PM
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
[2022-09-25] MEDS: METOPROLOL SUCC 50MG EXT REL TAB PO SCH ×3 (00:13→20:05)
[2022-09-25] MEDS: HEPARIN SOD 5,000 UNIT/0.5 ML VIAL SQ SCH ×4 (00:13→21:56)
[2022-09-25] MEDS: ACETAMINOPHEN 325 MG TAB PO PRN ×2 (02:45→20:04)
[2022-09-25 04:36] LABS: Basophils # (auto) 0.02 K/uL (0-0.2); Basophils % (auto) 0.5 %; Eosinophils % (auto) 2.6 %; Hematocrit (blood only) 27.9 % (37.0-47.0); Hemoglobin 9.3 g/dl (12.0-16.0); Immature Granulocytes # (auto) 0.01 K/uL (0.01-0.20); Immature Granulocytes % (auto) 0.3 %; Lymphocytes # (auto) 1.24 K/uL (1.2-3.4); Lymphocytes % (auto) 31.8 %; Mean Corpuscular Hemoglobin 32.4 pg (25.0-34.0); Mean Corpuscular Hgb Conc 33.3 g/dL (32.0-36.0); Mean Corpuscular Volume 97.2 fL (80.0-100.0); Mean Platelet Volume 9.8 fL (9.4-12.4); Monocytes # (auto) 0.37 K/uL (0.11-0.59); Monocytes % (auto) 9.5 %; Neutrophils # (auto) 2.16 K/uL (1.40-6.50); Neutrophils % (auto) 55.3 %; Platelet Count 168 K/uL (130-400); RDW Coefficient of Variation 13.9 % (11.5-14.5); RDW Standard Deviation 49.7 fL (36.4-46.3); Red Blood Count 2.87 M/uL (4.20-5.40)
[2022-09-25 04:46] LABS: BUN Creatinine Ratio 20.6 (10-20); Calcium 8.5 mg/dl (8.6-10.3); Creatinine Clr Calc Pharmacy 34.2 ml/min; Est GFR (African American) 57.7 ml/min; Est GFR (Non-African American) 49.8 ml/min; Potassium 3.9 mmol/L (3.5-5.1)
--- NOTE | 2022-09-25 06:47 | Ultrasound Report ---
ULTRASOUND OF THE CAROTID ARTERIES CLINICAL HISTORY: Syncope. COMPARISON STUDY: Carotid artery ultrasound dated 03/30/2014. TECHNIQUE: Real-time, grayscale, and color Doppler sonography of the carotid arteries is performed. I mages are reviewed in the transverse and longitudinal planes. FINDINGS: The carotid arteries are patent bilaterally and demonstrate antegrade flow. There is mild atheroscle rotic plaque seen in the carotid bulbs. Normal doppler arterial waveforms are seen throughout. Veloci ty measurements are listed below. Common carotid peak systolic velocity (cm/sec): RIGHT: 70 LEFT: 63 ICA proximal peak systolic velocity (cm/sec): RIGHT: 94 LEFT: 38 ICA mid peak systolic velocity (cm/sec): RIGHT: 104 LEFT: 67 ICA distal peak systolic velocity (cm/sec): RIGHT: 93 LEFT: 53 ICA/CC peak systolic ratio: RIGHT: 1.5 LEFT: 1.1 Antegrade flow was shown in the vertebral arteries. The external carotid arteries are patent. IMPRESSION: 1. There is no sonographic evidence of hemodynamically significant stenosis in the right or left marquez tid arterial system. 2. Antegrade flow is shown in the vertebral arteries. ACT 112: Negative or not required by law. Electronically signed by: Prateek Stoll M.D. 09/25/2022 6:44 AM
[2022-09-25] MEDS: ASPIRIN 81 MG ECTAB PO SCH (08:13)
[2022-09-25] MEDS: ATORVASTATIN 40 MG TAB PO SCH (08:14)
[2022-09-25] MEDS: PANTOprazole 40 MG TAB PO SCH (08:14)
--- NOTE | 2022-09-25 09:36 | Hospitalist Progress Note ---
Date of Service September 25, 2022 Assessment & Plan (1) Syncope: Plan: Syncope - Reportedly multiple episodes of syncope leading up to admission - Workup unremarkable- CBC, CRP, PCT, UA contaminated, head CT, CXR, TSH - Admission EKG- NSR, no ST change, no QT prolongation - Hx of R CEA in 05/2021. Carotid dopplers on admission without significant stenoses - Last TTE 12/21- EF 55-60, no WMA - Repeat TTE pending - Suspect likely due to volume depletion in pt who takes metoprolol + HCTZ, though cardiogenic syncope remains on differential -Will discontinue HCTZ, can consider lisinopril addition if BP uncontrolled off HCTZ - Continue telemetry monitoring, no arrhythmia noted thus far - Can consider outpatient event monitoring. RLE nonhealing surgical wound, sarcoma, previously with Pseudomonas infection - Wound culture 09/05 with pseudomonas - BCx pending - Afebrile, no leukocytosis, low clinical suspicion for active infection - Completed levofloxacin on 09/19 per ID recommendations Deferring additional antibiotics at present Hyponatremia Mild Na 133, new and in the setting of volume contraction with mild JOSETTE and increased creatinine BUN ratio and on hctz Received 1 L NSS in ED - Mild hypovolemia on exam - Improving to Na 135 - Trend BMP JOSETTE in setting of CKD3a Creatinine baseline approximately 1.1, 1.3 on admission; Creatinine BUN ratio 20.8 - Suggestive of prerenal azotemia, likely volume depletion - Improved to 1.0 with fluid repletion - Trend BMP CAD with history of PCI and CABG Continue aspirin Continue atorvastatin Continue metoprolol succinate Mild troponin elevation peak of 40, suspect demand ischemia. EKG w/o acute ischemic change DVT PPx: Heparin SQ Diet: HH CODE: Full Dispo: PCU (2) S/P carotid endarterectomy: (3) S/P right coronary artery (RCA) stent placement: (4) Atrial fibrillation: (5) Paroxysmal atrial flutter: (6) S/P CABG x 1: (7) CAD (coronary artery disease): (8) HTN (hypertension): Admission and Anticipated Discharge Date Admission Date: September 24, 2022 Supervising Physician Co-Signing Physician Notes Resident Physician Supervision Note: I independently interviewed and examined the patient and verified the quintana history and physical, reviewed labs and image studies and agree with resident findings and care plan. Subjective Acute events overnight- none. Pt examined at bedside. Has not had any further syncopal events since admission. Denies lightheadedness, dizziness, chest pain or other complaints. She does report some mild fatigue. Review of Systems Review of Systems: Per HPI/Subjective Physical Exam Physical Exam: General: A&Ox3. NAD. Cooperative. HEENT: Atraumatic, normocephalic. Dry mucous membranes Pulm: CTAB A&P. -wheezes, -rales, -rhonchi. Symmetrical chest rise. No increased work of breathing. No respiratory distress. Cardiac: RRR, soft systolic murmur at LUSB. Radial pulses intact and symmetrical. Abdominal: Nontender, nondistended, soft. Extremities: Warm, dry. Sensation to soft touch intact in hands and feet. Thin.. No edema. Non-healing ulcer over L lower kennedy, dressing in place. Tender to palpation over dressing without warmth or drainage. Results & Data Results & Data Vital Signs (Past 12 Hours) Vital Signs Temp Pulse Pulse Resp BP Pulse Ox O2 Del Method 09/25/22 07:55 36.5 C 63 19 119/73 97 Room Air 09/25/22 02:36 36.8 C 67 18 133/71 97 Room Air 09/24/22 23:14 36.8 C 63 16 118/51 L 95 Room Air 09/24/22 23:10 62 09/24/22 21:40 66 Resident Activity Tracking Resident Involvement: Resident Care Provided Care Provided: Adult Hospital Medicine (1) Syncope Syncope type: unspecified Qualified Code(s): R55 - Syncope and collapse (8) HTN (hypertension) Hypertension type: essential hypertension Qualified Code(s): I10 - Essential (primary) hypertension
[2022-09-25] MEDS: SENNA 8.6 MG TAB PO SCH (13:37)
--- NOTE | 2022-09-25 17:43 | XCELERA ---
[id number]
[2022-09-26] MEDS: HEPARIN SOD 5,000 UNIT/0.5 ML VIAL SQ SCH ×2 (06:31→15:10)
--- NOTE | 2022-09-26 08:20 | Electrocardiogram Report ---
Test Reason : Blood Pressure : / mmHG Vent. Rate : 081 BPM Atrial Rate : 081 BPM P-R Int : 148 ms QRS Dur : 080 ms QT Int : 384 ms P-R-T Axes : -14 025 025 degrees QTc Int : 446 ms Normal sinus rhythm Normal ECG When compared with ECG of 19-SEP-2022 15:51, No significant change was found Confirmed by Carl Christianson ([id number]) on 09/26/2022 8:20:16 AM Referred By: REFERRED SELF Confirmed By:Carl Christianson
[2022-09-26 08:23] LABS: Basophils # (auto) 0.03 K/uL (0-0.2); Basophils % (auto) 0.7 %; Eosinophils # (auto) 0.27 K/uL (0-0.50); Eosinophils % (auto) 6.5 %; Hematocrit (blood only) 28.7 % (37.0-47.0); Hemoglobin 9.5 g/dl (12.0-16.0); Immature Granulocytes # (auto) 0.01 K/uL (0.01-0.20); Immature Granulocytes % (auto) 0.2 %; Lymphocytes # (auto) 1.35 K/uL (1.2-3.4); Lymphocytes % (auto) 32.3 %; Mean Corpuscular Hgb Conc 33.1 g/dL (32.0-36.0); Mean Corpuscular Volume 96.6 fL (80.0-100.0); Mean Platelet Volume 10.3 fL (9.4-12.4); Monocytes # (auto) 0.34 K/uL (0.11-0.59); Monocytes % (auto) 8.1 %; Neutrophils # (auto) 2.18 K/uL (1.40-6.50); Neutrophils % (auto) 52.2 %; Platelet Count 161 K/uL (130-400); RDW Standard Deviation 49.9 fL (36.4-46.3); Red Blood Count 2.97 M/uL (4.20-5.40); White Blood Count 4.18 K/ul (4.8-10.8)
--- NOTE | 2022-09-26 08:24 | Electrocardiogram Report ---
Test Reason : Blood Pressure : / mmHG Vent. Rate : 062 BPM Atrial Rate : 062 BPM P-R Int : 186 ms QRS Dur : 088 ms QT Int : 422 ms P-R-T Axes : 044 024 043 degrees QTc Int : 428 ms Normal sinus rhythm Normal ECG When compared with ECG of 24-SEP-2022 16:25, (unconfirmed) No significant change was found Confirmed by Carl Christianson ([id number]) on 09/26/2022 8:23:26 AM Referred By: REFERRED SELF Confirmed By:Carl Christianson
[2022-09-26 08:34] LABS: BUN Creatinine Ratio 21.8 (10-20); Calcium 8.5 mg/dl (8.6-10.3); Creatinine Clr Calc Pharmacy 34.5 ml/min; Est GFR (African American) 58.4 ml/min; Est GFR (Non-African American) 50.4 ml/min; Potassium 4.6 mmol/L (3.5-5.1)
[2022-09-26] MEDS: SENNA 8.6 MG TAB PO SCH (08:51)
[2022-09-26] MEDS: ATORVASTATIN 40 MG TAB PO SCH (08:51)
[2022-09-26] MEDS: ASPIRIN 81 MG ECTAB PO SCH (08:51)
[2022-09-26] MEDS: PANTOprazole 40 MG TAB PO SCH (08:51)
[2022-09-26] MEDS: METOPROLOL SUCC 50MG EXT REL TAB PO SCH (08:52)
--- NOTE | 2022-09-26 10:11 | Discharge Summary ---
Date of Service September 26, 2022 Admission HPI Per Admitting Provider Paige is an 86-year-old female with a past medical history of TIA, CVD, right lower extremity sarcoma resected 2015, CAD with CABG times 04/2007, PCI with RCA stent, paroxysmal A-fib/A-flutter, carotid endarterectomy 2021 who presents to the hospital following a witnessed syncopal episode. Patient was recently admitted 09/11 - 09/15 nonhealing surgical wound and Augmentin and switch to levofloxacin for Pseudomonas. She denies chest pain, chest pressure, shortness of breath, difficulty breathing. Family notes that she is not safe to be at home at this time, especially with episodes of syncope and falls. Eric reports she was just standing folding laundry when she suddenly had a hot flash and passed out completely. Passed out again while with ems. She denies presyncope, lightheadedness, or dizziness leading to syncope. Reports came out of nowhere with almost no warm other than a momentary warm feeling. She reprots she has passed out multiple times in the past and has felt similar. Previously thought it was from weakness from infection. Her leg was treated with infection and thinks it has worked OK, but still passed out. Was told to stay hydrated so had been drinking at least if not a few quarts of water per day. notes it is difficulty because she has no warning or lightheadedness/dizziness before going down Has had intermittent back pain, none at present Medical History: Reviewed Medications: Reviewed Surgical History: Reviewed Family history: Reviewed Allergies: Reviewed Social History: Reviewed Code Status: Admission Exam Per Admitting Provider General: A&Ox3. NAD. Cooperative. HEENT: Atraumatic, normocephalic. Pulm: CTAB A&P. -wheezes, -rales, -rhonchi. Symmetrical chest rise. No increased work of breathing. No respiratory distress. Cardiac: RRR, soft sm. Radial pulses intact and symmetrical. Abdominal: Nontender, nondistended, soft. BS present. Extremities: Warm, dry. Sensation to soft touch intact in hands and feet. THin. No edema. Leg wound as shown below, no warmth and prior erythema has resolved Principal Diagnosis Syncope due to hypovolemia, HCTZ side effect Discharge Exam General: A&Ox3. NAD. Cooperative. HEENT: Atraumatic, normocephalic. Dry mucous membranes Pulm: CTAB A&P. -wheezes, -rales, -rhonchi. Symmetrical chest rise. No increased work of breathing. No respiratory distress. Cardiac: RRR, soft systolic murmur at LUSB. Radial pulses intact and symmetrical. Abdominal: Nontender, nondistended, soft. Extremities: Warm, dry. Sensation to soft touch intact in hands and feet. Thin.. No edema. Non-healing ulcer over L lower kennedy, dressing in place. Tender to palpation over dressing without warmth or drainage. Discharge Data Allergies Allergy/AdvReac Type Severity Reaction Status Date / Time cephalexin Allergy Intermediate Hives Verified 09/19/22 16:55 perflutren Allergy Intermediate Muscle Verified 09/19/22 16:55 tightness propylene glycol Allergy Intermediate Muscle Verified 09/19/22 16:55 tightness sulfamethoxazole Allergy Intermediate Rash Verified 09/19/22 16:55 trimethoprim Allergy Intermediate Rash Verified 09/19/22 16:55 Sulfa (Sulfonamide AdvReac Severe Depleted Verified 09/19/22 16:55 Antibiotics) platelet count apixaban [From Eliquis] AdvReac Intermediate Dizziness, Verified 09/19/22 16:55 nausea tramadol AdvReac Intermediate Hallucinati Verified 09/19/22 16:55 ons Consultations 09/24/22 18:43 ED Decision to Admit Stat Ordered Studies 09/24/22 17:00 CT cervical spine wo con Stat CT head/brain wo con Stat 09/25/22 00:00 US carotid doppler BI Routine Hospital Course (1) Syncope: Syncope - Reportedly multiple episodes of syncope leading up to admission - Workup unremarkable- CBC, CRP, PCT, UA contaminated, head CT, CXR, TSH - Admission EKG- NSR, no ST change, no QT prolongation - Hx of R CEA in 05/2021. Carotid dopplers on admission without significant stenoses - Last TTE 12/21- EF 55-60, no WMA. Repeat TTE unremarkable though technically limited study - No arrhythmias noted on telemetry - Suspect syncope likely due to volume depletion in pt on HCTZ. Pt also with noted history of 20 lbs weight loss in 6 months -Discontinued HCTZ on discharge, prescribed lisinopril 5 mg daily. for close outpatient pcp monitoring. - Pt was scheduled to start event monitor by PCP at clinic visit prior to admission. PCP f/u to consider resuming RLE nonhealing surgical wound, sarcoma, previously with Pseudomonas infection - Wound culture 09/05 with pseudomonas - BCx preliminary negative, final pending at time of discharge - Afebrile, no leukocytosis, low clinical suspicion for active infection during stay - Completed levofloxacin on 09/19 per ID recommendations Deferred additional antibiotics during stay Hyponatremia Mild Na 133, new and in the setting of volume contraction with mild JOSETTE and increased creatinine BUN ratio and being on hctz. NSS repletion provided in ED - Resolved at 138 by time of discharge JOSETTE in setting of CKD3a Creatinine baseline approximately 1.1, 1.3 on admission; Creatinine BUN ratio 20.8 - Suggestive of prerenal azotemia, likely volume depletion - Improved to 1.0 with fluid repletion - Cr returned to baseline by time of discharge CAD with history of PCI and CABG Continue aspirin Continue atorvastatin Continue metoprolol succinate Mild troponin elevation peak of 40, suspect demand ischemia. EKG w/o acute ischemic change (2) S/P carotid endarterectomy: (3) S/P right coronary artery (RCA) stent placement: (4) Atrial fibrillation: (5) Paroxysmal atrial flutter: (6) S/P CABG x 1: (7) CAD (coronary artery disease): (8) HTN (hypertension): Total Time Total Time Spent Total Time Spent (In Minutes): 30 Discharge Plan Discharge Items Patient Disposition: Home - Self-Care Reason For Visit: RECURRENT SYNCOPE Discharge Diagnosis: Hypovolemia/dehydration leading to syncope Activity: Resume your previous activity Non-emergency contact: Primary Care Provider Call non-emergency contact if: your symptoms worsen Follow-up/Referrals: Willow Sinclair CRNP [Outside Practitioners] - 09/27/22 1:45 pm Diet: Regular Addtl Attending Provider Instructions: You were admitted to the hospital for syncope, or momentary loss of consciousness. This was suspected to be due to dehydration and loss of blood volume in your body from the hydrochlorothiazide medication. You were treated with IV fluids and the workup of the syncope did not suggest causes related to the heart or brain. A discharge summary will be sent to your primary care physician to ensure continuity of care. Please bring this discharge summary with you to your next office appointment so that your provider can review it at that time. Follow-up appointments: - Make a follow-up appointment with your PCP within the next week. It is very important that you follow up with them shortly after discharge from the hospital. Medications: Your medication list has been reviewed and reconciled upon discharge to ensure accuracy and continuity of care. An updated list of all your medications is included with your hospital discharge paperwork. Please review this list closely, and make note of any changes. -You will no longer take hydrochlorothiazide. We have sent a new medication to the pharmacy called lisinopril which will help manage your blood pressure. We are starting at a low dose of 5 mg and this can be adjusted by your PCP at your follow-up appointment. Take your medications as instructed; do not skip a dose of your medicines. Make sure all of your doctors know every medicine you are taking (including [id number] medicines, vitamins, and supplements). Call your primary care provider before taking any new medicines (including [id number] medicines, vitamins, and supplements), because some of these may interact with your current medications, or may make your symptoms worse. Tell your primary care provider if you cannot afford your medications. CONTACT YOUR PRIMARY CARE PROVIDER if you experience any of the following: -Fatigue -Dizziness -Lightheadedness -Loss of consciousness - Difficulty following your treatment plan, or difficulty taking medications CALL 911 OR GO TO THE EMERGENCY DEPARTMENT if you experience any of the following: - Sudden, severe abdominal pain or nausea/vomiting - Severe chest pain, or chest pain that radiates (moves) to your jaw or arm - Sudden, severe shortness of breath or difficulty breathing Thank you for allowing us to participate in your care Pending Studies at Discharge: No Stand-Alone Forms: My [facility] Medications and DC Order Prescriptions: New lisinopril 5 mg tablet 5 mg PO DAILY 30 Days Qty: 30 1RF Continued cholecalciferol (vitamin D3) [Vitamin D3] 10 mcg (400 unit) capsule 10 mcg PO QAM Qty: 90 3RF metoprolol succinate 25 mg tablet extended release 24 hr 50 mg PO BID nitroglycerin 0.4 mg tablet, sublingual 0.4 mg sublingual DIRECTED PRN (Reason: Chest Pain) Rx Instructions: PLACE ONE TABLET UNDER THE TONGUE EVERY 5 MINUTES FOR UP TO 3 DOSES OVER 15 MINUTES IF NEEDED FOR CHEST PAIN atorvastatin 80 mg tablet 80 mg PO QAM Centrum Silver Women 8 mg iron-400 mcg-300 mcg Tablet 1 tab PO QAM pantoprazole 20 mg tablet,delayed release (DR/EC) 20 mg PO QAM albuterol sulfate 90 mcg/actuation HFA aerosol inhaler 2 puffs INH Q6H PRN (Reason: Shortness Of Breath Or Wheezing) cyanocobalamin (vitamin B-12) [Vitamin B-12] 1,000 mcg Tablet 1,000 mcg PO QAM acetaminophen [Tylenol Extra Strength] 500 mg Tablet 500 mg PO Q6H PRN (Reason: Pain) famotidine [Pepcid] 20 mg tablet 20 mg PO QPM aspirin [Caio Low Dose Aspirin] 81 mg Tablet,Delayed Release (Dr/Ec) 81 mg PO QAM acetic acid 0.25 % Solution 0 ml irrigation DIRECTED Rx Instructions: Clean wound as directed. Discontinued hydrochlorothiazide 12.5 mg Tablet 12.5 mg PO DAILY Rx Instructions: stated she takes this but it is not on dr 1st. Discharge Orders: Discharge Order (Routine); Ordered 09/26/22 Ordered By: Danette Francisco Admission Data Admit Date/Time: 09/24/22 19:24 Attending Provider: Marcia Kennedy Admit Provider: Brian Calderón Primary Care Provider: Susu Bower Other Providers: Brian Calderón Supervising Physician Co-Signing Physician Notes Resident Physician Supervision Note: I independently interviewed and examined the patient and verified the quintana history and physical, reviewed labs and image studies and agree with resident findings and care plan. Resident Activity Tracking Resident Involvement: Resident Care Provided Care Provided: Adult Hospital Medicine
== END 2022-09-26 19:55 | disposition home health service (06) | DRG 641 ==
LOC: ED 16:17 → SUATTDRO 19:24 → 2S 19:24

== ENCOUNTER 2023-04-22 16:30 | Inpatient (IN) ==
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
[2023-04-22] MEDS ORDERED: ACETAMINOPHEN 1,000 MG/100 ML VIAL IV STA (16:46)
[2023-04-22] MEDS ORDERED: Patient's HEIGHT &/or WEIGHT Needed STA (16:48)
[2023-04-22] MEDS ORDERED: DAPTOmycin 325 MG in SYRINGE 0 ML IV STA (16:55)
[2023-04-22] MEDS ORDERED: PIPERACILLIN/TAZOBACTAM 4.5 GM/100 ML BAG IV STA (16:55)
[2023-04-22] MEDS ORDERED: SODIUM CHLORIDE 0.9% 1,000 ML IV SCH (17:00)
[2023-04-22] MEDS ORDERED: SODIUM CHLORIDE 0.9% 500 ML IV ONE (17:15)
[2023-04-22] MEDS ORDERED: SODIUM CHLORIDE 0.9% 250 ML IV ONE (17:15)
[2023-04-22 17:29] LABS: Basophils # (auto) 0.04 K/uL (0.00-0.20); Basophils % (auto) 0.4 %; Eosinophils # (auto) 0.03 K/uL (0.00-0.50); Eosinophils % (auto) 0.3 %; Hematocrit (blood only) 33.2 % (37.0-47.0); Hemoglobin 9.9 g/dl (12.0-16.0); Immature Granulocytes # (auto) 0.07 K/uL (0.01-0.20); Immature Granulocytes % (auto) 0.8 %; Lymphocytes # (auto) 1.17 K/uL (1.20-3.40); Lymphocytes % (auto) 12.8 %; Mean Corpuscular Hemoglobin 28.7 pg (25.0-34.0); Mean Corpuscular Hgb Conc 29.8 g/dL (32.0-36.0); Mean Corpuscular Volume 96.2 fL (80.0-100.0); Mean Platelet Volume 10.1 fL (9.4-12.4); Monocytes # (auto) 0.29 K/uL (0.11-0.59); Monocytes % (auto) 3.2 %; Neutrophils # (auto) 7.52 K/uL (1.40-6.50); Neutrophils % (auto) 82.5 %; Platelet Count 348 K/uL (130-400); RDW Coefficient of Variation 17.3 % (11.5-14.5); RDW Standard Deviation 60.4 fL (36.4-46.3); Red Blood Count 3.45 M/uL (4.20-5.40); White Blood Count 9.12 K/ul (4.8-10.8)
[2023-04-22 17:31] LABS: Albumin Level 3.2 gm/dl (3.4-5.0); BUN Creatinine Ratio 21.1 (10-20); Bilirubin Direct 0.2 mg/dl (0-0.2); Bilirubin,Total 0.5 mg/dl (0.2-1.0); Calcium 9.4 mg/dl (8.6-10.3); Est GFR (African American) 50.1 ml/min; Est GFR (Non-African American) 43.2 ml/min; Magnesium 1.8 mg/dl (1.7-2.4); Potassium 4.4 mmol/L (3.5-5.1); Total Protein 7.3 gm/dl (6.0-8.3)
[2023-04-22 17:37] LABS: Troponin I High Sensitivity 42.5 pg/ml (0-14)
[2023-04-22 18:04] LABS: Adenovirus PCR Not Detected (NotDetected); Bordetella parapertussis PCR Not Detected (NotDetected); Bordetella pertussis PCR Not Detected (NotDetected); Chlamydia pneumoniae PCR Not Detected (NotDetected); Coronavirus 229E PCR Not Detected (NotDetected); Coronavirus CoV-2 (COVID19)PCR Not Detected (NotDetected); Coronavirus HKU1 PCR Not Detected (NotDetected); Coronavirus NL63 PCR Not Detected (NotDetected); Coronavirus OC43PCR Not Detected (NotDetected); Human Metapneumovirus PCR Not Detected (NotDetected); Influenza A PCR Not Detected (NotDetected); Influenza B PCR Not Detected (NotDetected); Mycoplasma pneumoniae PCR Not Detected (NotDetected); Parainfluenza Virus 1 PCR Not Detected (NotDetected); Parainfluenza Virus 2 PCR Not Detected (NotDetected); Parainfluenza Virus 3 PCR Not Detected (NotDetected); Parainfluenza Virus 4 PCR Not Detected (NotDetected); Respiratory Syncytial VirusPCR Not Detected (NotDetected); Rhinovirus/Enterovirus PCR Not Detected (NotDetected)
--- NOTE | 2023-04-22 18:16 | XRay Report ---
XR chest 1V portable CLINICAL HISTORY: Sepsis TECHNIQUE: Single frontal radiograph of the chest was obtained. Comparison: Comparison is made to rib series 03/05/2023 FINDINGS: Median sternotomy wires are unchanged. The aorta is tortuous. The remainder of the cardiomediastinal silhouette is unremarkable. Eventration of the right hemidiaphragm is unchanged. The lungs are clear. Partial visualization of previously noted pulmonary nodules compatible with metastatic disease. No e vidence of pleural effusion or pneumothorax. IMPRESSION: No acute abnormalities and in particular no radiographic evidence of pneumonia. Redemonstration of pu lmonary metastases. ACT 112: Negative or not required by law. Electronically signed by: Blayne May M.D. 04/22/2023 6:15 PM
[2023-04-22 19:46] LABS: BUN Creatinine Ratio 23.7 (10-20); Calcium 7.5 mg/dl (8.6-10.3); Creatinine Clr Calc Pharmacy 35.3 ml/min; Est GFR (African American) 60.9 ml/min; Est GFR (Non-African American) 52.5 ml/min; Potassium 3.6 mmol/L (3.5-5.1)
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
[2023-04-22] MEDS ORDERED: ENOXAPARIN INJ 40 MG/0.4 ML SYR SQ SCH (21:50)
[2023-04-22] MEDS ORDERED: ONDANSETRON INJ 2 MG/ML 2 ML VIAL IV PRN (21:50)
[2023-04-22] MEDS ORDERED: LACTATED RINGER'S 1,000 ML IV SCH (21:50)
[2023-04-22 22:54] LABS: Appearance Urine Cloudy (Clear); Bacteria Urine Automated 1+ (Negative); Bilirubin Urine Negative (Negative); Blood Urine 1+ (Negative); Color Urine Dark Yellow; Glucose Urine UA Negative (Negative); Ketones Urine Trace (Negative); Leukocyte Esterase Urine 1+ (Negative); Nitrite Urine Positive (Negative); Protein Urine 1+ (Negative); RBC Urine Automated 0-4 /hpf (0-4); Specific Gravity Urine 1.033 (1.000-1.030); Urobilinogen Urine Negative (Negative); WBC Urine Automated >30 /hpf (0-5)
[2023-04-22] MEDS: ENOXAPARIN INJ 30 MG/0.3 ML SYR SQ SCH (23:34)
[2023-04-22] MEDS: METOPROLOL SUCC 50MG EXT REL TAB PO SCH (23:35)
[2023-04-22] MEDS: oxyCODONE HCL IR 5 MG TAB (IMMEDIATE RELEASE) PO PRN (23:38)
[2023-04-23] MEDS: PIPERACILLIN/TAZOBACTAM 4.5 GM in DEXTROSE 5% MINI-B 100 ML IV SCH ×4 (00:46→23:04)
[2023-04-23] MEDS ORDERED: oxyCODONE HCL IR 5 MG TAB (IMMEDIATE RELEASE) PO ONE ×2 (05:22→21:35)
[2023-04-23] MEDS: ACETAMINOPHEN 325 MG TAB PO PRN ×3 (05:28→20:57)
[2023-04-23 07:32] LABS: Hematocrit (blood only) 23.5 % (37.0-47.0); Hemoglobin 7.1 g/dl (12.0-16.0); Mean Corpuscular Hemoglobin 28.7 pg (25.0-34.0); Mean Corpuscular Hgb Conc 30.2 g/dL (32.0-36.0); Mean Corpuscular Volume 95.1 fL (80.0-100.0); Platelet Count 227 K/uL (130-400); RDW Coefficient of Variation 17.1 % (11.5-14.5); RDW Standard Deviation 59.3 fL (36.4-46.3); Red Blood Count 2.47 M/uL (4.20-5.40); White Blood Count 4.52 K/ul (4.8-10.8)
[2023-04-23 07:55] LABS: BUN Creatinine Ratio 23.6 (10-20); Creatinine Clr Calc Pharmacy 36.8 ml/min; Est GFR (African American) 67.5 ml/min; Est GFR (Non-African American) 58.3 ml/min; Potassium 3.8 mmol/L (3.5-5.1)
[2023-04-23] MEDS: METOPROLOL SUCC 50MG EXT REL TAB PO SCH ×2 (08:55→20:55)
[2023-04-23] MEDS: PANTOprazole 40 MG TAB PO SCH (08:55)
[2023-04-23] MEDS: ASPIRIN 81 MG ECTAB PO SCH (09:40)
[2023-04-23] MEDS: oxyCODONE HCL IR 5 MG TAB (IMMEDIATE RELEASE) PO PRN (11:19)
--- NOTE | 2023-04-23 14:21 | Hospitalist Progress Note ---
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 that has had prior surgical excision on multiple occasions growing staph species from the wound blood cx's negative this wound infection is the likely source of her presenting sepsis cont zosyn to cover for other pathogens (gram neg, anaerobes, etc) cont daptomycin for staph wound care consult recs appreciated pain meds prn (2) Leg ulcer: Plan: large, RLE 2nd to sarcoma s/p excision multiple times in the past local wound care IV antibiotics for concomitant infection (3) Sepsis: Plan: 2nd to #1 urine cx neg blood cx's neg cont IV antibiotics (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 just completed radiation therapy by Dr Villeda in 12/2022 CT chest/abd/pelvis was ordered by her PCP Dr Bower in the last 2 weeks - this showed mets to the inguinal lymph nodes and lungs she is not aware of the CT findings - did not receive the results as outpatient I attempted to call her sons to set up a family meeting with the patient and her children to go over all of her CT results, care plan, etc to no avail today will need heme/onc consultation while here (5) Metastatic disease: Plan: see above (6) Anemia: Plan: Hb 9.9 at admission Now <8 no overt GI bleeding no bleeding from her RLE wound due to copious hydration + blood draws since admission?? lab error? patient not tachycardic to suggest bleeding but is on beta lilibeth recheck CBC, iron studies, b12, folate (7) Benign essential hypertension: Plan: cont metoprolol BID (8) Stroke: Plan: history of such remains on asa for secondary prevention (9) Atrial fibrillation: Plan: outpatient cardiology records show that her a.fib/flutter has been paroxysmal in the past since her a.fib/flutter has been so infrequent she is not on anticoagulation if she were to develop this on a more permanent basis she would indeed need anticoagulation cont on telemetry monitoring cont beta lilibeth (10) Paroxysmal atrial flutter: Plan: as above (11) S/P CABG x 1: Plan: s/p acute [place] 2007 followed by CABG same year records also mention she has had stents cont asa cont beta lilibeth holding statin due to daptomycin use (12) CAD (coronary artery disease): Plan: as above no ischemic symptoms no evidence of ACS (13) Elevated troponin: Plan: minimal likely myocardial demand ischemia in setting of sepsis, wound infection, etc no evidence of ACS (14) DVT prophylaxis: Plan: lovenox daily Plan Pt asked that I call her son Juan Contreras at [phone]; the voicemail box was full; could not leave message. Then attempted to call her son Neil at the phone # listed in the chart; left brief message introducing myself and that one of my partners would be in touch with them at future time. Patient is NOT aware that recent lovell-CT showed evidence of metastatic disease from her sarcoma. I did not share CT results with patient as she was alone today and without any support person from her family. Again attempted to call sons to set up family meeting to review test results to no avail. Admission and Anticipated Discharge Date Admission Date: April 22, 2023 Subjective patient resting in bed during the visit c/o pain in her right lower leg over the ulceration/prior sarcoma location states she has had yellow to brown discharge from the large ulceration she denies any dyspnea or LAI denies abd pain she reports that she lives alone and that she has 1 daughter and 2 living sons (3rd son ) 1 of her sons is dealing with a spinal tumor? she asks that I call and speak with her son, Juan Contreras she had recent CT chest/abd/pelvis - she has not received her results Review of Systems Review of Systems: gen - fevers & rigors resolved; appetite fair today cv - no chest pain pulm - no dyspnea or LAI GI - no N/V Physical Exam Physical Exam: gen - thin, NAD, sitting in bed mouth - MMM neck - no JVD heart - RRR, s1 s2 lungs - CTA b/l, no rales abd - soft NT ND BS+ ext - no peripheral edema b/l, pulses 2+ b/l skin - dressings taken off RLE wound/ulcer; COPIOUS, foul-smelling yellow purulent discharge covering the entire ulceration; the ulcer is beefy red; large chunk of muscle of RLE is absent psych - a/o x 3 Results & Data Results & Data Vital Signs (Past 12 Hours) Vital Signs Temp Pulse Resp BP Pulse Ox O2 Del Method 04/23/23 11:08 36.5 C 62 16 108/59 L 98 Room Air 04/23/23 07:00 36.6 C 61 16 112/58 L 97 Room Air 04/23/23 03:01 36.5 C 65 16 106/51 L 97 Room Air Laboratory Results Laboratory Results - last 48 hr 04/22/23 04/22/23 04/22/23 16:30 18:41 22:39 WBC 9.12 RBC 3.45 L Hgb 9.9 L Hct 33.2 L MCV 96.2 MCH 28.7 MCHC 29.8 L RDW Std Deviation 60.4 H RDW Coeff of Fred 17.3 H Plt Count 348 MPV 10.1 Immature Gran % (Auto) 0.8 Neut % (Auto) 82.5 Lymph % (Auto) 12.8 Glasscock % (Auto) 3.2 Eos % (Auto) 0.3 Baso % (Auto) 0.4 Neut # (Auto) 7.52 H Lymph # (Auto) 1.17 L Glasscock # (Auto) 0.29 Eos # (Auto) 0.03 Baso # (Auto) 0.04 Immature Gran # (Auto) 0.07 Sodium 136 138 Potassium 4.4 3.6 Chloride 101 107 Carbon Dioxide 18 L 20 L Anion Gap 17 H 11 BUN 24 H 23 Creatinine 1.14 0.97 Est Cr Clr Drug Dosing 30.0 35.3 Est GFR ( Amer) 50.1 60.9 Est GFR (Non-Af Amer) 43.2 52.5 BUN/Creatinine Ratio 21.1 H 23.7 H Glucose 259 H 117 H Lactate 8.8 H* 4.0 H* Calcium 9.4 7.5 L Magnesium 1.8 Total Bilirubin 0.5 Direct Bilirubin 0.2 AST 28 ALT 17 Alkaline Phosphatase 80 Troponin I High Sens 42.5 H 42.0 H Total Protein 7.3 Albumin 3.2 L Procalcitonin < 0.05 Urine Color Dark Yellow Urine Appearance Cloudy A Urine pH 5.0 Ur Specific [place] 1.033 H Urine Protein 1+ H Urine Glucose (UA) Negative Urine Ketones Trace H Urine Blood 1+ H Urine Nitrite Positive A Urine Bilirubin Negative Urine Urobilinogen Negative Ur Leukocyte Esterase 1+ H Urine WBC (Auto) >30 H Urine RBC (Auto) 0-4 U Hyaline Cast (Auto) 1-5 U Epithel Cells (Auto) 10-20 H Urine Bacteria (Auto) 1+ H Urine Yeast Not Reportable Adenovirus (PCR) Not Detected B. pertussis DNA (PCR) Not Detected B.parapertussis DNA PCR Not Detected C. pneumoniae DNA (PCR) Not Detected Coronavirus OC43 (PCR) Not Detected Coronavirus HKU1 (PCR) Not Detected Coronavirus 229E (PCR) Not Detected SARS-CoV-2 (PCR) Not Detected Coronavirus NL63 (PCR) Not Detected Human Metapneumovir PCR Not Detected Influenza Type A (PCR) Not Detected Influenza Type B (PCR) Not Detected M. pneumoniae (PCR) Not Detected Parainfluenza 1 (PCR) Not Detected Parainfluenza 2 (PCR) Not Detected Parainfluenza 3 (PCR) Not Detected Parainfluenza 4 (PCR) Not Detected RSV (PCR) Not Detected Entero/Rhino (PCR) Not Detected 04/23/23 06:50 WBC 4.52 L RBC 2.47 L Hgb 7.1 L Hct 23.5 L MCV 95.1 MCH 28.7 MCHC 30.2 L RDW Std Deviation 59.3 H RDW Coeff of Fred 17.1 H Plt Count 227 MPV 10.0 Immature Gran % (Auto) Neut % (Auto) Lymph % (Auto) [place]cock % (Auto) Eos % (Auto) Baso % (Auto) Neut # (Auto) Lymph # (Auto) [place]cock # (Auto) Eos # (Auto) Baso # (Auto) Immature Gran # (Auto) Sodium 138 Potassium 3.8 Chloride 108 H Carbon Dioxide 25 Anion Gap 5 BUN 21 Creatinine 0.89 Est Cr Clr Drug Dosing 36.8 Est GFR ( Amer) 67.5 Est GFR (Non-Af Amer) 58.3 BUN/Creatinine Ratio 23.6 H Glucose 89 Lactate Calcium 8.0 L Magnesium Total Bilirubin Direct Bilirubin AST ALT Alkaline Phosphatase Troponin I High Sens Total Protein Albumin Procalcitonin Urine Color Urine Appearance Urine pH Ur Specific [place] Urine Protein Urine Glucose (UA) Urine Ketones Urine Blood Urine Nitrite Urine Bilirubin Urine Urobilinogen Ur Leukocyte Esterase Urine WBC (Auto) Urine RBC (Auto) U Hyaline Cast (Auto) U Epithel Cells (Auto) Urine Bacteria (Auto) Urine Yeast Adenovirus (PCR) B. pertussis DNA (PCR) B.parapertussis DNA PCR C. pneumoniae DNA (PCR) Coronavirus OC43 (PCR) Coronavirus HKU1 (PCR) Coronavirus 229E (PCR) SARS-CoV-2 (PCR) Coronavirus NL63 (PCR) Human Metapneumovir PCR Influenza Type A (PCR) Influenza Type B (PCR) M. pneumoniae (PCR) Parainfluenza 1 (PCR) Parainfluenza 2 (PCR) Parainfluenza 3 (PCR) Parainfluenza 4 (PCR) RSV (PCR) Entero/Rhino (PCR) Diagnostic Findings culture from LLE wound - staph species urine cx negative blood cx's negative PG Care Time/CCT Total # of Minutes Spent Total Time Spent with Patient: Total time spent is greater than 50% in coordination of care (as documented) at patient's floor/unit and/or counseling patient: Coding Level of Care Code 33640 SUB INP/OBS CARE 3/50MIN Diagnoses Wound infection T14.8XXA; L08.9 Leg ulcer L97.915 Laterality: right Non-pressure ulcer stage: with muscle involvement without evidence of necrosis Sepsis A41.9 Sarcoma of right lower extremity C49.21 Metastatic disease C79.9 Anemia D64.9 Benign essential hypertension I10 Stroke I63.9 Atrial fibrillation I48.91 Paroxysmal atrial flutter I48.92 S/P CABG x 1 Z95.1 CAD (coronary artery disease) I25.10 Elevated troponin R79.89 DVT prophylaxis Z29.9 (2) Leg ulcer Laterality: right Non-pressure ulcer stage: with muscle involvement without evidence of necrosis Qualified Code(s): L97.915 - 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
--- NOTE | 2023-04-23 16:38 | Electrocardiogram Report ---
Test Reason : Blood Pressure : / mmHG Vent. Rate : 083 BPM Atrial Rate : 000 BPM P-R Int : 000 ms QRS Dur : 072 ms QT Int : 374 ms P-R-T Axes : 000 046 005 degrees QTc Int : 439 ms Atrial fibrillation with premature ventricular or aberrantly conducted complexes Abnormal ECG When compared with ECG of 24-SEP-2022 21:37, Atrial fibrillation has replaced Sinus rhythm Nonspecific T wave abnormality, worse in Inferior leads Confirmed by Aiden Bello ([id number] on 04/23/2023 4:38:30 PM Referred By: REFERRED SELF Confirmed By:Chris Bello
[2023-04-23] MEDS ORDERED: DAPTOmycin 325 MG in SYRINGE 0 ML IV SCH (18:00)
[2023-04-23] MEDS: ENOXAPARIN INJ 30 MG/0.3 ML SYR SQ SCH (20:58)
[2023-04-24 07:24] LABS: Hematocrit (blood only) 26.1 % (37.0-47.0); Hemoglobin 8.1 g/dl (12.0-16.0); Mean Corpuscular Hemoglobin 29.1 pg (25.0-34.0); Mean Corpuscular Volume 93.9 fL (80.0-100.0); Mean Platelet Volume 10.1 fL (9.4-12.4); Platelet Count 250 K/uL (130-400); RDW Coefficient of Variation 17.2 % (11.5-14.5); RDW Standard Deviation 58.1 fL (36.4-46.3); Red Blood Count 2.78 M/uL (4.20-5.40); White Blood Count 4.58 K/ul (4.8-10.8)
[2023-04-24 07:49] LABS: BUN Creatinine Ratio 18.6 (10-20); Calcium 8.3 mg/dl (8.6-10.3); Creatinine Clr Calc Pharmacy 32.1 ml/min; Est GFR (African American) 57.3 ml/min; Est GFR (Non-African American) 49.4 ml/min
[2023-04-24 08:08] LABS: Ferritin 125.7 ng/ml (8-388)
[2023-04-24] MEDS: METOPROLOL SUCC 50MG EXT REL TAB PO SCH ×2 (08:11→21:13)
[2023-04-24] MEDS: ASPIRIN 81 MG ECTAB PO SCH (08:11)
[2023-04-24] MEDS: metroNIDAZOLE 0.75% TOPICAL GEL 45 GM TUBE TOP SCH (08:11)
[2023-04-24] MEDS: PANTOprazole 40 MG TAB PO SCH (08:43)
[2023-04-24] MEDS: oxyCODONE HCL IR 5 MG TAB (IMMEDIATE RELEASE) PO PRN ×3 (08:47→23:37)
[2023-04-24] MEDS ORDERED: PIPERACILLIN/TAZOBACTAM 4.5 GM in DEXTROSE 5% MINI-B 100 ML IV ONE (12:15)
[2023-04-24] MEDS: PIPERACILLIN/TAZOBACTAM 4.5 GM in DEXTROSE 5% MINI-B 100 ML IV SCH (17:39)
--- NOTE | 2023-04-24 18:46 | Hospitalist Progress Note ---
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 Soliman attempted to call her sons to set up a family meeting with the patient and her children to go over all of her CT results, care plan 04/23. Today I learned that one of her sons is in ICU here. I could not get her to engage in significant discussion today, as per above. Contacted cancer center and she last saw med onc Dr. Carbone several years ago. Has seen Palliative care here fairly recently -need to discuss results with patient, palliative care, med onc (5) Metastatic disease: Plan: see above (6) Anemia: Plan: Hb 9.9 at admission Now <8 and stable after dilutional drop no overt GI bleeding no bleeding from her RLE wound reviewed labs - iron stores might be mildly low started qod iron, mainly inflammatory block related to cancer ferritin mildly elevated, folate and B12 wnl (7) Benign essential hypertension: Plan: cont metoprolol BID (8) Stroke: Plan: history of such remains on asa for secondary prevention (9) Atrial fibrillation: Plan: outpatient cardiology records show that her a.fib/flutter has been paroxysmal in the past since her a.fib/flutter has been so infrequent she is not on anticoagulation if she were to develop this on a more permanent basis she would indeed need anticoagulation cont on telemetry monitoring cont beta lilibeth (10) Paroxysmal atrial flutter: Plan: as above (11) S/P CABG x 1: Plan: s/p acute [place] 2007 followed by CABG same year records also mention she has had stents cont asa cont beta lilibeth holding statin due to daptomycin use (12) CAD (coronary artery disease): Plan: as above no ischemic symptoms no evidence of ACS (13) Elevated troponin: Plan: minimal likely myocardial demand ischemia in setting of sepsis, wound infection, etc no evidence of ACS (14) DVT prophylaxis: Plan: lovenox daily Plan Juan Contreras at [phone]; the voicemail box was full; could not leave message. son Neil at the phone # listed in the chart - Dr. Soliman left voicemail Admission and Anticipated Discharge Date Admission Date: April 22, 2023 Subjective trying to get up to bathroom, I got assistance of ROSMERY, reports she takes oxycodone up to every 6 hours for her leg pain, I tried to talk to her about her son's illness but she could/would not engage with me because preoccupied with oxycodone and bathroom Physical Exam Physical Exam: PHYSICAL EXAMINATION Last 24h vital signs reviewed, see documentation in flowsheet General: elderly woman sitting up on the edge of the bed trying to get up HEENT: Normocephalic, atraumatic, pupils round and equal, sclerae anicteric, no conjunctival injection, moist mucus membranes Lungs: Normal respiratory effort. Heart: deferred Abdomen: nondistended. Extremities: Warm, dry, well-perfused. mild extremity edema. right leg wound is currently dressed and wrapped in Jonah bandage, I reviewed the photos from wound nurse note today showing an extensive large and deep wound with whitish drainage Neuro: Alert and oriented x self, hospital, at least to basic situation, face symmetric, moves 4 extremities well, walks slowly fairly steadily with walker Psych: irritable affect and behavior Results & Data Results & Data Vital Signs (Past 12 Hours) Vital Signs Temp Pulse Pulse Resp BP Pulse Ox O2 Del Method 04/24/23 15:34 60 04/24/23 15:32 36.9 C 69 18 120/63 98 Room Air 04/24/23 11:20 37 C 65 16 115/54 L 97 Room Air 04/24/23 07:42 36.5 C 69 22 151/82 H 100 Room Air PG Care Time/CCT Total # of Minutes Spent Total Time Spent with Patient: Total time spent is greater than 50% in coordination of care (as documented) at patient's floor/unit and/or counseling patient: Coding Level of Care Code 00320 SUB INP/OBS CARE 2/35MIN Diagnoses Wound infection T14.8XXA; L08.9 Leg ulcer L97.915 Laterality: right Non-pressure ulcer stage: with muscle involvement without evidence of necrosis Sepsis A41.9 Sarcoma of right lower extremity C49.21 Metastatic disease C79.9 Anemia D64.9 Benign essential hypertension I10 Stroke I63.9 Atrial fibrillation I48.91 Paroxysmal atrial flutter I48.92 S/P CABG x 1 Z95.1 CAD (coronary artery disease) I25.10 Elevated troponin R79.89 DVT prophylaxis Z29.9 (2) Leg ulcer Laterality: right Non-pressure ulcer stage: with muscle involvement without evidence of necrosis Qualified Code(s): L97.915 - 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
[2023-04-24] MEDS: ENOXAPARIN INJ 30 MG/0.3 ML SYR SQ SCH (21:13)
[2023-04-25] MEDS: PIPERACILLIN/TAZOBACTAM 4.5 GM in DEXTROSE 5% MINI-B 100 ML IV SCH (01:59)
[2023-04-25 07:37] LABS: Est GFR (African American) 76.8 ml/min; Est GFR (Non-African American) 66.3 ml/min
[2023-04-25] MEDS: metroNIDAZOLE 0.75% TOPICAL GEL 45 GM TUBE TOP SCH (08:18)
[2023-04-25] MEDS: METOPROLOL SUCC 50MG EXT REL TAB PO SCH ×2 (08:21→20:22)
[2023-04-25] MEDS: FERROUS SULFATE 325 MG TAB PO SCH (08:21)
[2023-04-25] MEDS: PANTOprazole 40 MG TAB PO SCH (08:21)
[2023-04-25] MEDS: ASPIRIN 81 MG ECTAB PO SCH (08:22)
[2023-04-25] MEDS: oxyCODONE HCL IR 5 MG TAB (IMMEDIATE RELEASE) PO PRN ×3 (08:31→20:23)
[2023-04-25] MEDS: AMPICILLIN/SULBACTAM SOD 3,000 MG in SODIUM CHLOR 0.9% MINI-B 100 ML IV SCH ×3 (10:00→20:22)
--- NOTE | 2023-04-25 16:25 | Hospitalist Progress Note ---
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 has hives to cephalosporin but tolerating PCN wound care consult recs and photos reviewed 04/24 pain meds prn - for cancer-related acute on chronic pain from RLE sarcoma - increased oxycodone to q6h prn at low dose. - will try low dose long-acting pain medicine. she has a lot of night pain. ordered MS contin 7.5 mg bid 04/24 - wound continues to appear infected based on photo, culture with staph sensi pending, continue same antibiotics above narrow based on sensis once blood cultures negative x 48h (2) Metastatic disease: Plan: CT chest/abd/pelvis was ordered by her PCP Dr Bower in the last 2 weeks - this showed mets to the inguinal lymph nodes and lungs MRI of RLE also showed local progression and lymphadenopathy Overall picture consistent with metastatic sarcoma which has an extremely poor prognosis. I discussed these findings with her 04/25 at length and that leg surgery would no longer be an option because it has spread beyond the leg. Potential treatment would be palliative chemotherapy which I don't think she would tolerate well. We did discuss the option of medical oncology consultation. She is not surprised at these results, suspected it, and is inclined toward hospice / comfort care. She does not have a lot of social support however because one son is undergoing chemo and in ICU currently, some other family members are struggling with addiction, and I do not think she has a lot of financial resources. I discussed with healthcare translator who will meet with her about options. 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 just completed radiation therapy by Dr Villeda in 12/2022 (6) Anemia: Plan: Hb 9.9 at admission Now <8 and stable after dilutional drop no overt GI bleeding no bleeding from her RLE wound reviewed labs - iron stores might be mildly low started qod iron, mainly inflammatory block related to cancer ferritin mildly elevated, folate and B12 wnl (7) Benign essential hypertension: Plan: cont metoprolol BID (8) Stroke: Plan: history of such remains on asa for secondary prevention (9) Atrial fibrillation: Plan: outpatient cardiology records show that her a.fib/flutter has been paroxysmal in the past since her a.fib/flutter has been so infrequent she is not on anticoagulation if she were to develop this on a more permanent basis she would indeed need anticoagulation cont on telemetry monitoring cont beta lilibeth (10) Paroxysmal atrial flutter: Plan: as above (11) S/P CABG x 1: Plan: s/p acute CT 2007 followed by CABG same year records also mention she has had stents cont asa cont beta lilibeth holding statin due to daptomycin use (12) CAD (coronary artery disease): Plan: as above no ischemic symptoms no evidence of ACS (13) Elevated troponin: Plan: minimal likely myocardial demand ischemia in setting of sepsis, wound infection, etc no evidence of ACS (14) DVT prophylaxis: Plan: lovenox daily Plan Juan Contreras at [phone]; the voicemail box was full; could not leave message. son Ernie at the phone # listed in the chart - Dr. Soliman left voicemail, later found out he is hospitalized DVT ppx - enoxaparin 30 qd Admission and Anticipated Discharge Date Admission Date: April 22, 2023 Subjective right leg pain from wound is remaining pretty severe, has been progressively worsening for weeks to months and she's noticed more nodules in her thighs. We discussed recent tests, see below. she's hesitant about opioids but pain control is a big issue. She hasn't noticed improvement in pain with the antibiotics. Physical Exam 2 Physical Exam: PHYSICAL EXAMINATION Last 24h vital signs reviewed, see documentation in flowsheet General: lying in bed resting HEENT: Normocephalic, atraumatic, pupils round and equal, sclerae anicteric, no conjunctival injection, moist mucus membranes Lungs: Normal respiratory effort. Heart: deferred Abdomen: nondistended. Extremities: Warm, dry, well-perfused. mild extremity edema. right leg wound is currently dressed and wrapped in Jonah bandage - unchanged Neuro: Alert and oriented x self, hospital, situation, face symmetric, moves 4 extremities well Psych: normal affect and behavior Results & Data Results & Data Vital Signs (Past 12 Hours) Vital Signs Temp Pulse Pulse Resp BP Pulse Ox O2 Del Method 04/25/23 15:10 36.7 C 61 16 126/66 95 Room Air 04/25/23 11:48 36.6 C 72 16 150/73 H 94 Room Air 04/25/23 08:10 36.8 C 50 L 16 129/63 95 Room Air 04/25/23 07:45 52 L 04/25/23 04:48 61 04/25/23 04:22 36.6 C 57 L 18 124/59 L 96 Room Air Laboratory Results 04/24/23 06:15 04/25/23 06:25 PG Care Time/CCT Total # of Minutes Spent Total Time Spent with Patient: Total time spent is greater than 50% in coordination of care (as documented) at patient's floor/unit and/or counseling patient: Coding Level of Care Code 18897 SUB INP/OBS CARE 2/35MIN Diagnoses Wound infection T14.8XXA; L08.9 Metastatic disease C79.9 Leg ulcer L97.915 Laterality: right Non-pressure ulcer stage: with muscle involvement without evidence of necrosis Sepsis A41.9 Sarcoma of right lower extremity C49.21 Anemia D64.9 Benign essential hypertension I10 Stroke I63.9 Atrial fibrillation I48.91 Paroxysmal atrial flutter I48.92 S/P CABG x 1 Z95.1 CAD (coronary artery disease) I25.10 Elevated troponin R79.89 DVT prophylaxis Z29.9 (3) Leg ulcer Laterality: right Non-pressure ulcer stage: with muscle involvement without evidence of necrosis Qualified Code(s): L97.915 - 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
[2023-04-25] MEDS: ENOXAPARIN INJ 30 MG/0.3 ML SYR SQ SCH (20:22)
[2023-04-25] MEDS ORDERED: MoRPHine SULFATE CR 15 MG TABCR PO SCH (21:00)
[2023-04-26] MEDS: oxyCODONE HCL IR 5 MG TAB (IMMEDIATE RELEASE) PO PRN ×5 (01:13→20:26)
[2023-04-26] MEDS: AMPICILLIN/SULBACTAM SOD 3,000 MG in SODIUM CHLOR 0.9% MINI-B 100 ML IV SCH ×4 (05:03→20:25)
[2023-04-26] MEDS: PANTOprazole 40 MG TAB PO SCH (08:21)
[2023-04-26] MEDS: ASPIRIN 81 MG ECTAB PO SCH (08:21)
[2023-04-26] MEDS: METOPROLOL SUCC 50MG EXT REL TAB PO SCH ×2 (08:21→20:26)
[2023-04-26] MEDS: metroNIDAZOLE 0.75% TOPICAL GEL 45 GM TUBE TOP SCH (08:25)
[2023-04-26] MEDS ORDERED: oxyCODONE HCL IR 5 MG TAB (IMMEDIATE RELEASE) PO STA (13:46)
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
--- NOTE | 2023-04-26 16:10 | Hospitalist Progress Note ---
Date of Service April 26, 2023 Assessment & Plan (1) Wound infection: Plan: 87 y/o with longstanding RLE sarcoma and chronic wound related to this. Presented with sepsis related to MSSA wound infection of RLE. Recent outpatient imaging confirmed metastatic disease consistent with progression of her sarcoma. chronic RLE ulceration from her long-standing sarcoma that has had prior surgical excision on multiple occasions as well as XRT growing staph aureus (MSSA) from the wound blood cx's negative this wound infection is the likely source of her presenting sepsis pip-tazo and daptomycin started 04/22 and changed to amp-sulbactam 04/25. Day 5 of 5-7d IV antibiotics then change to oral for 7d wound care consult recs and photos reviewed 04/24 pain meds prn - for cancer-related acute on chronic pain from RLE sarcoma - increased oxycodone to q4h prn, dose later increased to 7.5 mg per palliative care pain has not improved with treatment of infection (2) Metastatic disease: Plan: CT chest/abd/pelvis was ordered by her PCP Dr Bower in the last 2 weeks - this showed mets to the inguinal lymph nodes and lungs MRI of RLE also showed local progression and lymphadenopathy Overall picture consistent with metastatic sarcoma which has an extremely poor prognosis. I discussed these findings with her 04/25 at length and that leg surgery would no longer be an option because it has spread beyond the leg. Potential treatment would be palliative chemotherapy which I don't think she would tolerate well. We did discuss the option of medical oncology consultation. She is not surprised at these results, suspected it, and is inclined toward hospice / comfort care. She does not have a lot of social support however because one son is undergoing chemo and in ICU currently, some other family members are struggling with addiction, and I do not think she has a lot of financial resources. Consulted palliative care 04/[address] Cano and with urgent care nurse practitioner. Planning for discharge with home hospice. (3) Leg ulcer: Plan: large, RLE 2nd to sarcoma s/p excision multiple times in the past and courses of palliative XRT (4) Sepsis: Plan: 2nd to #1 - resolved urine cx neg blood cx's neg - reviewed NGTD 04/26 (5) Sarcoma of right lower extremity: Plan: original dx 2016 s/p excision multiple times just completed radiation therapy by Dr Villeda in 12/2022 (6) Anemia: Plan: Hb 9.9 at admission Now <8 and stable after dilutional drop no overt GI bleeding no bleeding from her RLE wound reviewed labs - iron stores might be mildly low started qod iron, mainly inflammatory block related to cancer ferritin mildly elevated, folate and B12 wnl (7) Benign essential hypertension: Plan: cont metoprolol BID (8) Stroke: Plan: history of such remains on asa for secondary prevention (9) Atrial fibrillation: Plan: outpatient cardiology records show that her a.fib/flutter has been paroxysmal in the past cont beta lilibeth, not on chronic anticoagulation (10) Paroxysmal atrial flutter: Plan: as above (11) S/P CABG x 1: Plan: s/p acute GA 2007 followed by CABG same year records also mention she has had stents cont asa cont beta lilibeth holding statin due to daptomycin use (12) CAD (coronary artery disease): Plan: as above no ischemic symptoms no evidence of ACS (13) Elevated troponin: Plan: minimal likely myocardial demand ischemia in setting of sepsis, wound infection, etc no evidence of ACS (14) DVT prophylaxis: Plan: lovenox daily Plan Juan Contreras at [phone]; the voicemail box was full; could not leave message. son Ernie at the phone # listed in the chart - Dr. Soliman left voicemail, later found out he is hospitalized. DVT ppx - enoxaparin 30 qd Admission and Anticipated Discharge Date Admission Date: April 22, 2023 Subjective Seen after oxycodone dose and mildly sleepy, had a lot going on today, visited with palliative care, decided for home with hospice. RLE pain remains severe improved after oxycodone Physical Exam Physical Exam: PHYSICAL EXAMINATION Last 24h vital signs reviewed, see documentation in flowsheet General: sleeping aroused easily to voice HEENT: Normocephalic, atraumatic, pupils round and equal, sclerae anicteric, no conjunctival injection, moist mucus membranes Lungs: Normal respiratory effort. Heart: deferred Abdomen: nondistended. Extremities: Warm, dry, well-perfused. no extremity edema. right leg wound is currently dressed and wrapped in Jonah bandage - reviewed photo from wound nurse Neuro: Alert and oriented x self, hospital, situation, face symmetric, moves 4 extremities well Psych: normal affect and behavior Results & Data Results & Data Vital Signs (Past 12 Hours) Vital Signs Temp Pulse Pulse Resp BP Pulse Ox O2 Del Method 04/26/23 15:47 75 04/26/23 07:51 36.6 C 69 16 135/69 97 Room Air 04/26/23 06:01 73 04/26/23 04:07 36.8 C 62 18 135/67 95 Room Air PG Care Time/CCT Total # of Minutes Spent Total Time Spent with Patient: Total time spent is greater than 50% in coordination of care (as documented) at patient's floor/unit and/or counseling patient: Coding Level of Care Code 45096 SUB INP/OBS CARE 2/35MIN Diagnoses Wound infection T14.8XXA; L08.9 Metastatic disease C79.9 Leg ulcer L97.915 Laterality: right Non-pressure ulcer stage: with muscle involvement without evidence of necrosis Sepsis A41.9 Sarcoma of right lower extremity C49.21 Anemia D64.9 Benign essential hypertension I10 Stroke I63.9 Atrial fibrillation I48.91 Paroxysmal atrial flutter I48.92 S/P CABG x 1 Z95.1 CAD (coronary artery disease) I25.10 Elevated troponin R79.89 DVT prophylaxis Z29.9 (3) Leg ulcer Laterality: right Non-pressure ulcer stage: with muscle involvement without evidence of necrosis Qualified Code(s): L97.915 - 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
[2023-04-26] MEDS: ENOXAPARIN INJ 30 MG/0.3 ML SYR SQ SCH (20:25)
[2023-04-27] MEDS: oxyCODONE HCL IR 5 MG TAB (IMMEDIATE RELEASE) PO PRN ×4 (02:27→20:31)
[2023-04-27] MEDS: AMPICILLIN/SULBACTAM SOD 3,000 MG in SODIUM CHLOR 0.9% MINI-B 100 ML IV SCH ×4 (05:40→22:48)
[2023-04-27] MEDS: METOPROLOL SUCC 50MG EXT REL TAB PO SCH ×2 (08:26→20:30)
[2023-04-27] MEDS: metroNIDAZOLE 0.75% TOPICAL GEL 45 GM TUBE TOP SCH (08:27)
[2023-04-27] MEDS: DOCUSATE SODIUM 100 MG CAP PO PRN (08:27)
[2023-04-27] MEDS: ASPIRIN 81 MG ECTAB PO SCH (08:27)
[2023-04-27] MEDS: PANTOprazole 40 MG TAB PO SCH (08:27)
[2023-04-27] MEDS: FERROUS SULFATE 325 MG TAB PO SCH (08:27)
[2023-04-27] MEDS: ACETAMINOPHEN 325 MG TAB PO PRN ×2 (11:34→18:26)
--- NOTE | 2023-04-27 16:10 | Hospitalist Progress Note ---
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 Presented with sepsis related to MSSA wound infection of RLE. Recent outpatient imaging confirmed metastatic disease consistent with progression of her sarcoma. chronic RLE ulceration from her long-standing sarcoma that has had prior surgical excision on multiple occasions as well as XRT growing staph aureus (MSSA) from the wound blood cx's negative this wound infection is the likely source of her presenting sepsis pip-tazo and daptomycin started 04/22 and changed to amp-sulbactam 04/25. 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 I discussed these findings with her 04/25 at length and that leg surgery would no longer be an option because it has spread beyond the leg. Potential treatment would be palliative chemotherapy which I don't think she would tolerate well. We did discuss the option of medical oncology consultation. She is not surprised at these results, suspected it, and is inc lined toward hospice / comfort care. She does not have a lot of social support however because one son is undergoing chemo and in ICU currently, some other family members are struggling with addiction, and I do not think she has a lot of financial resources. Consulted palliative care 04/[address] Cano and with resident care manager rn. Planning for discharge with home hospice. 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 just completed radiation therapy by Dr Villeda in 12/2022 (6) Anemia: Plan: Hb 9.9 at admission Now <8 and stable after dilutional drop no overt GI bleeding no bleeding from her RLE wound - iron stores might be mildly low started qod iron, mainly inflammatory block related to cancer ferritin mildly elevated, folate and B12 wnl (7) Benign essential hypertension: Plan: cont metoprolol BID (8) Stroke: Plan: history of such remains on asa for secondary prevention (9) Atrial fibrillation: Plan: outpatient cardiology records show that her a.fib/flutter has been paroxysmal in the past cont beta lilibeth, not on chronic anticoagulation (10) Paroxysmal atrial flutter: Plan: as above (11) S/P CABG x 1: Plan: s/p acute [place] 2007 followed by CABG same year records also mention she has had stents cont asa cont beta lilibeth holding statin due to daptomycin use (12) CAD (coronary artery disease): Plan: as above no ischemic symptoms no evidence of ACS (13) Elevated troponin: Plan: minimal likely myocardial demand ischemia in setting of sepsis, wound infection, etc no evidence of ACS (14) DVT prophylaxis: Plan: lovenox daily Plan Juan Contreras at [phone]; the voicemail box was full; could not leave message. son Ernie at the phone # listed in the chart - Dr. Soliman left voicemail, later found out he is hospitalized currently on 4W. DVT ppx - enoxaparin 30 qd Admission and Anticipated Discharge Date Admission Date: April 22, 2023 Subjective Paige is feeling better, she feels stronger and her right leg pain is better controlled on higher dose oxycodone though still at best around a 7 out of 10. It tends to wear off in 4 to 5 hours. we are planning for discharge with home hospice Sunday Physical Exam Physical Exam: PHYSICAL EXAMINATION Last 24h vital signs reviewed, see documentation in flowsheet General: awake alert and reclining in bed HEENT: Normocephalic, atraumatic, pupils round and equal, sclerae anicteric, no conjunctival injection, moist mucus membranes Lungs: Normal respiratory effort. Heart: deferred Abdomen: nondistended. Extremities: Warm, dry, well-perfused. no extremity edema. right leg wound is currently dressed and wrapped - no strikethrough Neuro: Alert and oriented x self, hospital, situation, face symmetric, moves 4 extremities well Psych: normal affect and behavior Results & Data Results & Data Vital Signs (Past 12 Hours) Vital Signs Temp Pulse Pulse Resp BP Pulse Ox O2 Del Method 04/27/23 15:38 36.6 C 65 16 106/61 95 Room Air 04/27/23 15:27 68 04/27/23 12:40 55 L 04/27/23 11:35 36.7 C 62 19 117/65 94 Room Air 04/27/23 07:51 36.3 C L 64 18 108/54 L 95 Room Air 04/27/23 07:12 36.6 C 62 18 111/74 96 Room Air PG Care Time/CCT Total # of Minutes Spent Total Time Spent with Patient: Total time spent is greater than 50% in coordination of care (as documented) at patient's floor/unit and/or counseling patient: Coding Level of Care Code 17119 SUB INP/OBS CARE 04/26MIN Diagnoses Wound infection T14.8XXA; L08.9 Metastatic disease C79.9 Leg ulcer L97.915 Laterality: right Non-pressure ulcer stage: with muscle involvement without evidence of necrosis Sepsis A41.9 Sarcoma of right lower extremity C49.21 Anemia D64.9 Benign essential hypertension I10 Stroke I63.9 Atrial fibrillation I48.91 Paroxysmal atrial flutter I48.92 S/P CABG x 1 Z95.1 CAD (coronary artery disease) I25.10 Elevated troponin R79.89 DVT prophylaxis Z29.9 (3) Leg ulcer Laterality: right Non-pressure ulcer stage: with muscle involvement without evidence of necrosis Qualified Code(s): L97.915 - 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
[2023-04-27] MEDS: ENOXAPARIN INJ 30 MG/0.3 ML SYR SQ SCH (20:29)
[2023-04-28] MEDS: oxyCODONE HCL IR 5 MG TAB (IMMEDIATE RELEASE) PO PRN ×5 (01:40→20:18)
[2023-04-28] MEDS: AMPICILLIN/SULBACTAM SOD 3,000 MG in SODIUM CHLOR 0.9% MINI-B 100 ML IV SCH ×4 (04:51→21:07)
[2023-04-28] MEDS: ACETAMINOPHEN 325 MG TAB PO PRN (04:52)
[2023-04-28 07:20] LABS: Creatinine Clr Calc Pharmacy 45.2 ml/min; Est GFR (African American) 87.3 ml/min; Est GFR (Non-African American) 75.3 ml/min
[2023-04-28] MEDS: PANTOprazole 40 MG TAB PO SCH (10:27)
[2023-04-28] MEDS: METOPROLOL SUCC 25MG EXT REL TAB PO SCH ×2 (10:27→21:08)
[2023-04-28] MEDS: ASPIRIN 81 MG ECTAB PO SCH (10:27)
[2023-04-28] MEDS: metroNIDAZOLE 0.75% TOPICAL GEL 45 GM TUBE TOP SCH (10:28)
--- NOTE | 2023-04-28 14:58 | Hospitalist Progress Note ---
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 Presented with sepsis related to MSSA wound infection of RLE. Recent outpatient imaging confirmed metastatic disease consistent with progression of her sarcoma. chronic RLE ulceration from her long-standing sarcoma that has had prior surgical excision on multiple occasions as well as XRT growing staph aureus (MSSA) from the wound blood cx's negative this wound infection is the likely source of her presenting sepsis pip-tazo and daptomycin started 04/22 and changed to amp-sulbactam 04/25. 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 I discussed these findings with her 04/25 at length and that leg surgery would no longer be an option because it has spread beyond the leg. Potential treatment would be palliative chemotherapy which I don't think she would tolerate well. We did discuss the option of medical oncology consultation. She is not surprised at these results, suspected it, and is inclined toward hospice / comfort care. She does not have a lot of social support however because one son is undergoing chemo and in ICU currently, some other family members are struggling with addiction, and I do not think she has a lot of financial resources. Consulted palliative care 04/[address] Cano and with care consultant. Planning for discharge with home hospice. 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 just completed radiation therapy by Dr Villeda in 12/2022 (6) Anemia: Plan: Hb 9.9 at admission Now <8 and stable after dilutional drop no overt GI bleeding no bleeding from her RLE wound - iron stores might be mildly low started qod iron, mainly inflammatory block related to cancer ferritin mildly elevated, folate and B12 wnl (7) Benign essential hypertension: Plan: cont metoprolol BID -BPs on low side, reduced dose by 50% (8) Stroke: Plan: history of such remains on asa for secondary prevention (9) Atrial fibrillation: Plan: outpatient cardiology records show that her a.fib/flutter has been paroxysmal in the past cont beta lilibeth, not on chronic anticoagulation (10) Paroxysmal atrial flutter: Plan: as above (11) S/P CABG x 1: Plan: s/p acute [place] 2007 followed by CABG same year records also mention she has had stents cont asa cont beta lilibeth holding statin due to daptomycin use (12) CAD (coronary artery disease): Plan: as above no ischemic symptoms no evidence of ACS (13) Elevated troponin: Plan: minimal likely myocardial demand ischemia in setting of sepsis, wound infection, etc no evidence of ACS (14) DVT prophylaxis: Plan: lovenox daily Plan Juan Contreras at [phone]; the voicemail box was full; could not leave message. son Ernie at the phone # listed in the chart - Dr. Soliman left voicemail, later found out he is hospitalized currently on 4W. DVT ppx - enoxaparin 30 qd Admission and Anticipated Discharge Date Admission Date: April 22, 2023 Subjective Doing ok but 7.5 oxycodone not enough to control R leg pain from sarcoma wound. Family visited today. Physical Exam Physical Exam: PHYSICAL EXAMINATION Last 24h vital signs reviewed, see documentation in flowsheet General: awake alert and sitting in bed eating lunch HEENT: Normocephalic, atraumatic, pupils round and equal, sclerae anicteric, no conjunctival injection, moist mucus membranes Lungs: Normal respiratory effort. CTAB no rrw Heart: reg no mrg Abdomen: nondistended. Extremities: Warm, dry, well-perfused. mild RLE edema distal to bandage. no L extremity edema. right leg wound is currently dressed and wrapped - no strikethrough Neuro: Alert and oriented x self, hospital, situation, face symmetric, moves 4 extremities well Psych: normal affect and behavior Results & Data Results & Data Vital Signs (Past 12 Hours) Vital Signs Temp Pulse Pulse Resp BP Pulse Ox O2 Del Method 04/28/23 11:55 36.5 C 73 16 101/58 L 93 Room Air 04/28/23 08:02 36.8 C 61 16 94/59 L 95 Room Air 04/28/23 08:00 65 04/28/23 04:25 63 18 106/57 L 95 Room Air PG Care Time/CCT Total # of Minutes Spent Total Time Spent with Patient: Total time spent is greater than 50% in coordination of care (as documented) at patient's floor/unit and/or counseling patient: Coding Level of Care Code 67032 SUB INP/OBS CARE 2/35MIN Diagnoses Wound infection T14.8XXA; L08.9 Metastatic disease C79.9 Leg ulcer L97.915 Laterality: right Non-pressure ulcer stage: with muscle involvement without evidence of necrosis Sepsis A41.9 Sarcoma of right lower extremity C49.21 Anemia D64.9 Benign essential hypertension I10 Stroke I63.9 Atrial fibrillation I48.91 Paroxysmal atrial flutter I48.92 S/P CABG x 1 Z95.1 CAD (coronary artery disease) I25.10 Elevated troponin R79.89 DVT prophylaxis Z29.9 (3) Leg ulcer Laterality: right Non-pressure ulcer stage: with muscle involvement without e vidence of necrosis Qualified Code(s): L97.915 - 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
[2023-04-28] MEDS: ENOXAPARIN INJ 30 MG/0.3 ML SYR SQ SCH (21:07)
[2023-04-29] MEDS: AMPICILLIN/SULBACTAM SOD 3,000 MG in SODIUM CHLOR 0.9% MINI-B 100 ML IV SCH ×2 (04:00→10:27)
[2023-04-29] MEDS: oxyCODONE HCL IR 5 MG TAB (IMMEDIATE RELEASE) PO PRN ×3 (06:44→20:38)
[2023-04-29] MEDS: ASPIRIN 81 MG ECTAB PO SCH (08:30)
[2023-04-29] MEDS: FERROUS SULFATE 325 MG TAB PO SCH (08:30)
[2023-04-29] MEDS: METOPROLOL SUCC 25MG EXT REL TAB PO SCH (08:30)
[2023-04-29] MEDS: PANTOprazole 40 MG TAB PO SCH (08:31)
[2023-04-29] MEDS: ACETAMINOPHEN 325 MG TAB PO PRN (08:34)
[2023-04-29] MEDS: metroNIDAZOLE 0.75% TOPICAL GEL 45 GM TUBE TOP SCH (10:35)
--- NOTE | 2023-04-29 14:34 | Hospitalist Progress Note ---
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 Presented with sepsis related to MSSA wound infection of RLE. Recent outpatient imaging confirmed metastatic disease consistent with progression of her sarcoma. chronic RLE ulceration from her long-standing sarcoma that has had prior surgical excision on multiple occasions as well as XRT growing staph aureus (MSSA) from the wound blood cx's negative this wound infection is the likely source of her presenting sepsis pip-tazo and daptomycin started 04/22 and changed to amp-sulbactam 04/25-. Completed 7d IV antibiotics. 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 I discussed these findings with her 04/25 at length and that leg surgery would no longer be an option because it has spread beyond the leg. Potential treatment would be palliative chemotherapy which I don't think she would tolerate well. We did discuss the option of medical oncology consult ation. She is not surprised at these results, suspected it, and is inclined toward hospice / comfort care. She does not have a lot of social support however because one son is undergoing chemo and in ICU currently, some other family members are struggling with addiction, and I do not think she has a lot of financial resources. Consulted palliative care 04/[address] Cano and with care navigator. Planning for discharge with home hospice. 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 just completed radiation therapy by Dr Villeda in 12/2022 (6) Anemia: Plan: Hb 9.9 at admission Now <8 and stable after dilutional drop no overt GI bleeding no bleeding from her RLE wound - iron stores might be mildly low started qod iron, mainly inflammatory block related to cancer ferritin mildly elevated, folate and B12 wnl (7) Benign essential hypertension: Plan: cont metoprolol BID -BPs on low side, likely affected by oxycodone, reduced dose (8) Stroke: Plan: history of such remains on asa for secondary prevention (9) Atrial fibrillation: Plan: outpatient cardiology records show that her a.fib/flutter has been paroxysmal in the past cont beta lilibeth at reduced dose, not on chronic anticoagulation (10) Paroxysmal atrial flutter: Plan: as above (11) S/P CABG x 1: Plan: s/p acute [place] 2007 followed by CABG same year records also mention she has had stents cont asa cont beta lilibeth holding statin (12) CAD (coronary artery disease): Plan: as above no ischemic symptoms no evidence of ACS (13) Elevated troponin: Plan: minimal likely myocardial demand ischemia in setting of sepsis, wound infection, etc no evidence of ACS (14) DVT prophylaxis: Plan: lovenox daily Plan Juan Contreras at [phone]; the voicemail box was full; could not leave message. son Ernie at the phone # listed in the chart - Dr. Soliman left voicemail, later found out he is hospitalized currently on 4W. she reports family visited 04/28 DVT ppx - enoxaparin 30 qd Admission and Anticipated Discharge Date Admission Date: April 22, 2023 Subjective R leg pain improved with increase in oxycodone dose to 10 mg though she is a little sleepy and BP is lower. She thinks the appearance of her wound has improved. Physical Exam Physical Exam: PHYSICAL EXAMINATION Last 24h vital signs reviewed, see documentation in flowsheet General: awake alert and lying on bed exam unchanged 04/29: HEENT: Normocephalic, atraumatic, pupils round and equal, sclerae anicteric, no conjunctival injection, moist mucus membranes Lungs: Normal respiratory effort. CTAB no rrw Heart: reg no mrg Abdomen: nondistended. Extremities: Warm, dry, well-perfused. mild RLE edema distal to bandage has improved. no L extremity edema. right leg wound is currently dressed and wrapped - no strikethrough Neuro: Alert and oriented x self, hospital, situation, face symmetric, moves 4 extremities well Psych: normal affect and behavior Results & Data Results & Data Vital Signs (Past 12 Hours) Vital Signs Temp Pulse Pulse Resp BP Pulse Ox O2 Del Method 04/29/23 11:29 36.6 C 78 16 84/39 L 98 Room Air 04/29/23 07:59 36.8 C 80 16 117/66 98 Room Air 04/29/23 07:24 70 04/29/23 04:47 36.5 C 65 18 106/62 97 Room Air PG Care Time/CCT Total # of Minutes Spent Total Time Spent with Patient: Total time spent is greater than 50% in coordination of care (as documented) at patient's floor/unit and/or counseling patient: Coding Level of Care Code 75152 SUB INP/OBS CARE 2/35MIN Diagnoses Wound infection T14.8XXA; L08.9 Metastatic disease C79.9 Leg ulcer L97.915 Laterality: right Non-pressure ulcer stage: with muscle involvement without evidence of necrosis Sepsis A41.9 Sarcoma of right lower extremity C49.21 Anemia D64.9 Benign essential hypertension I10 Stroke I63.9 Atrial fibrillation I48.91 Paroxysmal atrial flutter I48.92 S/P CABG x 1 Z95.1 CAD (coronary artery disease) I25.10 Elevated troponin R79.89 DVT prophylaxis Z29.9 (3) Leg ulcer Laterality: right Non-pressure ulcer stage: with muscle involvement without evidence of necrosis Qualified Code(s): L97.915 - 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
[2023-04-29] MEDS: ENOXAPARIN INJ 30 MG/0.3 ML SYR SQ SCH (20:38)
[2023-04-29] MEDS: AMOXICILLIN/CLAVULANATE 875 MG TAB PO SCH (20:38)
[2023-04-29] MEDS: DOCUSATE SODIUM 100 MG CAP PO PRN (20:39)
[2023-04-30] MEDS: oxyCODONE HCL IR 5 MG TAB (IMMEDIATE RELEASE) PO PRN ×3 (02:00→11:52)
[2023-04-30] MEDS: ACETAMINOPHEN 325 MG TAB PO PRN ×2 (08:20→13:13)
[2023-04-30] MEDS: DOCUSATE SODIUM 100 MG CAP PO PRN (08:20)
[2023-04-30] MEDS: ASPIRIN 81 MG ECTAB PO SCH (08:21)
[2023-04-30] MEDS: PANTOprazole 40 MG TAB PO SCH (08:21)
[2023-04-30] MEDS: AMOXICILLIN/CLAVULANATE 875 MG TAB PO SCH (08:22)
[2023-04-30] MEDS: metroNIDAZOLE 0.75% TOPICAL GEL 45 GM TUBE TOP SCH (08:23)
[2023-04-30] MEDS ORDERED: METOPROLOL SUCC 25MG EXT REL TAB PO SCH (09:00)
--- NOTE | 2023-04-30 19:43 | Discharge Summary ---
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 Patient reports that around 12:00 today she developed chills and body shakes as well as diffuse generalized weakness and inability to walk. She had one loose bowel movement. She has constant discomfort in her RLE, is worse today. In the ER she is afebrile, HD stable. Initial lactate found to be 8. She was given IVF as well as broad spectrum empiric antibiotics after cultures were drawn. Repeat lactate improved to 4. Patient presently complaining only of fatigue. Otherwise denies abdominal pain, nausea, vomiting, cough, SOB. No urinary complaints. In regards to her soft tissue sarcoma. She has Home Health present to her house on Sunday/Sunday and Sunday for dressing changes. She is working with her PCP to schedule an above knee amputation. ER Course: Tylenol Daptomycin Zosyn NSS Principal Diagnosis Sepsis due to right lower extremity MSSA wound infection / cellulitis. Metastatic sarcoma. Discharge Exam PHYSICAL EXAMINATION Last 24h vital signs reviewed, see documentation in flowsheet General: awake alert and lying on bed HEENT: Normocephalic, atraumatic, pupils round and equal, sclerae anicteric, no conjunctival injection, moist mucus membranes Lungs: Normal respiratory effort. CTAB no rrw Heart: reg no mrg Abdomen: nondistended. Extremities: Warm, dry, well-perfused. RLE leg wound - large posterior wound with nodules, covered with yellowish exudate, no surrounding cellulitis, mild drainage which has improved. RLE with multiple nodules distant to the wound including around knee and thigh Neuro: Alert and oriented x self, hospital, situation, face symmetric, moves 4 extremities well Psych: normal affect and behavior Discharge Data Allergies Allergy/AdvReac Type Severity Reaction Status Date / Time cephalexin Allergy Intermediate Hives Verified 04/25/23 07:48 perflutren Allergy Intermediate Muscle Verified 04/12/23 11:18 tightness propylene glycol Allergy Intermediate Muscle Verified 04/12/23 11:18 tightness sulfamethoxazole Allergy Intermediate Rash Verified 04/12/23 11:18 trimethoprim Allergy Intermediate Rash Verified 04/12/23 11:18 Sulfa (Sulfonamide AdvReac Severe Depleted Verified 04/12/23 11:18 Antibiotics) platelet count apixaban [From Eliquis] AdvReac Intermediate Dizziness, Verified 04/12/23 11:18 nausea tramadol AdvReac Intermediate Hallucinati Verified 04/12/23 11:18 ons Consultations 04/22/23 18:03 ED Decision to Admit Stat 04/26/23 08:45 Consult Palliative Care Routine Ordered Studies Chest X-Ray 04/22/23 16:46 XR chest 1V portable CLINICAL HISTORY: Sepsis TECHNIQUE: Single frontal radiograph of the chest was obtained. Comparison: Comparison is made to rib series 03/05/2023 FINDINGS: Median sternotomy wires are unchanged. The aorta is tortuous. The remainder of the cardiomediastinal silhouette is unremarkable. Eventration of the right hemidiaphragm is unchanged. The lungs are clear. Partial visualization of previously noted pulmonary nodules compatible with metastatic disease. No evidence of pleural effusion or pneumothorax. IMPRESSION: No acute abnormalities and in particular no radiographic evidence of pneumonia. Redemonstration of pulmonary metastases. ACT 112: Negative or not required by law. Electronically signed by: Blayne May M.D. 04/22/2023 6:15 PM 04/24/23 06:15 04/28/23 05:55 Hospital Course (1) Wound infection: 87 y/o with longstanding RLE sarcoma and chronic wound related to this. Presented with sepsis related to MSSA wound infection of RLE. Recent outpatient imaging confirmed metastatic disease consistent with progression of her sarcoma. chronic RLE ulceration from her long-standing sarcoma that has had prior surgical excision on multiple occasions as well as XRT growing staph aureus (MSSA) from the wound blood cx's negative pip-tazo and daptomycin started 04/22 and changed to amp-sulbactam 04/25-. Completed 7d IV antibiotics. Changed to oral amoxacillin-clav for 7d wound care consulted palliative care consulted this admission pain meds prn - for cancer-related acute on chronic pain from RLE sarcoma - increased oxycodone to 10 mg q4h prn on 04/29 with good result discharging home with hospice, intake 04/30 (2) Metastatic disease: CT chest/abd/pelvis was ordered by her PCP Dr Bower in the last 2 weeks - this showed mets to the inguinal lymph nodes and lungs MRI of RLE also showed local progression and lymphadenopathy Overall picture consistent with metastatic sarcoma which has an extremely poor prognosis. I discussed these findings with her 04/25 at length and that leg surgery would no longer be an option because it has spread beyond the leg. Potential treatment would be palliative chemotherapy which I don't think she would tolerate well. We did discuss the option of medical oncology consultation. She is not surprised at these results, suspected it, and is inclined toward hospice / comfort care. She does not have a lot of social support however because one son is undergoing chemo and in ICU currently, some other family members are struggling with addiction, and I do not think she has a lot of financial resources. Consulted palliative care 04/[address] Cano and with chiropractic care. Planning for discharge with home hospice. hospice will meet with her planning for intake Sunday (3) Leg ulcer: large, RLE 2nd to sarcoma s/p excision multiple times in the past and courses of palliative XRT (4) Sepsis: 2nd to #1 - resolved urine cx neg blood cx's finalized neg (5) Sarcoma of right lower extremity: original dx 2015 s/p excision multiple times just completed radiation therapy by Dr Villeda in 12/2022 (6) Anemia: Hb 9.9 at admission Now <8 and stable after dilutional drop no overt GI bleeding no bleeding from her RLE wound - iron stores might be mildly low started qod iron, mainly inflammatory block related to cancer ferritin mildly elevated, folate and B12 wnl (7) Benign essential hypertension: cont metoprolol BID -BPs on low side, likely affected by oxycodone, reduced dose (8) Stroke: history of such (9) Atrial fibrillation: outpatient cardiology records show that her a.fib/flutter has been paroxysmal in the past cont beta lilibeth at reduced dose, not on chronic anticoagulation (10) Paroxysmal atrial flutter: as above (11) S/P CABG x 1: s/p acute MD 2007 followed by CABG same year records also mention she has had stents (12) CAD (coronary artery disease): as above no ischemic symptoms no evidence of ACS (13) Elevated troponin: minimal likely myocardial demand ischemia in setting of sepsis, wound infection, etc no evidence of ACS Total Time Total Time Spent Total Time Spent (In Minutes): I personally spent: 35-minute today on clinical care activities including: reviewing chart notes and vital signs discussion with chiropractic care examining and counseling the patient counseling the patient's family writing orders, prescriptions, discharge instruction documentation Discharge Plan Discharge Items Patient Disposition: Hospice - Home Reason For Visit: WEAKNESS, POSSIBLE INFECTION Discharge Diagnosis: Wound infection right leg, metastatic sarcoma Condition on Discharge: Serious Activity: Resume your previous activity Non-emergency contact: Primary Care Provider Call non-emergency contact if: you have any medication questions, your symptoms worsen and your pain is not controlled Follow-up/Referrals: Susu Bower DO [Primary Care Provider] - 05/03/23 11:05 am () Diet: Regular Addtl Attending Provider Instructions: You were treated for staph aureus wound infection of your right leg sarcoma wound Unfortunately recent outpatient imaging shows that the sarcoma is spreading both within your right leg and distantly to the lungs. Surgery of your leg will not cure the problem at this point, because it has already spread to the groin and lungs. A referral was made to hospice. Pain medication was increased. I sent a prescription for another week of antibiotics orally for the wound infection. Your blood pressure is lower because of needing increased pain medicine, so I decreased the dose of your metoprolol. I recommend stopping some other medications that are not providing you with comfort and do not have short-term benefit. Re Powell MD Pending Studies at Discharge: No Stand-Alone Forms: My [facility] Medications and DC Order Prescriptions: New amoxicillin-pot clavulanate 875-125 mg Tablet 1 tab PO BIDM Qty: 0 0RF metoprolol succinate 25 mg Tablet Extended Release 24 Hr 12.5 mg PO QAM Qty: 30 0RF oxycodone 5 mg Tablet 10 mg PO Q4H PRN (Reason: pain) Qty: 30 0RF acetaminophen 325 mg Tablet 650 mg PO Q4H PRN (Reason: fever or pain) Qty: 0 0RF metronidazole 0.75 % Gel 1 applic topical DAILY Qty: 45 0RF Continued cholecalciferol (vitamin D3) [Vitamin D3] 10 mcg (400 unit) capsule 10 mcg PO QAM Qty: 90 3RF nitroglycerin 0.4 mg tablet, sublingual 0.4 mg sublingual DIRECTED PRN (Reason: Chest Pain) Rx Instructions: PLACE ONE TABLET UNDER THE TONGUE EVERY 5 MINUTES FOR UP TO 3 DOSES OVER 15 MINUTES IF NEEDED FOR CHEST PAIN Centrum Silver Women 8 mg iron-400 mcg-300 mcg Tablet 1 tab PO QAM pantoprazole 20 mg tablet,delayed release (DR/EC) 10 mg PO QAM cyanocobalamin (vitamin B-12) [Vitamin B-12] 1,000 mcg Tablet 1,000 mcg PO QAM Discontinued metoprolol succinate 25 mg tablet extended release 24 hr 50 mg PO BID atorvastatin 80 mg tablet 80 mg PO QAM oxycodone 5 mg tablet 5 mg PO BID PRN (Reason: Pain) Discharge Orders: Discharge Order (Routine); Ordered 04/30/23 Ordered By: Re Powell Admission Data Admit Date/Time: 04/22/23 20:43 Attending Provider: Re Powell Admit Provider: Angelina Lopes Primary Care Provider: Susu Bower Other Providers: Angelina Lopes; Ping Cano Other Interventions: Discharge Summary Assessment (RN) Last Done: 04/30/23 13:42 Coding Level of Care Code 43861 INP/OBS DISCH >30 MIN Diagnoses Wound infection T14.8XXA; L08.9 Metastatic disease C79.9 Leg ulcer L97.915 Laterality: right Non-pressure ulcer stage: with muscle involvement without evidence of necrosis Sepsis A41.9 Sarcoma of right lower extremity C49.21 Anemia D64.9 Benign essential hypertension I10 Stroke I63.9 Atrial fibrillation I48.91 Paroxysmal atrial flutter I48.92 S/P CABG x 1 Z95.1 CAD (coronary artery disease) I25.10 Elevated troponin R79.89
== END 2023-04-30 15:10 | disposition hospice, home (50) | DRG 872 ==
LOC: ED 16:30 → SUATTDRO 20:43 → EDINP 20:43 → 2N 21:51